=== PATIENT | female | born 1950 | race Caucasian/White ===

== ENCOUNTER 2020-07-19 07:49 | Outpatient (REF) | payer MEDICARE, OTHER, SELFPAY ==
--- NOTE | 2020-07-19 | MM_ITS ---
EXAMINATION: MM SCREENING DIGITAL BREAST TOMOSYNTHESIS, BILATERAL CLINICAL INFORMATION: Screening. Asymptomatic. The lifetime risk of breast cancer based on the Tyrer-Cuzick Model is 7%. COMPARISON: Mammography: 07/15/2019, 06/24/2018, 04/25/2017 TECHNIQUE: Digital breast tomosynthesis is performed in both the craniocaudal and mediolateral oblique views along with computer-aided detection (CAD). Synthesized 2D images are generated from the tomosynthesis. Additional left MLO view is provided. FINDINGS: There are scattered areas of fibroglandular density (ACR BI-RADS breast composition Category b). There are no significant masses, abnormal calcifications, or other abnormalities. Breast tissue composition borders on predominantly fatty. Background fibroglandular densities are stable. There are no significant changes. IMPRESSION: No mammographic evidence of malignancy. ASSESSMENT: BI-RADS 1: Negative RECOMMENDATION: Routine annual mammography screening. This patient's information was entered into a reminder system with a target due date for their next mammogram.
== END 2020-07-19 07:50 | disposition home or self-care (01) ==
LOC: HO.MAMMO 07:49
PROVIDERS: PCP Internal Medicine; Visit Provider Internal Medicine
DX: Z12.31 Encounter for screening mammogram for malignant neoplasm of breast (principal)
CPT/HCPCS: 77063; 77067; 78014

== ENCOUNTER 2020-08-31 14:48 | Outpatient (REF) | payer MEDICARE, OTHER, SELFPAY | END 2020-08-31 14:49 | disposition home or self-care (01) | LOC: HO.LNP 14:48 | PROVIDERS: Visit Provider Internal Medicine | DX: Z20.828 Contact with and (suspected) exposure to other viral communicable diseases (principal) | CPT/HCPCS: U0003 ==

== ENCOUNTER 2020-11-14 15:37 | Outpatient (REF) | payer MEDICARE, OTHER, SELFPAY ==
[2020-11-14 16:29] LABS: Influenza A PCR NEGATIVE (Negative); Influenza B PCR NEGATIVE (Negative); Resp Syncy Virus RNA Qual PCR NEGATIVE (Negative); SARS COV2 PCR INHOUSE NEGATIVE (Negative)
== END 2020-11-14 15:38 | disposition home or self-care (01) ==
LOC: HO.LNP 15:37
PROVIDERS: Visit Provider Internal Medicine
DX: Z20.822 Contact with and (suspected) exposure to COVID-19 (principal)
CPT/HCPCS: 0241U

== ENCOUNTER 2020-11-28 14:57 | Outpatient (REF) | payer MEDICARE, OTHER, SELFPAY ==
[2020-11-28 15:16] LABS: MANUAL DIFF FLAG NO
[2020-11-28 15:20] LABS: Basophils Absolute Auto 0.1 X10*3/uL (0.0-0.2); Basophils Percent Auto 0.6 % (0-2); Eosinophils Absolute Auto 0.3 X10*3/uL (0.0-0.4); Hematocrit 42.1 % (37-47); Hemoglobin 13.8 g/dl (12.0-16.0); Imm Gran Abs Auto 0.03 X10*3/uL (0.00-0.03); Imm Gran Pct Auto 0.3 % (0.0-0.4); Lymphocytes Absolute Auto 2.1 X10*3/uL (1.2-4.9); Lymphocytes Percent Auto 23.5 % (20-40); Mean Corpuscular HGB Conc 32.8 g/dl (31.0-35.0); Mean Corpuscular Hemoglobin 27.9 pg (27.0-33.0); Mean Corpuscular Volume 85.1 fL (80-98); Mean Platelet Volume 9.6 fL (9.4-12.3); Monocytes Absolute Auto 0.7 X10*3/uL (0.1-1.2); Monocytes Percent Auto 7.3 % (2-11); Neutrophils Absolute Auto 5.8 X10*3/uL (2.0-8.3); Neutrophils Percent Auto 65.3 % (45-73); Platelet Count 357 X10*3/uL (160-400); Red Blood Count 4.95 X10*6/uL (4.20-5.50); Red Cell Distribution Width 14.7 % (11.0-16.0); White Blood Count 8.9 X10*3/uL (4.8-10.8)
[2020-11-28 15:47] LABS: Alanine Aminotransferase 27 U/L (0-31); Albumin Level 4.1 g/dL (3.5-5.0); Alkaline Phosphatase 103 U/L (39-117); Anion Gap 11 (12-20); Aspartate Amino Transferase 24 U/L (5-31); Bilirubin Total 1.1 mg/dL (0.0-1.0); Blood Urea Nitrogen 12 mg/dL (9-16); Calcium 9.3 mg/dL (8.4-10.2); Carbon Dioxide 27 mmol/L (22-29); Chloride 105 mmol/L (96-108); Estimated Glomerular Filt Rate > 60; Glucose Random 91 mg/dL (60-115); Potassium 4.4 mmol/L (3.3-5.1); Sodium 139 mmol/L (135-145)
[2020-11-28 16:07] LABS: Free T4 (Free Thyroxine) 1.02 ng/dL (0.71-1.85); Thyroid Stimulating Hormone 2.68 uIU/mL (0.32-4.0); Vitamin D 25-OH Total 26.8 ng/mL (>30)
[2020-11-28 16:16] LABS: Vitamin B12 1331 pg/mL (200-900)
== END 2020-11-28 14:58 | disposition home or self-care (01) ==
LOC: HO.LAB 14:57
PROVIDERS: PCP Internal Medicine; Visit Provider Internal Medicine
DX: I10 Essential (primary) hypertension (principal); E03.9 Hypothyroidism, unspecified; R60.9 Edema, unspecified; R20.0 Anesthesia of skin
CPT/HCPCS: 36415; 80053; 82306; 82607; 84439; 84443; 85025

== ENCOUNTER → 2021-05-01 08:59 | Outpatient (BNVA) | payer MEDICARE, OTHER, SELFPAY | PROVIDERS: PCP Internal Medicine; Visit Provider Nurse Practitioner | DX: Z13.89 Encounter for screening for other disorder (principal) | CPT/HCPCS: Q3014 ==

== ENCOUNTER 2021-05-21 13:59 | Outpatient (REF) | payer MEDICARE, OTHER, SELFPAY ==
[2021-05-21 14:47] LABS: MANUAL DIFF FLAG NO
[2021-05-21 14:50] LABS: Basophils Percent Auto 0.4 % (0-2); Eosinophils Absolute Auto 0.3 X10*3/uL (0.0-0.4); Eosinophils Percent Auto 3.1 % (0-4); Hematocrit 43.6 % (37-47); Imm Gran Abs Auto 0.03 X10*3/uL (0.00-0.03); Imm Gran Pct Auto 0.4 % (0.0-0.4); Lymphocytes Absolute Auto 1.8 X10*3/uL (1.2-4.9); Lymphocytes Percent Auto 22.3 % (20-40); Mean Corpuscular HGB Conc 32.1 g/dl (31.0-35.0); Mean Corpuscular Hemoglobin 27.3 pg (27.0-33.0); Mean Platelet Volume 9.8 fL (9.4-12.3); Monocytes Absolute Auto 0.6 X10*3/uL (0.1-1.2); Monocytes Percent Auto 7.9 % (2-11); Neutrophils Absolute Auto 5.4 X10*3/uL (2.0-8.3); Neutrophils Percent Auto 65.9 % (45-73); Platelet Count 378 X10*3/uL (160-400); Red Blood Count 5.13 X10*6/uL (4.20-5.50); Red Cell Distribution Width 14.7 % (11.0-16.0); White Blood Count 8.1 X10*3/uL (4.8-10.8)
[2021-05-21 14:58] LABS: Estimated Average Glucose 126 mg/dL; Hemoglobin A1C 151.1933 umol/L
[2021-05-21 15:17] LABS: Alanine Aminotransferase 22 U/L (0-31); Albumin Level 4.1 g/dL (3.5-5.0); Alkaline Phosphatase 110 U/L (39-117); Anion Gap 15 (12-20); Aspartate Amino Transferase 21 U/L (5-31); Bilirubin Total 0.5 mg/dL (0.0-1.0); Blood Urea Nitrogen 14 mg/dL (9-16); Calcium 9.4 mg/dL (8.4-10.2); Carbon Dioxide 25 mmol/L (22-29); Chloride 104 mmol/L (96-108); Estimated Glomerular Filt Rate > 60; Glucose Random 101 mg/dL (60-115); Potassium 5.2 mmol/L (3.3-5.1); Sodium 139 mmol/L (135-145)
[2021-05-21 15:41] LABS: T4 Thyroxine 6.6 ug/dL (4.5-12.0); Thyroid Stimulating Hormone 2.54 uIU/mL (0.32-4.0); Vitamin D 25-OH Total 27.4 ng/mL (>30)
== END 2021-05-21 14:00 | disposition home or self-care (01) ==
LOC: HO.LAB 13:59
PROVIDERS: PCP Internal Medicine; Visit Provider Internal Medicine
DX: E03.9 Hypothyroidism, unspecified (principal); E55.9 Vitamin D deficiency, unspecified; R73.03 Prediabetes
CPT/HCPCS: 36415; 80053; 82306; 83036; 84436; 84443; 85025

== ENCOUNTER 2021-06-05 09:35 | Day surgery (SDC) | payer MEDICARE, OTHER, SELFPAY ==
--- NOTE | 2021-06-04 10:25 | P.CONAN_ITS ---
Documented by User: Etta Zaman NP 06/08/21 12:38 HPI - Anesthesia Eval Consult details Narrative: 70yo F for Colonoscopy *Multiple Allergies* PMFSH Active Problems Active Problems: All Active Problems (Updated 05/01/21 @ 09:31 by DEVANG Morgan) Lumbosacral spondylosis without myelopathy (Acute) Carpal tunnel syndrome (Acute) Sleep apnea (Acute) NAFL (nonalcoholic fatty liver) (Acute) Hypothyroidism (Acute) Family history of colon cancer (Acute) Irritable bowel syndrome with diarrhea (Acute) Past Medical History Medical History Carpal tunnel syndrome Hypothyroidism Irritable bowel syndrome with diarrhea Lumbosacral spondylosis without myelopathy NAFL (nonalcoholic fatty liver) Sleep apnea Family History Family History Father Colon cancer Maternal Aunt Colon cancer Paternal Aunt Breast cancer Maternal Aunt Colon cancer Surgical History Surgical History H/O bilateral oophorectomy H/O hernia repair H/O tubal ligation History of bladder surgery History of laparoscopic appendectomy History of removal of laparoscopic gastric banding device History of thumb surgery Hx laparoscopic cholecystectomy Hx of colonoscopy Hx of laparoscopic gastric banding Hx of vaginal hysterectomy IGTN (ingrowing toe nail) S/P panniculectomy Social History Social History Household Members: Spouse Patient Tobacco Use Status: Never used Tobacco Use of substances other than those prescribed or required for medical reasons: No Are you DNR?: No Advance Directives: No Advance Directives Information Provided: Yes Meds Allergies Allergy/AdvReac Type Severity Reaction Status Date / Time Penicillins Allergy Intermediate HIVES, Verified 06/05/21 09:41 ANAPHYLAXIS Beef Containing Products Allergy Mild INFLAMMATIO Verified 06/05/21 09:41 [BEEF CONTAINING PRODUCTS] N caffeine [CAFFEINE] Allergy Mild UNKNOWN Verified 06/05/21 09:41 Iodinated Contrast Media Allergy Mild RASH Verified 06/05/21 09:41 [IV CONTRAST] lactose [LACTOSE] Allergy Mild STOMACH Verified 06/05/21 09:41 PAIN,DIARRHEA nut - unspecified [nut] Allergy Mild UNKNOWN Verified 06/05/21 09:41 orange Allergy Mild GEOGRAPHIC Verified 06/05/21 09:41 TONGUE oxycodone [Percocet] Allergy Mild unknown Verified 06/05/21 09:41 penicillin G Allergy Mild unknown Verified 06/05/21 09:41 penicillin V Allergy Mild unknown Verified 06/05/21 09:41 Pork/Porcine Containing Allergy Mild INFLAMMATIO Verified 06/05/21 09:41 Products N,PAIN [PORK/PORCINE CONTAINING PRODUCTS] Sulfa (Sulfonamide Allergy Mild DIARRHEA,VO Verified 06/05/21 09:41 Antibiotics) MITING [SULFA (SULFONAMIDE ANTIBIOTICS)] acetaminophen [Percocet] Allergy Unknown unknown Verified 06/05/21 09:41 Home Medications Medication Instructions Recorded Confirmed Last Taken Type levothyroxine 25 mcg capsule 25 mcg PO DAILY 05/01/21 05/01/21 06/05/21 04:30 History melatonin 10 mg capsule 10 mg PO BEDTIME PRN 05/01/21 05/01/21 Unknown History Exam Exam Date and Time: June 04, 2021 102 Pertinent Lab Results Pertinent Lab Results: Laboratory Tests 05/21/21 05/21/21 14:18 14:18 WBC 8.1 Hgb 14.0 Hct 43.6 Plt Count 378 Sodium 139 Potassium 5.2 H Chloride 104 Carbon Dioxide 25 BUN 14 Creatinine 0.86 Assessment and Plan Assessment Anesthesia Assessment: Chart Reviewed Documented by User: Sheldon Rivera MD 06/09/21 06:52 [facility] Past Medical History Medical History Carpal tunnel syndrome Hypothyroidism Irritable bowel syndrome with diarrhea Lumbosacral spondylosis without myelopathy NAFL (nonalcoholic fatty liver) Sleep apnea Family History Family History Father Colon cancer Maternal Aunt Colon cancer Paternal Aunt Breast cancer Maternal Aunt Colon cancer Family history of problems with anesthesia: No Surgical History Surgical History H/O bilateral oophorectomy H/O hernia repair H/O tubal ligation History of bladder surgery History of laparoscopic appendectomy History of removal of laparoscopic gastric banding device History of thumb surgery Hx laparoscopic cholecystectomy Hx of colonoscopy Hx of laparoscopic gastric banding Hx of vaginal hysterectomy IGTN (ingrowing toe nail) S/P panniculectomy History of Problems with Anesthesia: No Social History Social History Household Members: Spouse Patient Tobacco Use Status: Never used Tobacco Use of substances other than those prescribed or required for medical reasons: No Are you DNR?: No Advance Directives: No Advance Directives Information Provided: Yes Meds Allergies Allergy/AdvReac Type Severity Reaction Status Date / Time Penicillins Allergy Intermediate HIVES, Verified 06/05/21 09:41 ANAPHYLAXIS Beef Containing Products Allergy Mild INFLAMMATIO Verified 06/05/21 09:41 [BEEF CONTAINING PRODUCTS] N caffeine [CAFFEINE] Allergy Mild UNKNOWN Verified 06/05/21 09:41 Iodinated Contrast Media Allergy Mild RASH Verified 06/05/21 09:41 [IV CONTRAST] lactose [LACTOSE] Allergy Mild STOMACH Verified 06/05/21 09:41 PAIN,DIARRHEA nut - unspecified [nut] Allergy Mild UNKNOWN Verified 06/05/21 09:41 orange Allergy Mild GEOGRAPHIC Verified 06/05/21 09:41 TONGUE oxycodone [Percocet] Allergy Mild unknown Verified 06/05/21 09:41 penicillin G Allergy Mild unknown Verified 06/05/21 09:41 penicillin V Allergy Mild unknown Verified 06/05/21 09:41 Pork/Porcine Containing Allergy Mild INFLAMMATIO Verified 06/05/21 09:41 Products N,PAIN [PORK/PORCINE CONTAINING PRODUCTS] Sulfa (Sulfonamide Allergy Mild DIARRHEA,VO Verified 06/05/21 09:41 Antibiotics) MITING [SULFA (SULFONAMIDE ANTIBIOTICS)] acetaminophen [Percocet] Allergy Unknown unknown Verified 06/05/21 09:41 Home Medications Medication Instructions Recorded Confirmed Last Taken Type levothyroxine 25 mcg capsule 25 mcg PO DAILY 05/01/21 05/01/21 06/05/21 04:30 History melatonin 10 mg capsule 10 mg PO BEDTIME PRN 05/01/21 05/01/21 Unknown History Assessment and Plan Assessment Anesthesia Assessment: Anesthesia Plan Discussed Final Anesthetic Review Family History of Problems with Anesthesia: No History of Problems with Anesthesia: No NPO: Yes ASA Class: III Final Preanesthetic Review: No Changes in Pt Med Stat, Meds/Allgs Chart Reviewed, Consent Obtained/Reviewed and Anes Risks/Benef Reviewed Patient Risk: Low Procedure Risk: Low Anesthetic Plan Anesthetic Plan: MAC: Disposition: Standard PACU
[2021-06-05 09:42] VITALS: BMI 42.4
[2021-06-05 09:49] VITALS: BP 147/77; PULSE 86; RESP 16; TEMP 37; O2SAT 96
--- NOTE | 2021-06-05 10:15 | MHC.SHP ---
Pre-Procedural Eval Section A Date of Service: 06/05/21 The patient is an INPATIENT: No The History & Physical has been completed within 30 days and I have reviewed it.: No Section B Chief Complaint: Family hx of malignant neoplasm Details of Present Illness: Colon cancer screening, IBS with diarrhea, family history of colon cancer Relevant Family History (Specify if Yes): Yes Present Medications: see Short Stay Collaborative assessment Medical History: Significant History (Fatty liver, IBS with diarrhea) History of Previous Operations: Relevant previous surgery/procedure and date(s) (H/O bilateral oophorectomy H/O hernia repair H/O tubal ligation History of bladder surgery History of laparoscopic appendectomy History of removal of laparoscopic gastric banding device History of thumb surgery Hx laparoscopic cholecystectomy Hx of colonoscopy Hx of laparoscopic gastric banding Hx o) Allergies: Allergies Allergy/AdvReac Type Severity Reaction Status Date / Time Penicillins Allergy Intermediate HIVES, Verified 06/05/21 09:41 ANAPHYLAXIS Beef Containing Products Allergy Mild INFLAMMATIO Verified 06/05/21 09:41 [BEEF CONTAINING PRODUCTS] N caffeine [CAFFEINE] Allergy Mild UNKNOWN Verified 06/05/21 09:41 Iodinated Contrast Media Allergy Mild RASH Verified 06/05/21 09:41 [IV CONTRAST] lactose [LACTOSE] Allergy Mild STOMACH Verified 06/05/21 09:41 PAIN,DIARRHEA nut - unspecified [nut] Allergy Mild UNKNOWN Verified 06/05/21 09:41 orange Allergy Mild GEOGRAPHIC Verified 06/05/21 09:41 TONGUE oxycodone [Percocet] Allergy Mild unknown Verified 06/05/21 09:41 penicillin G Allergy Mild unknown Verified 06/05/21 09:41 penicillin V Allergy Mild unknown Verified 06/05/21 09:41 Pork/Porcine Containing Allergy Mild INFLAMMATIO Verified 06/05/21 09:41 Products N,PAIN [PORK/PORCINE CONTAINING PRODUCTS] Sulfa (Sulfonamide Allergy Mild DIARRHEA,VO Verified 06/05/21 09:41 Antibiotics) MITING [SULFA (SULFONAMIDE ANTIBIOTICS)] acetaminophen [Percocet] Allergy Unknown unknown Verified 06/05/21 09:41 Review of Systems Sugical H&P ROS: Negative: Constitution, Cardiovascular and Respiratory and Yes, Specify: Gastrointestinal (diarrhea) Exam Surgical H&P Exam: Normal: Heart, Normal: Lungs, Normal: Extremities and Normal: Abdomen Plan Diagnosis/Plan: Unchanged I have reviewed the history and physical and performed a pertinent physical examination on my patient. No changes have occurred unless specified.
[2021-06-05] MEDS: Lactated Ringers 1,000 ML 100 ML IVCONT (10:18)
--- NOTE | 2021-06-05 10:56 | P.BOP_ITS ---
Brief Operative Note Date of Service: 06/05/21 Pre-op diagnosis: Colon cancer screening, family history of colon cancer (Dad in his 60's and Maternal aunt in her 70's), IBS with diarrhea Post-op diagnosis: other (Colon polyps, diverticulosis) Procedure: COLONOSCOPY TILL CECUM WITH BIOPSIES AND SNARE POLYPECTOMY Consent: Indications for the procedure and potential complications of bleeding, perforation, reaction to medications and missed diagnosis were discussed with the patient and informed consent was obtained. Instrument: Olympus PCF H 190 L variable stiffness pediatric colonoscope Monitoring: Vital signs and clinical assessment, intermittent blood pressure monitoring, continuous EKG monitoring, Pulse oximetry and Carbon Dioxide monitoring were done throughout the procedure. Colon withdrawl time was 19 minutes. Procedure: The patient was placed in the left lateral decubitis position and pre-procedure medications were administered. After a digital rectal examination of the ano-rectum, the video colonoscope was inserted into the rectum and advanced through the colon to the cecum. The colonoscope was slowly withdrawn in a retrograde panoramic fashion and the colon mucosa was carefully examined including a retroflexed view of the rectum. Findings and interventions are described below. Procedure Difficulty: Without difficulty Findings: Terminal Ileum: Not evaluated Cecum: Normal Ascending Colon: A 7-8 mm sessile polyp removed with a cold snare and polyp was not retrieved Transverse Colon: A 7-8 mm sessile polyp removed with the cold snare Descending Colon: Normal Sigmoid Colon: Moderate diverticulosis Rectum: Normal Ano-rectum: Normal Colon preparation: Excellent Impression and Post Procedure Diagnosis: Colonoscopy Findings: Two small polyps removed Moderate diverticulosis seen in the sigmoid colon Plan: Await pathology results Patient has an appointment on 06/26/21 in the [facility] with Ekaterina Meek NP . Repeat Colonoscopy interval based on path results - in 5 years if polyps are adenomatous and due to positive family history of colon cancer. Above findings were reviewed with the patient and colon polyps and diverticulosis handouts were given in the discharge area Surgeon: Anam Ryan MD Was an Mainframe Systems Programmer used for this Procedure?: Yes Mainframe Systems Programmer: Nimisha Donis Estimated blood loss (mL): 0 Pathology: other (a. random colon bxs r/o microscopic colitis b. transverse colon polyp) Condition: stable Disposition: PACU
[2021-06-05 11:00] VITALS: BP 121/75; PULSE 93; RESP 16; TEMP 36.4; O2SAT 98
--- NOTE | 2021-06-05 11:00 | P.OP_ITS ---
Operative Note Operative Note Date of Service: 06/05/21 Narrative: Pre-op diagnosis:?Colon cancer screening, family history of colon cancer (Dad in his 60's and Maternal aunt in her 70's), IBS with diarrhea Post-op diagnosis:?other (Colon polyps, diverticulosis) Procedure:? COLONOSCOPY TILL CECUM WITH BIOPSIES AND SNARE POLYPECTOMY Consent: Indications for the procedure and potential complications of bleeding, perforation, reaction to medications and missed diagnosis were discussed with the patient and informed consent was obtained. Instrument: Olympus PCF H 190 L variable stiffness pediatric colonoscope Monitoring: Vital signs and clinical assessment, intermittent blood pressure monitoring, continuous EKG monitoring, Pulse oximetry and Carbon Dioxide monitoring were done throughout the procedure. Colon withdrawl time was 19 minutes. Procedure: The patient was placed in the left lateral decubitis position and pre-procedure medications were administered. After a digital rectal examination of the ano-rectum, the video colonoscope was inserted into the rectum and advanced through the colon to the cecum. The colonoscope was slowly withdrawn in a retrograde panoramic fashion and the colon mucosa was carefully examined including a retroflexed view of the rectum. Findings and interventions are described below. Procedure Difficulty: Without difficulty Findings: Terminal Ileum: Not evaluated Cecum:? Normal Ascending Colon:? A 7-8 mm sessile polyp removed with a cold snare and polyp was not retrieved Transverse Colon:? A 7-8 mm sessile polyp removed with the cold snare Descending Colon:? Normal Sigmoid Colon:? Moderate diverticulosis Rectum:? Normal Ano-rectum:? Normal Colon preparation: Excellent ? Impression and Post Procedure Diagnosis: Colonoscopy Findings: Two small polyps removed Moderate diverticulosis seen in the sigmoid colon Plan: Await pathology results Patient has an appointment on 06/26/21 in the GI Clinic with? Ekaterina Meek NP? . Repeat Colonoscopy interval based on path results - in 5 years if polyps are adenomatous and due to positive family history of colon cancer. Above findings were reviewed with the patient and colon polyps and diverticulosis handouts were given in the discharge area Surgeon:?Anam Ryan MD Was an Executive Administrative Assistant used for this Procedure?:?Yes Executive Administrative Assistant:?Nimisha Donis Estimated blood loss (mL):?0 Pathology:?other (a. random colon bxs ? r/o microscopic colitis? b. transverse colon polyp) Condition:?stable Disposition:?PACU
[2021-06-05 11:15] VITALS: BP 144/78; PULSE 81; RESP 16; TEMP 36.4; O2SAT 96
== END 2021-06-05 12:06 | disposition home or self-care (01) ==
PROVIDERS: PCP Internal Medicine; Visit Provider Internal Medicine Gastroenterology
PROC: 0DJD8ZZ Inspection of Lower Intestinal Tract, Via Natural or Artificial Opening Endoscopic (ICD-10-PCS; CPT 45378; principal; 2021-06-05 10:40)
DX: Z12.11 Encounter for screening for malignant neoplasm of colon (principal); Z80.0 Family history of malignant neoplasm of digestive organs; D12.3 Benign neoplasm of transverse colon; K57.30 Diverticulosis of large intestine without perforation or abscess without bleeding; K58.0 Irritable bowel syndrome with diarrhea; K76.0 Fatty (change of) liver, not elsewhere classified; Z79.899 Other long term (current) drug therapy; Z98.84 Bariatric surgery status; Z90.49 Acquired absence of other specified parts of digestive tract; Z88.0 Allergy status to penicillin; Z88.2 Allergy status to sulfonamides; Z91.041 Radiographic dye allergy status; Z88.8 Allergy status to other drugs, medicaments and biological substances
CPT/HCPCS: 45385; 45380; 88305

== ENCOUNTER 2021-06-26 11:25 | Outpatient (REF) | payer MEDICARE, OTHER, SELFPAY ==
[2021-06-26 18:45] LABS: Appearance Urine CLEAR; Color Urine YELLOW; Glucose Urine UA NEG (NEG); Leukocyte Esterase Urine 1+ (NEG); Nitrite Urine NEG (NEG); UACC Culture Trigger YES; Urine Blood TRACE (NEG); Urine Ketones NEG (NEG); Urine Protein NEG (NEG-TRACE)
[2021-06-26 19:19] LABS: Bacteria Urine 1+ /LPF; Squamous Epithelial Cell Urine 1+ /LPF
[2021-06-26 19:20] LABS: WBC Urine 0-2 /HPF (0-4)
== END 2021-06-26 11:26 | disposition home or self-care (01) ==
LOC: HO.LAB 11:25
PROVIDERS: PCP Internal Medicine; Visit Provider Nurse Practitioner
DX: K58.0 Irritable bowel syndrome with diarrhea (principal); R35.0 Frequency of micturition; Z79.899 Other long term (current) drug therapy; Z80.0 Family history of malignant neoplasm of digestive organs
CPT/HCPCS: 81001; 87086; 99212

== ENCOUNTER 2021-07-19 11:08 | Outpatient (REF) | payer MEDICARE, OTHER, SELFPAY ==
[2021-07-19 11:41] LABS: MANUAL DIFF FLAG NO
[2021-07-19 12:06] LABS: Basophils Absolute Auto 0.1 X10*3/uL (0.0-0.2); Basophils Percent Auto 0.5 % (0-2); Eosinophils Absolute Auto 0.2 X10*3/uL (0.0-0.4); Eosinophils Percent Auto 2.4 % (0-4); Hematocrit 45.4 % (37-47); Hemoglobin 14.5 g/dl (12.0-16.0); Imm Gran Abs Auto 0.03 X10*3/uL (0.00-0.03); Imm Gran Pct Auto 0.3 % (0.0-0.4); Lymphocytes Percent Auto 20.9 % (20-40); Mean Corpuscular HGB Conc 31.9 g/dl (31.0-35.0); Mean Corpuscular Volume 84.5 fL (80-98); Mean Platelet Volume 9.7 fL (9.4-12.3); Monocytes Absolute Auto 0.7 X10*3/uL (0.1-1.2); Monocytes Percent Auto 7.7 % (2-11); Neutrophils Absolute Auto 6.5 X10*3/uL (2.0-8.3); Neutrophils Percent Auto 68.2 % (45-73); Platelet Count 380 X10*3/uL (160-400); Red Blood Count 5.37 X10*6/uL (4.20-5.50); Red Cell Distribution Width 14.6 % (11.0-16.0); White Blood Count 9.5 X10*3/uL (4.8-10.8)
[2021-07-19 12:23] LABS: Blood Urea Nitrogen 15 mg/dL (9-16); Estimated Glomerular Filt Rate > 60
[2021-07-19 14:30] LABS: Appearance Urine CLEAR; Color Urine YELLOW; Glucose Urine UA NEG (NEG); Leukocyte Esterase Urine 1+ (NEG); Nitrite Urine NEG (NEG); UACC Culture Trigger YES; Urine Blood NEG (NEG); Urine Ketones NEG (NEG); Urine Protein NEG (NEG-TRACE)
[2021-07-19 15:09] LABS: Bacteria Urine TRACE /LPF; Mucus Urine 1+ /LPF; RBC Urine 0 /HPF (0); Squamous Epithelial Cell Urine 1+ /LPF
== END 2021-07-19 11:09 | disposition home or self-care (01) ==
LOC: HO.LAB 11:08
PROVIDERS: PCP Internal Medicine; Visit Provider Nurse Practitioner
DX: K58.0 Irritable bowel syndrome with diarrhea (principal); R35.0 Frequency of micturition
CPT/HCPCS: 36415; 81001; 82565; 84520; 85025; 87086

== ENCOUNTER 2021-07-20 12:09 | Outpatient (REF) | payer MEDICARE, OTHER, SELFPAY | END 2021-07-20 12:10 | disposition home or self-care (01) | LOC: HO.LNP 12:09 | PROVIDERS: Visit Provider Nurse Practitioner | DX: K58.0 Irritable bowel syndrome with diarrhea (principal) | CPT/HCPCS: 87045; 87046 ==

== ENCOUNTER → 2021-07-24 08:29 | Outpatient (BNVA) | payer MEDICARE, OTHER, SELFPAY | PROVIDERS: Visit Provider Nurse Practitioner | DX: K58.0 Irritable bowel syndrome with diarrhea (principal); K62.5 Hemorrhage of anus and rectum; R10.9 Unspecified abdominal pain; R19.7 Diarrhea, unspecified; Z80.0 Family history of malignant neoplasm of digestive organs | CPT/HCPCS: Q3014 ==

== ENCOUNTER 2021-07-27 12:24 | Outpatient (REF) | payer MEDICARE, OTHER, SELFPAY ==
[2021-07-27 13:23] LABS: C Reactive Protein 1.47 mg/dL (< or = 0.50)
[2021-07-27 17:53] LABS: Appearance Urine CLEAR; Color Urine YELLOW; Glucose Urine UA NEG (NEG); Leukocyte Esterase Urine 1+ (NEG); Nitrite Urine NEG (NEG); PH 6.5 (5.0-8.0); UACC Culture Trigger YES; Urine Blood NEG (NEG); Urine Ketones NEG (NEG); Urine Protein NEG (NEG-TRACE)
[2021-07-27 18:03] LABS: Bacteria Urine 2+ /LPF; RBC Urine 0-2 /HPF (0); Squamous Epithelial Cell Urine TRACE /LPF
[2021-07-30 15:22] LABS: Gliadin Deamidated IgA Ab <1.0 U/mL; Gliadin Deamidated IgG Ab <1.0 U/mL; Transglutaminase Ab IgG 1.4 U/mL; Transglutaminase IgA <1.0 U/mL
== END 2021-07-27 12:25 | disposition home or self-care (01) ==
LOC: HO.LAB 12:24
PROVIDERS: PCP Internal Medicine; Visit Provider Nurse Practitioner
DX: R19.7 Diarrhea, unspecified (principal); K62.5 Hemorrhage of anus and rectum; R35.0 Frequency of micturition
CPT/HCPCS: 36415; 81001; 81479; 82397; 83516; 83520; 86140; 87086; 88346; 88350

== ENCOUNTER 2021-07-28 11:12 | Outpatient (REF) | payer MEDICARE, OTHER, SELFPAY ==
[2021-07-28 12:41] LABS: CDiff Gene PCR POSITIVE (Negative)
[2021-07-28 13:49] LABS: CDIFF Internal ctrl Dots and bkg OK (V); CDiff Toxin Negative (Negative)
[2021-08-03 02:57] LABS: Calprotectin, Fecal 25 mcg/g
== END 2021-07-28 11:13 | disposition home or self-care (01) ==
LOC: HO.LNP 11:12
PROVIDERS: Visit Provider Nurse Practitioner
DX: R19.7 Diarrhea, unspecified (principal); K62.5 Hemorrhage of anus and rectum
CPT/HCPCS: 83993; 87324; 87493

== ENCOUNTER 2021-07-30 13:20 | Outpatient (REF) | payer MEDICARE, OTHER, SELFPAY ==
--- NOTE | ~2021-07-30 | MM_ITS ---
EXAMINATION: MM SCREENING DIGITAL BREAST TOMOSYNTHESIS, BILATERAL CLINICAL INFORMATION: Screening. Asymptomatic. The lifetime risk of breast cancer based on the Tyrer-Cuzick Model is 6%. COMPARISON: Mammography: 07/19/2020, 07/15/2019, 06/24/2018 TECHNIQUE: Digital breast tomosynthesis is performed in both the craniocaudal and mediolateral oblique views along with computer-aided detection (CAD). Synthesized 2D images are generated from the tomosynthesis. Additional left MLO view is provided. FINDINGS: There are scattered areas of fibroglandular density (ACR BI-RADS breast composition Category b). Right breast parenchymal pattern is stable. There is no developing density or interval mass or architectural abnormality. Neither breast shows abnormal calcifications. There is a biopsy clip marker again seen posterior 3:00 left breast. The bilateral axilla and skin contours are unremarkable. Left CC view has asymmetric density central outer aspect mid depth, not previously demonstrated. There is no definite correlate on MLO views. Patient will be recalled for additional imaging. MM/MM tomosynthesis screening BI IMPRESSION: 1. Left: Asymmetric density central outer aspect mid depth on CC view. 2. Right: No mammographic evidence of malignancy. ASSESSMENT: BI-RADS 0: Incomplete - Need Additional Imaging Evaluation RECOMMENDATION: 1. Additional views of the left breast (spot CC, rolled CC x2). 2. Targeted ultrasound if warranted after review of the additional views. 3. Radiology department staff will contact the patient for additional imaging. This patient's information was entered into a reminder system with a target due date for their next mammogram.
== END 2021-07-30 13:21 | disposition home or self-care (01) ==
LOC: HO.MAMMO 13:20
PROVIDERS: Visit Provider Internal Medicine
DX: Z12.31 Encounter for screening mammogram for malignant neoplasm of breast (principal)
CPT/HCPCS: 77063; 77067

== ENCOUNTER 2021-08-08 08:25 | Outpatient (REF) | payer MEDICARE, OTHER, SELFPAY ==
--- NOTE | ~2021-08-08 | US_ITS ---
EXAMINATION: US DIAGNOSTIC ULTRASOUND BREAST, LEFT CLINICAL INFORMATION: Density laterally. COMPARISON: 08/08/2021 and studies dating back to 04/19/2016. TECHNIQUE: Ultrasound of the breast is performed with real-time dc scale imaging and color Doppler. FINDINGS: There is no focal suspicious finding. There is no solid mass, architectural abnormality, duct ectasia, or edema in the soft tissue planes. The mammographic finding is not identified. Six-month followup left breast mammogram suggested. Results are discussed with the patient at time of visit. US/US breast LT limited IMPRESSION: Probable benign density left breast for which 6-month followup mammogram only is recommended. ASSESSMENT: BI-RADS 3: Probably Benign. RECOMMENDATION: Diagnostic mammography in 6 months. This patient's information was entered into a reminder system with a target due date for their next mammogram.
--- NOTE | ~2021-08-08 | MM_ITS ---
EXAMINATION: MM DIAGNOSTIC DIGITAL BREAST TOMOSYNTHESIS, LEFT US BREAST DIAGNOSTIC, LEFT CLINICAL INFORMATION: Left breast density. COMPARISON: Mammography: 07/30/2021 and studies dating back to 01/14/2012 TECHNIQUE: Digital breast tomosynthesis is performed. 2-D images are generated from the tomosynthesis. The following views are obtained: Spot compression craniocaudal view and rolled medial and lateral craniocaudal views of the left breast. Targeted left breast ultrasound. FINDINGS: The breasts are almost entirely fatty (ACR BI-RADS breast composition Category a). Additional views demonstrate the density to be less prominent and partially related to overlying vessels, however, there is some residual density present similar to some older images. Targeted left breast ultrasound did not demonstrate any suspicious abnormal or cystic masses or regions of abnormal distal sound shadowing. Recommend 6-month followup left breast mammogram only to ensure stability. Results are discussed with the patient at time of visit. MM/MM tomosynthesis added views L IMPRESSION: Left breast density laterally likely represents density with some superimposition of tissue for which 6-month followup study is suggested to ensure stability. ASSESSMENT: BI-RADS 3: Probably Benign. RECOMMENDATION: Diagnostic mammography in 6 months. This patient's information was entered into a reminder system with a target due date for their next mammogram.
== END 2021-08-08 08:26 | disposition home or self-care (01) ==
LOC: HO.MAMMO 08:25
PROVIDERS: Visit Provider Internal Medicine
DX: N64.89 Other specified disorders of breast (principal)
CPT/HCPCS: 76642; 77061; 77065

== ENCOUNTER 2021-08-17 11:40 | Outpatient (REF) | payer MEDICARE, OTHER, SELFPAY ==
[2021-08-17 12:46] LABS: Blood Urea Nitrogen 10 mg/dL (9-16); Estimated Glomerular Filt Rate > 60
== END 2021-08-17 11:41 | disposition home or self-care (01) ==
LOC: HO.LAB 11:40
PROVIDERS: PCP Internal Medicine; Visit Provider Internal Medicine Gastroenterology
DX: R10.9 Unspecified abdominal pain (principal)
CPT/HCPCS: 36415; 82565; 84520

== ENCOUNTER 2021-08-22 09:37 | Outpatient (REF) | payer MEDICARE, OTHER, SELFPAY ==
--- NOTE | ~2021-08-22 | CT_ITS ---
EXAMINATION: CT ABDOMEN AND PELVIS WITH CONTRAST CLINICAL INFORMATION: Irritable bowel syndrome. Diarrhea. COMPARISON: Previous CT of the abdomen and pelvis most recent November 2015 and ultrasound of the abdomen September 2019 TECHNIQUE: Multidetector volumetric images were obtained from the superior aspect of the liver through the pubic symphysis following administration 85 mL of Omnipaque 350 intravenous contrast. Sagittal and coronal reformatted images were obtained on the technologist's workstation. Oral contrast: Yes This CT examination was performed using dose optimization techniques as appropriate, variously including the following: *Automated exposure control *Adjustment of mA and/or kV according to patient size (this includes techniques or standardized protocols for targeted exams where dose is matched to indication/reason for exam; i.e. extremities or head) *Use of iterative reconstruction technique DLP: 592 mGy-cm FINDINGS: LUNG BASES: The visualized lung bases are unremarkable. LIVER, GALLBLADDER, AND BILIARY TREE: The liver is low in attenuation suggestive of fatty infiltration. No focal liver lesion or biliary duct dilatation. The gallbladder is been removed. PANCREAS: Unremarkable. SPLEEN: Unremarkable. ADRENAL GLANDS: Unremarkable. KIDNEYS AND URETERS: There are bilateral renal peripelvic cysts. No imaging follow-up needed. The kidneys are otherwise unremarkable. BLADDER: Not optimally distended. GASTROINTESTINAL TRACT: There is diverticulosis of the colon. Small and large bowel is otherwise unremarkable. No evidence of diverticulitis or colitis is seen. The appendix is not identified and may have been removed. ABDOMINAL WALL: There are postsurgical changes to the abdominal wall. No hernia is seen. LYMPH NODES: Normal. VASCULAR: Unremarkable. PELVIC VISCERA: Uterus has been removed. No pelvic mass is seen. OSSEOUS STRUCTURES: There are mild degenerative changes of the spine. CT/CT abdomen pelvis w con IMPRESSION: Diverticulosis of the colon. No evidence of diverticulitis or colitis. Fatty liver. Bilateral renal peripelvic cysts.
[2021-08-22] MEDS: iohexoL 350 MG/ML 100 ML INFUS..BTL IV (10:49)
== END 2021-08-22 09:38 | disposition home or self-care (01) ==
LOC: HO.CT 09:37
PROVIDERS: Visit Provider Nurse Practitioner
DX: R10.9 Unspecified abdominal pain (principal); K62.5 Hemorrhage of anus and rectum; K58.0 Irritable bowel syndrome with diarrhea
CPT/HCPCS: 74177; Q9967

== ENCOUNTER → 2021-08-28 16:15 | Outpatient (BNVA) | payer MEDICARE, OTHER, SELFPAY | PROVIDERS: PCP Internal Medicine; Visit Provider Nurse Practitioner | DX: Z13.89 Encounter for screening for other disorder (principal) | CPT/HCPCS: Q3014 ==

== ENCOUNTER → 2021-09-27 12:20 | Outpatient (BNVA) | payer MEDICARE, OTHER, SELFPAY | PROVIDERS: PCP Internal Medicine; Referring Provider Internal Medicine; Visit Provider Nurse Practitioner | DX: A04.72 Enterocolitis due to Clostridium difficile, not specified as recurrent (principal); R19.7 Diarrhea, unspecified; K62.5 Hemorrhage of anus and rectum; K58.0 Irritable bowel syndrome with diarrhea | CPT/HCPCS: 99212 ==

== ENCOUNTER → 2021-10-31 08:13 | Outpatient (BNVA) | payer MEDICARE, OTHER, SELFPAY | PROVIDERS: PCP Internal Medicine; Visit Provider Nurse Practitioner Gerontology | DX: R73.03 Prediabetes (principal); E66.09 Other obesity due to excess calories; E03.9 Hypothyroidism, unspecified; Z68.41 Body mass index [BMI] 40.0-44.9, adult | CPT/HCPCS: 99212 ==

== ENCOUNTER 2021-10-31 09:05 | Outpatient (REF) | payer MEDICARE, OTHER, SELFPAY ==
[2021-10-31 10:55] LABS: Estimated Average Glucose 120 mg/dL; Hemoglobin A1c % 5.8 %
[2021-10-31 11:15] LABS: Free T4 (Free Thyroxine) 0.94 ng/dL (0.71-1.85); Thyroid Stimulating Hormone 3.38 uIU/mL (0.32-4.0)
== END 2021-10-31 09:06 | disposition home or self-care (01) ==
LOC: HO.10HDL 09:05
PROVIDERS: Visit Provider Nurse Practitioner Gerontology
DX: E03.9 Hypothyroidism, unspecified (principal); R73.03 Prediabetes; E66.09 Other obesity due to excess calories; Z68.41 Body mass index [BMI] 40.0-44.9, adult
CPT/HCPCS: 36415; 83036; 84439; 84443; 99212

== ENCOUNTER → 2021-11-27 09:46 | Outpatient (BNVA) | payer MEDICARE, OTHER, SELFPAY | PROVIDERS: PCP Internal Medicine; Visit Provider Dietitian, Registered | DX: R73.03 Prediabetes (principal) | CPT/HCPCS: 97802 ==

== ENCOUNTER 2022-02-28 14:52 | Outpatient (REF) | payer MEDICARE, OTHER, SELFPAY ==
--- NOTE | ~2022-02-28 | MM_ITS ---
EXAMINATION: MM DIAGNOSTIC DIGITAL BREAST TOMOSYNTHESIS, LEFT CLINICAL INFORMATION: Short interval six-month follow-up left breast to exclude developing density central outer breast on CC view, no persistent abnormality noted on prior diagnostic exam. The lifetime risk of breast cancer based on the Tyrer-Cuzick Model is 4%. COMPARISON: Mammography: 08/08/2021, 07/30/2021 (BI-RADS 0), 07/19/2020, 07/15/2019, 06/24/2018 TECHNIQUE: Digital breast tomosynthesis is performed in both the craniocaudal and mediolateral oblique views along with computer-aided detection (CAD). Synthesized 2D images are generated from the tomosynthesis. Additional spot CC and rolled CC x2 views are obtained. FINDINGS: There are scattered areas of fibroglandular density (ACR BI-RADS breast composition Category b). There is fine fibronodular parenchymal pattern. The asymmetric density CC view central outer breast does not persist on the additional spot or rolled views. There is no developing density. No architectural abnormality. No significant changes from prior studies. Results are provided to the patient at time of visit by the technologist. MM/MM tomosynthesis diagnostic LT IMPRESSION: -No significant changes from prior studies. No developing density. ASSESSMENT: BI-RADS 2: Benign RECOMMENDATION: Routine annual mammography screening. This patient's information was entered into a reminder system with a target due date for their next mammogram.
== END 2022-02-28 14:53 | disposition home or self-care (01) ==
LOC: HO.MAMMO 14:52
PROVIDERS: PCP Internal Medicine; Visit Provider Internal Medicine
DX: R92.2 Inconclusive mammogram (principal)
CPT/HCPCS: 77061; 77065

== ENCOUNTER 2022-06-03 12:21 | Outpatient (REF) | payer MEDICARE, OTHER, SELFPAY ==
--- NOTE | ~2022-06-03 | XR_ITS ---
EXAMINATION: 1. RADIOGRAPHS RIGHT FOOT 2. RADIOGRAPHS LEFT FOOT CLINICAL INFORMATION: Osteoarthritis COMPARISON: Right foot x-rays May 21, 2019 TECHNIQUE: 3 views of each foot were obtained FINDINGS: Right foot: Bones of the midfoot are well aligned. No tarsal, metatarsal or phalangeal fracture. Mild degenerative changes of the first MTP joint and scattered IP joints. No focal soft tissue swelling of the right foot. Small posterior and plantar calcaneal enthesophytes. No gross ankle joint effusion. Left foot: Bones of the midfoot are well aligned. No tarsal, metatarsal or phalangeal fracture. Mild degenerative changes of the first MTP joint and scattered IP joints. No focal soft tissue swelling. No radiopaque foreign body. Small plantar and moderate sized posterior calcaneal enthesophytes. XR/XR foot RT min 3V IMPRESSION: Mild diffuse degenerative changes of both feet. No fracture.
--- NOTE | ~2022-06-03 | XR_ITS ---
EXAMINATION: 1. RADIOGRAPHS RIGHT FOOT 2. RADIOGRAPHS LEFT FOOT CLINICAL INFORMATION: Osteoarthritis COMPARISON: Right foot x-rays May 21, 2019 TECHNIQUE: 3 views of each foot were obtained FINDINGS: Right foot: Bones of the midfoot are well aligned. No tarsal, metatarsal or phalangeal fracture. Mild degenerative changes of the first MTP joint and scattered IP joints. No focal soft tissue swelling of the right foot. Small posterior and plantar calcaneal enthesophytes. No gross ankle joint effusion. Left foot: Bones of the midfoot are well aligned. No tarsal, metatarsal or phalangeal fracture. Mild degenerative changes of the first MTP joint and scattered IP joints. No focal soft tissue swelling. No radiopaque foreign body. Small plantar and moderate sized posterior calcaneal enthesophytes. XR/XR foot LT min 3V IMPRESSION: Mild diffuse degenerative changes of both feet. No fracture.
== END 2022-06-03 12:22 | disposition home or self-care (01) ==
LOC: HO.XRAY 12:21
PROVIDERS: PCP Internal Medicine; Visit Provider Internal Medicine
DX: M79.671 Pain in right foot (principal); M79.672 Pain in left foot
CPT/HCPCS: 73630

== ENCOUNTER 2022-06-04 07:46 | Outpatient (REF) | payer MEDICARE, OTHER, SELFPAY ==
[2022-06-04 08:07] LABS: MANUAL DIFF FLAG NO
[2022-06-04 08:31] LABS: Basophils Absolute Auto 0.1 X10*3/uL (0.0-0.2); Basophils Percent Auto 0.7 % (0-2); Eosinophils Absolute Auto 0.3 X10*3/uL (0.0-0.4); Eosinophils Percent Auto 3.3 % (0-4); Hemoglobin 13.9 g/dl (12.0-16.0); Imm Gran Abs Auto 0.02 X10*3/uL (0.00-0.03); Imm Gran Pct Auto 0.2 % (0.0-0.4); Lymphocytes Absolute Auto 1.8 X10*3/uL (1.2-4.9); Lymphocytes Percent Auto 21.8 % (20-40); Mean Corpuscular HGB Conc 33.1 g/dl (31.0-35.0); Mean Corpuscular Hemoglobin 27.6 pg (27.0-33.0); Mean Corpuscular Volume 83.5 fL (80.0-98.0); Mean Platelet Volume 9.9 fL (9.4-12.3); Monocytes Absolute Auto 0.6 X10*3/uL (0.1-1.2); Monocytes Percent Auto 7.8 % (2-11); Neutrophils Absolute Auto 5.4 x10*3/uL (2.0-8.3); Neutrophils Percent Auto 66.2 % (45-73); Platelet Count 360 X10*3/uL (160-400); Red Blood Count 5.03 X10*6/uL (4.20-5.50); Red Cell Distribution Width 14.6 % (11.0-16.0); White Blood Count 8.1 X10*3/uL (4.8-10.8)
[2022-06-04 09:07] LABS: Alanine Aminotransferase 20 U/L (0-31); Albumin Level 4.2 g/dL (3.5-5.0); Alkaline Phosphatase 98 U/L (39-117); Anion Gap 14 (12-20); Aspartate Amino Transferase 20 U/L (5-31); Blood Urea Nitrogen 15 mg/dL (9-16); Calcium 9.2 mg/dL (8.4-10.2); Carbon Dioxide 26 mmol/L (22-29); Chloride 103 mmol/L (96-108); Cholesterol 177 mg/dL; Estimated Glomerular Filt Rate > 60; Glucose Random 110 mg/dL (60-115); HDL Cholesterol 47 mg/dL; LDL Cholesterol Calculated 112 mg/dl; Potassium 4.8 mmol/L (3.3-5.1); Sodium 138 mmol/L (135-145); Total Protein 7.2 g/dL (6.5-8.0); Triglycerides 93 mg/dL
[2022-06-04 09:29] LABS: Free T4 (Free Thyroxine) 0.99 ng/dL (0.71-1.85); Thyroid Stimulating Hormone 3.03 uIU/mL (0.32-4.0); Vitamin D 25-OH Total 27.3 ng/mL (>30)
== END 2022-06-04 07:47 | disposition home or self-care (01) ==
LOC: HO.LAB 07:46
PROVIDERS: PCP Internal Medicine; Visit Provider Internal Medicine
DX: E03.9 Hypothyroidism, unspecified (principal); M19.90 Unspecified osteoarthritis, unspecified site; E55.9 Vitamin D deficiency, unspecified; K58.9 Irritable bowel syndrome, unspecified; M79.672 Pain in left foot
CPT/HCPCS: 36415; 80053; 80061; 82306; 84439; 84443; 85025

== ENCOUNTER 2022-08-09 08:39 | Outpatient (REF) | payer MEDICARE, OTHER, SELFPAY ==
--- NOTE | ~2022-08-09 | XR_ITS ---
EXAMINATION: XR KNEE STANDING, BILATERAL XR KNEE, LEFT XR KNEE, RIGHT CLINICAL INFORMATION: Pain in unspecified knee. COMPARISON: None TECHNIQUE: Bilateral standing radiographs of the knee and lateral and sunrise views of both knees were obtained. FINDINGS: Lstlluoe-xe-jolwvp degenerative changes in the knees, greatest in the medial tibiofemoral compartments and patellofemoral compartments. There are tricompartmental bulky marginal osteophytes. No joint effusion visualized. There is no fracture. Soft tissues unremarkable. Genu varus angulation bilaterally. XR/XR knee standing BI IMPRESSION: Frhprknf-wa-kryfco degenerative changes in the knees, greatest in the medial tibiofemoral compartments and patellofemoral compartments.
--- NOTE | ~2022-08-09 | XR_ITS ---
EXAMINATION: XR KNEE STANDING, BILATERAL XR KNEE, LEFT XR KNEE, RIGHT CLINICAL INFORMATION: Pain in unspecified knee. COMPARISON: None TECHNIQUE: Bilateral standing radiographs of the knee and lateral and sunrise views of both knees were obtained. FINDINGS: Itaygbkx-zd-muhhrr degenerative changes in the knees, greatest in the medial tibiofemoral compartments and patellofemoral compartments. There are tricompartmental bulky marginal osteophytes. No joint effusion visualized. There is no fracture. Soft tissues unremarkable. Genu varus angulation bilaterally. XR/XR knee RT 2V IMPRESSION: Bietnvny-yh-sdhjeg degenerative changes in the knees, greatest in the medial tibiofemoral compartments and patellofemoral compartments.
--- NOTE | ~2022-08-09 | XR_ITS ---
EXAMINATION: XR KNEE STANDING, BILATERAL XR KNEE, LEFT XR KNEE, RIGHT CLINICAL INFORMATION: Pain in unspecified knee. COMPARISON: None TECHNIQUE: Bilateral standing radiographs of the knee and lateral and sunrise views of both knees were obtained. FINDINGS: Fynebrad-vt-rzccma degenerative changes in the knees, greatest in the medial tibiofemoral compartments and patellofemoral compartments. There are tricompartmental bulky marginal osteophytes. No joint effusion visualized. There is no fracture. Soft tissues unremarkable. Genu varus angulation bilaterally. XR/XR knee LT 2V IMPRESSION: Drvmkqqo-du-akhysk degenerative changes in the knees, greatest in the medial tibiofemoral compartments and patellofemoral compartments.
== END 2022-08-09 08:40 | disposition home or self-care (01) ==
LOC: HO.HOSX 08:39
PROVIDERS: Visit Provider Orthopaedic Surgery
DX: M17.0 Bilateral primary osteoarthritis of knee (principal); M70.61 Trochanteric bursitis, right hip; M70.62 Trochanteric bursitis, left hip
CPT/HCPCS: 73560; 73565; 99212

== ENCOUNTER 2022-09-02 11:42 | Outpatient (REF) | payer MEDICARE, OTHER, SELFPAY ==
--- NOTE | ~2022-09-02 | MM_ITS ---
EXAMINATION: MM SCREENING DIGITAL BREAST TOMOSYNTHESIS, BILATERAL CLINICAL INFORMATION: Screening. Asymptomatic. The lifetime risk of breast cancer based on the Tyrer-Cuzick Model is 7%. COMPARISON: Mammography: 02/28/2022, 08/08/2021, 07/30/2021, 07/19/2020, 07/15/2019, 06/24/2018 TECHNIQUE: Digital breast tomosynthesis is performed in both the craniocaudal and mediolateral oblique views along with computer-aided detection (CAD). Synthesized 2D images are generated from the tomosynthesis. Additional right MLO view is provided. FINDINGS: There are scattered areas of fibroglandular density (ACR BI-RADS breast composition Category b). There are no significant masses, abnormal calcifications, or other abnormalities. Parenchymal pattern is similar to prior exams. No developing density or architectural abnormality. Biopsy clip marker again seen posterior 3:00 left breast. The axilla and skin contours are unremarkable. MM/MM tomosynthesis screening BI IMPRESSION: No mammographic evidence of malignancy. ASSESSMENT: BI-RADS 1: Negative RECOMMENDATION: Routine annual mammography screening. This patient's information was entered into a reminder system with a target due date for their next mammogram.
== END 2022-09-02 11:43 | disposition home or self-care (01) ==
LOC: HO.MAMMO 11:42
PROVIDERS: PCP Internal Medicine; Visit Provider Internal Medicine
DX: Z12.31 Encounter for screening mammogram for malignant neoplasm of breast (principal)
CPT/HCPCS: 77063; 77067

== ENCOUNTER 2022-09-17 08:00 | Outpatient (RCR) | payer MEDICARE, OTHER, SELFPAY ==
--- NOTE | 2022-10-17 08:13 | MHC.PT.DC ---
[facility] [place] Office [place] Office [place] Office [address] Joao Garcia [address] [phone] F: [phone] F: [phone] F: [phone] F: [phone] Physical Therapy Discharge Report Diagnosis: EMMA KNEE OA Date of Surgery: Date of Evaluation: 08/27/22 Date of Discharge: 09/19/22 Treatments to Date: 5 Cancellations to Date: 0 No Shows to Date: 1 Discharge Status: Patient Elected to Stop Discharge Summary: At last attended visit pt with cont, decreased knee ROM with gait, benefits from cuing to increase flexion and extension. Pt has been non-compliant with HEP and not performing any recommended activities outside of the clinic. She reports she has a very busy schedule and cannot make time outside of clinic for her therapy. Following last attended visit Pt phoned stating she has a busy schedule and family issues and self D/Raoul. Electronically signed by: Kristy Clarke PT, DPT Please sign and return to therapist. Thank you for your referral.
== END 2022-10-17 08:12 | disposition home or self-care (01) ==
LOC: HO.PT 08:00
PROVIDERS: PCP Internal Medicine; Visit Provider Orthopaedic Surgery
DX: M70.61 Trochanteric bursitis, right hip (principal); M70.62 Trochanteric bursitis, left hip; M17.0 Bilateral primary osteoarthritis of knee
CPT/HCPCS: 97110; 97162; 97530

== ENCOUNTER → 2022-09-25 09:05 | Outpatient (BNVA) | payer MEDICARE, OTHER, SELFPAY | PROVIDERS: PCP Internal Medicine; Visit Provider Anesthesiology | DX: G89.4 Chronic pain syndrome (principal); M47.816 Spondylosis without myelopathy or radiculopathy, lumbar region | CPT/HCPCS: 99202 ==

== ENCOUNTER 2022-10-22 05:53 | Outpatient (REF) | payer MEDICARE, OTHER, SELFPAY ==
--- NOTE | ~2022-10-22 | FL_ITS ---
EXAMINATION: XR FLUOROSCOPY WITH IMAGES CLINICAL INFORMATION: M47.816 - Spondylosis without myelopathy or radiculopathy, lumbar region COMPARISON: CT abdomen 08/22/2021 TECHNIQUE: Fluoroscopy Supervised By: Dr. Afshin Haro. Fluoroscopy Time: 0.6 minutes. Cumulative Dose: 15.4 mGy. DAP: 4.20 Gycm2. Images: 6. FINDINGS: There are spinal needles overlying the bilateral outer L3, L4, and L5 neural foramen. There is contrast seen in the respective nerve sheaths. Some early transforaminal epidural extension is suggested. There are mild multilevel vertebral body spurring. FL/FL guidance in treatment room IMPRESSION: Fluoroscopy for pain management procedures.
== END 2022-10-22 05:54 | disposition home or self-care (01) ==
LOC: CF 05:53
PROVIDERS: Visit Provider Anesthesiology
DX: M47.816 Spondylosis without myelopathy or radiculopathy, lumbar region (principal); G89.4 Chronic pain syndrome
CPT/HCPCS: 64493; 64494

== ENCOUNTER → 2022-10-24 08:08 | Outpatient (BNVA) | payer MEDICARE, OTHER, SELFPAY | PROVIDERS: PCP Internal Medicine; Visit Provider Anesthesiology | DX: M47.9 Spondylosis, unspecified (principal); M47.816 Spondylosis without myelopathy or radiculopathy, lumbar region; G89.4 Chronic pain syndrome | CPT/HCPCS: Q3014 ==

== ENCOUNTER → 2022-10-29 11:53 | Outpatient (BNVA) | payer MEDICARE, OTHER, SELFPAY | PROVIDERS: PCP Internal Medicine; Visit Provider Internal Medicine Endocrinology, Diabetes & Metabolism | DX: E03.9 Hypothyroidism, unspecified (principal); R73.03 Prediabetes | CPT/HCPCS: 99212 ==

== ENCOUNTER 2022-11-21 15:35 | Outpatient (REF) | payer MEDICARE, OTHER, SELFPAY ==
--- NOTE | ~2022-11-21 | XR_ITS ---
EXAMINATION: XR LUMBOSACRAL SPINE WITH OBLIQUES CLINICAL INFORMATION: Lower back pain. COMPARISON: None TECHNIQUE: AP, both oblique, and lateral views of the lumbar spine. Lateral view of the lumbosacral junction. FINDINGS: There is bony demineralization. There is a mild to moderate thoracolumbar levoscoliosis. There is moderate disc space narrowing at L1-L2. The remaining lumbar disc spaces are relatively well-maintained. No acute fracture or spondylolisthesis is seen. The posterior elements are intact. There is bilateral facet arthropathy at L5-S1. No spondylolysis defect is seen on the oblique views. Pelvic herniorrhaphy mesh and phleboliths are noted. There is no foreign body. XR/XR lumbar spine 4V min IMPRESSION: 1. There is a mild to moderate thoracolumbar levoscoliosis. 2. There is moderate degenerative disc disease at L1-L2. 3. There is multi-level lumbar spondylosis. 4. There is bilateral facet arthropathy at L5-S1.
== END 2022-11-21 15:36 | disposition home or self-care (01) ==
LOC: HO.XRAY 15:35
PROVIDERS: PCP Internal Medicine; Visit Provider Student in an Organized Health Care Education/Training Program
DX: M54.50 Low back pain, unspecified (principal)
CPT/HCPCS: 72110

== ENCOUNTER 2022-11-30 08:48 | Outpatient (REF) | payer MEDICARE, OTHER, SELFPAY ==
[2022-11-30 09:49] LABS: Appearance Urine Clear; Color Urine Yellow; Glucose Urine UA Negative (Negative); Leukocyte Esterase Urine Moderate (2+) (Negative); Nitrite Urine Negative (Negative); PH 5.5 (5.0-9.0); UMIC TRIGGER UACC YES; Urine Blood Trace (Negative); Urine Ketones Negative (Negative); Urine Protein Negative (Neg-Trace)
[2022-11-30 09:54] LABS: Bacteria Urine 4+ (None Seen); Hyaline Casts Urine 0-2 /LPF (0-2); RBC Urine 0-2 /HPF (0-2); UACC Culture Trigger YES; WBC Urine >50 /HPF (0-5)
== END 2022-11-30 08:49 | disposition home or self-care (01) ==
LOC: HO.LAB 08:48
PROVIDERS: PCP Internal Medicine; Visit Provider Internal Medicine
DX: R30.0 Dysuria (principal)
CPT/HCPCS: 81001; 87086

== ENCOUNTER 2022-12-04 13:48 | Outpatient (REF) | payer MEDICARE, OTHER, SELFPAY ==
[2022-12-05 13:34] LABS: BV Int Neg Control Negative (Negative); BV Int Pos Control Positive (Positive)
== END 2022-12-04 13:49 | disposition home or self-care (01) ==
LOC: HO.LNP 13:48
PROVIDERS: PCP Internal Medicine; Visit Provider Obstetrics & Gynecology
DX: N76.0 Acute vaginitis (principal)
CPT/HCPCS: 87480; 87510; 87660; 99202

== ENCOUNTER 2022-12-19 12:00 | Outpatient (RCR) | payer MEDICARE, OTHER, SELFPAY ==
--- NOTE | 2022-11-27 13:58 | MHC.PT.EP ---
[facility] [place] Office [place] Office [place] Office [address] Joao Garcia [address] [phone] F: [phone] F: [phone] F: [phone] F: [phone] Physical Therapy Plan of Care Date of Evaluation: Date of Surgery: N/A Diagnosis: spondylosis without myelopathy or radiculopathy (RC) Assessment: pt is a 71 y/o female presenting to physical therapy w/ referring diagnosis of M47.816 spondylosis without myelopathy or radiculopathy, lumbar region. pt did have pelvic floor evaluation scheduled for 12/19/22. This therapist also trained as a pelvic floor physical therapist so this plan of care will be transitioned into her pelvic floor treatment as well. I will refer to the order although based on pt's reports it sounds as though she is experiencing urinary incontinence and fecal incontinence. 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 I gave her the information [place] [facility] [place]. Impairments include pain, decreased range of motion, decreased strength, impaired functional mobility, impaired postural awareness, and altered ambulation mechanics. pt is a good candidate for skilled PT due to age, potential remediation of impairments, typical disease/condition progression and prognosis, comorbidities, and motivation. pt would benefit from skilled PT intervention to provide a tailored strengthening and stretching exercise program, functional training, gait training, postural re-training, neuromuscular re-education, modalities as needed for pain, equipment safety demonstration. Frequency and Duration: The patient will be seen 1x/wk for 12 wks Short Term Goals: pt will be I w/ HEP to promote self-management of condition. pt will demo proper sitting posture w/ lumbar roll to promote neutral spine w/ seated ADLs. pt will improve lumbar flexion by 25% to promote ease in lower body dressing. Robotics Specialist Goals: Increase pelvic muscle awareness/ isolation as assessed visually or assessed via teachback method and patient demonstration as appropriate. Coordinate pelvic floor with thoracic diaphragm/ functional activities to reduce incontinence episodes. Identify bladder irritants and correct fluid intake assessed via teachback method. Describe normal voiding frequency and patterns assessed via teachback method. Treatment Plan: Modalities to reduce pain, spasms and effusion. Manual therapy to restore motion and function. Therapeutic exercise to improve strength and flexibility. Neuromuscular re-education for posture and balance. Therapeutic activities to return to functional activities of daily living. Electronically signed by: Sagrario Johnson PT, DPT Please sign and return to therapist. Thank you for your referral.
--- NOTE | 2023-01-16 08:45 | MHC.PT.DC ---
[facility] [place] Office [place] Office [place] Office [address] Joao Garcia 140 [facility] [phone] F: [phone] F: [phone] F: [phone] F: [phone] Physical Therapy Discharge Report Diagnosis: spondylosis without myelopathy or radiculopathy (RC) Date of Surgery: N/A Date of Evaluation: 11/27/22 Date of Discharge: 01/16/23 Treatments to Date: 2 Cancellations to Date: 9 No Shows to Date: 0 Discharge Status: Visit Non-compliance Discharge Summary: The patient was to be seen for both her low back pain and her pelvic floor concerns (urinary and fecal leakage). She was reporting symptoms consistent with infection. Upon work-up she did have bacterial vaginosis and underwent treatment. At time of PT follow-up she thought she still had bacterial vaginosis so the recommendation was to follow-up again with LIMO DRIVER or urologist. She told this therapist she did not have any appointments until late January; however, upon looking at her chart she had follow-ups with both the week of 12/29/22 and newest work-up was negative for acute infection. She called to cancel all of her appointments for physical therapy and has not called back to reschedule any additional therapy in the past month. She is being discharged from physical therapy at this time due to lack of follow-up. Electronically signed by: Sagrario Johnson PT, DPT Please sign and return to therapist. Thank you for your referral.
== END 2023-01-16 08:45 | disposition home or self-care (01) ==
LOC: HO.PT 12:00
PROVIDERS: Absent Provider Internal Medicine; PCP Internal Medicine; Visit Provider Anesthesiology
DX: M47.816 Spondylosis without myelopathy or radiculopathy, lumbar region (principal)
CPT/HCPCS: 97163

== ENCOUNTER → 2022-12-31 09:10 | Outpatient (BNVA) | payer MEDICARE, OTHER, SELFPAY | PROVIDERS: PCP Internal Medicine; Visit Provider Obstetrics & Gynecology | DX: N90.89 Other specified noninflammatory disorders of vulva and perineum (principal) | CPT/HCPCS: 99212 ==

== ENCOUNTER → 2023-01-02 10:36 | Outpatient (BNVA) | payer MEDICARE, OTHER, SELFPAY | PROVIDERS: PCP Internal Medicine; Visit Provider Urology | DX: N39.0 Urinary tract infection, site not specified (principal); N32.81 Overactive bladder; R32 Unspecified urinary incontinence; R15.9 Full incontinence of feces; N39.41 Urge incontinence | CPT/HCPCS: 51701; 51798; 99202 ==

== ENCOUNTER 2023-01-30 15:05 | Outpatient (REF) | payer MEDICARE, OTHER, SELFPAY ==
--- NOTE | ~2023-01-30 | XR_ITS ---
EXAMINATION: XR HIP, RIGHT CLINICAL INFORMATION: Right hip pain COMPARISON: None available. TECHNIQUE: 5 of the right hip. FINDINGS: No acute fracture or dislocation. Joint space narrowing and osteophytosis. XR/XR hip RT min 2V IMPRESSION: Rwsn-jg-qzrzcjxw osteoarthritis of the right hip joint.
== END 2023-01-30 15:06 | disposition home or self-care (01) ==
LOC: HO.XRAY 15:05
PROVIDERS: PCP Internal Medicine; Visit Provider Internal Medicine
DX: M25.551 Pain in right hip (principal)
CPT/HCPCS: 73502

== ENCOUNTER 2023-03-26 15:27 | Outpatient (REF) | payer MEDICARE, OTHER, SELFPAY | END 2023-03-26 15:28 | disposition home or self-care (01) | LOC: HO.LAB 15:27 | PROVIDERS: PCP Internal Medicine; Visit Provider Urology | DX: N39.0 Urinary tract infection, site not specified (principal); N32.81 Overactive bladder; N39.41 Urge incontinence; R15.9 Full incontinence of feces | CPT/HCPCS: 51798; 87086; 87088; 87186; 99212 ==

== ENCOUNTER → 2023-03-27 09:52 | Outpatient (BNVA) | payer MEDICARE, OTHER, SELFPAY | PROVIDERS: PCP Internal Medicine; Visit Provider Orthopaedic Surgery | DX: M16.11 Unilateral primary osteoarthritis, right hip (principal); M47.816 Spondylosis without myelopathy or radiculopathy, lumbar region | CPT/HCPCS: 99212 ==

== ENCOUNTER → 2023-04-03 13:45 | Outpatient (BNVA) | payer MEDICARE, OTHER, SELFPAY | PROVIDERS: PCP Internal Medicine; Visit Provider Obstetrics & Gynecology ==

== ENCOUNTER 2023-04-10 12:27 | Outpatient (REF) | payer MEDICARE, OTHER, SELFPAY ==
--- NOTE | ~2023-04-10 | MM_ITS ---
EXAMINATION: BONE DENSITOMETRY CLINICAL INDICATION: Menopause. COMPARISON: Previous BD dated 12/02/2013 and baseline BD dated 10/29/2007. TECHNIQUE: Using a [employer] DXA System (software version: 13.1) manufactured by [employer], dual-energy x-ray absorptiometry was performed of the lumbar spine and left hip. The images are of good technical quality. Summary results are attached. FINDINGS: LEFT FEMUR, NECK: Current: BMD 0.879 g/cm2, Z-score 0.0, T-score -1.1, osteopenia. Prior: BMD 0.937 g/cm2. Baseline: BMD 0.945 g/cm2. LEFT FEMUR, TOTAL: Current: BMD 0.958 g/cm2, Z-score 0.5, T-score -0.4, normal, 8.3% decrease from previous, 8.0% decrease from baseline (<5% change is not significant). Prior: BMD 1.045 g/cm2. Baseline: BMD 1.041 g/cm2. AP SPINE L1-L4: Current: BMD 1.177 g/cm2, Z-score 0.8, T-score 0.0, normal, 3.5% decrease from previous, 9.4% decrease from baseline (<5% change is not significant). Prior: BMD 1.220 g/cm2. Baseline: BMD 1.299 g/cm2. IDENTIFIED RISK FACTORS: Early menopause, height loss, bilateral oophorectomy, hysterectomy, low calcium intake, secondary osteoporosis. HISTORY OF FRACTURE: None listed. MEDICATIONS: None listed. MM/XR DEXA axial skeleton IMPRESSION: 1. DIAGNOSIS: Osteopenia based on the lowest T-score value of -1.1 in the femoral neck applying World Health Organization criteria. 2. 10-YEAR FRACTURE RISK PREDICTION, FRAX: Major osteoporotic fracture (clinical spine, forearm, hip or shoulder) 4.6%. Hip fracture 0.5%. 3. Treatment Recommendations: NOF guidelines recommend consideration for treatment in postmenopausal women and men age 50 and older presenting with the following: -A hip or vertebral (clinical or morphometric) fracture. -T-score less than or equal to -2.5 at the femoral neck or spine after appropriate evaluation to exclude secondary causes. -Low bone mass at the hip or spine and a 10-year fracture probability by FRAX of greater than or equal to 3% for hip fracture or greater than or equal to 20% for major osteoporotic fracture based on the [place] adapted WHO algorithm. 4. Other Recommendations: All treatment decisions require clinical judgment and consideration of individual patient factors, including patient preferences, comorbidities, previous drug use, risk factors not captured in the FRAX model (e.g. frailty, falls, vitamin D deficiency, increased bone turnover, interval significant decline in bone density) and possible under or overestimation of fracture risk by FRAX. Additional medical evaluation for secondary cause of low bone mineral density may be appropriate. FUTURE SCAN RECOMMENDATION: People with diagnosed cases of osteoporosis or at high risk for fracture should have regular bone mineral density tests. For patients eligible for Medicare, routine testing is allowed once every 2 years. The testing frequency can be increased to one year for patients who have rapidly progressing disease, those who are receiving or discontinuing medical therapy to restore bone mass, or have additional risk factors.
== END 2023-04-10 12:28 | disposition home or self-care (01) ==
LOC: HO.MAMMO 12:27
PROVIDERS: PCP Internal Medicine; Visit Provider Obstetrics & Gynecology
DX: Z13.820 Encounter for screening for osteoporosis (principal); Z78.0 Asymptomatic menopausal state
CPT/HCPCS: 77080

== ENCOUNTER 2023-06-02 13:32 | Outpatient (AMB) | payer MEDICARE, OTHER, SELFPAY ==
[2023-06-02 13:36] VITALS: BP 130/80; BMI 40.6
--- NOTE | 2023-06-02 13:36 | A.OFFVIS_ITS ---
Intake Vital Signs 06/02/23 13:36 Height 4 ft 11 in Weight 201 lb BMI 40.6 BP 130/80 Intake Visit Reasons: Dexa Results It Systems Engineer Required: No Allergies Penicillins Allergy (Intermediate, Verified 06/02/23 13:37) HIVES, ANAPHYLAXIS Beef Containing Products [BEEF CONTAINING PRODUCTS] Allergy (Mild, Verified 06/02/23 13:37) INFLAMMATION caffeine [CAFFEINE] Allergy (Mild, Verified 06/02/23 13:37) UNKNOWN lactose [LACTOSE] Allergy (Mild, Verified 06/02/23 13:37) STOMACH PAIN,DIARRHEA nut - unspecified [nut] Allergy (Mild, Verified 06/02/23 13:37) UNKNOWN orange Allergy (Mild, Verified 06/02/23 13:37) GEOGRAPHIC TONGUE oxycodone [Percocet] Allergy (Mild, Verified 06/02/23 13:37) unknown penicillin G Allergy (Mild, Verified 06/02/23 13:37) unknown penicillin V Allergy (Mild, Verified 06/02/23 13:37) unknown Pork/Porcine Containing Products [PORK/PORCINE CONTAINING PRODUCTS] Allergy (Mild, Verified 06/02/23 13:37) INFLAMMATION,PAIN Sulfa (Sulfonamide Antibiotics) [SULFA (SULFONAMIDE ANTIBIOTICS)] Allergy (Mild, Verified 06/02/23 13:37) DIARRHEA,VOMITING acetaminophen [Percocet] Allergy (Unknown, Verified 06/02/23 13:37) unknown Is last menstrual period known: No Post menopausal: Yes HPI HPI Comments History of Present Illness Details The patient is presenting for follow up regarding DEXA scan results. T score @ spine and femoral Neck respectively were=0 /-0.4 and 10 year FRAX risk = 4.6/0.5 % for severe osteoporosis and fracture. [facility] Medical History Carpal tunnel syndrome History of Clostridioides difficile colitis Hypothyroidism Irritable bowel syndrome with diarrhea Lumbosacral spondylosis without myelopathy NAFL (nonalcoholic fatty liver) Obesity due to excess calories Plantar fasciitis Pre-diabetes Sacroiliitis Sleep apnea Surgical History H/O bilateral oophorectomy H/O hernia repair H/O tubal ligation History of bladder surgery History of laparoscopic appendectomy History of removal of laparoscopic gastric banding device History of thumb surgery Hx laparoscopic cholecystectomy Hx of colonoscopy Hx of laparoscopic gastric banding Hx of vaginal hysterectomy IGTN (ingrowing toe nail) S/P panniculectomy Family History Father Colon cancer Maternal Aunt Colon cancer Paternal Aunt Breast cancer Maternal Aunt Colon cancer Social History Household Members: Spouse Household Members Other:: Alcohol intake: never Patient Tobacco Use Status: Never used Tobacco Current occupational status: retired Sexual orientation: Straight/Heterosexual Gender identity: Female Female Reproductive History Menstrual Age of Menarche: 14 control method: permanent sterilization Date of last pap smear: 11/27/16 (negative) Date of Mammogram: 09/02/22 Date of last Bone Density Screenin04/10/23 Review of Systems Const All systems reviewed & are unremarkable except as noted in HPI and below Reports as per HPI and Reports no additional complaints GI Reports no additional complaints Reports no additional complaints Physical Exam Vital Signs: Last Vital Signs BP 130/80 06/02/23 13:36 BMI result Body Mass Index 40.6 Assessment & Plan Assessment & Plan (1) Osteopenia: Code(s): M85.80 - Other specified disorders of bone density and structure, unspecified site Plan: Discussed with the patient the DEXA results and FRAX risk. FRAX risk and T score showed no evidence of osteoporosis. Discussed with the patient all the options for osteoporosis prevention including lifestyle modifications including Ca+D supplements 1200 mg po qd/800 MIU, Weight bearing exercises and proteine supplements. The patient verbalized understanding and agreed plan will repeat DEXA in 2 years. Coding Level of Care Code Est Pt Level 3 (56014) Diagnoses Osteopenia M85.80
== END 2023-06-02 13:51 | disposition home or self-care (01) ==
LOC: HO.HWS 13:32
PROVIDERS: PCP Internal Medicine; Visit Provider Obstetrics & Gynecology
DX: M85.80 Other specified disorders of bone density and structure, unspecified site (principal)
CPT/HCPCS: 99213

== ENCOUNTER → 2023-06-02 13:32 | Outpatient (BNVA) | payer MEDICARE, OTHER, SELFPAY | PROVIDERS: PCP Internal Medicine; Visit Provider Obstetrics & Gynecology | DX: M85.80 Other specified disorders of bone density and structure, unspecified site (principal); Z90.722 Acquired absence of ovaries, bilateral; Z90.710 Acquired absence of both cervix and uterus; Z80.3 Family history of malignant neoplasm of breast; Z80.0 Family history of malignant neoplasm of digestive organs | CPT/HCPCS: 99212 ==

== ENCOUNTER 2023-06-13 12:55 | Outpatient (REF) | payer MEDICARE, OTHER, SELFPAY | END 2023-06-13 12:56 | disposition home or self-care (01) | LOC: HO.LNP 12:55 | PROVIDERS: Visit Provider Internal Medicine | DX: R10.9 Unspecified abdominal pain (principal) | CPT/HCPCS: 87177; 87209 ==

== ENCOUNTER 2023-06-18 09:55 | Outpatient (REF) | payer MEDICARE, OTHER, SELFPAY ==
[2023-06-18 10:09] LABS: MANUAL DIFF FLAG NO
[2023-06-18 10:30] LABS: Basophils Absolute Auto 0.1 X10*3/uL (0.0-0.2); Basophils Percent Auto 0.9 % (0-2); Eosinophils Absolute Auto 0.2 X10*3/uL (0.0-0.4); Hematocrit 42.6 % (37.0-47.0); Imm Gran Abs Auto 0.02 X10*3/uL (0.00-0.03); Imm Gran Pct Auto 0.3 % (0.0-0.4); Lymphocytes Absolute Auto 1.3 X10*3/uL (1.2-4.9); Lymphocytes Percent Auto 20.8 % (20-40); Mean Corpuscular HGB Conc 32.9 g/dl (31.0-35.0); Mean Corpuscular Hemoglobin 27.5 pg (27.0-33.0); Mean Corpuscular Volume 83.7 fL (80.0-98.0); Monocytes Absolute Auto 0.5 X10*3/uL (0.1-1.2); Monocytes Percent Auto 7.5 % (2-11); Neutrophils Absolute Auto 4.3 x10*3/uL (2.0-8.3); Neutrophils Percent Auto 67.5 % (45-73); Platelet Count 322 X10*3/uL (160-400); Red Blood Count 5.09 X10*6/uL (4.20-5.50); Red Cell Distribution Width 14.7 % (11.0-16.0); White Blood Count 6.4 X10*3/uL (4.8-10.8)
[2023-06-18 10:42] LABS: Estimated Average Glucose 105 mg/dL; Hemoglobin A1c % 5.3 % (<6.0)
[2023-06-18 11:14] LABS: Alanine Aminotransferase 20 U/L (0-31); Albumin Level 4.1 g/dL (3.5-5.0); Alkaline Phosphatase 98 U/L (39-117); Anion Gap 11 (12-20); Aspartate Amino Transferase 21 U/L (5-31); Blood Urea Nitrogen 12 mg/dL (9-16); Calcium 9.3 mg/dL (8.4-10.2); Carbon Dioxide 25 mmol/L (22-29); Chloride 107 mmol/L (96-108); Cholesterol 168 mg/dL (<200); Estimated Glomerular Filt Rate > 60; Glucose Fasting 94 mg/dL (60-99); HDL Cholesterol 48 mg/dL (>40); LDL Cholesterol Calculated 96 mg/dL (<100); Potassium 4.2 mmol/L (3.3-5.1); Sodium 139 mmol/L (135-145); Total Protein 7.4 g/dL (6.5-8.0); Triglycerides 121 mg/dL (<150)
[2023-06-18 11:33] LABS: Free T4 (Free Thyroxine) 0.93 ng/dL (0.71-1.85); Thyroid Stimulating Hormone 2.91 uIU/mL (0.32-4.0)
[2023-06-18 11:37] LABS: Vitamin B12 467 pg/mL (200-900)
[2023-06-18 14:11] LABS: Creatinine Urine 152.73 mg/dL; Microalbum/Creatinine Ratio Ur 5.8 ug/mg cr (<30)
== END 2023-06-18 09:56 | disposition home or self-care (01) ==
LOC: HO.LAB 09:55
PROVIDERS: PCP Internal Medicine; Visit Provider Internal Medicine
DX: E03.9 Hypothyroidism, unspecified (principal); K58.0 Irritable bowel syndrome with diarrhea; M54.9 Dorsalgia, unspecified; G62.9 Polyneuropathy, unspecified
CPT/HCPCS: 36415; 80053; 80061; 82043; 82570; 82607; 83036; 84439; 84443; 85025

== ENCOUNTER → 2023-07-04 11:59 | Outpatient (BNVA) | payer MEDICARE, OTHER, SELFPAY | PROVIDERS: PCP Internal Medicine; Visit Provider Physician Assistant Surgical ==

== ENCOUNTER 2023-09-25 13:03 | Outpatient (AMB) | payer MEDICARE, OTHER, SELFPAY ==
--- NOTE | 2023-09-25 13:45 | MHC.OFFVIS ---
Intake Intake Visit Reasons: 6 month follow up Intake Note: Patient presents today for a follow-up on OAB: Meds: Mybetriq & Vesicare Allergies to Antibiotic: Penicillin & Sulfa Blood Thinner: None Post Void Residual: 52 mL Mathematics Instructor Required: No Accompanied by: Self / Same As Patient Allergies Penicillins Allergy (Intermediate, Verified 09/25/23 13:49) HIVES, ANAPHYLAXIS Beef Containing Products [BEEF CONTAINING PRODUCTS] Allergy (Mild, Verified 09/25/23 13:49) INFLAMMATION caffeine [CAFFEINE] Allergy (Mild, Verified 09/25/23 13:49) UNKNOWN lactose [LACTOSE] Allergy (Mild, Verified 09/25/23 13:49) STOMACH PAIN,DIARRHEA nut - unspecified [nut] Allergy (Mild, Verified 09/25/23 13:49) UNKNOWN orange Allergy (Mild, Verified 09/25/23 13:49) GEOGRAPHIC TONGUE oxycodone [Percocet] Allergy (Mild, Verified 09/25/23 13:49) unknown penicillin G Allergy (Mild, Verified 09/25/23 13:49) unknown penicillin V Allergy (Mild, Verified 09/25/23 13:49) unknown Pork/Porcine Containing Products [PORK/PORCINE CONTAINING PRODUCTS] Allergy (Mild, Verified 09/25/23 13:49) INFLAMMATION,PAIN Sulfa (Sulfonamide Antibiotics) [SULFA (SULFONAMIDE ANTIBIOTICS)] Allergy (Mild, Verified 09/25/23 13:49) DIARRHEA,VOMITING acetaminophen [Percocet] Allergy (Unknown, Verified 09/25/23 13:49) unknown HPI HPI Comments History of Present Illness Details Nicci is a 72-year-old female who presents to the office for follow-up. 09/25/23--The patient is being followed for OAB and recurrent UTI's. She was initially evaluated on 01/02/23 as a new patient. 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 Has two bladder sling procedures at the age of 51s in [place] and 5 year later in [place]. The patient used to undergo gentamicin irrigation once a week pre-pandemic at her previous urologist and states to be prescribed with estrogen cream which caused breast tenderness for recurrent UTIs. She has h/o irritable bowel syndrome which may contribute to her UTI's. She states the vesicare causes a slignt headache and dry mouth. Review of chart 01/02/23--Pelvic floor exam: Catheterized urine 25 mL drained from the bladder. No significant pelvic floor prolapse. Trial of Myrbetriq, I have discussed use of cranberry tablets daily with/without D Mannose The patient is has recurrent Clostridioides difficile and was being evaluated for a fecal transplant. CAT results reviewed-08/22/2021-- Unremarkable for kidney stones. Plan: 09/25/23---Myrbetriq was too expensive Using Vesicare, ocassional headache and dryness Gemtesa 75 mg She is to call the nurse with any issues regarding the gemtesa script Follow-up after 9 months. [facility] Medical History Carpal tunnel syndrome History of Clostridioides difficile colitis Hypothyroidism Irritable bowel syndrome with diarrhea Lumbosacral spondylosis without myelopathy NAFL (nonalcoholic fatty liver) Obesity due to excess calories Plantar fasciitis Pre-diabetes Sacroiliitis Sleep apnea Surgical History H/O bilateral oophorectomy H/O hernia repair H/O tubal ligation History of bladder surgery History of laparoscopic appendectomy History of removal of laparoscopic gastric banding device History of thumb surgery Hx laparoscopic cholecystectomy Hx of colonoscopy Hx of laparoscopic gastric banding Hx of vaginal hysterectomy IGTN (ingrowing toe nail) S/P panniculectomy Family History Father Colon cancer Maternal Aunt Colon cancer Paternal Aunt Breast cancer Maternal Aunt Colon cancer Social History Household Members: Spouse Household Members Other:: Alcohol intake: never Patient Tobacco Use Status: Never used Tobacco Current occupational status: retired Sexual orientation: Straight/Heterosexual Gender identity: Female Female Reproductive History Menstrual Age of Menarche: 14 Review of Systems Const All systems reviewed & are unremarkable except as noted in HPI and below Reports no additional complaints Eyes Reports no additional complaints ENT Reports no additional complaints Card Denies dyspnea Resp Denies cough and Denies dyspnea GI Reports no additional complaints Reports no additional complaints Musc Reports no additional complaints Skin/Breast Denies rash and Denies unusual bruising Neuro Reports no additional complaints Psych Reports no additional complaints Endo Reports no additional complaints David/Lymph Reports no additional complaints Aller/Immun Reports no additional complaints Office Procedures Post Void Residual Post Residual Void Post Void Residual (PVR): 52 [id number] Void Residual by ultrasound Results AMB Urinalysis, Automated UA Leukoctes 0 Reginald/uL Last Edit by Erin Herndon [facility] on 09/25/23 13:53 UA Nitrite Negative Last Edit by Erin Herndon [facility] on 09/25/23 13:53 UA Urobilinogen 0.2 mg/dL Last Edit by Erin Herndon [facility] on 09/25/23 13:53 UA Protein 6.0 mg/dL Last Edit by Erin Herndon [facility] on 09/25/23 13:53 UA pH 6.0 Last Edit by Erin Herndon [facility] on 09/25/23 13:53 UA Blood 10 Nikolay/uL Last Edit by Erin Herndon [facility] on 09/25/23 13:53 UA Specific [place] 1.010 Last Edit by Erin Herndon [facility] on 09/25/23 13:53 UA Ketone Negative Last Edit by Erin Herndon [facility] on 09/25/23 13:53 UA Bilirubin 0 mg/dL Last Edit by Erin Herndon [facility] on 09/25/23 13:53 UA Glucose 0 mg/dL Last Edit by Erin Herndon [facility] on 09/25/23 13:53 Results Reviewed Results Reviewed: Laboratory Last Values Urine pH (Auto) 6.0 09/25/23 13:51 Specific [place] (Auto) 1.010 09/25/23 13:51 Urine Protein (Auto) 6.0 mg/dL 09/25/23 13:51 Glucose (UA)(Auto) 0 mg/dL 09/25/23 13:51 Urine Ketones (Auto) Negative 09/25/23 13:51 Urine Blood (Auto) 10 Nikolay/uL 09/25/23 13:51 Urine Nitrite (Auto) Negative 09/25/23 13:51 Urine Bilirubin (Auto) 0 mg/dL 09/25/23 13:51 Urine Urobilinogen (Auto) 0.2 mg/dL 09/25/23 13:51 Leukocyte Esterase (Auto) 0 Reginald/uL 09/25/23 13:51 Assessment & Plan Assessment & Plan (1) Recurrent urinary tract infection: Code(s): N39.0 - Urinary tract infection, site not specified (2) OAB (overactive bladder): Code(s): N32.81 - Overactive bladder (3) Urinary and fecal incontinence: Code(s): R32 - Unspecified urinary incontinence; R15.9 - Full incontinence of feces (4) Urge incontinence of urine: Code(s): N39.41 - Urge incontinence Plan Myrbetriq was too expensive Using Vesicare, ocassional headache and dryness Gemtesa 75 mg She is to call the nurse with any issues regarding the gemtesa script Follow-up after 9 months. Orders: Orders AMB Post Void Residual by ultrasound 09/25/23 N39.8 - Other specified disorders of urinary system AMB Urinalysis Automated 09/25/23 Z13.9 - Encounter for screening, unspecified Medications: New vibegron (Gemtesa) 75 mg PO DAILY 90 tabs 1RF Patient Instructions: The patient had an opportunity to ask questions regarding treatment plan. All questions were answered. Imaging, Laboratory studies and physical exam results were discussed and reviewed in detail. No major barriers to understanding were identified. The patient expressed understanding and agreement with the above treatment plan. The patient is aware they should contact our office by phone for worsening of their current condition or the appearance of new symptoms. Compliance is encouraged with any medications and followup testing that is ordered. It is a privilege to be allowed the opportunity to participate in the urologic care of your patient. If you have any questions or concerns regarding treatment for the above conditions please do not hesitate to contact me. The office telephone contact is [phone]. This note is constructed in part using voice recognition software. While every effort has been made to ensure accuracy propeller engineer errors may have been included. Yours sincerely, Fei Torres MD Coding Level of Care Code Est Pt Level 4 (82294) Diagnoses Recurrent urinary tract infection N39.0 OAB (overactive bladder) N32.81 Urinary and fecal incontinence R32; R15.9 Urge incontinence of urine N39.41 CPT Codes Post Residual Void - PVR CPT Code: 04028-Dsst Void Residual by ultrasound ([id number])
== END 2023-09-25 14:12 | disposition home or self-care (01) ==
PROVIDERS: PCP Internal Medicine; Visit Provider Urology
DX: N39.0 Urinary tract infection, site not specified (principal); N32.81 Overactive bladder; R32 Unspecified urinary incontinence; R15.9 Full incontinence of feces; N39.41 Urge incontinence
CPT/HCPCS: 99214

== ENCOUNTER → 2023-09-25 13:03 | Outpatient (BNVA) | payer MEDICARE, OTHER, SELFPAY | PROVIDERS: PCP Internal Medicine; Visit Provider Urology | DX: N39.0 Urinary tract infection, site not specified (principal); N32.81 Overactive bladder; N39.41 Urge incontinence; R32 Unspecified urinary incontinence; R15.9 Full incontinence of feces | CPT/HCPCS: 51798; 81003; 99212 ==

== ENCOUNTER 2023-10-14 15:44 | Outpatient (REF) | payer MEDICARE, OTHER, SELFPAY | END 2023-10-14 15:45 | disposition home or self-care (01) | LOC: HO.XRAY 15:44 | PROVIDERS: PCP Internal Medicine; Visit Provider Internal Medicine | DX: R05.9 Cough, unspecified (principal); R06.02 Shortness of breath | CPT/HCPCS: 71046 ==

== ENCOUNTER 2023-10-15 12:37 | Outpatient (REF) | payer MEDICARE, OTHER, SELFPAY | END 2023-10-15 12:38 | disposition home or self-care (01) | LOC: HO.LNP 12:37 | PROVIDERS: Visit Provider Internal Medicine | DX: R05.9 Cough, unspecified (principal); R50.9 Fever, unspecified; Z11.52 Encounter for screening for COVID-19; Z20.828 Contact with and (suspected) exposure to other viral communicable diseases | CPT/HCPCS: 0241U ==

== ENCOUNTER 2023-10-23 14:03 | Outpatient (REF) | payer MEDICARE, OTHER, SELFPAY ==
--- NOTE | ~2023-10-23 | MM_ITS ---
EXAMINATION: MM SCREENING DIGITAL BREAST TOMOSYNTHESIS, BILATERAL CLINICAL INFORMATION: Screening. Asymptomatic. COMPARISON: Mammography: This study is compared with prior exams dating back to 2019. TECHNIQUE: Digital breast tomosynthesis is performed in both the craniocaudal and mediolateral oblique views along with computer-aided detection (CAD). Synthesized 2D images are generated from the tomosynthesis. FINDINGS: The breasts are almost entirely fatty (ACR BI-RADS breast composition Category a). There are no significant masses, abnormal calcifications, or other abnormalities. There is a tissue marker in the upper outer quadrant of the left breast from prior benign percutaneous biopsy. MM/MM tomosynthesis screening BI IMPRESSION: No mammographic evidence of malignancy. ASSESSMENT: BI-RADS BI-RADS 2 - Benign Findings RECOMMENDATION: Routine annual mammography screening. 1 year F/U This examination should not preclude the clinical evaluation of a suspicious palpable abnormality. This patient's information was entered into a reminder system with a target due date for their next mammogram.
== END 2023-10-23 14:04 | disposition home or self-care (01) ==
LOC: HO.MAMMO 14:03
PROVIDERS: PCP Internal Medicine; Visit Provider Obstetrics & Gynecology
DX: Z12.31 Encounter for screening mammogram for malignant neoplasm of breast (principal)
CPT/HCPCS: 77063; 77067

== ENCOUNTER → 2023-10-23 14:30 | Outpatient (BNV) | payer MEDICARE, OTHER, SELFPAY | PROVIDERS: PCP Internal Medicine; Visit Provider Radiology Diagnostic Radiology | DX: Z12.31 Encounter for screening mammogram for malignant neoplasm of breast (principal) | CPT/HCPCS: 77063; 77067 ==

== ENCOUNTER 2024-02-24 09:23 | Emergency (ER) | payer MEDICARE, OTHER, SELFPAY ==
--- NOTE | ~2024-02-24 | XR_ITS ---
EXAMINATION: XR TOES, LEFT XR HAND, RIGHT CLINICAL INFORMATION: Pinkie toe injury and fall on outstretched hand with palm pain COMPARISON: Left foot 06/03/2022 TECHNIQUE: 3 views of the left toes were obtained. FINDINGS: Left foot: There are no fractures or dislocations. Some minor degenerative changes are seen at the interphalangeal joints No joint effusion is identified. No bone or soft tissue abnormality is demonstrated. Right hand: Some chronic degenerative changes are present at the interphalangeal joints and the first CMC joint. An old healed fracture may be present involving the base of the distal phalanx of the thumb. No acute fracture or dislocation seen. XR/XR toe LT min 2V IMPRESSION: No evidence of an acute osseous injury. Degenerative changes as described above.
--- NOTE | ~2024-02-24 | XR_ITS ---
EXAMINATION: XR TOES, LEFT XR HAND, RIGHT CLINICAL INFORMATION: Pinkie toe injury and fall on outstretched hand with palm pain COMPARISON: Left foot 06/03/2022 TECHNIQUE: 3 views of the left toes were obtained. FINDINGS: Left foot: There are no fractures or dislocations. Some minor degenerative changes are seen at the interphalangeal joints No joint effusion is identified. No bone or soft tissue abnormality is demonstrated. Right hand: Some chronic degenerative changes are present at the interphalangeal joints and the first CMC joint. An old healed fracture may be present involving the base of the distal phalanx of the thumb. No acute fracture or dislocation seen. XR/XR hand wrist RT IMPRESSION: No evidence of an acute osseous injury. Degenerative changes as described above.
[2024-02-24 10:16] VITALS: BP 176/66; PULSE 82; RESP 18; TEMP 36.7; O2SAT 95; BMI 41.4
--- NOTE | 2024-02-24 10:35 | ED_ITS ---
HPI - Extremity Injury (Lower) General Chief Complaint: Extremity Injury, Lower Stated Complaint: ? Fx Pinky Toe L Foot Injury 02/19/24 Time Seen by Provider: 02/24/24 10:14 Source: patient, family (), RN notes reviewed and old records reviewed Mode of arrival: ambulatory Limitations: no limitations History of Present Illness HPI Narrative: 73-year-old female with past medical history significant for hypothyroidism, irritable bowel syndrome with diarrhea, nonalcoholic fatty liver, RAMIN, prediabetes, sacroiliitis, plantar fasciitis presents to the ED today for evaluation of left little toe pain x3 days. Admits to tripping and stubbing her left pinky toe on a chair 3 days ago. Reports falling forward and catching herself with her right palm. No head strike or LOC. Not on AC. Since this time, reports increasing pain to the her left little toe with some discoloration noted to that toe nail. Additionally endorses pain to her right palm. No difficulty moving her right wrist or fingers on right hand. She has not been taking any OTC pain medicaiton at home for this. Denies fever, chills, N/V, numbness, tingling, weakness of the LEs. Related Data Home Medications ?Medication ?Instructions ?Recorded ?Confirmed diphenhydramine HCl 50 mg/30 mL 50 mg PO BEDTIME PRN 09/27/21 01/02/23 oral liquid (Unisom (diphenhydramine)) loperamide 2 mg capsule 2 mg PO TID PRN diarrhea 10/29/22 01/02/23 Previous Rx's ?Medication ?Instructions ?Recorded meloxicam 7.5 mg tablet 7.5 mg PO ONCE #1 tab 06/29/21 Synthroid 50 mcg tablet 50 mcg PO DAILY #90 tabs 10/31/21 (levothyroxine) vancomycin 250 mg capsule 250 mg PO TID 7 days #21 caps 03/28/23 mirabegron 50 mg tablet,extended 50 mg PO DAILY #90 tabs 04/01/23 release 24 hr (Myrbetriq) solifenacin 10 mg tablet (Vesicare) 10 mg PO DAILY #90 tabs 04/09/23 vibegron 75 mg tablet (Gemtesa) 75 mg PO DAILY #90 tabs 09/25/23 Allergies Allergy/AdvReac Type Severity Reaction Status Date / Time Penicillins Allergy Intermediate HIVES, Verified 02/24/24 10:17 ANAPHYLAXIS Beef Containing Products Allergy Mild INFLAMMATIO Verified 02/24/24 10:17 [BEEF CONTAINING PRODUCTS] N caffeine [CAFFEINE] Allergy Mild UNKNOWN Verified 02/24/24 10:17 lactose [LACTOSE] Allergy Mild STOMACH Verified 02/24/24 10:17 PAIN,DIARRHEA nut - unspecified [nut] Allergy Mild UNKNOWN Verified 02/24/24 10:17 orange Allergy Mild GEOGRAPHIC Verified 02/24/24 10:17 TONGUE oxycodone [Percocet] Allergy Mild unknown Verified 02/24/24 10:17 penicillin G Allergy Mild unknown Verified 02/24/24 10:17 penicillin V Allergy Mild unknown Verified 02/24/24 10:17 Pork/Porcine Containing Allergy Mild INFLAMMATIO Verified 02/24/24 10:17 Products N,PAIN [PORK/PORCINE CONTAINING PRODUCTS] Sulfa (Sulfonamide Allergy Mild DIARRHEA,VO Verified 02/24/24 10:17 Antibiotics) MITING [SULFA (SULFONAMIDE ANTIBIOTICS)] acetaminophen [Percocet] AdvReac Unknown unknown Verified 02/24/24 10:17 Review of Systems Review of Systems: Constitutional: No fever, chills, fatigue, night sweats, weight changes ENT/Mouth: No ear pain, hearing loss, nasal congestion, sinus pain, rhinorrhea, sore throat Eyes: No eye pain, swelling, redness, vision changes, discharge Cardio: No chest pain, palpitations, [place], orthopnea, peripheral edema Pulm: No SOB, cough, sputum, wheezing, dyspnea, hemoptysis GI: No nausea, vomiting, hematemesis, abdominal pain, diarrhea, constipation, hematochezia, melena : No irregular bleeding, dysuria, frequency, urgency, hesitancy, hematuria, flank pain, urinary flow changes, urinary incontinence or retention MSK: No back pain, neck pain, joint pain, myalgias Skin: No lesions, rashes, +right 5th toe pain Neuro: No weakness, numbness, paresthesias, LOC, dizziness, headache Psych: No anxiety/panic, depression, SI/HI, AH/VH All other systems reviewed and are negative. [facility] Past Medical History Attestation statement: The following information was validated with the patient. Source: old records reviewed and nursing notes reviewed Medical History Obesity due to excess calories Pre-diabetes Plantar fasciitis Sacroiliitis History of Clostridioides difficile colitis Lumbosacral spondylosis without myelopathy Carpal tunnel syndrome Sleep apnea NAFL (nonalcoholic fatty liver) Hypothyroidism Irritable bowel syndrome with diarrhea Surgical History IGTN (ingrowing toe nail) Hx of colonoscopy History of thumb surgery H/O hernia repair History of removal of laparoscopic gastric banding device History of bladder surgery Hx laparoscopic cholecystectomy S/P panniculectomy H/O bilateral oophorectomy Hx of laparoscopic gastric banding History of laparoscopic appendectomy Hx of vaginal hysterectomy H/O tubal ligation Family History Family History Father Colon cancer Maternal Aunt Colon cancer Paternal Aunt Breast cancer Maternal Aunt Colon cancer Social History Social History Household Members: Spouse Household Members Other:: Alcohol intake: never Patient Tobacco Use Status: Never used Tobacco Advance Directives: No Advance Directives Information Provided: Yes Do you have a plan to hurt others: No Plan Current occupational status: retired Sexual orientation: Straight/Heterosexual Gender identity: Female Physical Exam Vital Signs: Vital Signs: Last Vital Signs Temp 98.1 F 02/24/24 13:33 Pulse 86 02/24/24 13:33 Resp 18 02/24/24 13:33 BP 171/68 H 02/24/24 13:33 Pulse Ox 96 02/24/24 13:33 O2 Del Method Room Air 02/24/24 13:33 BMI result Body Mass Index 41.4 Vital signs stable Const: General: cooperative, healthy appearing, comfortable and no acute distress Orientation/consciousness: patient oriented x3 Limitations: no limitations HEENT: Head: Yes normal to inspection, Yes No palpable skull fracture present, Yes normocephalic and Yes atraumatic Eyes: General: appearance normal, both eyes and all related structures Conjunctivae: conjunctivae normal Sclerae: sclerae normal Pupils: Equal, round and reactive pupils present Neck: Neck: Yes normal visual inspection and Yes full ROM Resp: Effort & Inspection: normal respiratory effort and able to speak in complete sentences Auscultation: clear to auscultation bilaterally Cardio: Rate: regular rate Rhythm: regular rhythm Skin: General skin exam: no rashes or lesions noted Neuro: General: patient oriented x3, gait normal and moves all extremities Cranial nerves: Yes Equal, round and reactive pupils present Extrem: Other: + slight erythema noted to lateral aspec t of left little toe. No notable swelling. Slight discoloration noted to toenail on 5th toe. Nail bed intact. No subungal hematoma. Slight decrease in ROM to left 5th toe secondary to pain. 2+ dp/pt pulse intact. No calf tenderness. sensation intact. Right palm without overlying skin changes or deformity. nontender to palpation. no palpable deformity, warmth, or crepitus. FROM intact to right wrist and all digits on right hand. no snuffbox tenderness. 2+radial and ulnar pulses General: Yes normal to inspection Medical Decision Making Medical Decision Making MDM Narrative: 73-year-old female with past medical history significant for hypothyroidism, irritable bowel syndrome with diarrhea, nonalcoholic fatty liver, RAMIN, prediabetes, sacroiliitis, plantar fasciitis presents to the ED today for evaluation of left little toe pain x3 days. Patient hypertensive, vitals otherwise WNL. She is afebrile. Nontoxic appearing and in no acute distress. On exam, slight erythema noted to lateral aspect of left little toe. No notable swelling. Slight discoloration noted to toenail on 5th toe. Nail bed intact. No subungal hematoma. Slight decrease in ROM to left 5th toe secondary to pain. 2+ dp/pt pulse intact. No calf tenderness. sensation intact. Right palm without overlying skin changes or deformity. nontender to palpation. no palpable deformity, warmth, or crepitus. FROM intact to right wrist and all digits on right hand. no snuffbox tenderness. 2+radial and ulnar pulses. Differential diagnosis includes fracture, dislocation, contusion. unlikely nail bed fracture, subungal hematoma, nv compromise, diabetic foot wound/ulcer, open fracture, osteo. Plan for imaging, pain control, and re-evaluation. Differential Diagnosis Differential Diagnoses: The differential diagnosis associated with the presentation includes as above. Admission/Observation Not indicated Independent Interpretation I performed an independent interpretation of an: Plain X-Ray Interpretation: X-ray right hand without fracture, agree with radiologist's interpretation. X-ray left 5th toe without fracture, agree with radiologist's interpretation. Radiology Impression Discussion of test interpretation with radiology: I have reviewed the radiologist's reading. Radiologist Impression: EXAMINATION: XR TOES, LEFT XR HAND, RIGHT CLINICAL INFORMATION: Pinkie toe injury and fall on outstretched hand with palm pain COMPARISON: Left foot 06/03/2022 TECHNIQUE: 3 views of the left toes were obtained. FINDINGS: Left foot: There are no fractures or dislocations. Some minor degenerative changes are seen at the interphalangeal joints No joint effusion is identified. No bone or soft tissue abnormality is demonstrated. Right hand: Some chronic degenerative changes are present at the interphalangeal joints and the first CMC joint. An old healed fracture may be present involving the base of the distal phalanx of the thumb. No acute fracture or dislocation seen. XR/XR toe LT min 2V IMPRESSION: No evidence of an acute osseous injury. Degenerative changes as described above. Independent Historian Clinical information obtained from an independent historian. History obtained from or confirmed by: Spouse External Record Review External record reviewed: Inpatient record, Office record, Outpatient record, Prior outpatient labs, Prior outpatient radiology, Primary care record and Outside ED record Prescription Management I considered prescription management with: Pain Medication Social Determinants Patient?s care significantly limited by Social Determinants of Health including: Other Social Determinant of Health Critical Care Time Critical Care Time Critical Care Time: No Discharge Plan Discharge Clinical Impression: Contusion of toe of left foot, Contusion of hand, right Patient Disposition: Home, Self-Care Instructions: Contusion in Adults (ED) Additional Instructions: The x-rays of your left pinky toe and right hand/wrist do not demonstrate fracture. You likely just have a contusion. You may ice the area to help with pain. You may take Tylenol in addition to your meloxicam. Follow up with your PCP. Return with new or worsening symptoms. In the case of an emergency call 911. Prescriptions: No Action meloxicam 7.5 mg tablet 7.5 mg PO ONCE Qty: 1 0RF vancomycin 250 mg capsule 250 mg PO TID 7 Days Qty: 21 0RF Myrbetriq 50 mg tablet extended release 24 hr 50 mg PO DAILY Qty: 90 1RF solifenacin [Vesicare] 10 mg tablet 10 mg PO DAILY Qty: 90 3RF Rx Instructions: to replace myrbetriq levothyroxine [Synthroid] 50 mcg tablet 50 mcg PO DAILY Qty: 90 3RF Rx Instructions: TEE - no substitions Brand name medically necessary Unisom (diphenhydramine) 50 mg/30 mL liquid 50 mg PO BEDTIME PRN loperamide 2 mg capsule 2 mg PO TID PRN (Reason: diarrhea) Gemtesa 75 mg tablet 75 mg PO DAILY Qty: 90 1RF Referrals: Chip Bowden MD [Primary Care Provider] - Interventions: ED Discharge Assessment Last Done: 02/24/24 13:33 Discharge Date/Time: 02/24/24 13:34 Print Language: Belgian
[2024-02-24 13:33] VITALS: BP 171/68; PULSE 86; RESP 18; TEMP 36.7; O2SAT 96
== END 2024-02-24 13:34 | disposition home or self-care (01) ==
PROVIDERS: Emergency Provider Emergency Medicine; PCP Internal Medicine
DX: S90.122A Contusion of left lesser toe(s) without damage to nail, initial encounter (principal); W22.03XA Walked into furniture, initial encounter; S60.221A Contusion of right hand, initial encounter; W18.30XA Fall on same level, unspecified, initial encounter; Y93.9 Activity, unspecified; Y92.9 Unspecified place or not applicable; Y99.9 Unspecified external cause status; M79.675 Pain in left toe(s); E03.9 Hypothyroidism, unspecified; K58.0 Irritable bowel syndrome with diarrhea; K76.0 Fatty (change of) liver, not elsewhere classified; R73.03 Prediabetes
CPT/HCPCS: 73110; 73130; 73660; 99282; 99283

== ENCOUNTER 2024-04-09 08:00 | Outpatient (RCR) | payer MEDICARE, OTHER, SELFPAY | END 2024-05-12 14:08 | disposition home or self-care (01) | LOC: HO.PT 08:00 | PROVIDERS: PCP Internal Medicine; Visit Provider Internal Medicine | DX: R32 Unspecified urinary incontinence (principal) | CPT/HCPCS: 97110; 97112; 97140; 97163 ==

== ENCOUNTER 2024-04-13 10:13 | Outpatient (REF) | payer MEDICARE, OTHER, SELFPAY ==
[2024-04-13 10:39] LABS: MANUAL DIFF FLAG NO
[2024-04-13 11:33] LABS: Basophils Absolute Auto 0.1 X10*3/uL (0.0-0.2); Basophils Percent Auto 1.1 % (0-2); Eosinophils Absolute Auto 0.2 X10*3/uL (0.0-0.4); Eosinophils Percent Auto 2.9 % (0-4); Hematocrit 43.8 % (37.0-47.0); Hemoglobin 14.3 g/dl (12.0-16.0); Imm Gran Abs Auto 0.03 X10*3/uL (0.00-0.03); Imm Gran Pct Auto 0.4 % (0.0-0.4); Lymphocytes Absolute Auto 1.8 X10*3/uL (1.2-4.9); Lymphocytes Percent Auto 23.2 % (20-40); Mean Corpuscular HGB Conc 32.6 g/dl (31.0-35.0); Mean Corpuscular Hemoglobin 27.9 pg (27.0-33.0); Mean Corpuscular Volume 85.4 fL (80.0-98.0); Mean Platelet Volume 10.2 fL (9.4-12.3); Monocytes Absolute Auto 0.5 X10*3/uL (0.1-1.2); Monocytes Percent Auto 6.1 % (2-11); Neutrophils Absolute Auto 5.1 x10*3/uL (2.0-8.3); Neutrophils Percent Auto 66.3 % (45-73); Platelet Count 358 X10*3/uL (160-400); Red Blood Count 5.13 X10*6/uL (4.20-5.50); Red Cell Distribution Width 14.8 % (11.0-16.0); White Blood Count 7.6 X10*3/uL (4.8-10.8)
[2024-04-13 12:15] LABS: Alanine Aminotransferase 17 U/L (0-31); Albumin Level 4.1 g/dL (3.5-5.0); Alkaline Phosphatase 105 U/L (39-117); Anion Gap 14 (12-20); Aspartate Amino Transferase 18 U/L (5-31); Bilirubin Total 0.8 mg/dL (0.0-1.0); Blood Urea Nitrogen 15 mg/dL (9-16); Calcium 9.3 mg/dL (8.4-10.2); Carbon Dioxide 27 mmol/L (22-29); Chloride 104 mmol/L (96-108); Estimated Glomerular Filt Rate > 60; Glucose Random 122 mg/dL (60-115); Potassium 3.9 mmol/L (3.3-5.1); Sodium 141 mmol/L (135-145); Total Protein 7.3 g/dL (6.5-8.0)
[2024-04-13 12:33] LABS: Free T4 (Free Thyroxine) 0.94 ng/dL (0.71-1.85); Thyroid Stimulating Hormone 3.01 uIU/mL (0.32-4.0)
== END 2024-04-13 10:14 | disposition home or self-care (01) ==
LOC: HO.LAB 10:13
PROVIDERS: PCP Internal Medicine; Visit Provider Internal Medicine
DX: E03.9 Hypothyroidism, unspecified (principal); K58.9 Irritable bowel syndrome, unspecified
CPT/HCPCS: 36415; 80053; 84439; 84443; 85025

== ENCOUNTER 2024-04-29 11:13 | Outpatient (REF) | payer MEDICARE, OTHER, SELFPAY ==
[2024-04-29 12:51] LABS: Appearance Urine Clear; Color Urine Yellow; Glucose Urine UA Negative (Negative); Leukocyte Esterase Urine Moderate (2+) (Negative); Nitrite Urine Negative (Negative); PH 6.5 (5.0-9.0); Specific Gravity - Urine 1.015 (1.005-1.025); UMIC TRIGGER UA YES; Urine Blood Trace (Negative); Urine Ketones Negative (Negative); Urine Protein Negative (Neg-Trace)
[2024-04-29 12:54] LABS: Bacteria Urine None Seen (None Seen); Hyaline Casts Urine 0-2 /LPF (0-2); RBC Urine 0-2 /HPF (0-2)
== END 2024-04-29 11:14 | disposition home or self-care (01) ==
LOC: HO.LAB 11:13
PROVIDERS: PCP Internal Medicine; Visit Provider Urology
DX: N32.81 Overactive bladder (principal); N39.41 Urge incontinence; R15.9 Full incontinence of feces; N39.0 Urinary tract infection, site not specified
CPT/HCPCS: 81001; 87086

== ENCOUNTER 2024-06-21 09:59 | Outpatient (AMB) | payer MEDICARE, OTHER, SELFPAY ==
--- NOTE | 2024-06-21 10:01 | A.OFFVIS_ITS ---
Intake Visit Reasons: 9m follow up/PVR Intake Note: Patient presents today for a follow-up on OAB: Meds: Vesicare- pt stopped Allergies to Antibiotic: Penicillin & Sulfa Blood Thinner: None PVR:0ML'S Software Development Intern Required: No Accompanied by: Self / Same As Patient Allergies Penicillins Allergy (Intermediate, Verified 06/21/24 10:02) HIVES, ANAPHYLAXIS Beef Containing Products [BEEF CONTAINING PRODUCTS] Allergy (Mild, Verified 06/21/24 10:02) INFLAMMATION caffeine [CAFFEINE] Allergy (Mild, Verified 06/21/24 10:02) UNKNOWN lactose [LACTOSE] Allergy (Mild, Verified 06/21/24 10:02) STOMACH PAIN,DIARRHEA nut - unspecified [nut] Allergy (Mild, Verified 06/21/24 10:02) UNKNOWN orange Allergy (Mild, Verified 06/21/24 10:02) GEOGRAPHIC TONGUE oxycodone [Percocet] Allergy (Mild, Verified 06/21/24 10:02) unknown penicillin G Allergy (Mild, Verified 06/21/24 10:02) unknown penicillin V Allergy (Mild, Verified 06/21/24 10:02) unknown Pork/Porcine Containing Products [PORK/PORCINE CONTAINING PRODUCTS] Allergy (Mild, Verified 06/21/24 10:02) INFLAMMATION,PAIN Sulfa (Sulfonamide Antibiotics) [SULFA (SULFONAMIDE ANTIBIOTICS)] Allergy (Mild, Verified 06/21/24 10:02) DIARRHEA,VOMITING acetaminophen [Percocet] Adverse Reaction (Unknown, Verified 06/21/24 10:02) unknown Medication List - Last Reconciled 06/21/24 by Fei Torres MD diphenhydramine HCl (Unisom (diphenhydramine)) 50 mg PO BEDTIME PRN loperamide 2 mg PO TID PRN meloxicam 7.5 mg PO ONCE Synthroid (levothyroxine) 50 mcg PO DAILY NS HPI Comments Details: Nicci is a 73-year-old female who presents to the office for follow-up. She has a history of mixed urinary incontinence and recurrent UTIs. She has had two surgeries in the past for stress incontinence including a sling procedure. She has fecal incontinence which has contributed to the UTIs. The patient states that since her last visit she has not had a UTI as she has been regimented on for hygiene. She states she is not able to take VESIcare because it causes too much of a dry mouth. And the Myrbetriq and Gemtesa although covered by insurance she has a high co-pay. She states that physical therapy in in the past has helped to a small degree. She has passed several questions regarding alternative treatment options and I have discussed briefly options including Botox, InterStim, bulking urethral agents. At this time further evaluate with urodynamics. Review of chart 09/25/23--The patient is being followed for OAB and recurrent UTI's. She was initially evaluated on 01/02/23 as a new patient. She has been followed by [facility] for recurrent vaginits. Has two bladder sling procedures at the age of 51s in [place] and 5 year later in [place]. The patient used to undergo gentamicin irrigation once a week pre-pandemic at her previous urologist and states to be prescribed with estrogen cream which caused breast tenderness for recurrent UTIs. She has h/o irritable bowel syndrome which may contribute to her UTI's. She states the vesicare causes a slignt headache and dry mouth. Myrbetriq was too expensive Using Vesicare, ocassional headache and dryness Gemtesa 75 mg She is to call the nurse with any issues regarding the gemtesa script. Follow-up after 9 months. 01/02/23--Pelvic floor exam: Catheterized urine 25 mL drained from the bladder. No significant pelvic floor prolapse. Trial of Myrbetriq, I have discussed use of cranberry tablets daily with/without D Mannose The patient is has recurrent Clostridioides difficile and was being evaluated for a fecal transplant. CAT results reviewed-08/22/2021-- Unremarkable for kidney stones. [facility] Medical History Obesity due to excess calories Pre-diabetes Plantar fasciitis Sacroiliitis History of Clostridioides difficile colitis Lumbosacral spondylosis without myelopathy Carpal tunnel syndrome Sleep apnea NAFL (nonalcoholic fatty liver) Hypothyroidism Irritable bowel syndrome with diarrhea Surgical History IGTN (ingrowing toe nail) Hx of colonoscopy History of thumb surgery H/O hernia repair History of removal of laparoscopic gastric banding device History of bladder surgery Hx laparoscopic cholecystectomy S/P panniculectomy H/O bilateral oophorectomy Hx of laparoscopic gastric banding History of laparoscopic appendectomy Hx of vaginal hysterectomy H/O tubal ligation Family History Father Colon cancer Maternal Aunt Colon cancer Paternal Aunt Breast cancer Maternal Aunt Colon cancer Social History Household Members: Spouse Household Members Other:: Alcohol intake: never Patient Tobacco Use Status: Never used Tobacco Current occupational status: retired Sexual orientation: Straight/Heterosexual Gender identity: Female Female Reproductive History Menstrual Age of Menarche: 14 Review of Systems Const All systems reviewed & are unremarkable except as noted in HPI and below Reports no additional complaints Eyes Reports no additional complaints ENT Reports no additional complaints Card Reports no additional complaints Resp Reports no additional complaints GI Reports no additional complaints Reports as per HPI Musc Reports no additional complaints Skin/Breast Reports system reviewed and no additional complaints, except as documented Neuro Reports no additional complaints Psych Reports no additional complaints Endo Reports no additional complaints David/Lymph Reports no additional complaints Aller/Immun Reports no additional complaints Office Procedures Post Void Residual Post Residual Void Post Void Residual (PVR): 0 [address]3875-Unld Void Residual by ultrasound Results AMB Urinalysis, Automated UA Leukoctes 0 Reginald/uL Last Edit by CESAR Carl on 06/21/24 10:10 UA Nitrite Negative Last Edit by CESAR Carl on 06/21/24 10:10 UA Urobilinogen 0.2 mg/dL Last Edit by CESAR Carl on 06/21/24 10:1 0 UA Protein 0 mg/dL Last Edit by CESAR Carl on 06/21/24 10:10 UA pH 6.0 Last Edit by CESAR Carl on 06/21/24 10:10 UA Blood 25 Nikolay/uL Last Edit by CESAR Carl on 06/21/24 10:10 UA Specific [place] 1.030 Last Edit by CESAR Carl on 06/21/24 10: 10 UA Ketone Negative Last Edit by CESAR Carl on 06/21/24 10:10 UA Bilirubin 0 mg/dL Last Edit by CESAR Carl on 06/21/24 10:10 UA Glucose 0 mg/dL Last Edit by CESAR Carl on 06/21/24 10:10 Results Reviewed Results Reviewed: Laboratory Last Values Urine pH (Auto) 6.0 06/21/24 10:09 Specific [place] (Auto) 1.030 06/21/24 10:09 Urine Protein (Auto) 0 mg/dL 06/21/24 10:09 Glucose (UA)(Auto) 0 mg/dL 06/21/24 10:09 Urine Ketones (Auto) Negative 06/21/24 10:09 Urine Blood (Auto) 25 Nikolay/uL 06/21/24 10:09 Urine Nitrite (Auto) Negative 06/21/24 10:09 Urine Bilirubin (Auto) 0 mg/dL 06/21/24 10:09 Urine Urobilinogen (Auto) 0.2 mg/dL 06/21/24 10:09 Leukocyte Esterase (Auto) 0 Reginald/uL 06/21/24 10:09 Date of Service: 08/22/21 EXAMINATION: CT ABDOMEN AND PELVIS WITH CONTRAST? CLINICAL INFORMATION: Irritable bowel syndrome. Diarrhea.? COMPARISON: Previous CT of the abdomen and pelvis most recent November 2015 and ultrasound of the abdomen September 2019? TECHNIQUE: Multidetector volumetric images were obtained from the superior aspect of the liver through the pubic symphysis following administration 85 mL of Omnipaque 350 intravenous contrast. Sagittal and coronal reformatted images were obtained on the technologist's workstation.? Oral contrast: Yes This CT examination was performed using dose optimization techniques as appropriate, variously including the following: *Automated exposure control *Adjustment of mA and/or kV according to patient size (this includes techniques or standardized protocols for targeted exams where dose is matched to indication/reason for exam; i.e. extremities or head) *Use of iterative reconstruction technique DLP: 592 mGy-cm FINDINGS: LUNG BASES: The visualized lung bases are unremarkable.? LIVER, GALLBLADDER, AND BILIARY TREE: The liver is low in attenuation suggestive of fatty infiltration. No focal liver lesion or biliary duct dilatation. The gallbladder is been removed. PANCREAS: Unremarkable.? SPLEEN: Unremarkable.? ADRENAL GLANDS: Unremarkable.? KIDNEYS AND URETERS: There are bilateral renal peripelvic cysts. No imaging follow-up needed. The kidneys are otherwise unremarkable. BLADDER: Not optimally distended.? GASTROINTESTINAL TRACT: There is diverticulosis of the colon. Small and large bowel is otherwise unremarkable. No evidence of diverticulitis or colitis is seen. The appendix is not identified and may have been removed.? ABDOMINAL WALL: There are postsurgical changes to the abdominal wall. No hernia is seen.? LYMPH NODES: Normal. VASCULAR: Unremarkable. PELVIC VISCERA: Uterus has been removed. No pelvic mass is seen.? OSSEOUS STRUCTURES: There are mild degenerative changes of the spine.? IMPRESSION: Diverticulosis of the colon. No evidence of diverticulitis or colitis. Fatty liver. Bilateral renal peripelvic cysts.? Assessment & Plan Assessment & Plan (1) Recurrent urinary tract infection: Code(s): N39.0 - Urinary tract infection, site not specified Category: Medical (2) OAB (overactive bladder): Code(s): N32.81 - Overactive bladder Category: Medical (3) Urinary and fecal incontinence: Code(s): R32 - Unspecified urinary incontinence; R15.9 - Full incontinence of feces Category: Medical (4) Urge incontinence of urine: Code(s): N39.41 - Urge incontinence Category: Medical Plan schedule urodynamics Orders: Orders AMB Urinalysis Automated Today Z13.9 - Encounter for screening, unspecified Patient Instructions: The patient had an opportunity to ask questions regarding treatment plan. The patient expressed understanding and agreement with the above treatment plan. The patient is aware they should contact our office by phone for worsening of their current condition or the appearance of new symptoms. Compliance is encouraged with any medications and followup testing that is ordered. It is a privilege to be allowed the opportunity to participate in the urologic care of your patient. If you have any questions or concerns regarding treatment for the above conditions please do not hesitate to contact me. The office telephone contact is [phone]. This note is constructed in part using voice recognition software. While every effort has been made to ensure accuracy sales representative publications errors may have been included. Yours sincerely, Fei Torres MD Coding Level of Care Code Est Pt Level 4 (93184) Diagnoses Recurrent urinary tract infection N39.0 OAB (overactive bladder) N32.81 Urinary and fecal incontinence R32; R15.9 Urge incontinence of urine N39.41 CPT Codes Post Residual Void - PVR CPT Code: 61272-Bbdf Void Residual by ultrasound ([id number])
--- OUTSIDE RECORDS SUMMARY | 2024-06-21 10:01 | XMS_ITS | Continuity of Care Document ---
Author Organization [facility] oenterology Address [address] [place] [address]- Care Team Providers Care Asbestos Brake Lining Finisher Name Role Phone Chip Bowden MD Primary Care Physician Encounter [facility] [place] Date(s): 09/10/23 - 10/10/23 [facility] [address] [place] [address]- Attending Physician: Ousmane Roy Admitting Physician: Ousmane Roy Referring Physician: AdmtrOusmane Allergies, Adverse Reactions, Alerts Substance Reaction Severity Status penicillin cardiac arrest Anaphylactic reaction Active Pork 1 abdominal pain Active Lactose diarrhea Active Percocet [D]Nausea and vomiting Activ e Caffeine breast discharge Active Other Food Allergy beef-abd pain Active sulfADIAZINE diarrhea Active 1BEEF Medications colestipol 1 gm oral tablet 2 tablet = 2 Gm, By Mouth, Daily, 0 Refills, Maintenance, 07/03/15 15:09:41 Start Date: 07/03/15 Status: Ordered Doxylamine By Mouth, Daily at bedtime, 0 Refills, Maintenance, 07/03/15 15:12:13 Start Date: 07/03/15 Status: Ordered Ibuprofen By Mouth, PRN, Maintenance, as needed for pain, 07/03/15 15:10:46 Start Date: 07/03/15 Status: Ordered meloxicam 7.5 mg oral tablet 1 tablet = 7.5 mg, By Mouth, Daily, 0 Refills, Maintenance, 03/17/18 9:00:23 EDT Start Date: 03/17/18 Status: Ordered Multivitamin 1 tablet, By Mouth, Daily, 0 Refills, Maintenance, 07/03/15 15:12:53 Start Date: 07/03/15 Status: Ordered Probiotic Formula 1 capsule, By Mouth, Daily, 0 Refills, Maintenance, 07/03/15 15:13:27 Start Date: 07/03/15 Status: Ordered Synthroid 0.05 mg oral tablet 1 tablet = 0.05 mg, By Mouth, Daily, Brand name but zaidi as generic. TEE 5, # 90 tablet, 3 Refills, Maintenance, 03/24/18 12:54:45 EDT, Tablet, No substitution. Brand name necessary Start Date: 03/24/18 Stop Date: 03/19/19 Status: Ordered Problem List Condition Confirmation Course Effective Dates Status H ealth Status Informant Adult BMI 38.0-38.9 kg/sq m Confirmed Active Hypothyroidism Confirmed Active Irritable bowel syndrome (IBS) Confirmed Active Social History Social History Type Response Smoking Status Never smoker; Tobacc o user in household: No entered on: 11/29/15 Sex Patient Care team information Care Team Personnel Name: Chip Bowden MD Position: [facility] Outreach Member Role: PCP Address: Address: [address] [place] [address] [place] [address]- Care Team Related Persons Name: KIRBY PALMER Address: home [address] [place] [address] [place] [address] Name: KIRBY PALMER Address: home [address] [place] [address]
--- OUTSIDE RECORDS SUMMARY | 2024-06-21 10:01 | XMS_ITS | Continuity of Care Document ---
Author Organization [facility] Address [address] [place] [address]- Care Team Providers Care Inventory Manager Name Role Phone Chip Bowden MD Primary Care Physician [phone] [place] [facility] [place] - 10/10/[address] [address]- Attending Physician: Ousmane Roy Admitting Physician: Ousmane Roy Referring Physician: AdmtrOusmane Allergies, Adverse Reactions, Alerts Substance Reaction Severity Status penicillin cardiac arrest Anaphylactic reaction Active sulfADIAZINE diarrhea Active Percocet [D]Nausea and vomiting Activ e Caffeine breast discharge Active Pork 1 abdominal pain Active Other Food Allergy beef-abd pain Active Lactose diarrhea Active 1BEEF Medications colestipol 1 gm [...] Team Personnel Name: Chip Bowden MD Position: [facility] Outreach Member Role: PCP Address: Address: [address] [place] [address] [place] [address]- [place] Care Team Related Persons Name: KIRBY PALMER Address: home [address] [place] [address] [place] [address] Name: KIRBY PALMER Address: home [address] [place] [address]
--- OUTSIDE RECORDS SUMMARY | 2024-06-21 10:01 | XMS_ITS | Continuity of Care Document ---
Author Organization [facility] Address [address] [place] [address]- Care Team Providers Care Analog Ic Design Engineer Name Role Phone Chip Bowden MD Primary Care Phys[id number] Date[facility]s): 03/02/24 - 04/01/[address] [address]- Attending Physician: Ousmane Roy Admitting Physician: AdmOusmane kraft Referring Physician: AdmtrOusmane Allergies, Adverse Reactions, Alerts [...] Team Personnel Name: Chip Bowden MD [facility] Out[facility] Member Role: PCP Address: Address: [address] [place] [address] [place] [address]- Care Team Related Persons Name: KIRBY PLAMER Address: home [address] [place] [address] [place] [id number] Name: KIRBY PALMER JR Address: home [address] [place] [id number]
--- OUTSIDE RECORDS SUMMARY | 2024-06-21 10:01 | XMS_ITS | Patient Health Record ---
Author Organization [facility] Address [address] [place] [address] Care Team Providers Care Landing Signal Officer Name Role Phone Chip Bowden MD Primary Care Provider Unavaila Ovidio Meek Unavailable [phone] EUGENIO GARCIA Unavailable Unavailable ALLERGIES Allergen (clinical drug ingredient) Drug/Non Drug Allergy documented on EMR Reaction Allergy Type Onset Date Status Sulfa Unknown Drug Allergy Active Penicillin Unknown Drug Allergy Active oranges,caffeine,nut s ,pills (uncoded) Unknown Allergy Active Beef,pork,liver, (uncoded) Unknown Allergy Active IVP dye (uncoded) Unknown Allergy In active REASON FOR REFERRAL No Information MEDICATIONS Medication SIG (Take, Route, Frequency, Duration) Notes Start Date End Date Status Synthroid 50 MCG 1 tablet on an empty stomach in the morning Orally Once a day Active Doxylamine Succinate (Sleep) 25 MG 1 tablet at bedtime as needed Orally Once a day Active Dicyclomine HCl 10 MG 1-2 capsules Orall y Four times a day prn abdominal cramps/discomfort 04/07/2017 Active Cholestyramine 4 GM/DOSE 1/2 to 1 scoop in glass of water or orange juice PO QD or BID for diarrhea for 30 days 08/17/2021 Active Imodium A-D 2 MG 1 tablet Orally two times a day Active Probiotic - 1 gummy Orally every day Active Nitrofurantoin Macrocrystal 100 MG 1 capsule at bedtime with food or milk Orally Once a day for 10 day(s) Active Vitamin B 12 500 MCG 1 tablet Orally Onc e a day for 30 day(s) Active Multivitamin - 1 tablet Orally Once a day for 30 day(s) Active Multi Vitamin/Minerals - 1 gummy Orally every day Active Meloxicam 7.5 MG 1 tablet Orally twice a day Active Alosetron HCl 1 MG 1 tablet Orally QD January Mendel ortega NP Active IMMUNIZATIONS Vaccine Route Administration Date Status Comme nts Flu vaccine no Preserv 3 and > Unknown 07/22/2017 Admin istered Influenza Unknown 07/25/2021 Administered SOCIAL HISTORY Sex Assigned At : Social History Observation Description Sex Assigned At Unknown Alcohol Screen Question Answer Notes Did you have a drink containing alcohol in the p ast year? No Points 0 Interpretation Negative PROBLEMS Problem Type ICD Code Onset Dates Problem Status W/U Status Risk SNOMED Code Notes Problem Encounter for screening for malignant neoplasm of colon (Z12.11) Active confirmed 758457038 Problem History of adenomatous polyp of colon (Z86.010) Active confirmed 118051954 Problem Irritable bowel syndrome with diarrhea (K58.0) Active confirmed 934418987 Problem Encounter for screening for malignant neoplasm of rectum (Z12.12) Active confirmed Screening fo r malignant neoplasm of rectum (802869061) Problem Family history of colon cancer (Z80.0) Active confirmed 863943676 Problem Clostridium difficile infection (B96.89) Active confirmed 969957359 Problem Diarrhea, unspecified type (R19.7) Active confirmed 94210803 Problem Hypertension, unspecified type (I10) Active confirmed 00541239 Problem History of Clostridium difficile infection (Z86.19) Active confirmed [id number] PLAN OF TREATMENT Pending Test Test Name Order Date CLOSTRIDIUM DIFF TOXIN A&B (C DIFF) 12/13 CLOSTRIDIUM DIFF TOXIN A&B (C DIFF) 09/13 CLOSTRIDIUM DIFF TOXIN A&B (C DIFF) 12/2016 STOOL WBC 10/04/2014 STOOL WBC 11/15/2016 GIARDIA AG, STOOL EIA 10/04/2014 OVA & PARASITES (O&P) 10/04/2014 CULTURE, STOOL 10/04/2014 C DIFFICILE RFLX PCR 08/17/2021 Future Test Test Name Order Date COLONOSCOPY 01/13/2013 COLONOSCOPY 07/29/2017 Insurance Providers Payer Name Payer Address Payer Phone Subscriber Number Group Number Insured Name Patient Relationship to Insured Coverage Start Date Coverage End Date [facility]IC[facility] OF [facility] [address] [place] [address] [place] [id number] NICOLE PALMER Self - patient is the insured [employer] [address] [place] [address] [id number] NICOLE PALMER Self - patient is the insured MEDICAL (GENERAL) HISTORY Medical History History ICD Code Colonoscopy 10/2007--Tubular adenoma removed; biopsies neg for microscopic colitis; neg. colonoscopy [place] [address] Phillips Hypothyroidism Lap band placed in 2006-ramirez sient weight loss- Dr. Ocampo is planning to remove it IBS--neg. labs for celiac disease in 2013 Denies SC,DM,CVA,Lung disease,renal dise ase Colonoscopy in 02/2013--WNL--no polyps Back pain/arthritis-herniated disc C.diff x2 (2014)--ultimately treated wit h Vancomycin Sleep apnea--had a CPAP but presently no t using it She had a negative colonoscopy with pr i n 2017 Colonoscopy in May with Dr. Ryan was negative for inflammatory bowel disease. A small tubular adenoma was removed and biopsies were negative for microscopic colitis In July of 2021 she was t reated with vancomycin for a positive stool for C. difficile toxin B gene, although the specimen was negative for C. difficile toxins A and B. She was put on Alosetron by Ekaterina Meek NP, [facility] [place] GI Surgical History Surgery Date(Month/Year) Hysterectomy, subsequent removal of both ovaries and Fallopian tubes Appendectomy Laparoscopies Cholecystectomy Lap band in 2006 Ayah waggoner after weight loss Bladder suspension Hernia repair--umbilical, bilateral ingu inal--Dr. Ocampo 08/2014 Lap band removal 2011
--- OUTSIDE RECORDS SUMMARY | 2024-06-21 10:01 | XMS_ITS | Continuity of Care Document ---
Author Organization [facility] oenterology Address [address] [place] [address]- Care Team Providers Care Order Processing Manager Name Role Phone Chip Bowden MD Primary Care Physician [place] [facility] [place] [facility] [address] [place] [address]- Attending Physician: Stefany Kim MD Admitting Physician: Stefany Kim MD Referring Physician: Chip Bowden MD Allergies, Adverse Reactions, Alerts Substance Reaction Severity [...] Team Personnel Name: Chip Bowden MD Position: [facility] Outreach Member Role: PCP Address: Address: [address] [place] [address] [place] [address]- Care Team Related Persons Name: KIRBY PALEMR Address: home [address] [place] [address] [place] [address] Name: KIRBY PALMER Address: home [address] [place] [address]
--- OUTSIDE RECORDS SUMMARY | 2024-06-21 10:01 | XMS_ITS | Continuity of Care Document ---
Author Organization [facility] Address [address] [place] [address]- Care Team Providers Care Blooming Mill Supervisor Name Role Phone Chip Bowden MD Primary Care Physician Encounter [facility] [place] Date(s): 09/04/22 - 10/10/[address] [address] Attending Physician: Raymond Gil MD, I Admitting Physician: Raymond Gil MD, I Referring Physician: Raymond Gil MD, I Allergies, Adverse Reactions, Alerts Substance Reaction Severity [...] HOSPITAL Outreach Member Role: PCP Address: Address: [address] [place] [address] [place] [address]- [place] Care Team Related Persons Name: KIRBY PALMER Address: home [address] [place] [address] [place] [address] Name: KIRBY PALMER Address: home [address] [place] [address]
== END 2024-06-21 10:44 | disposition home or self-care (01) ==
LOC: HO.HUSH 09:59
PROVIDERS: PCP Internal Medicine; Visit Provider Urology
DX: N39.0 Urinary tract infection, site not specified (principal); N32.81 Overactive bladder; R32 Unspecified urinary incontinence; R15.9 Full incontinence of feces; N39.41 Urge incontinence; Z13.9 Encounter for screening, unspecified
CPT/HCPCS: 99214

== ENCOUNTER → 2024-06-21 09:59 | Outpatient (BNVA) | payer MEDICARE, OTHER, SELFPAY | PROVIDERS: PCP Internal Medicine; Visit Provider Urology | DX: N39.0 Urinary tract infection, site not specified (principal); N32.81 Overactive bladder; N39.41 Urge incontinence; R32 Unspecified urinary incontinence; R15.9 Full incontinence of feces | CPT/HCPCS: 51798; 81003; 99212 ==

== ENCOUNTER 2024-06-24 11:00 | Outpatient (RCR) | payer MEDICARE, OTHER, SELFPAY | END 2024-06-24 11:34 | disposition home or self-care (01) | LOC: HO.PT 11:00 | PROVIDERS: PCP Internal Medicine; Visit Provider Student in an Organized Health Care Education/Training Program | DX: M54.50 Low back pain, unspecified (principal) | CPT/HCPCS: 97110; 97112; 97163 ==

== ENCOUNTER 2024-08-02 11:16 | Outpatient (AMB) | payer MEDICARE, OTHER, SELFPAY ==
--- OUTSIDE RECORDS SUMMARY | 2024-08-02 11:19 | XMS_ITS | Patient Health Record ---
Author Organization [facility] Address [address] [place] [address] Care Team Providers Care Jet Piercer Operator Name Role Phone Chip Bowden MD Primary Care Provider Unavaila Ovidio Meek Unavailable [phone] EUGENIO GARCIA Unavailable Unavailable ALLERGIES Allergen (clinical [...] malignant neoplasm of colon (Z12.11) Active confirmed 889641682 Problem History of adenomatous polyp of colon (Z86.010) Active confirmed 381147439 Problem Irritable bowel syndrome with diarrhea (K58.0) Active confirmed 692965418 Problem Encounter for screening for malignant neoplasm of rectum (Z12.12) Active confirmed Screening fo r malignant neoplasm of rectum (425028560) Problem Family history of colon cancer (Z80.0) Active confirmed 635713077 Problem Clostridium difficile infection (B96.89) Active confirmed 280026883 Problem Diarrhea, unspecified type (R19.7) Active confirmed 02861793 Problem Hypertension, unspecified type (I10) Active confirmed 67535019 Problem History of Clostridium difficile infection (Z86.19) Active confirmed [id number] PLAN OF TREATMENT Pending Test Test Name [...] Start Date Coverage End Date MEDICARE OF [facility] [address] [place] [address] [place] [id number] NICOLE PALMER Self - patient is the insured [facility] IN[facility]MN[facility] [address] [place] [address] [id number] NICOLE PALMER Self - patient is the insured MEDICAL (GENERAL) HISTORY Medical History History ICD Code Colonoscopy 10/2007--Tubular adenoma removed; biopsies neg for microscopic colitis; neg. colonoscopy [place] [address] Phillips Hypothyroidism Lap band placed in 2006-ramirez sient weight loss- Dr. Ocampo is planning to remove it IBS--neg. labs for celiac disease in 2013 Denies ND,DM,CVA,Lung disease,renal dise ase Colonoscopy in 02/2013--WNL--no polyps Back pain/arthritis-herniated disc C.diff x2 (2014)--ultimately treated wit h Vancomycin Sleep apnea--had a CPAP but presently no t using it She had a negative colonoscopy with ma i n 2017 Colonoscopy in May with [...] put on Alosetron by Ekaterina Meek NP, [facility] Surgical History Surgery Date(Month/Year) Hysterectomy, subsequent removal of both ovaries and Fallopian tubes Appendectomy Laparoscopies Cholecystectomy Lap band in 2006 Ayah waggoner after weight loss Bladder suspension Hernia repair--umbilical, bilateral ingu inal--Dr. Ocampo 08/2014 Lap band removal 2011
--- NOTE | 2024-08-02 11:32 | A.OFFVIS_ITS ---
Vital Signs 08/02/24 11:36 Height 4 ft 11 in Weight 200 lb BMI 40.4 BP 124/62 Intake Visit Reasons: HOSPICE LIAISON annual exam/do not jesus Intake Note: c/o of vaginal dtyness Control Panel Builder Required: No Information Interpreted: non-clinical & clinical Senior Sas Programmer: Senior Sas Programmer Present (Madelaine Lopez JOSHUA) Accompanied by: Self / Same As Patient Allergies Penicillins Allergy (Intermediate, Verified 08/02/24 11:37) HIVES, ANAPHYLAXIS Beef Containing Products [BEEF CONTAINING PRODUCTS] Allergy (Mild, Verified 08/02/24 11:37) INFLAMMATION caffeine [CAFFEINE] Allergy (Mild, Verified 08/02/24 11:37) UNKNOWN lactose [LACTOSE] Allergy (Mild, Verified 08/02/24 11:37) STOMACH PAIN,DIARRHEA nut - unspecified [nut] Allergy (Mild, Verified 08/02/24 11:37) UNKNOWN orange Allergy (Mild, Verified 08/02/24 11:37) GEOGRAPHIC TONGUE oxycodone [Percocet] Allergy (Mild, Verified 08/02/24 11:37) unknown penicillin G Allergy (Mild, Verified 08/02/24 11:37) unknown penicillin V Allergy (Mild, Verified 08/02/24 11:37) unknown Pork/Porcine Containing Products [PORK/PORCINE CONTAINING PRODUCTS] Allergy (Mild, Verified 08/02/24 11:37) INFLAMMATION,PAIN Sulfa (Sulfonamide Antibiotics) [SULFA (SULFONAMIDE ANTIBIOTICS)] Allergy (Mild, Verified 08/02/24 11:37) DIARRHEA,VOMITING acetaminophen [Percocet] Adverse Reaction (Unknown, Verified 08/02/24 11:37) unknown Post menopausal: Yes HPI Comments Details: Presenting for annual exam. No complaints. Last Pap/HPV was in 2017 was negative the patient is status post hysterectomy Last Mammogram was BI-RADS 2 in 11/05 Last Colonoscopy was done in 06/02, the recommendation was to repeat in 5 years Last DEXA scan was in 04/04 [facility] Medical History Obesity due to excess calories Pre-diabetes Plantar fasciitis Sacroiliitis History of Clostridioides difficile colitis Lumbosacral spondylosis without myelopathy Carpal tunnel syndrome Sleep apnea NAFL (nonalcoholic fatty liver) Hypothyroidism Irritable bowel syndrome with diarrhea Surgical History IGTN (ingrowing toe nail) Hx of colonoscopy History of thumb surgery H/O hernia repair History of removal of laparoscopic gastric banding device History of bladder surgery Hx laparoscopic cholecystectomy S/P panniculectomy H/O bilateral oophorectomy Hx of laparoscopic gastric banding History of laparoscopic appendectomy Hx of vaginal hysterectomy H/O tubal ligation Family History Father Colon cancer Maternal Aunt Colon cancer Paternal Aunt Breast cancer Maternal Aunt Colon cancer Social History Household Members: Spouse Household Members Other:: Alcohol intake: never Patient Tobacco Use Status: Never used Tobacco Current occupational status: retired Sexual orientation: Straight/Heterosexual Gender identity: Female Female Reproductive History Menstrual Age of Menarche: 14 control method: permanent sterilization Menopause type: surgical Total pregnancies: 3 Full term: 3 Number of Living Children: 3 Date of Mammogram: 10/23/23 Date of last Bone Density Screenin04/10/23 Review of Systems Const All systems reviewed & are unremarkable except as noted in HPI and below Card Reports as per HPI and Reports no additional complaints Resp Reports as per HPI and Reports no additional complaints GI Reports as per HPI and Reports no additional complaints Reports as per HPI Physical Exam Const General: cooperative, healthy appearing and comfortable General: Yes bladder normal to palpation External Female Exam: No lesion Speculum Exam - Vagina: normal appearance of the vagina, normal vaginal discharge and not erythematous Speculum Exam - Cervix: Cervix absent Bimanual exam- vagina & uterus: bladder normal to palpation and uterus absent Bimanual Exam- Adnexa, other: Other (No masses detected) Assessment & Plan Assessment & Plan (1) Well woman exam: Code(s): Z01.419 - Encounter for gynecological examination (general) (routine) without abnormal findings Category: Medical Plan: Co testing not indicated since the patient 's age is above 65 and is status post hysterectomy with no history of abnormal Pap smears Counseled the patient about the recommended dietary allowance of 1200 mg of Calcium & 800 IU of vitamin D. Instructions given the patient to schedule next screening Mammogram in 11/06. The patient was instructed to perform monthly self-breast exams and to schedule an annual exam in a year; All questions answered and the patient verbalized understanding. Coding Level of Care Code Est Pt Prev Care >65y(09430) Diagnoses Well woman exam Z01.419
[2024-08-02 11:36] VITALS: BP 124/62; BMI 40.4
== END 2024-08-02 11:50 | disposition home or self-care (01) ==
LOC: HO.HWS 11:16
PROVIDERS: PCP Internal Medicine; Visit Provider Obstetrics & Gynecology
DX: Z01.419 Encounter for gynecological examination (general) (routine) without abnormal findings (principal)
CPT/HCPCS: G0101

== ENCOUNTER → 2024-08-02 11:16 | Outpatient (BNVA) | payer MEDICARE, OTHER, SELFPAY | PROVIDERS: PCP Internal Medicine; Visit Provider Obstetrics & Gynecology | DX: Z01.419 Encounter for gynecological examination (general) (routine) without abnormal findings (principal) | CPT/HCPCS: G0101 ==

== ENCOUNTER 2024-08-03 09:56 | Outpatient (AMB) | payer MEDICARE, OTHER, SELFPAY | END 2024-08-03 10:16 | disposition home or self-care (01) | PROVIDERS: PCP Internal Medicine; Visit Provider Urology | DX: Z13.9 Encounter for screening, unspecified (principal) ==

== ENCOUNTER 2024-08-03 09:56 | Outpatient (REF) | payer MEDICARE, OTHER, SELFPAY | END 2024-08-03 09:57 | disposition home or self-care (01) | LOC: HO.LNP 09:56 | PROVIDERS: PCP Internal Medicine; Visit Provider Urology | DX: N32.81 Overactive bladder (principal); N39.41 Urge incontinence; N39.0 Urinary tract infection, site not specified | CPT/HCPCS: 81003; 87086 ==

== ENCOUNTER 2024-08-13 08:28 | Outpatient (AMB) | payer MEDICARE, OTHER, SELFPAY ==
--- NOTE | 2024-08-13 08:49 | MHC.OFFVIS ---
Intake Visit Reasons: Urodynamics Intake Note: Patient is present for Urodynamics Urology Medication: NONE Antibiotic Allergy:PENICILLINS,SULFA Blood Thinner:NONE Flying Teacher Required: No Allergies Penicillins Allergy (Intermediate, Verified 08/13/24 08:51) HIVES, ANAPHYLAXIS Beef Containing Products [BEEF CONTAINING PRODUCTS] Allergy (Mild, Verified 08/13/24 08:51) INFLAMMATION caffeine [CAFFEINE] Allergy (Mild, Verified 08/13/24 08:51) UNKNOWN lactose [LACTOSE] Allergy (Mild, Verified 08/13/24 08:51) STOMACH PAIN,DIARRHEA nut - unspecified [nut] Allergy (Mild, Verified 08/13/24 08:51) UNKNOWN orange Allergy (Mild, Verified 08/13/24 08:51) GEOGRAPHIC TONGUE oxycodone [Percocet] Allergy (Mild, Verified 08/13/24 08:51) unknown penicillin G Allergy (Mild, Verified 08/13/24 08:51) unknown penicillin V Allergy (Mild, Verified 08/13/24 08:51) unknown Pork/Porcine Containing Products [PORK/PORCINE CONTAINING PRODUCTS] Allergy (Mild, Verified 08/13/24 08:51) INFLAMMATION,PAIN Sulfa (Sulfonamide Antibiotics) [SULFA (SULFONAMIDE ANTIBIOTICS)] Allergy (Mild, Verified 08/13/24 08:51) DIARRHEA,VOMITING acetaminophen [Percocet] Adverse Reaction (Unknown, Verified 08/13/24 08:51) unknown HPI Comments Details: 08/13/24--Nicci is here for urodynamics. The patient has complaints of urinary frequency and urge incontinence and fecal incontinece. Interpretation: Complex uroflow was not obtained. During the filling phase there was normal sensation, sensory urgency was noted, strong urge was noted at 231 mL. 266 mL of sterile water was instilled, the patient voided 400 mL (which was manually measured). Leakage was not observed during cough or valsalva stress. Findings consistent with sensor urgency. EMG- Appropriate changes in the waveforms were noted through out the study. Discussed treatment options to include but not limited to sacral neuromodulation. Discussed lead placement into Sacral foremen and that this is a staged procedure. 20 minutes spent in discussion with the patient. Plan Stage l lead implant. Review of chart: 06/21/24--Nicci is a 73-year-old female who presents to the office for follow-up. She has a history of mixed urinary incontinence and recurrent UTIs. She has had two surgeries in the past for stress incontinence including a sling procedure. She has fecal incontinence which has contributed to the UTIs. The patient states that since her last visit she has not had a UTI as she has been regimented on for hygiene. She states she is not able to take VESIcare because it causes too much of a dry mouth. And the Myrbetriq and Gemtesa although covered by insurance she has a high co-pay. She states that physical therapy in in the past has helped to a small degree. She has passed several questions regarding alternative treatment options and I have discussed briefly options including Botox, InterStim, bulking urethral agents. At this time further evaluate with urodynamics. 09/25/23--The patient is being followed for OAB and recurrent UTI's. She was initially evaluated on 01/02/23 as a new patient. She has been followed by HOOKER MACHINE TENDER for recurrent vaginits. Has two bladder sling procedures at the age of 51s in [place] and 5 year later in [place]. The patient used to undergo gentamicin irrigation once a week pre-pandemic at her previous urologist and states to be prescribed with estrogen cream which caused breast tenderness for recurrent UTIs. She has h/o irritable bowel syndrome which may contribute to her UTI's. She states the vesicare causes a slignt headache and dry mouth. Myrbetriq was too expensive Using Vesicare, ocassional headache and dryness Gemtesa 75 mg She is to call the nurse with any issues regarding the gemtesa script. Follow-up after 9 months. 01/02/23--Pelvic floor exam: Catheterized urine 25 mL drained from the bladder. No significant pelvic floor prolapse. Trial of Myrbetriq, I have discussed use of cranberry tablets daily with/without D Mannose. The patient is has recurrent Clostridioides difficile and was being evaluated for a fecal transplant. CAT results reviewed-08/22/2021-- Unremarkable for kidney stones. [facility] Medical History Obesity due to excess calories Pre-diabetes Plantar fasciitis Sacroiliitis History of Clostridioides difficile colitis Lumbosacral spondylosis without myelopathy Carpal tunnel syndrome Sleep apnea NAFL (nonalcoholic fatty liver) Hypothyroidism Irritable bowel syndrome with diarrhea Surgical History IGTN (ingrowing toe nail) Hx of colonoscopy History of thumb surgery H/O hernia repair History of removal of laparoscopic gastric banding device History of bladder surgery Hx laparoscopic cholecystectomy S/P panniculectomy H/O bilateral oophorectomy Hx of laparoscopic gastric banding History of laparoscopic appendectomy Hx of vaginal hysterectomy H/O tubal ligation Family History Father Colon cancer Maternal Aunt Colon cancer Paternal Aunt Breast cancer Maternal Aunt Colon cancer Social History Household Members: Spouse Household Members Other:: Alcohol intake: never Patient Tobacco Use Status: Never used Tobacco Current occupational status: retired Sexual orientation: Straight/Heterosexual Gender identity: Female Female Reproductive History Menstrual Age of Menarche: 14 Review of Systems Const All systems reviewed & are unremarkable except as noted in HPI and below Reports no additional complaints Eyes Reports no additional complaints ENT Reports no additional complaints Card Reports no additional complaints Resp Reports no additional complaints GI Reports no additional complaints Reports as per HPI Musc Reports no additional complaints Skin/Breast Reports system reviewed and no additional complaints, except as documented Neuro Reports no additional complaints Psych Reports no additional complaints Endo Reports no additional complaints David/Lymph Reports no additional complaints Aller/Immun Reports no additional complaints Office Procedures Urodynamic Studies Consent Discussed risk and benefit or proposed procedure with the patient. Information consent for procedure given to the patient. Discussed technical aspects, risks, benefits and alternatives in full. Addressed all of the patient's questions and concerns regarding the procedure. The patient demonstrated knowledge and understanding. They wish to proceed with this procedure. Preparation The patient was prepped in the usual manner. A individualized education plan aide was present and in the room. Genitalia was prepped with betadine solution in a sterile manner. Procedure Cystometrogram Vaginal/rectal catheter type: vaginal First sensation at (mL): [23] mL First desire at (mL): [154] mL Strong desire to void occured at (mL): [23] mL Strong desire detrussor pressure (cm H2O): [0.6] Maximum fill (mL): [266] mL Voided with max detrussor pressure of (cm H2O): [6.2] Maximum flow rate (mL/second): [15] mL/s 03264-Mimshlaceejbsf w/ WIRE FRAME LAMP SHADE MAKER 11080-Uvin/Urinary Muscle Study 98584-Rnqpp-Elpskfkab Pressure Test Procedure code (CPT) selection complete Office Meds nitrofurantoin monohydrate/macrocrystals 100 mg capsule Performing Provider: Fei Torres MD Performing [place] [facility] Administered by: Anibal Carrasquillo LPN on 08/13/24 08:54 Dose Route Admin Location Dispensed Lot Number Expiration Date NDC Fresh Food Manager 100 mg PO 1 cap Results Reviewed Results Reviewed: Date of Service: 08/22/21 EXAMINATION: CT ABDOMEN AND PELVIS WITH CONTRAST? CLINICAL INFORMATION: Irritable bowel syndrome. Diarrhea.? COMPARISON: Previous CT of the abdomen and pelvis most recent November 2015 and ultrasound of the abdomen September 2019? TECHNIQUE: Multidetector volumetric images were obtained from the superior aspect of the liver through the pubic symphysis following administration 85 mL of Omnipaque 350 intravenous contrast. Sagittal and coronal reformatted images were obtained on the technologist's workstation.? Oral contrast: Yes This CT examination was performed using dose optimization techniques as appropriate, variously including the following: *Automated exposure control *Adjustment of mA and/or kV according to patient size (this includes techniques or standardized protocols for targeted exams where dose is matched to indication/reason for exam; i.e. extremities or head) *Use of iterative reconstruction technique DLP: 592 mGy-cm FINDINGS: LUNG BASES: The visualized lung bases are unremarkable.? LIVER, GALLBLADDER, AND BILIARY TREE: The liver is low in attenuation suggestive of fatty infiltration. No focal liver lesion or biliary duct dilatation. The gallbladder is been removed. PANCREAS: Unremarkable.? SPLEEN: Unremarkable.? ADRENAL GLANDS: Unremarkable.? KIDNEYS AND URETERS: There are bilateral renal peripelvic cysts. No imaging follow-up needed. The kidneys are otherwise unremarkable. BLADDER: Not optimally distended.? GASTROINTESTINAL TRACT: There is diverticulosis of the colon. Small and large bowel is otherwise unremarkable. No evidence of diverticulitis or colitis is seen. The appendix is not identified and may have been removed.? ABDOMINAL WALL: There are postsurgical changes to the abdominal wall. No hernia is seen.? LYMPH NODES: Normal. VASCULAR: Unremarkable. PELVIC VISCERA: Uterus has been removed. No pelvic mass is seen.? OSSEOUS STRUCTURES: There are mild degenerative changes of the spine.? IMPRESSION: Diverticulosis of the colon. No evidence of diverticulitis or colitis. Fatty liver. Bilateral renal peripelvic cysts.? Assessment & Plan Assessment & Plan (1) Urinary and fecal incontinence: Code(s): R32 - Unspecified urinary incontinence; R15.9 - Full incontinence of feces Category: Medical (2) Urge incontinence of urine: Code(s): N39.41 - Urge incontinence Category: Medical (3) Urgency-frequency syndrome: Code(s): N32.81 - Overactive bladder Category: Medical (4) Urinary urgency: Code(s): R39.15 - Urgency of urination Category: Medical Plan Plan sacral neuromodulation. Stage 1, lead implant. Orders: Orders AMB Urodynamics Studies Today N32.81 - Overactive bladder, N39.0 - Urinary tract infection, site not specified, N39.41 - Urge incontinence, R15.9 - Full incontinence of feces, R32 - Unspecified urinary incontinence Patient Instructions: The patient had an opportunity to ask questions regarding treatment plan. The patient expressed understanding and agreement with the above treatment plan. The patient is aware they should contact our office by phone for worsening of their current condition or the appearance of new symptoms. Compliance is encouraged with any medications and followup testing that is ordered. It is a privilege to be allowed the opportunity to participate in the urologic care of your patient. If you have any questions or concerns regarding treatment for the above conditions please do not hesitate to contact me. The office telephone contact is [phone]. This note is constructed in part using voice recognition software. While every effort has been made to ensure accuracy product tester fiberglass errors may have been included. Yours sincerely, Fei Torres MD Coding Level of Care Code Est Pt Level 3 (64032) Diagnoses Urinary and fecal incontinence R32; R15.9 Urge incontinence of urine N39.41 Urgency-frequency syndrome N32.81 Urinary urgency R39.15 CPT Codes Urodynamic Studies - CPT: 71557-Eghmmugtcfaezm w/ WIRE FRAME LAMP SHADE MAKER ([id number]) Urodynamic Studies - CPT: 45449-Nvrm/Urinary Muscle Study ([id number]) Urodynamic Studies - CPT: 31757-Zupkr-Nvqzqukxk Pressure Test ([id number])
== END 2024-08-13 10:02 | disposition home or self-care (01) ==
LOC: HO.HUSH 08:29
PROVIDERS: PCP Internal Medicine; Visit Provider Urology
DX: R15.9 Full incontinence of feces (principal); N39.41 Urge incontinence; N32.81 Overactive bladder; R39.15 Urgency of urination; N39.0 Urinary tract infection, site not specified
CPT/HCPCS: 51728; 51741; 51784; 51797; 99213

== ENCOUNTER → 2024-08-13 08:28 | Outpatient (BNVA) | payer MEDICARE, OTHER, SELFPAY | PROVIDERS: PCP Internal Medicine; Visit Provider Urology | DX: N39.41 Urge incontinence (principal); N32.81 Overactive bladder; R15.9 Full incontinence of feces | CPT/HCPCS: 51728; 51741; 51784; 51797; 99212 ==

== ENCOUNTER 2024-08-20 11:33 | Outpatient (REF) | payer MEDICARE, OTHER, SELFPAY ==
[2024-08-20 13:00] LABS: Appearance Urine Clear; Color Urine Yellow; Glucose Urine UA Negative (Negative); Leukocyte Esterase Urine Moderate (2+) (Negative); Nitrite Urine Negative (Negative); UMIC TRIGGER UA YES; Urine Blood Negative (Negative); Urine Ketones Negative (Negative); Urine Protein Negative (Neg-Trace)
[2024-08-20 13:07] LABS: Bacteria Urine None Seen (None Seen); Hyaline Casts Urine 0-2 /LPF (0-2); RBC Urine 0-2 /HPF (0-2)
== END 2024-08-20 11:34 | disposition home or self-care (01) ==
LOC: HO.LAB 11:33
PROVIDERS: PCP Internal Medicine; Visit Provider Urology
DX: N32.81 Overactive bladder (principal); R15.9 Full incontinence of feces; N39.0 Urinary tract infection, site not specified; N39.41 Urge incontinence
CPT/HCPCS: 81001; 87086

== ENCOUNTER 2024-08-24 07:04 | Day surgery (SDC) | payer MEDICARE, OTHER, SELFPAY ==
[2024-08-24 07:19] VITALS: BMI 40.9
[2024-08-24 07:21] VITALS: BP 168/88; PULSE 91; RESP 20; TEMP 36.4; O2SAT 96
[2024-08-24] MEDS: Lactated Ringers 1,000 ML 50 ML IVCONT (07:41)
--- NOTE | 2024-08-24 08:22 | MHC.SHP ---
Pre-Procedural Eval Section A - 24 Hr Update-Section A only Date of Service: 08/24/24 The patient is an INPATIENT: No The patient has been examined within 24 hours of the surgical procedure. The History & Physical has been completed within 30 days and I have reviewed it.: Yes Section B - Complete if H&P > 30 days Chief Complaint: Urgency of urination,Full incontinence of feces Allergies: Allergies Allergy/AdvReac Type Severity Reaction Status Date / Time Penicillins Allergy Intermediate HIVES, Verified 08/13/24 08:51 ANAPHYLAXIS Beef Containing Products Allergy Mild INFLAMMATIO Verified 08/13/24 08:51 [BEEF CONTAINING PRODUCTS] N caffeine [CAFFEINE] Allergy Mild UNKNOWN Verified 08/13/24 08:51 lactose [LACTOSE] Allergy Mild STOMACH Verified 08/13/24 08:51 PAIN,DIARRHEA nut - unspecified [nut] Allergy Mild UNKNOWN Verified 08/13/24 08:51 orange Allergy Mild GEOGRAPHIC Verified 08/13/24 08:51 TONGUE oxycodone [Percocet] Allergy Mild unknown Verified 08/13/24 08:51 penicillin G Allergy Mild unknown Verified 08/13/24 08:51 penicillin V Allergy Mild unknown Verified 08/13/24 08:51 Pork/Porcine Containing Allergy Mild INFLAMMATIO Verified 08/13/24 08:51 Products N,PAIN [PORK/PORCINE CONTAINING PRODUCTS] Sulfa (Sulfonamide Allergy Mild DIARRHEA,VO Verified 08/13/24 08:51 Antibiotics) MITING [SULFA (SULFONAMIDE ANTIBIOTICS)] acetaminophen [Percocet] AdvReac Unknown unknown Verified 08/13/24 08:51 Plan Diagnosis/Plan: Unchanged I have reviewed the history and physical and performed a pertinent physical examination on my patient. No changes have occurred unless specified. Stage 1 lead implant. Time Spent With Patient Time: Total time managing care of this patient today ____ minutes.
--- NOTE | 2024-08-24 08:27 | HO.ANESPROP2 ---
HPI - Anesthesia Eval Consult details Narrative: for interstim stage1 PMFSH Active Problems Active Problems: All Active Problems Urinary urgency (Acute) Urgency-frequency syndrome (Acute) Osteopenia (Acute) Well woman exam (Acute) Osteoarthritis of right hip (Acute) OAB (overactive bladder) (Acute) Urge incontinence of urine (Acute) Urinary and fecal incontinence (Acute) Recurrent urinary tract infection (Acute) Vulvar irritation (Acute) Chronic pain syndrome (Acute) Spondylosis of lumbar region without myelopathy or radiculopathy (Acute) Spondylosis (Acute) Arthritis of both knees (Acute) Greater trochanteric bursitis of both hips (Acute) Hypothyroidism (Acute) Obesity due to excess calories (Acute) Pre-diabetes (Acute) Hemorrhoids (Acute) C. difficile colitis (Acute) Diarrhea (Acute) Rectal bleeding (Acute) Abdominal pain (Acute) Urinary frequency (Acute) Irritable bowel syndrome with diarrhea (Acute) Family history of colon cancer (Acute) Past Medical History Medical History Obesity due to excess calories Pre-diabetes Plantar fasciitis Sacroiliitis History of Clostridioides difficile colitis Lumbosacral spondylosis without myelopathy Carpal tunnel syndrome Sleep apnea NAFL (nonalcoholic fatty liver) Hypothyroidism Irritable bowel syndrome with diarrhea Family History Family History Father Colon cancer Maternal Aunt Colon cancer Paternal Aunt Breast cancer Maternal Aunt Colon cancer Family history of problems with anesthesia: No Surgical History Surgical History IGTN (ingrowing toe nail) Hx of colonoscopy History of thumb surgery H/O hernia repair History of removal of laparoscopic gastric banding device History of bladder surgery Hx laparoscopic cholecystectomy S/P panniculectomy H/O bilateral oophorectomy Hx of laparoscopic gastric banding History of laparoscopic appendectomy Hx of vaginal hysterectomy H/O tubal ligation History of Problems with Anesthesia: No Social History Social History Household Members: Spouse Household Members Other:: Alcohol intake: never Patient Tobacco Use Status: Never used Tobacco Have you been hit, kicked, punched, or otherwise hurt by someone within the past year? If so, by whom?: No Are you DNR?: No Advance Directives: No Advance Directives Information Provided: Yes Current occupational status: retired Sexual orientation: Straight/Heterosexual Gender identity: Female Meds Allergies Allergy/AdvReac Type Severity Reaction Status Date / Time Penicillins Allergy Intermediate HIVES, Verified 08/13/24 08:51 ANAPHYLAXIS Beef Containing Products Allergy Mild INFLAMMATIO Verified 08/13/24 08:51 [BEEF CONTAINING PRODUCTS] N caffeine [CAFFEINE] Allergy Mild UNKNOWN Verified 08/13/24 08:51 lactose [LACTOSE] Allergy Mild STOMACH Verified 08/13/24 08:51 PAIN,DIARRHEA nut - unspecified [nut] Allergy Mild UNKNOWN Verified 08/13/24 08:51 orange Allergy Mild GEOGRAPHIC Verified 08/13/24 08:51 TONGUE oxycodone [Percocet] Allergy Mild unknown Verified 08/13/24 08:51 penicillin G Allergy Mild unknown Verified 08/13/24 08:51 penicillin V Allergy Mild unknown Verified 08/13/24 08:51 Pork/Porcine Containing Allergy Mild INFLAMMATIO Verified 08/13/24 08:51 Products N,PAIN [PORK/PORCINE CONTAINING PRODUCTS] Sulfa (Sulfonamide Allergy Mild DIARRHEA,VO Verified 08/13/24 08:51 Antibiotics) MITING [SULFA (SULFONAMIDE ANTIBIOTICS)] acetaminophen [Percocet] AdvReac Unknown unknown Verified 08/13/24 08:51 Active Medications: Current Medications Gentamicin Sulfate 440 mg/ (Sodium Chloride) 111 mls @ 100 mls/hr IV ONCE ONE Stop: 08/24/24 09:06 Lactated Ringer's (Lr) 1,000 mls @ 50 mls/hr IVCONT .Q20H GWEN Last Admin: 08/24/24 07:41 Dose: 50 mls/hr Home Medications ?Medication ?Instructions ?Recorded ?Confirmed ?Last Taken ?Type diphenhydramine HCl 50 mg/30 mL 50 mg PO BEDTIME PRN 09/27/21 06/21/24 Unknown History oral liquid (Unisom (diphenhydramine)) loperamide 2 mg capsule 2 mg PO TID PRN diarrhea 10/29/22 06/21/24 Unknown History Exam Height,Weight and Vital Signs: Height 4 ft 11 in Weight 91.852 kg Last Vital Signs Temp 97.5 F 08/24/24 07:21 Pulse 91 08/24/24 07:21 Resp 20 08/24/24 07:21 BP 168/88 H 08/24/24 07:21 Pulse Ox 96 08/24/24 07:21 O2 Del Method Room Air 08/24/24 07:21 Airway Mallampati Class: II TM Dist: <=3cm Neck ROM: Full Loose/Missing/Broken Teeth: No Heart: ok Lungs: ok Assessment and Plan Assessment Anesthesia Assessment: Anesthesia Plan Discussed and Chart Reviewed Final Anesthetic Review Family History of Problems with Anesthesia: No History of Problems with Anesthesia: No NPO: Yes ASA Class: II and III Final Preanesthetic Review: No Changes in Pt Med Stat, Meds/Allgs Chart Reviewed, Consent Obtained/Reviewed and Anes Risks/Benef Reviewed Patient Risk: Intermediate Procedure Risk: Intermediate Anesthetic Plan Anesthetic Plan: GA and Agree w/ Assess. and Plan Disposition: Standard PACU
--- NOTE | 2024-08-24 08:40 | PM.ANESPN ---
Subjective Subjective Date of Service: 08/24/24 Physical Exam Vital Signs: Vital Signs: Last Vital Signs Temp 97.5 F 08/24/24 07:21 Pulse 91 08/24/24 07:21 Resp 20 08/24/24 07:21 BP 168/88 H 08/24/24 07:21 Pulse Ox 96 08/24/24 07:21 O2 Del Method Room Air 08/24/24 07:21 BMI result Body Mass Index 40.9 Progress Note: A&P Time Spent With Patient Time: Total time managing care of this patient today ____ minutes. Procedures Date of Service Date of Service: 08/24/24
[2024-08-24 10:25] VITALS: BP 144/80; PULSE 81; RESP 18; TEMP 36.2; O2SAT 94
[2024-08-24 10:30] VITALS: BP 151/84; PULSE 81; RESP 18; O2SAT 94
[2024-08-24 10:35] VITALS: BP 143/65; PULSE 82; RESP 18; O2SAT 94
--- NOTE | 2024-08-24 10:37 | W.PM.OPN ---
Operative Note Operative Note Date of Service: 08/24/24 Narrative: PreOperative Diagnosis:? ?? Urinary Frequency, Urge Incontinence, Fecal Incontinence Post Operative Diagnosis:? Urinary Frequency, Urge Incontience, Fecal Incontinence Procedure:?Stage I Lead Implant ? Programming of Lead Surgeon:?Dr Fei Torres Anesthesia:? General Procedure: After informed consent was verified the patient was brought to the operating room. Anesthesia was performed per protocol on the OR stretcher.? The patient was repositioned to the OR table in prone? position, padding used including axillary rolls.? IV Antibiotics administered.? The patient was prepped and draped in the usual sterile fashion.? Safety pause time-out was performed. Fluroscopy used during the case.? The Sacral 3 maldonado was identified on the right side, the spinal needle was placed into the S3 foramen and identified with fluoroscopy in the AP and lateral position, the spinal needle was tested and there was good motor response, great toe deflection and yen noted.? The stylet was placed through the spinal needle, after removing the spinal needle the introducer was passed over the stylette, the stylette was removed, the the lead was placed through the introducer.? The electrodes were tested all 4 electrodes had good motor response when tested.? A second incision was made on the upper buttock below the iliac crest.? The lead was tunnelled to the second incision site.? The external connection wire was tunnelled and attached to the electrode and the hex screw was used to secure it in place.? The wound was copiously irrigated with antibiotic irrigation.? The second incision wound was closed with 3-0 chromic and 4-0 monocryl.? The lead insertion site incision was closed with 4-0 monocryl. The Lead was programmed -- Program 6 (-2, +0) Amplitude 0.7 The patient brought out of anesthesia placed supine on the OR and extubated.? The patient tolerated the procedure well and was transferred to the recovery area in stable condition. Complications:? None Drains:? None
[2024-08-24 10:40] VITALS: BP 157/76; PULSE 78; RESP 18; O2SAT 95
[2024-08-24 10:55] VITALS: BP 138/77; PULSE 77; RESP 18; O2SAT 95
== END 2024-08-24 11:48 | disposition home or self-care (01) ==
PROVIDERS: PCP Internal Medicine; Visit Provider Urology
PROC: (CPT 64561; principal; 2024-08-24 08:30)
DX: N39.41 Urge incontinence (principal); R35.0 Frequency of micturition; R15.9 Full incontinence of feces; K58.0 Irritable bowel syndrome with diarrhea; K76.0 Fatty (change of) liver, not elsewhere classified; R73.03 Prediabetes; E66.09 Other obesity due to excess calories; E03.9 Hypothyroidism, unspecified; Z79.899 Other long term (current) drug therapy; Z88.0 Allergy status to penicillin; Z88.2 Allergy status to sulfonamides; Z91.014 Allergy to mammalian meats; Z88.5 Allergy status to narcotic agent; Z91.018 Allergy to other foods; Z98.84 Bariatric surgery status; Z98.890 Other specified postprocedural states
CPT/HCPCS: 64561; C1778; C1787; C1883; J1580; J1956; J2003; J2704; J2795; J3010; J3370

== ENCOUNTER → 2024-08-24 07:04 | Outpatient (BNV) | payer MEDICARE, OTHER, SELFPAY | PROVIDERS: PCP Internal Medicine; Visit Provider Urology | DX: N39.41 Urge incontinence (principal); R15.9 Full incontinence of feces | CPT/HCPCS: 64561 ==

== ENCOUNTER 2024-08-30 14:05 | Outpatient (AMB) | payer MEDICARE, OTHER, SELFPAY ==
--- NOTE | 2024-08-30 13:11 | MHC.OFFVIS ---
Intake Visit Reasons: Interstim stage 1- follow up Intake Note: Patient is present for INTERSTIM STAGE 1 F/U Urology Medication:METRONIDAZOLE,CIPRO,CLOBETASOL,DILAUDID Antibiotic Allergy:PENICILLINS,SULFA Blood Thinner:NONE Software Sales Manager Required: No Allergies Penicillins Allergy (Intermediate, Verified 09/17/24 14:39) HIVES, ANAPHYLAXIS Beef Containing Products [BEEF CONTAINING PRODUCTS] Allergy (Mild, Verified 09/17/24 14:39) INFLAMMATION caffeine [CAFFEINE] Allergy (Mild, Verified 09/17/24 14:39) UNKNOWN lactose [LACTOSE] Allergy (Mild, Verified 09/17/24 14:39) STOMACH PAIN,DIARRHEA orange Allergy (Mild, Verified 09/17/24 14:39) GEOGRAPHIC TONGUE oxycodone [Percocet] Allergy (Mild, Verified 09/17/24 14:39) Vomiting penicillin G Allergy (Mild, Verified 09/17/24 14:39) Anaphylaxis penicillin V Allergy (Mild, Verified 09/17/24 14:39) Anaphylaxis Pork/Porcine Containing Products [PORK/PORCINE CONTAINING PRODUCTS] Allergy (Mild, Verified 09/17/24 14:39) INFLAMMATION,PAIN Sulfa (Sulfonamide Antibiotics) [SULFA (SULFONAMIDE ANTIBIOTICS)] Allergy (Mild, Verified 09/17/24 14:39) DIARRHEA,VOMITING nut - unspecified [nut] Adverse Reaction (Mild, Verified 09/17/24 14:39) UNKNOWN acetaminophen [Percocet] Adverse Reaction (Unknown, Verified 09/17/24 14:39) unknown HPI Comments Details: 08/30/24--Nicci is status post stage I lead implant. She is on program 2. She states she has noticed alot of improvement during the daytime. She was getting up 4 times at night prior to the lead implant she is getting up 3 times at night now and still has some urge incontinence during the night. She was discharged on Cipro and Flagyl and is having a lot of diarrhea which may be impacting her symptoms. Plan is to change the program to optimize symptom improvement. The patient has had greater than 50% improvement and will benefit from neuromodulation therapy. Plan stage II pacemaker implant 08/13/24--Nicci is here for urodynamics. The patient has complaints of urinary frequency and urge incontinence and fecal incontinece. Interpretation: Complex uroflow was not obtained. During the filling phase there was normal sensation, sensory urgency was noted, strong urge was noted at 231 mL. 266 mL of sterile water was instilled, the patient voided 400 mL (which was manually measured). Leakage was not observed during cough or valsalva stress. Findings consistent with sensor urgency. EMG- Appropriate changes in the waveforms were noted through out the study. Discussed treatment options to include but not limited to sacral neuromodulation. Discussed lead placement into Sacral foremen and that this is a staged procedure. 20 minutes spent in discussion with the patient. Plan Stage l lead implant. Review of chart: 06/21/24--Nicci is a 73-year-old female who presents to the office for follow-up. She has a history of mixed urinary incontinence and recurrent UTIs. She has had two surgeries in the past for stress incontinence including a sling procedure. She has fecal incontinence which has contributed to the UTIs. The patient states that since her last visit she has not had a UTI as she has been regimented on for hygiene. She states she is not able to take VESIcare because it causes too much of a dry mouth. And the Myrbetriq and Gemtesa although covered by insurance she has a high co-pay. She states that physical therapy in in the past has helped to a small degree. She has passed several questions regarding alternative treatment options and I have discussed briefly options including Botox, InterStim, bulking urethral agents. At this time further evaluate with urodynamics. 09/25/23--The patient is being followed for OAB and recurrent UTI's. She was initially evaluated on 01/02/23 as a new patient. She has been followed by [facility] for recurrent vaginits. Has two bladder sling procedures at the age of 51s in [place] and 5 year later in [place]. The patient used to undergo gentamicin irrigation once a week pre-pandemic at her previous urologist and states to be prescribed with estrogen cream which caused breast tenderness for recurrent UTIs. She has h/o irritable bowel syndrome which may contribute to her UTI's. She states the vesicare causes a slignt headache and dry mouth. Myrbetriq was too expensive Using Vesicare, ocassional headache and dryness Gemtesa 75 mg She is to call the nurse with any issues regarding the gemtesa script. Follow-up after 9 months. 01/02/23--Pelvic floor exam: Catheterized urine 25 mL drained from the bladder. No significant pelvic floor prolapse. Trial of Myrbetriq, I have discussed use of cranberry tablets daily with/without D Mannose. The patient is has recurrent Clostridioides difficile and was being evaluated for a fecal transplant. CAT results reviewed-08/22/2021-- Unremarkable for kidney stones. PFS Medical History Fatty liver Obesity due to excess calories Pre-diabetes Plantar fasciitis Sacroiliitis History of Clostridioides difficile colitis Lumbosacral spondylosis without myelopathy Carpal tunnel syndrome Sleep apnea NAFL (nonalcoholic fatty liver) Hypothyroidism Irritable bowel syndrome with diarrhea Surgical History IGTN (ingrowing toe nail) Hx of colonoscopy History of thumb surgery H/O hernia repair History of removal of laparoscopic gastric banding device History of bladder surgery Hx laparoscopic cholecystectomy S/P panniculectomy H/O bilateral oophorectomy Hx of laparoscopic gastric banding History of laparoscopic appendectomy Hx of vaginal hysterectomy H/O tubal ligation Family History Father Colon cancer Maternal Aunt Colon cancer Paternal Aunt Breast cancer Maternal Aunt Colon cancer Social History Household Members: Spouse Household Members Other:: Alcohol intake: never Patient Tobacco Use Status: Never used Tobacco Current occupational status: retired Sexual orientation: Straight/Heterosexual Gender identity: Female Female Reproductive History Menstrual Age of Menarche: 14 Review of Systems Const All systems reviewed & are unremarkable except as noted in HPI and below Reports no additional complaints Eyes Reports no additional complaints ENT Reports no additional complaints Card Reports no additional complaints Resp Reports no additional complaints GI Reports no additional complaints Reports as per HPI Musc Reports no additional complaints Skin/Breast Reports system reviewed and no additional complaints, except as documented Neuro Reports no additional complaints Psych Reports no additional complaints Endo Reports no additional complaints David/Lymph Reports no additional complaints Aller/Immun Reports no additional complaints Telehealth Telehealth Telehealth Platform: [facility] Location of provider rendering services: practice address Location of patient: address on file Patient Identification confirmed using: Name, : Yes Telehealth method: voice only Patient verbally consented to treatment: Yes Patient verbally consented to billing insurance company: Yes Patient informed of any privacy concerns related to visit: Yes Minutes spent on Phone/Video with Pt.: 10 Assessment & Plan Assessment & Plan (1) Urinary and fecal incontinence: Code(s): R32 - Unspecified urinary incontinence; R15.9 - Full incontinence of feces Category: Medical (2) Urge incontinence of urine: Code(s): N39.41 - Urge incontinence Category: Medical (3) Urgency-frequency syndrome: Code(s): N32.81 - Overactive bladder Category: Medical (4) Urinary urgency: Code(s): R39.15 - Urgency of urination Category: Medical Plan The patient has had greater than 50% improvement and will benefit from neuromodulation therapy. Plan stage II pacemaker implant Patient Instructions: The patient had an opportunity to ask questions regarding treatment plan. The patient expressed understanding and agreement with the above treatment plan. The patient is aware they should contact our office by phone for worsening of their current condition or the appearance of new symptoms. Compliance is encouraged with any medications and followup testing that is ordered. It is a privilege to be allowed the opportunity to participate in the urologic care of your patient. If you have any questions or concerns regarding treatment for the above conditions please do not hesitate to contact me. The office telephone contact is [phone]. This note is constructed in part using voice recognition software. While every effort has been made to ensure accuracy dinkey engine firer errors may have been included. Yours sincerely, Fei Torres MD Coding Level of Care Code Global (35758) Diagnoses Urinary and fecal incontinence R32; R15.9 Urge incontinence of urine N39.41 Urgency-frequency syndrome N32.81 Urinary urgency R39.15
== END 2024-08-30 15:43 | disposition home or self-care (01) ==
LOC: HO.HUSH 14:05
PROVIDERS: PCP Internal Medicine; Visit Provider Urology
DX: R32 Unspecified urinary incontinence (principal); R15.9 Full incontinence of feces; N39.41 Urge incontinence; N32.81 Overactive bladder; R39.15 Urgency of urination
CPT/HCPCS: 99024

== ENCOUNTER → 2024-08-30 14:05 | Outpatient (BNVA) | payer MEDICARE, OTHER, SELFPAY | PROVIDERS: PCP Internal Medicine; Visit Provider Urology | DX: R15.9 Full incontinence of feces (principal); N39.41 Urge incontinence; N32.81 Overactive bladder; Z98.890 Other specified postprocedural states | CPT/HCPCS: 99212 ==

== ENCOUNTER 2024-09-07 09:56 | Day surgery (SDC) | payer MEDICARE, OTHER, SELFPAY ==
[2024-09-07] VITALS (10 sets, daily range): BP systolic 144–170; BP diastolic 66–92; PULSE 71–88; RESP 16; TEMP 36.7–36.9; O2SAT 96–99; BMI 41.0
--- OUTSIDE RECORDS SUMMARY | 2024-09-07 09:59 | XMS_ITS | Patient Health Record ---
Author Organization [facility] Address [address] [place] [address] Care Team Providers Care Technical Marketing Consultant Name Role Phone Chip Bowden MD Primary Care Provider Unavaila Ovidio Meek Unavailable [phone] EUGENIO GARCIA Unavailable Unavailable ALLERGIES Allergen (clinical [...] malignant neoplasm of colon (Z12.11) Active confirmed 813875679 Problem History of adenomatous polyp of colon (Z86.010) Active confirmed 210498804 Problem Irritable bowel syndrome with diarrhea (K58.0) Active confirmed 996631245 Problem Encounter for screening for malignant neoplasm of rectum (Z12.12) Active confirmed Screening fo r malignant neoplasm of rectum (866835200) Problem Family history of colon cancer (Z80.0) Active confirmed 510037816 Problem Clostridium difficile infection (B96.89) Active confirmed 012881957 Problem Diarrhea, unspecified type (R19.7) Active confirmed 74685195 Problem Hypertension, unspecified type (I10) Active confirmed 65748711 Problem History of Clostridium difficile infection (Z86.19) Active confirmed [id number] PLAN OF TREATMENT Pending Test Test Name [...] Start Date Coverage End Date MEDICARE OF [facility] [address] [place] [address] [place] [id number] NICOLE PALMER Self - patient is the insured [facility] INDEMNITY [address] [place] [address] [id number] NICOLE PALMER Self - patient is the insured MEDICAL (GENERAL) HISTORY Medical History History ICD Code Colonoscopy 10/2007--Tubular adenoma removed; biopsies neg for microscopic colitis; neg. colonoscopy in [address] Phillips Hypothyroidism Lap band placed in 2006-ramirez sient weight loss- Dr. Ocampo is planning to remove it IBS--neg. labs for celiac disease in 2013 Denies [place],DM,CVA,Lung disease,renal dise ase Colonoscopy in 02/2013--WNL--no polyps Back pain/arthritis-herniated disc C.diff x2 (2014)--ultimately treated wit h Vancomycin Sleep apnea--had a CPAP but presently no t using it She had a negative colonoscopy with ks i n 2017 Colonoscopy in May with [...] put on Alosetron by Ekaterina Meek NP, [facility] Surgical History Surgery Date(Month/Year) Hysterectomy, subsequent removal of both ovaries and Fallopian tubes Appendectomy Laparoscopies Cholecystectomy Lap band in 2006 Ayah waggoner after weight loss Bladder suspension Hernia repair--umbilical, bilateral ingu inal--Dr. Ocampo 08/2014 Lap band removal 2011
[2024-09-07] MEDS: Lactated Ringers 1,000 ML 50 ML IVCONT (11:33)
--- NOTE | 2024-09-07 12:33 | MHC.SHP ---
Pre-Procedural Eval Section A - 24 Hr Update-Section A only Date of Service: 09/07/24 The patient is an INPATIENT: No The patient has been examined within 24 hours of the surgical procedure. The History & Physical has been completed within 30 days and I have reviewed it.: Yes Section B - Complete if H&P > 30 days Chief Complaint: Urgency of urination Allergies: Allergies Allergy/AdvReac Type Severity Reaction Status Date / Time Penicillins Allergy Intermediate HIVES, Verified 08/30/24 14:08 ANAPHYLAXIS Beef Containing Products Allergy Mild INFLAMMATIO Verified 08/30/24 14:08 [BEEF CONTAINING PRODUCTS] N caffeine [CAFFEINE] Allergy Mild UNKNOWN Verified 08/30/24 14:08 lactose [LACTOSE] Allergy Mild STOMACH Verified 08/30/24 14:08 PAIN,DIARRHEA orange Allergy Mild GEOGRAPHIC Verified 08/30/24 14:08 TONGUE oxycodone [Percocet] Allergy Mild Vomiting Verified 09/07/24 10:46 penicillin G Allergy Mild Anaphylaxis Verified 09/07/24 10:46 penicillin V Allergy Mild Anaphylaxis Verified 09/07/24 10:46 Pork/Porcine Containing Allergy Mild INFLAMMATIO Verified 08/30/24 14:08 Products N,PAIN [PORK/PORCINE CONTAINING PRODUCTS] Sulfa (Sulfonamide Allergy Mild DIARRHEA,VO Verified 08/30/24 14:08 Antibiotics) MITING [SULFA (SULFONAMIDE ANTIBIOTICS)] nut - unspecified [nut] AdvReac Mild UNKNOWN Verified 09/07/24 10:46 acetaminophen [Percocet] AdvReac Unknown unknown Verified 08/30/24 14:08 Plan Diagnosis/Plan: Unchanged I have reviewed the history and physical and performed a pertinent physical examination on my patient. No changes have occurred unless specified. The patient is status post S3 lead implant with greater that 50% improvement in urinary symptoms of urgency and fecal incontinence. Plan for Stage 2 - Interstim pacemaker bladder implant Time Spent With Patient Time: Total time managing care of this patient today ____ minutes.
--- NOTE | 2024-09-07 13:29 | P.CONAN_ITS ---
HPI - Anesthesia Eval Consult details Narrative: interstim [facility] Active Problems Active Problems: All Active Problems Urinary urgency (Acute) Urgency-frequency syndrome (Acute) Osteopenia (Acute) Well woman exam (Acute) Osteoarthritis of right hip (Acute) OAB (overactive bladder) (Acute) Urge incontinence of urine (Acute) Urinary and fecal incontinence (Acute) Recurrent urinary tract infection (Acute) Vulvar irritation (Acute) Chronic pain syndrome (Acute) Spondylosis of lumbar region without myelopathy or radiculopathy (Acute) Spondylosis (Acute) Arthritis of both knees (Acute) Greater trochanteric bursitis of both hips (Acute) Hemorrhoids (Acute) C. difficile colitis (Acute) Diarrhea (Acute) Rectal bleeding (Acute) Abdominal pain (Acute) Urinary frequency (Acute) Family history of colon cancer (Acute) Hypothyroidism (Acute) Obesity due to excess calories (Acute) Pre-diabetes (Acute) Irritable bowel syndrome with diarrhea (Acute) Past Medical History Medical History Fatty liver Obesity due to excess calories Pre-diabetes Plantar fasciitis Sacroiliitis History of Clostridioides difficile colitis Lumbosacral spondylosis without myelopathy Carpal tunnel syndrome Sleep apnea NAFL (nonalcoholic fatty liver) Hypothyroidism Irritable bowel syndrome with diarrhea Family History Family History Father Colon cancer Maternal Aunt Colon cancer Paternal Aunt Breast cancer Maternal Aunt Colon cancer Family history of problems with anesthesia: No Surgical History Surgical History IGTN (ingrowing toe nail) Hx of colonoscopy History of thumb surgery H/O hernia repair History of removal of laparoscopic gastric banding device History of bladder surgery Hx laparoscopic cholecystectomy S/P panniculectomy H/O bilateral oophorectomy Hx of laparoscopic gastric banding History of laparoscopic appendectomy Hx of vaginal hysterectomy H/O tubal ligation History of Problems with Anesthesia: No Social History Social History Household Members: Spouse Household Members Other:: Alcohol intake: never Patient Tobacco Use Status: Never used Tobacco Use of substances other than those prescribed or required for medical reasons: No Are you DNR?: No Advance Directives: No Advance Directives Information Provided: Yes Recently lost weight without trying: No Nutrition Risks: No Nutritional Risk Patient : No Current occupational status: retired Sexual orientation: Straight/Heterosexual Gender identity: Female Meds Allergies Allergy/AdvReac Type Severity Reaction Status Date / Time Penicillins Allergy Intermediate HIVES, Verified 08/30/24 14:08 ANAPHYLAXIS Beef Containing Products Allergy Mild INFLAMMATIO Verified 08/30/24 14:08 [BEEF CONTAINING PRODUCTS] N caffeine [CAFFEINE] Allergy Mild UNKNOWN Verified 08/30/24 14:08 lactose [LACTOSE] Allergy Mild STOMACH Verified 08/30/24 14:08 PAIN,DIARRHEA orange Allergy Mild GEOGRAPHIC Verified 08/30/24 14:08 TONGUE oxycodone [Percocet] Allergy Mild Vomiting Verified 09/07/24 10:46 penicillin G Allergy Mild Anaphylaxis Verified 09/07/24 10:46 penicillin V Allergy Mild Anaphylaxis Verified 09/07/24 10:46 Pork/Porcine Containing Allergy Mild INFLAMMATIO Verified 08/30/24 14:08 Products N,PAIN [PORK/PORCINE CONTAINING PRODUCTS] Sulfa (Sulfonamide Allergy Mild DIARRHEA,VO Verified 08/30/24 14:08 Antibiotics) MITING [SULFA (SULFONAMIDE ANTIBIOTICS)] nut - unspecified [nut] AdvReac Mild UNKNOWN Verified 09/07/24 10:46 acetaminophen [Percocet] AdvReac Unknown unknown Verified 08/30/24 14:08 Active Medications: Current Medications Lactated Ringer's (Lr) 1,000 mls @ 50 mls/hr IVCONT .Q20H GWEN Last Admin: 09/07/24 11:33 Dose: 50 mls/hr Home Medications ?Medication ?Instructions ?Recorded ?Confirmed ?Last Taken ?Type diphenhydramine HCl 50 mg/30 mL 50 mg PO BEDTIME PRN 09/27/21 06/21/24 Unknown History oral liquid (Unisom (diphenhydramine)) loperamide 2 mg capsule 2 mg PO TID PRN diarrhea 10/29/22 06/21/24 Unknown History Exam Height,Weight and Vital Signs: Height 4 ft 11 in Weight 92.193 kg Last Vital Signs Temp 98.1 F 09/07/24 11:09 Pulse 83 09/07/24 11:09 Resp 16 09/07/24 11:09 BP 156/72 H 09/07/24 11:09 Pulse Ox 97 09/07/24 11:09 O2 Del Method Room Air 09/07/24 11:09 Airway Mallampati Class: II TM Dist: >3cm Heart: rrr Lungs: cta Assessment and Plan Assessment Anesthesia Assessment: Anesthesia Plan Discussed Final Anesthetic Review Family History of Problems with Anesthesia: No History of Problems with Anesthesia: No NPO: Yes ASA Class: III Final Preanesthetic Review: No Changes in Pt Med Stat, Meds/Allgs Chart Reviewed, Consent Obtained/Reviewed and Anes Risks/Benef Reviewed Patient Risk: Intermediate Procedure Risk: Low Anesthetic Plan Anesthetic Plan: GA and MAC: Disposition: Standard PACU
[2024-09-07] MEDS: fentaNYL citrate/PF 100 MCG/2 ML VIAL 25 MCG IVPUSH (14:40)
--- NOTE | 2024-09-07 14:46 | P.OP_ITS ---
Operative Note Operative Note Date of Service: 09/07/24 Narrative: PreOperative Diagnosis:? ?? Urinary Frequency, Urge Incontinence, fecal incontinence Post Operative Diagnosis:? Urinary Frequency, Urge Incontience, fecal incontinence Procedure:?Stage II Generator/Pacemaker Implant ? Programming of Generator Surgeon:?Dr Fei Torres Anesthesia:? MAC + Local Indications for procedure:? Procedure: After informed consent was verified the patient was brought to the operating room. The patient was placed prone on the OR table, padding used including axillary rolls.? IV Antibiotics administered.? Sedation was administered. The patient was prepped and draped in the usual sterile fashion.? Safety pause time- out was performed. Lidocaine/marcaine plain administered for local analgesia. The incision was opened. The wound was irrigated with antibiotic irrigation. The lead was identified and the hex screw was used to separate the lead from the external wire. The external wire was removed from the field. The wound was again copiously irrigated with antibiotic irrigation. Cautery was used to create a pouch in the subq tissue to house the pacemaker. The pacemaker was brought to the field and attached to the lead. The pacemaker was placed in the wound with writing facing upward; the impedence was checked and verified. There was good hemostasis. The wound was closed with 3-0 chromic and 4-0 monocryl for the skin. The Generator/pacemaker was programmed - program 6--(-1, -2, +3) Amplitude 2.5 The patient placed supine on the OR stretcher.? The patient tolerated the procedure well and was transferred to the recovery area in stable condition. Complications:? None Drains:? None
== END 2024-09-07 15:45 | disposition home or self-care (01) ==
PROVIDERS: PCP Internal Medicine; Visit Provider Urology
PROC: (CPT 64590; principal; 2024-09-07 11:40)
DX: R39.15 Urgency of urination (principal); R15.9 Full incontinence of feces; K58.0 Irritable bowel syndrome with diarrhea; M46.1 Sacroiliitis, not elsewhere classified; R73.03 Prediabetes; K76.0 Fatty (change of) liver, not elsewhere classified; Z88.0 Allergy status to penicillin; Z88.5 Allergy status to narcotic agent; Z88.2 Allergy status to sulfonamides; Z91.018 Allergy to other foods; Z91.014 Allergy to mammalian meats; Z98.890 Other specified postprocedural states
CPT/HCPCS: 64590; C1767; C1787; J0690; J1580; J2003; J2704; J2795; J3010; J3370

== ENCOUNTER → 2024-09-07 09:56 | Outpatient (BNV) | payer MEDICARE, OTHER, SELFPAY | PROVIDERS: PCP Internal Medicine; Visit Provider Urology | DX: N39.41 Urge incontinence (principal); R35.0 Frequency of micturition; R15.9 Full incontinence of feces | CPT/HCPCS: 64590 ==

== ENCOUNTER 2024-09-17 14:37 | Outpatient (AMB) | payer MEDICARE, OTHER, SELFPAY ==
--- NOTE | 2024-09-16 22:09 | MHC.OFFVIS ---
Intake Visit Reasons: Intersti Stage 2 F/U Intake Note: Patient is Present for Follow Up [facility] Urology Medication: None Antibiotic Allergies: Penicillins, Sulfa Blood Thinners: None Utility Driver Required: No Accompanied by: Self / Same As Patient Allergies Penicillins Allergy (Intermediate, Verified 09/17/24 14:39) HIVES, ANAPHYLAXIS Beef Containing Products [BEEF CONTAINING PRODUCTS] Allergy (Mild, Verified 09/17/24 14:39) INFLAMMATION caffeine [CAFFEINE] Allergy (Mild, Verified 09/17/24 14:39) UNKNOWN lactose [LACTOSE] Allergy (Mild, Verified 09/17/24 14:39) STOMACH PAIN,DIARRHEA orange Allergy (Mild, Verified 09/17/24 14:39) GEOGRAPHIC TONGUE oxycodone [Percocet] Allergy (Mild, Verified 09/17/24 14:39) Vomiting penicillin G Allergy (Mild, Verified 09/17/24 14:39) Anaphylaxis penicillin V Allergy (Mild, Verified 09/17/24 14:39) Anaphylaxis Pork/Porcine Containing Products [PORK/PORCINE CONTAINING PRODUCTS] Allergy (Mild, Verified 09/17/24 14:39) INFLAMMATION,PAIN Sulfa (Sulfonamide Antibiotics) [SULFA (SULFONAMIDE ANTIBIOTICS)] Allergy (Mild, Verified 09/17/24 14:39) DIARRHEA,VOMITING nut - unspecified [nut] Adverse Reaction (Mild, Verified 09/17/24 14:39) UNKNOWN acetaminophen [Percocet] Adverse Reaction (Unknown, Verified 09/17/24 14:39) unknown HPI Comments Details: 09/17/24--FU - s/p [employer] interstim pacemaker 09/07/24. She states her urinary urge is improved as well as better bowel control. 08/30/24--Nicci is status post stage I lead implant. She is on program 2. She states she has noticed alot of improvement during the daytime. She was getting up 4 times at night prior to the lead implant she is getting up 3 times at night now and still has some urge incontinence during the night. She was discharged on Cipro and Flagyl and is having a lot of diarrhea which may be impacting her symptoms. Plan is to change the program to optimize symptom improvement. The patient has had greater than 50% improvement and will benefit from neuromodulation therapy. Plan stage II pacemaker implant 08/13/24--Nicci is here for urodynamics. The patient has complaints of urinary frequency and urge incontinence and fecal incontinece. Interpretation: Complex uroflow was not obtained. During the filling phase there was normal sensation, sensory urgency was noted, strong urge was noted at 231 mL. 266 mL of sterile water was instilled, the patient voided 400 mL (which was manually measured). Leakage was not observed during cough or valsalva stress. Findings consistent with sensor urgency. EMG- Appropriate changes in the waveforms were noted through out the study. Discussed treatment options to include but not limited to sacral neuromodulation. Discussed lead placement into Sacral foremen and that this is a staged procedure. 20 minutes spent in discussion with the patient. Plan Stage l lead implant. 06/21/24--Nicci is a 73-year-old female who presents to the office for follow-up. She has a history of mixed urinary incontinence and recurrent UTIs. She has had two surgeries in the past for stress incontinence including a sling procedure. She has fecal incontinence which has contributed to the UTIs. The patient states that since her last visit she has not had a UTI as she has been regimented on for hygiene. She states she is not able to take VESIcare because it causes too much of a dry mouth. And the Myrbetriq and Gemtesa although covered by insurance she has a high co-pay. She states that physical therapy in in the past has helped to a small degree. She has passed several questions regarding alternative treatment options and I have discussed briefly options including Botox, InterStim, bulking urethral agents. At this time further evaluate with urodynamics. 09/25/23--The patient is being followed for OAB and recurrent UTI's. She was initially evaluated on 01/02/23 as a new patient. She has been followed by FIELD ACCOUNT DIRECTOR for recurrent vaginits. Has two bladder sling procedures at the age of 51s in [place] and 5 year later in [place]. The patient used to undergo gentamicin irrigation once a week pre-pandemic at her previous urologist and states to be prescribed with estrogen cream which caused breast tenderness for recurrent UTIs. She has h/o irritable bowel syndrome which may contribute to her UTI's. She states the vesicare causes a slignt headache and dry mouth. Myrbetriq was too expensive Using Vesicare, ocassional headache and dryness Gemtesa 75 mg She is to call the nurse with any issues regarding the gemtesa script. Follow-up after 9 months. 01/02/23--Pelvic floor exam: Catheterized urine 25 mL drained from the bladder. No significant pelvic floor prolapse. Trial of Myrbetriq, I have discussed use of cranberry tablets daily with/without D Mannose. The patient is has recurrent Clostridioides difficile and was being evaluated for a fecal transplant. CAT results reviewed-08/22/2021-- Unremarkable for kidney stones. [facility] Medical History Fatty liver Obesity due to excess calories Pre-diabetes Plantar fasciitis Sacroiliitis History of Clostridioides difficile colitis Lumbosacral spondylosis without myelopathy Carpal tunnel syndrome Sleep apnea NAFL (nonalcoholic fatty liver) Hypothyroidism Irritable bowel syndrome with diarrhea Surgical History IGTN (ingrowing toe nail) Hx of colonoscopy History of thumb surgery H/O hernia repair History of removal of laparoscopic gastric banding device History of bladder surgery Hx laparoscopic cholecystectomy S/P panniculectomy H/O bilateral oophorectomy Hx of laparoscopic gastric banding History of laparoscopic appendectomy Hx of vaginal hysterectomy H/O tubal ligation Family History Father Colon cancer Maternal Aunt Colon cancer Paternal Aunt Breast cancer Maternal Aunt Colon cancer Social History Household Members: Spouse Household Members Other:: Alcohol intake: never Patient Tobacco Use Status: Never used Tobacco Current occupational status: retired Sexual orientation: Straight/Heterosexual Gender identity: Female Female Reproductive History Menstrual Age of Menarche: 14 Telehealth Telehealth Telehealth Platform: [employer] Location of provider rendering services: practice address Location of patient: address on file Patient Identification confirmed using: Name, : Yes Telehealth method: voice only Patient verbally consented to treatment: Yes Patient verbally consented to billing insurance company: Yes Patient informed of any privacy concerns related to visit: Yes Assessment & Plan Assessment & Plan (1) Urinary and fecal incontinence: Code(s): R32 - Unspecified urinary incontinence; R15.9 - Full incontinence of feces Category: Medical (2) Urge incontinence of urine: Code(s): N39.41 - Urge incontinence Category: Medical (3) Urgency-frequency syndrome: Code(s): N32.81 - Overactive bladder Category: Medical (4) Urinary urgency: Code(s): R39.15 - Urgency of urination Category: Medical Plan fu in 3-4 months Patient Instructions: The patient had an opportunity to ask questions regarding treatment plan. The patient expressed understanding and agreement with the above treatment plan. The patient is aware they should contact our office by phone for worsening of their current condition or the appearance of new symptoms. Compliance is encouraged with any medications and followup testing that is ordered. It is a privilege to be allowed the opportunity to participate in the urologic care of your patient. If you have any questions or concerns regarding treatment for the above conditions please do not hesitate to contact me. The office telephone contact is [phone]. This note is constructed in part using voice recognition software. While every effort has been made to ensure accuracy maternity nurse errors may have been included. Yours sincerely, Fei Torres MD Coding Level of Care Code Global (46656) Diagnoses Urinary and fecal incontinence R32; R15.9 Urge incontinence of urine N39.41 Urgency-frequency syndrome N32.81 Urinary urgency R39.15
--- OUTSIDE RECORDS SUMMARY | 2024-09-22 10:21 | XMS_ITS ---
Author Organization [facility] Address [address] [place] [address] Care Team Providers Care Ceramic Tile Installer Name Role Phone Chip Bowden MD Primary Care Provider Unavaila Davie Schmidt [phone] REASON FOR VISIT [facility] Encounters Encounter Location Date Provider Diagnosis [facility] [address] [place] [address] 07/22/2024 Davie Schumacher Plan Of Treatment No Information Progress Notes * Nicci PALMERDOB:1950 (73 yo F)Acc No.[id number]:07/22/2024 Patient:?Cyndi Nicci :1950???Age:73 Y???Sex:Female Address: [place] [address] * true * Date:? Generated for Frantzi yesenia/Vanesa/eTransmitting on:?09/22/2024 10:21 AM EST
--- OUTSIDE RECORDS SUMMARY | 2024-09-22 10:21 | XMS_ITS ---
Author Organization [facility] Address [address] [place] [address] Care Team Providers Care Service Counselor Name Role Phone Chip Bowden MD Primary Care Provider UnavailDavie Puente Unavailable [phone] Gemini Mir [phone] Encounters Encounter Location Date Provider Diagnosis [facility] [address] [place] [address] 08/26/2024 Gemini Mir Plan Of Treatment No Information Progress Notes * Leora PALMERtatisagarDOB:1950 (73 yo F)Acc No.[id number]:08/26/2024 Progress Notes Patient:?Nicci PALMER Provider:?Gemini Mir DPM :1950???Age:73 Y???Sex:Female D ate:08/26/2024 Address: [address] [id number] Pcp:Chip Bowden MD Subjective: * Chief Complaints: * ??? * Medical History:? Objective: * Vitals:? Assessment: Plan: * Treatment: * Images: * The named appointment provid er may or may not be the originator of this progress note, and it is not deemed complete until electronically signed by the appointment provider. Sign off status: Pending * Provider:?Gemini Mir DPM Date:?1 10/26/2023 Generated for Katia patterson/Vanesa/Migdaliaitting on:?09/22/2024 10:21 AM EST
--- OUTSIDE RECORDS SUMMARY | 2024-09-22 10:21 | XMS_ITS ---
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 History Name Role Phone Chip Bowden MD Primary Care Provider UnavailDavie Puente Unavailable [phone] Gemini Mir Unavailable [phone] REASON FOR VISIT cx appt 08/26/24 Encounters Encounter Location Date Provider Diagnosis [facility] [address] [place] [address] 08/23/2024 Gemini Mir Plan Of Treatment No Information Progress Notes * Nicci PALMERDOB:1950 (73 yo F)Acc No.[id number]:08/23/2024 Patient:?SPENCER Nicci :1950???Age:73 Y???Sex:Female Address:[address] [place] [address] * true * Date:? Generated for Printi yesenia/Vanesa/eTransmitting on:?09/22/2024 10:21 AM EST
--- OUTSIDE RECORDS SUMMARY | 2024-09-22 10:22 | XMS_ITS | Patient Health Record ---
[facility] Address [address] [facility] [place] [address] Care Team Providers Care Batch Freezer Operator Name Role Phone Chip Bwoden MD Primary Care Provider Unavaila Davie Schmidt Unavailable [phone] Zackary Benavides Unavailable [phone] Gemini Mir Unavailable [phone] Allergies Allergen (clinical drug ingredient) Drug/Non Drug Allergy documented on EMR Reaction Allergy Type Onset Date Status codeine Codeine Vomits , dizzy Drug Allergy Ac tive erythromycin Erythromycin Unknown Drug Allergy A ctive morphine Morphine Vomits , dizzy Drug Allergy Ac tive Penicillin Total heart failure Drug Allergy Active Substance with sulfonamide structure and antibacterial mechanism of action (substance) Sulfa Antibiotics Unknown Drug Allergy Active Reason For Referral No Information Medications Medication SIG (Take, Route, Frequency, Duration) Notes Start Date End Date Status Synthroid 50 MCG Oral for 90 Days Active Naproxen Not-Taking Synthroid 50 MCG Oral for 90 Days Active Loperamide HCl 2 mg 3 tablets 1 a day 03/16/2024 Active Sleep OTC generic Active Meloxicam 7.5 MG Oral for 90 Days Active vitamin gummy from time to time Active Imodium Advanced Act wing Ciclopirox Olamine 0.77 % 1 application to affected area Externally Twice a day to effected areas on feet for 30 days Active Social History Tobacco Use: Social History Observation Description Date Details (start date - stop date) Never Smoker NA - NA Tobacco Use/Smoking Question Answer Notes Are you a: nonsmoker Additional Findings: Tobacco Non-User Current no n-smoker Alcohol Screen Question Answer Notes Did you have a drink containing alcohol in the p ast year? No Points 0 Interpretation Negative Vital Signs Height [id number] in 07/22/2024 Weight 205 lbs 07/22/2024 BMI 41.4 kg/m2 07/22/2024 Encounters Encounter Location Date Provider Diagnosis [address] [address] 04/19/2024 Zackary Benavides Other viral warts B07.8 ; Pain in left foot M79.672 ; Pain in right foot M79.671 ; Ingrowing nail L60.0 ; Metatarsalgia, left foot M77.42 ; Metatarsalgia, right foot M77.41 ; Calcaneal spur, left foot M77.32 and Plantar fascial fibromatosis M72.[address] [address] 04/28/2024 Zackary Benavides Ingrowing nail L60.0 ; Other viral warts B07.8 ; Pain in left foot M79.672 ; Pain in right foot M79.671 and Tinea pedis B35.[address] [address] 05/13/2024 Zackary Benavides Ingrowing nail L60.0 ; Other viral warts B07.8 ; Pain in left foot M79.672 ; Pain in right foot M79.671 ; Tinea pedis B35.3 and Plantar fascial fibromatosis M72.[address] [address] 07/22/2024 Zackary Benavides Ingrowing nail L60.0 ; Other viral warts B07.8 ; Pain in left foot M79.672 ; Pain in right foot M79.671 ; Tinea pedis B35.3 and Plantar fascial fibromatosis M72.[address] [address] 04/27/2024 Davie Schumacher [address] [address] 07/22/2024 Davie Schumacher [address] [place] [address] 08/23/2024 Gemini Mir Assessments Encounter Date Diagnosis (ICD Code) Assessment Notes Treatment Notes Treatment Clinical Notes Section Notes 04/19/2024 Other viral warts (ICD-10 - B07.8) 04/28/2024 Other viral warts (ICD-10 - B07.8) 04/28/2024 Ingrowing nail (ICD-10 - L60.0) 05/13/2024 Other viral warts (ICD-10 - B07.8) 05/13/2024 Ingrowing nail (ICD-10 - L60.0) 07/22/2024 Other viral warts (ICD-10 - B07.8) 07/22/2024 Ingrowing nail (ICD-10 - L60.0) 07/22/2024 Pain in left foot (ICD-10 - M79.672) 05/13/2024 Pain in left foot (ICD-10 - M79.672) 04/28/2024 Pain in left foot (ICD-10 - M79.672) 04/19/2024 Pain in left foot (ICD-10 - M79.672) 04/19/2024 Pain in right foot (ICD-10 - M79.671) 04/28/2024 Pain in right foot (ICD-10 - M79.671) 05/13/2024 Pain in right foot (ICD-10 - M79.671) 07/22/2024 Pain in right foot (ICD-10 - M79.671) 07/22/2024 Tinea pedis (ICD-10 - B35.3) 05/13/2024 Tinea pedis (ICD-10 - B35.3) 04/28/2024 Tinea pedis (ICD-10 - B35.3) 04/19/2024 Metatarsalgia, left foot (ICD-10 - M77.42) 04/19/2024 Ingrowing nail (ICD-10 - L60.0) 04/19/2024 Metatarsalgia, right foot (ICD-10 - M77.41) 05/13/2024 Plantar fascial fibromatosis (ICD-10 - M72.2) 07/22/2024 Plantar fascial fibromatosis (ICD-10 - M72.2) 04/19/2024 Calcaneal spur, left foot (ICD-10 - M77.32) 04/19/2024 Plantar fascial fibromatosis (ICD-10 - M72.2) Plan Of Treatment Pending Test Test Name Order Date X ray : Foot, left 3V 04/19/2024 X ray : Foot, right 3V 04/19/2024 Insurance Providers Payer Name Payer Address Payer Phone Subscriber Number Group Number Insured Name Patient Relationship to Insured Coverage Start Date Coverage End Date Medicare National Govt [employer] [address] Tanika sauceda [place] [phone] [id number] Nicci Hanna Self - patient is the insured [employer] [address] [place] [address] [id number] Nicci Hanna Self - patient is the insured Medical (General) History Medical History History ICD Code Arthritis OA Back,Hip,and Knee pain Broken bones Cataracts Crohn's / Colitis Diverticulosis Fibromyalgia Gall bladder problems Hiatal hernias Keloid/Thick Scar Liver disease / fatty liver Numbness / neuropathy Sciatica / past thyroid Measles Mumps Chicken pox Irritable bowel syndrome / IBS - D Surgical History Surgery Date(Month/Year) uterus surgery - removed 1997 hernias 2012 ovaries removed 2007 gallbladder 2010 thumb-hand 2014
== END 2024-09-17 15:06 | disposition home or self-care (01) ==
LOC: HO.HUSH 14:37
PROVIDERS: PCP Internal Medicine; Visit Provider Urology
DX: R32 Unspecified urinary incontinence (principal); R15.9 Full incontinence of feces; N39.41 Urge incontinence; N32.81 Overactive bladder; R39.15 Urgency of urination
CPT/HCPCS: 99024

== ENCOUNTER → 2024-09-17 14:37 | Outpatient (BNVA) | payer MEDICARE, OTHER, SELFPAY | PROVIDERS: PCP Internal Medicine; Visit Provider Urology | DX: N39.41 Urge incontinence (principal); N32.81 Overactive bladder; R15.9 Full incontinence of feces | CPT/HCPCS: 99212 ==

== ENCOUNTER 2024-11-24 09:57 | Outpatient (REF) | payer MEDICARE, OTHER, SELFPAY ==
[2024-11-24 10:29] LABS: MANUAL DIFF FLAG NO
--- OUTSIDE RECORDS SUMMARY | 2024-11-24 11:44 | XMS_ITS | Patient Health Record ---
Author Organization [facility] Address [address] [place] [address] Care Team Providers Care Hospital Scientist Name Role Phone Chip Bowden MD Primary Care Provider Unavaila Davie Schmidt Unavailable [phone] Zackary Benavides Unavailable [phone] Gemini Mir Unavailable [phone] Allergies Allergen (clinical drug ingredient) Drug/Non Drug [...] Synthroid 50 MCG Oral for 90 Days Not-Taking Naproxen Not-Taking Meloxicam 7.5 MG Oral for 90 Days Active Loperamide HCl 2 mg 3 tablets 1 a day 03/16/2024 Active Synthroid 50 MCG Oral for 90 Days Active Imodium Advanced Act wing Ciclopirox Olamine 0.77 % 1 application to affected area Externally Twice a day to effected areas on feet for 30 days Active vitamin gummy from time to time Active Sleep OTC generic Active Social History Tobacco Use: Social History Observation Description Date Details (start date - stop date) Never Smoker NA - NA Tobacco Control (Standard) Question Answer Notes Tobacco use: Nonsmoker Additional Findings: Tobacco non-user Current no nsmoker AUDIT-C (Standard) Question Answer Notes Did you have a drink containing alcohol in the p ast year? No Points 0 Interpretation Negative Vital Signs Blood pressure diastolic 80 mm Hg 11/10/2024 Height 9ht63nv in 11/10/2024 Blood pressure systolic 120 mm Hg 11/10/2024 Weight 205 lbs 11/10/2024 BMI 41.4 kg/m2 11/10/2024 Procedures Procedure Date Ordered Date Performed Result Body Sit e 16016-ATYYXGW NAIL, 6 OR MORE 11/10/2024 N/A Encounters Encounter Location Date Provider Diagnosis [address] [address] 04/19/2024 Zackary Benavides Other viral warts B07.8 ; Pain in left foot M79.672 ; Pain in right foot M79.671 ; Ingrowing nail L60.0 ; Metatarsalgia, left foot M77.42 ; Metatarsalgia, right foot M77.41 ; Calcaneal spur, left foot M77.32 and Plantar fascial fibromatosis M72.[address] [address] 04/28/2024 Zackary Benavides Ingrowing nail L60.0 ; Other viral warts B07.8 ; Pain in left foot M79.672 ; Pain in right foot M79.671 and Tinea pedis B35.[address] [address] 05/13/2024 Zackary Benavides Ingrowing nail L60.0 ; Other viral warts B07.8 ; Pain in left foot M79.672 ; Pain in right foot M79.671 ; Tinea pedis B35.3 and Plantar fascial fibromatosis M72.[address] [address] 07/22/2024 Zackary Benavides Ingrowing nail L60.0 ; Other viral warts B07.8 ; Pain in left foot M79.672 ; Pain in right foot M79.671 ; Tinea pedis B35.3 and Plantar fascial fibromatosis M72.[address] [address] 11/10/2024 Gemini Mir Pain in right toe(s) M79.674 ; Onychomycosis B35.1 and Pain in left toe(s) M79.[address] [facility] [address] 04/27/[address] [address] [facility] [facility] [address] 08/23/2024 Gemini Clarke Assessments Encounter Date Diagnosis (ICD Code) Assessment Notes Treatment Notes Treatment Clinical Notes Section Notes 04/19/2024 Other viral warts (ICD-10 - B07.8) 04/28/2024 Other viral warts (ICD-10 - B07.8) 04/28/2024 Ingrowing nail (ICD-10 - L60.0) 05/13/2024 Other viral warts (ICD-10 - B07.8) 05/13/2024 Ingrowing nail (ICD-10 - L60.0) 07/22/2024 Other viral warts (ICD-10 - B07.8) 07/22/2024 Ingrowing nail (ICD-10 - L60.0) 11/10/2024 Pain in right toe(s) (ICD-10 - M79.674) 11/10/2024 Onychomycosis (ICD-10 - B35.1) 07/22/2024 Pain in left foot (ICD-10 - [...] Pain in right foot (ICD-10 - M79.671) 11/10/2024 Pain in left toe(s) (ICD-10 - M79.675) 07/22/2024 Tinea pedis (ICD-10 - B35.3) 05/13/2024 [...] X ray : Foot, right 3V 04/19/2024 27551-[id number] NAIL, 6 OR MORE 11/10/2024 Next Appt Details Provider Name:Gemini Stren harpreet, 03/09/2025 09:00:00 AM, [address] [facility], [place], [address], Insurance Providers Payer Name Payer Address Payer Phone Subscriber Number Group Number Insured Name Patient Relationship to Insured Coverage Start Date Coverage End Date Medicare [facility] [address] [place] [phone] [id number] Nicci Hanna Self - patient is the insured [facility] ([facility]) [address] [place] [address] [id number] Nicci Hanna Self - patient is [...] 1997 hernias 2012 ovaries removed 2007 gallbladder 2011 thumb-hand 2014 Implant surgery 09/07/2024
--- OUTSIDE RECORDS SUMMARY | 2024-11-24 11:44 | XMS_ITS | Clinical Summary ---
Author Organization [employer] Address [address] [facility] [address] [place] [address] Care Team Providers Care Head Grower Name Role Phone Unavailable Primary Care Provider Unavailabl e Immunizations Name Administration Dates Next Due Influenza Quadrivalent Adjuvanted 06/21/2021 Influenza, High Dose Seasona l, Preservative Free 07/21/2017 Influenza, IIV3, injectable 07/01/2011 Moderna Covid-19 Vaccine 12+ 08/12/2021,01/26/20 21,12/28/2020 Pfizer Covid-19 Vaccine 12+ 06/30/2024 Tdap 09/17/2021 Social History Tobacco Use Types Packs/Day Years Used Date Smoking Tobacco: Never Assessed Comments Unknown Sex and Gender Information Value Date Recorded Sex Assigned at Female 08/12/2022 10:39 AM EDT Legal Sex Female 10:39 AM EDT Gender Identity Female 08/12/2022 10:39 AM EDT Sexual Orientation Choose not to disclose 2021 10:39 AM EDT Last Filed Vital Signs Vital Sign Reading Time Taken Comments Blood Pressure 134/72 09/17/2021 12:12 AM EST Pulse 98 09/17/2021 12:12 AM EST Temperature - - Respiratory Rate - - Oxygen Saturation - - Inhaled Oxygen Concentration - - Weight 92.2 kg (203 lb 3.2 oz) 09/17/2021 12:12 AM EST Height 149.9 cm (4' 11 ) 09/17/2021 12:12 AM EST Body Mass Index 41.04 09/17/2021 12:12 AM EST Plan of Treatment Health Maintenance Due Date Last Done Comments CT Colonography 1950 Colonoscopy 1950 Colorectal Cancer Screening 1950 Depression Screening 1950 FIT DNA/Cologuard 1950 FIT 1950 FOBT 1950 SDOH Screening 1950 Sigmoidoscopy 1950 Alcohol/Substance Use Screening 1963 Tobacco Screening 1963 Hepatitis C Screening 1969 Mammogram 1991 Zoster Vaccines (1 of 2) 2001 Influenza Vaccine (#1) 2024 , 07/04/2022, 06/21/2021, Additional history exists RSV Patients and Patients Aged 60 years or older (1 - 1-dose 75+ series) 2026 DTaP/Tdap/Td Vaccines (2 - Td or Tdap) 09/17/2031 09/17/2021 Pneumococcal Vaccine: 50+ Years Completed 08/27/2022 COVID-19 Vaccine Completed 06/30/2024, 09/2023, 07/04/2022, Additional history exists HIB Vaccines Aged Out No longer eligi ble based on patient's age to complete this topic HPV Vaccines Aged Out No longer eligi ble based on patient's age to complete this topic Hepatitis A Vaccines Aged Out No long er eligible based on patient's age to complete this topic Hepatitis B Vaccines Aged Out No long er eligible based on patient's age to complete this topic IPV Vaccines Aged Out No longer eligi ble based on patient's age to complete this topic Meningococcal Vaccine Aged Out No zhanna piedad eligible based on patient's age to complete this topic RSV under 20 months Aged Out No longe r eligible based on patient's age to complete this topic Rotavirus Vaccines Aged Out No longer eligible based on patient's age to complete this topic Insurance MEDICARE
--- OUTSIDE RECORDS SUMMARY | 2024-11-24 11:44 | XMS_ITS ---
[facility] Address [address] [place] [address] Care Team Providers Care Slot Ambassador Name Role Phone Chip Bowden MD Primary Care Provider Unavaila Davie Schmidt Unavailable [phone] Gemini Mir Unavailable [phone] Allergies Allergen (clinical drug ingredient) Drug/Non Drug [...] (substance) Sulfa Antibiotics Unknown Drug Allergy Active REASON FOR VISIT Painful nail(s) aggravated by shoes causing difficulty standing/walking Medications Medication SIG (Take, Route, Frequency, Duration) Notes Start Date End Date Status Synthroid 50 MCG Oral for 90 Days Not-Taking Naproxen Not-Taking Loperamide HCl 2 mg 3 tablets 1 a day 03/16/2024 Active Synthroid 50 MCG Oral for 90 Days Active Imodium Advanced Act wing Meloxicam 7.5 MG Oral for 90 Days Active Ciclopirox Olamine 0.77 % 1 application to [...] 0 Interpretation Negative Vital Signs Blood pressure systolic 120 mm Hg 11/10/19 25 Blood pressure diastolic 80 mm Hg 025 Height 1tn58bm in 11/10/2024 Weight 205 lbs 11/10/2024 BMI 41.4 kg/m2 11/10/2024 Procedures Procedure Date Ordered Date Performed Result Body Sit e 34815-ZEYMVEN NAIL, 6 OR MORE 11/10/2024 N/A Encounters Encounter Location Date Provider Diagnosis [facility] [address] [address] 11/10/2024 Gemini Mir Pain in right toe(s) M79.674 ; Onychomycosis B35.1 and Pain in left toe(s) M79.675 Assessments Encounter Date Diagnosis (ICD Code) Assessment Notes Treatment Notes Treatment Clinical Notes Section Notes 11/10/2024 Pain in right toe(s) (ICD-10 - M79.674) 11/10/2024 Onychomycosis (ICD-10 - B35.1) 11/10/2024 Pain in left toe(s) (ICD-10 - M79.675) Plan Of Treatment Pending Test Test Name Order Date [id number] NAIL, 6 OR MORE 11/10/2024 Next Appt Details Follow Up: 3 Months, Reason: Provider Name:Gemini Jarred harpreet, 03/09/2025 09:00:00 AM, [address] [place] [address], [address], Procedure Notes * Category Sub-Category Detail Notes Debride Nail 6-10 Nail debridement Due to the cl inical pathology outlined in the exam findings, performance of this nail treatment is medically necessary as its management by an unskilled/untrained nonprofessional would put this patients foot and overall health at risk. Therefore, debridement to affected nail(s), as described in exam ( TA, T1, T2, T3, T4, T5, T6, T7, T8, T9, ), was performed exclusively by the physician of record to reduce/remove overall nail length, girth, thickness, subungual debris, and necrotic tissue, by manual and/or electrical means through the use of a nail nipper and/or dremel-type floor grinder, to a more viable healthy nail plate or bed tissue 6-10 nails in total. Silver nitrate was used for any petechial bleeding as necessary. Definitive antifungal treatment options, both pharmaceutical and surgical, have been reviewed and discussed with the patient. The patient solely prefers the use of intermittent/as needed professional debridement services for their nail condition and understands the need for additional periodic treatments to maintain effectiveness in symptomatic relief - 64891 Progress Notes * Nicci PALMERDOB:1950 (73 yo F)Acc No.[id number]:11/10/2024 Progress Note Patient:?SPENCERLeoraNicci Provider:?Gemini Mir DPM :1950???Age:73 Y???Sex:Female D ate:11/10/2024 Address:[address] [place] [address] [id number] Pcp:Chip Bowden MD Subjective: * Chief Complaints: * ???Painful nail(s) aggravate d by shoes causing difficulty standing/walking * HPI: ???Painful Nails:?Pt States Last PCP Visit:?Date:?10/19/2024 * ROS:?General/Constitutional:?Nausea?denies.?Vomiting?denies.?Hunger Thirst?denies.?Loss appetite?denies, denies, denies, denies.?Chills?denies.?Fatigue?denies.?Fever?denies.?Night Sweats?denies.?Unexplained weight loss?denies, denies, denies, denies.?Unexplained weight gain?denies, denies, denies.?Ophthalmologic:?Blurred vision?denies.?Red eye?denies.?HEENTM:?Dentures?denies.?Dizziness?denies.?Glasses/contacts?admits.?Retinopathy?de nies.?Blurred/double vision?denies.?TMJ?denies.?Discharge/drainage?denies.?Implants?denies.?Sore throat?denies.?Dental implants?denies.?Hard of hearing ?denies.?Difficulty chewing/swallowing/speaking?denies.?Nose bleeds?denies.?Sore mouth?denies.?Swollen glands?denies.?Respiratory:?On Oxygen?denies.?Pneumonia/pleurisy?denies.?Bronchitis?denies.?Emphysema?denies.?C oughing?denies.?Cough blood?denies.?Shortness of breath?denies.?Wheezing?denies.?Cardiovascular:?Pacemaker?denies.?MVP?denies.?WPW?denies.?CHF?denies.?Heart attack?denies.?Septal defect?denies.?Rapid beat?denies.?Chest pain ?denies.?Atrial Fib.?denies.?Murmur/Palpitations?denies.?Gastrointestinal:?Hemorrhoids?denies.?Stomach/Abdominal pain?denies.?Dark blood stool?denies.?Irritable bowel ?denies.?Constipation?denies.?Diarrhea?denies.?Vomiting?denies.?Hematology:?Swelling?denies.?Clots?Denies.?Varicose Veins?denies.?Bruising?denies.?Bleeding problem?denies.?Genitourinary:?Blood urine?denies.?Frequent/Painfu/urination/bladder control?denies.?Kidney stones?denies.?Infection (UTI)?denies.?Nephropathy?denies.?sex trans dis (STD)?denies.?Prostate?denies.?Musculoskeletal:?Hammertoes?denies.?Bunions?denies.?Scoliosis/kyphosis?denies.?Back Pain?denies.?Muscle Cramps/ Resting?denies.?Muscle cramps / walking?denies.?Generalized aches and pains?denies.?Weakness?denies.?Integ.:?Kerr?denies.?Scars?denies.?Corns/calluses?denies.?Ingrown nails?denies.?Painful nails?denies.?Open Sores?denies.?Rashes?denies.?Neurologic:?Difficulty sleeping?denies.?Bipolar?denies.?Brain disorder?denies.?Numbness?denies.?Balance trouble?denies.?Confusion?denies.?Fainting/blackouts?denies.?Headache?denies.?Ti ngling?denies.?Tremors?denies.? * Medical History:? * Surgical History:?uterus joe coral - removed 1997hernias 2012ovaries removed 2008gallbladder 2011thumb-hand 2014Implant surgery 09/07/2024 * Hospitalization/Major Diagno stic Procedure:?Denies Past Hospitalization * Family History:?Mother: dece ased, diagnosed with Unspecified essential hypertension, Unspecified heart disease, Family history of arthritis.?Father: , diagnosed with Other malignant neoplasm of unspecified site, Family history of arthritis.?Paternal aunt: diagnosed with Unspecified cerebral artery occlusion with cerebral infarction.?Paternal uncle: diagnosed with Other malignant neoplasm of unspecified site.?Maternal aunt: diagnosed with Other malignant neoplasm of unspecified site, Diabetic - NIDDM, Unspecified cerebral artery occlusion with cerebral infarction.?Maternal uncle: diagnosed with Unspecified essential hypertension.?Siblings: diagnosed with Other malignant neoplasm of unspecified site.? Foot Problems : Mother Defects: Mother Poor Circulation : Maternal Aunt. * Social History:?Tobacco Use:?Tobacco Control (Standard)?Tobacco use:?Nonsmoker ?Additional Findings: Tobacco non-user?Current nonsmoker ???Drugs/Alcohol:?Drugs?Have you used drugs other than those for medical reasons in the past 12 months??No ???Miscellaneous:?Caffeine: yes, Soda. ?Children: yes, 3. ?Exercise: no. ?Marital status: . 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 ???Drug/Alcohol:?AUDIT-C (Standard)?Did you have a drink containing alcohol in the past year??No ?Points?0 ?Interpretation?Negative * Medications:?TakingCiclopiro x Olamine 0.77 % Cream 1 application to affected area Externally Twice a day to effected areas on feet vitamin , Notes to Pharmacist: gummy from time to timeSleep , Notes to Pharmacist: OTC genericMeloxicam 7.5 MG Tablet Oral Loperamide HCl , Notes to Pharmacist: 2 mg 3 tablets 1 a daySynthroid 50 MCG Tablet Oral Imodium Advanced Taking Ciclopirox Olamine 0.77 % Cream 1 application to affected area Externally Twice a day to effected areas on feet Taking vitamin , Notes to Pharmacist: gummy from time to timeTaking Sleep , Notes to Pharmacist: OTC genericTaking Meloxicam 7.5 MG Tablet Oral Taking Loperamide HCl , Notes to Pharmacist: 2 mg 3 tablets 1 a dayTaking Synthroid 50 MCG Tablet Oral Taking Imodium Advanced Not-Taking/PRNSynthroid 50 MCG Tablet Oral Naproxen Medication List reviewed and reconciled with the patientNot-Taking/PRN Synthroid 50 MCG Tablet Oral Not-Taking/PRN Naproxen Medication List reviewed and reconciled with the patient * Allergies:?Penicillin: Total heart failureErythromycinSulfa AntibioticsMorphine: Vomits , dizzyCodeine: Vomits , dizzyyes[Allergies Verified] Objective: * Vitals:?Ht:9nz91ro, Wt:205, BMI:41.4, Shoe size:8, BP:120/80mm Hg, Ht-cm: 149.86 cm, Wt-k.99 kg. * Examination: ???Nails: ?NAILS are:?Elongated, overgrown, dystrophic, lytic, greater than 3mm thick, discolored and friable with crumbly malodorous subungual debris, with pain on palpation, TA, T1, T2, T3, T4, T5, T6, T7, T8, T9.? Assessment: * Assessment: 1.?Pain in right toe(s) - M7 9.674???2.?Onychomycosis - B35.1 (Primary)???3.?Pain in left toe(s) - M79.675??? Plan: * Treatment: * Procedures:?Debride Nail 6-10:?Nail debridement?Due to the clinical pathology outlined in the exam findings, performance of this nail treatment is medically necessary as its management by an unskilled/untrained nonprofessional would put this patients foot and overall health at risk. Therefore, debridement to affected nail(s), as described in exam ( TA, T1, T2, T3, T4, T5, T6, T7, T8, T9, ), was performed exclusively by the physician of record to reduce/remove overall nail length, girth, thickness, subungual debris, and necrotic tissue, by manual and/or electrical means through the use of a nail nipper and/or dremel-type floor grinder, to a more viable healthy nail plate or bed tissue 6- 10 nails in total. Silver nitrate was used for any petechial bleeding as necessary. Definitive antifungal treatment options, both pharmaceutical and surgical, have been reviewed and discussed with the patient. The patient solely prefers the use of intermittent/as needed professional debridement services for their nail condition and understands the need for additional periodic treatments to maintain effectiveness in symptomatic relief - 63096.? * Procedure Codes:?35853 CLIFTONI TESSIE NAIL, 6 OR MORE * Follow Up:?3 Months * Images: * Sign off status: Completed true * Provider:?Gemini Mir DPM Date:?0 11/10/2024 Generated for Katia patterson/Vanesa/Tj on:?11/24/2024 11:43 AM EST History and Physical Notes * HPI (History of Present Illness) Category Sub-Category Detail Notes Category Not es Painful Nails Pt States Last PCP Visit: Date:: 10/19/2024 Examination Category Sub-Category Detail Notes Category Not es Nails NAILS are: Elongated, overg rown, dystrophic, lytic, greater than 3mm thick, discolored and friable with crumbly malodorous subungual debris, with pain on palpation, TA, T1, T2, T3, T4, T5, T6, T7, T8, T9
--- OUTSIDE RECORDS SUMMARY | 2024-11-24 11:45 | XMS_ITS ---
Author Organization [facility] Address [address] [place] [address] Care Team Providers Care Bioinformatics Assistant Name Role Phone Chip Bowden MD Primary Care Provider Davie Slaughter Unavailable [phone] Gemini Mir Unavailable [phone] REASON FOR VISIT cx appt 08/26/24 Encounters Encounter Location Date Provider Diagnosis [address] [address] 08/23/2024 Gemini Mir Plan Of Treatment Next Appt Details Provider Name:Gemini mullins, 03/09/2025 09:00:00 AM, [address] [place], [address], Progress Notes * Nicci PAMLERDOB:1950 (73 yo F)Acc No.[id number]:08/23/2024 Patient:?Nicci PALMER :1950???Age:73 Y???Sex:Female Address:[place] [address] * true * Date:? Generated for Frantzi yesenia/Vanesa/eTransmitting on:?11/24/2024 11:44 AM EST
--- OUTSIDE RECORDS SUMMARY | 2024-11-24 11:45 | XMS_ITS | Patient Health Record ---
Author Organization [facility] Address [address] [place] [address] Care Team Providers Care Society Reporter Name Role Phone Chip Bowden MD Primary Care Provider Unavaila Ovidio Meek Unavailable [phone] EUGENIO GARCIA Unavailable Unavailable ALLERGIES Allergen (clinical [...] malignant neoplasm of colon (Z12.11) Active confirmed 184908730 Problem History of adenomatous polyp of colon (Z86.010) Active confirmed 120570434 Problem Irritable bowel syndrome with diarrhea (K58.0) Active confirmed 935507843 Problem Encounter for screening for malignant neoplasm of rectum (Z12.12) Active confirmed Screening fo r malignant neoplasm of rectum (462235342) Problem Family history of colon cancer (Z80.0) Active confirmed 444367512 Problem Clostridium difficile infection (B96.89) Active confirmed 914060013 Problem Diarrhea, unspecified type (R19.7) Active confirmed 76586808 Problem Hypertension, unspecified type (I10) Active confirmed 35679137 Problem History of Clostridium difficile infection (Z86.19) Active confirmed [id number] PLAN OF TREATMENT Pending Test Test Name [...] Start Date Coverage End Date MEDICARE OF [facility] [address] [place] [address] [place] [id number] NICOLE PALMER Self - patient is the insured [facility] [employer] [address] [place] [address] [id number] NICOLE PALMER Self - patient is the insured MEDICAL (GENERAL) HISTORY Medical History History ICD Code Colonoscopy 10/2007--Tubular adenoma removed; biopsies neg for microscopic colitis; neg. colonoscopy in [address] Phillips Hypothyroidism Lap band placed in 2006-ramirez sient weight loss- Dr. Ocampo is planning to remove it IBS--neg. labs for celiac disease in 2013 Denies VA,DM,CVA,Lung disease,renal dise ase Colonoscopy in 02/2013--WNL--no polyps Back pain/arthritis-herniated disc C.diff x2 (2014)--ultimately treated wit h Vancomycin Sleep apnea--had a CPAP but presently no t using it She had a negative colonoscopy with la i n 2017 Colonoscopy in May with [...] put on Alosetron by Ekaterina Meek NP, [facility] Surgical History Surgery Date(Month/Year) Hysterectomy, subsequent removal of both ovaries and Fallopian tubes Appendectomy Laparoscopies Cholecystectomy Lap band in 2006 Ayah waggoner after weight loss Bladder suspension Hernia repair--umbilical, bilateral ingu inal--Dr. Ocampo 08/2014 Lap band removal 2011
--- OUTSIDE RECORDS SUMMARY | 2024-11-24 11:45 | XMS_ITS ---
Author Organization [facility] Address [address] [place] [address] Care Team Providers Care Scientific Database Curator Name Role Phone Chip Bowden MD Primary Care Provider UnavailDavie Puente Unavailable [phone] Gemini Mir [phone] Encounters Encounter Location Date Provider Diagnosis [facility] [address] [place] [address] 08/26/2024 Gemini Mir Plan Of Treatment Next Appt Details Provider Name:Gemini mullins, 03/09/2025 09:00:00 AM, [address] [place] [address], [phone], Progress Notes * Nicci PALMERDOB:1950 (73 yo F)Acc No.[id number]:08/26/2024 Progress Notes Patient:?SPENCER Nicci Provider:?Gemini Mir DPM :1950???Age:73 Y???Sex:Female D ate:08/26/2024 Address:[address] [place] [place] Pcp:Chip Bowden MD Subjective: * Chief Complaints: [...] Mir DPM Date:?1 10/26/2023 Generated for Katia patterson/Vanesa/Tj on:?11/24/2024 11:44 AM EST
[2024-11-24 12:09] LABS: Basophils Absolute Auto 0.1 X10*3/uL (0.0-0.2); Basophils Percent Auto 0.8 % (0-2); Eosinophils Absolute Auto 0.2 X10*3/uL (0.0-0.4); Eosinophils Percent Auto 3.2 % (0-4); Hemoglobin 14.5 g/dl (12.0-16.0); Imm Gran Abs Auto 0.02 X10*3/uL (0.00-0.03); Imm Gran Pct Auto 0.3 % (0.0-0.4); Lymphocytes Absolute Auto 1.7 X10*3/uL (1.2-4.9); Lymphocytes Percent Auto 23.5 % (20-40); Mean Corpuscular Hemoglobin 27.8 pg (27.0-33.0); Mean Corpuscular Volume 84.3 fL (80.0-98.0); Mean Platelet Volume 9.8 fL (9.4-12.3); Monocytes Absolute Auto 0.5 X10*3/uL (0.1-1.2); Neutrophils Absolute Auto 4.8 x10*3/uL (2.0-8.3); Neutrophils Percent Auto 65.2 % (45-73); Platelet Count 353 X10*3/uL (160-400); Red Blood Count 5.22 X10*6/uL (4.20-5.50); White Blood Count 7.3 X10*3/uL (4.8-10.8)
[2024-11-24 12:13] LABS: Estimated Average Glucose 120 mg/dL; Hemoglobin A1c % 5.8 % (<6.0); Total Hemoglobin (HGBA1C) 3780.8604 umol/L
[2024-11-24 12:40] LABS: Alanine Aminotransferase 27 U/L (0-31); Albumin Level 4.2 g/dL (3.5-5.0); Alkaline Phosphatase 106 U/L (39-117); Anion Gap 10 (12-20); Aspartate Amino Transferase 25 U/L (5-31); Bilirubin Total 0.7 mg/dL (0.0-1.0); Blood Urea Nitrogen 14 mg/dL (9-16); Calcium 9.1 mg/dL (8.4-10.2); Carbon Dioxide 26 mmol/L (22-29); Chloride 108 mmol/L (96-108); Cholesterol 184 mg/dL (<200); Estimated Glomerular Filt Rate > 60; Glucose Fasting 87 mg/dL (60-99); HDL Cholesterol 56 mg/dL (>40); LDL Cholesterol Calculated 110 mg/dL (<100); Potassium 4.4 mmol/L (3.3-5.1); Sodium 140 mmol/L (135-145); Total Protein 7.8 g/dL (6.5-8.0); Triglycerides 92 mg/dL (<150)
[2024-11-24 12:44] LABS: Free T4 (Free Thyroxine) 0.94 ng/dL (0.71-1.85); Thyroid Stimulating Hormone 2.84 uIU/mL (0.32-4.0)
== END 2024-11-24 09:58 | disposition home or self-care (01) ==
LOC: HO.LAB 09:57
PROVIDERS: PCP Internal Medicine; Visit Provider Internal Medicine
DX: E03.9 Hypothyroidism, unspecified (principal); R73.03 Prediabetes
CPT/HCPCS: 36415; 80053; 80061; 83036; 84439; 84443; 85025

== ENCOUNTER 2024-12-31 14:33 | Outpatient (AMB) | payer MEDICARE, OTHER, SELFPAY ==
--- NOTE | 2024-12-31 14:41 | AM.OFFWIN_ITS ---
Intake Vital Signs 12/31/24 14:43 Weight 211 lb BP 150/90 H Pulse 97 Pulse Source Pulse Oximeter Pulse Oximetry (%) 95 Oxygen Delivery Method Room Air Intake Visit Reasons: EP-High bp & chest wheezing Intake Note: Patient here for elevated BP Patient Tobacco Use Status: Never used Tobacco Allergies Penicillins Allergy (Intermediate, Verified 12/31/24 14:45) HIVES, ANAPHYLAXIS Beef Containing Products [BEEF CONTAINING PRODUCTS] Allergy (Mild, Verified 12/31/24 14:45) INFLAMMATION caffeine [CAFFEINE] Allergy (Mild, Verified 12/31/24 14:45) UNKNOWN lactose [LACTOSE] Allergy (Mild, Verified 12/31/24 14:45) STOMACH PAIN,DIARRHEA orange Allergy (Mild, Verified 12/31/24 14:45) GEOGRAPHIC TONGUE oxycodone [Percocet] Allergy (Mild, Verified 12/31/24 14:45) Vomiting penicillin G Allergy (Mild, Verified 12/31/24 14:45) Anaphylaxis penicillin V Allergy (Mild, Verified 12/31/24 14:45) Anaphylaxis Pork/Porcine Containing Products [PORK/PORCINE CONTAINING PRODUCTS] Allergy (Mild, Verified 12/31/24 14:45) INFLAMMATION,PAIN Sulfa (Sulfonamide Antibiotics) [SULFA (SULFONAMIDE ANTIBIOTICS)] Allergy (Mild, Verified 12/31/24 14:45) DIARRHEA,VOMITING nut - unspecified [nut] Adverse Reaction (Mild, Verified 12/31/24 14:45) UNKNOWN acetaminophen [Percocet] Adverse Reaction (Unknown, Verified 12/31/24 14:45) unknown Do you need a note to return to daycare/school/sports/work: No HPI HPI Comments History of Present Illness Details This is a 74-year-old female who presented to the walk-in clinic with multiple complaints. First, patient states her blood pressures have been elevated for the past 1 month. She has been monitoring her blood pressures daily and they have been ranging 140s-150s/80s-90s. She reports chronic dyspnea on exertion but denies any new or worsening shortness of breath or dyspnea at rest. She denies any chest pain. She denies any lightheadedness or dizziness. Patient states a nurse from her insurance company has been monitoring her blood pressures and she was instructed to come to the walk-in clinic to start blood pressure medications. Patient's primary care physician retired so she has been without a primary care physician for the past 3-4 months and she has been unable to get in with a new PCP. She was previously on antihypertensive medications although her primary care physician took her off of them about a year ago, she's unsure which medication she was taking. Second, patient is complaining of wheezing. She states she first noticed it at the beginning of winter but it has worsened over the past 1 week. She reports chronic dyspnea on exertion but denies any new or worsening shortness of breath or dyspnea at rest. She reports an occasional productive cough, which was initially productive of green sputum but the sputum has turned clear-white. She denies any fevers or chills. She was prescribed an albuterol inhaler, which she tried once but doesn't feel like she used it correctly as she felt like most of the medicine got on her tongue. [facility] Medical History Fatty liver Obesity due to excess calories Pre-diabetes Plantar fasciitis Sacroiliitis History of Clostridioides difficile colitis Lumbosacral spondylosis without myelopathy Carpal tunnel syndrome Sleep apnea NAFL (nonalcoholic fatty liver) Hypothyroidism Irritable bowel syndrome with diarrhea Surgical History IGTN (ingrowing toe nail) Hx of colonoscopy History of thumb surgery H/O hernia repair History of removal of laparoscopic gastric banding device History of bladder surgery Hx laparoscopic cholecystectomy S/P panniculectomy H/O bilateral oophorectomy Hx of laparoscopic gastric banding History of laparoscopic appendectomy Hx of vaginal hysterectomy H/O tubal ligation Family History Father Colon cancer Maternal Aunt Colon cancer Paternal Aunt Breast cancer Maternal Aunt Colon cancer Social History Household Members: Spouse Household Members Other:: Alcohol intake: never Patient Tobacco Use Status: Never used Tobacco Current occupational status: retired Sexual orientation: Straight/Heterosexual Gender identity: Female Female Reproductive History Menstrual Age of Menarche: 14 Review of Systems Const All systems reviewed & are unremarkable except as noted in HPI and below Reports no additional complaints Eyes Reports no additional complaints ENT Reports no additional complaints Card Reports no additional complaints Resp Reports no additional complaints GI Reports no additional complaints Reports no additional complaints Musc Reports no additional complaints Skin/Breast Reports system reviewed and no additional complaints, except as documented Neuro Reports no additional complaints Psych Reports no additional complaints Endo Reports no additional complaints David/Lymph Reports no additional complaints Aller/Immun Reports no additional complaints Physical Exam Vital Signs: Last Vital Signs Pulse 97 12/31/24 14:43 BP 150/90 H 12/31/24 14:43 Pulse Ox 95 12/31/24 14:43 Oxygen Delivery Method Room Air 12/31/24 14:43 Const Other: Vital signs reviewed. Constitutional: Non-toxic appearing. No acute distress. Well-developed and well-nourished. HEENT: Normocephalic and atraumatic. Skin: Warm and dry. No rashes or lesions noted. Neck: Full and painless range of motion. No cervical lymphadenopathy. Cardio: Regular rate and rhythm. No murmurs, gallops, or rubs. No lower extremity edema. No JVD. Pulmonary: No respiratory distress. No accessory muscle usage. Clear to auscultation bilaterally without wheezing, crackles, or rhonchi. Gastrointestinal: Soft, nontender, and nondistended in all 4 quadrants. Normoactive bowel sounds in all 4 quadrants. Musculoskeletal: Normal range of motion in joints throughout the body. No deformity or other signs of injury. Neuro: Alert and oriented x4. Cranial nerves 2-12 grossly intact. No focal deficits appreciated. Psych: Normal mood and affect. Assessment & Plan Assessment & Plan (1) Hypertension: Code(s): I10 - Essential (primary) hypertension Qualifiers: Hypertension type: unspecified Qualified Code(s): I10 - Essential (primary) hypertension Plan: Patient has been monitoring her blood pressures for the past 1 month and they have been elevated with systolics ranging 140s to 150s and diastolics ranging 80s to 90s. She is asymptomatic without chest pain, new or worsening shortness of breath, visual disturbance or lightheadedness/dizziness. I explained to the patient that we do not typically start antihypertensives in a patient without a primary care physician as we are unable to monitor or follow-up in regards to blood pressure management and titration of medications. We were able to get the patient a primary care appointment with Magdalena Kessler PA-C on 01/03/25 in [place], [place] for management of blood pressures. I offered initiation of anti- hypertensives now that she has a scheduled follow-up appointment with one of our providers; however, patient would like to hold off for now and wait until she is evaluated in 3 days. I believe this is reasonable as patient is asymptomatic and her blood pressures are only mildly elevated. With that being said, she was instructed to proceed directly to the emergency room if she were to develop any concerning symptoms such as chest pain, shortness of breath, visual disturbances, lightheadedness/dizziness, or stroke-like symptoms or if her blood pressure was > 160/100. Patient verbalized understanding and is agreeable with the plan. (2) Acute bronchitis: Code(s): J20.9 - Acute bronchitis, unspecified Qualifiers: Bronchitis organism: unspecified organism Qualified Code(s): J20.9 - Acute bronchitis, unspecified Plan: Patient has also been complaining of expiratory wheezing since the winter started; however, this has worsened over the past 1 week. This is associated with an occasional cough. On physical examination, she has scant end-expiratory wheezing. Patient likely has acute bronchitis in the setting of viral infection as her is currently sick with a viral URI. Patient was given PO prednisone 40 mg daily x 5 days. She was instructed to proceed directly to the emergency room if she were to develop any new or worsening shortness of breath, fevers or chills, or increased sputum production/purulence. Patient verbalized understanding and is agreeable with the plan. Medications: New prednisone 40 mg (2 x 20 mg) PO DAILY 10 tabs 0RF Coding Level of Care Code Est Pt Level 3 (02210) Diagnoses Hypertension, unspecified type I10 Hypertension type: unspecified Acute bronchitis, unspecified organism J20.9 Bronchitis organism: unspecified organism
[2024-12-31 14:43] VITALS: BP 150/90; PULSE 97; O2SAT 95
--- OUTSIDE RECORDS SUMMARY | 2024-12-31 16:45 | XMS_ITS ---
[facility] Address [address] [facility] [place] [address] Care Team Providers Care Boat Outboard Engine Mechanic Name Role Phone Chip Bowden MD Primary Care Provider Unavaila Davie Schmidt Unavailable [phone] Gemini Mir Unavailable [phone] Allergies Allergen (clinical drug ingredient) Drug/Non Drug [...] Points 0 Interpretation Negative Vital Signs Height [id number] in 11/10/2024 Weight 205 lbs 11/10/2024 BMI 41.4 kg/m2 11/10/2024 Blood pressure systolic 120 mm Hg 11/10/19 25 Blood pressure diastolic 80 mm Hg 025 Procedures Procedure Date Ordered Date Performed Result Body Sit e 85518-TGYRMUA NAIL, 6 OR MORE 11/10/2024 N/A Encounters Encounter Location Date Provider Diagnosis [facility] [address] [address] 11/10/2024 Gemini Mir Pain in right toe(s) M79.674 ; Onychomycosis B35.1 and Pain in left toe(s) M79.675 Assessments Encounter Date Diagnosis (ICD Code) Assessment Notes Treatment Notes Treatment Clinical Notes Section Notes 11/10/2024 Pain in right toe(s) (ICD-10 - M79.674) 11/10/2024 Onychomycosis (ICD-10 - B35.1) 11/10/2024 Pain in left toe(s) (ICD-10 - M79.675) Plan Of Treatment Pending Test Test Name Order Date 87445-JDWUBNS NAIL, 6 OR MORE 11/10/2024 Next Appt Details Follow Up: 3 Months, Reason: Provider Name:Gemini Stern harpreet, 03/09/2025 09:00:00 AM, [address] [place] [address], [phone], Procedure Notes * Category Sub-Category Detail Notes [...] use of a nail nipper and/or dremel-type grinder outside diameter, to a more viable healthy nail plate [...] to maintain effectiveness in symptomatic relief - 89305 Progress Notes * Nicci PALMERDOB:1950 (73 yo F)Acc No.[id number]:11/10/2024 Progress Note Patient:?SPENCERLeoraNicci Provider:?Gemini Mir DPM :1950???Age:73 Y???Sex:Female D ate:11/10/2024 Address:[address] [place] [address] [facility] Pcp:Chip Bowden MD Subjective: * Chief Complaints: [...] ?Exercise: no. ?Marital status: . 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 ???Drug/Alcohol:?AUDIT-C (Standard)?Did you have a drink containing [...] dizzyCodeine: Vomits , dizzyyes[Allergies Verified] Objective: * Vitals:?Ht:8pn96ys, Wt:205, BMI:41.4, Shoe size:8, BP:120/80mm Hg, Ht-cm: [...] use of a nail nipper and/or dremel-type grinder outside diameter, to a more viable healthy nail plate [...] to maintain effectiveness in symptomatic relief - 34635.? * Procedure Codes:?86184 CLIFTONI TESSIE NAIL, 6 OR MORE * Follow Up:?3 Months * Images: * Sign off status: Completed true * Provider:?Gemini Mir DPM Date:?0 11/10/2024 Generated for Katia patterson/Vanesa/Tj on:?12/31/2024 04:44 PM EDT History and Physical Notes * HPI (History [...]
--- OUTSIDE RECORDS SUMMARY | 2024-12-31 16:45 | XMS_ITS ---
Author Organization [facility] Address [address] [place] [address] Care Team Providers Care Document Management Technician Name Role Phone Chip Bowden MD Primary Care Provider UnavailDavie Puente Unavailable [phone] Gemini Mir [phone] Encounters Encounter Location Date Provider Diagnosis [facility] [address] [place] [address] 08/26/2024 Gemini Mir Plan Of Treatment Next Appt Details Provider Name:Gemini mullins, 03/09/2025 09:00:00 AM, [address] [place] [address], [phone], Progress Notes * Nicci PALMERDOB:1950 (74 yo F)Acc No.[id number]:08/26/2024 Progress Notes Patient:?SPENCER Nicci Provider:?Gemini Mir DPM :1950???Age:73 Y???Sex:Female D ate:08/26/2024 Address: [id number] Pcp:Chip Bowden MD Subjective: * Chief Complaints: [...] DPM Date:?1 10/26/2023 Generated for Katia patterson/Vanesa/Tj on:?12/31/2024 04:45 PM EDT
--- OUTSIDE RECORDS SUMMARY | 2024-12-31 16:45 | XMS_ITS | Patient Health Record ---
Author Organization [facility] Address [address] [place] [address] Care Team Providers Care Lunch Truck Operator Name Role Phone Chip Bowden MD Primary Care Provider Unavaila Ovidio Meek Unavailable [phone] EUGENIO GARCIA Unavailable Unavailable Allergies Allergen (clinical drug ingredient) Drug/Non Drug Allergy documented on EMR Reaction Allergy Type Onset Date Status Penicillin Unknown Drug Allergy Active oranges,caffeine,nut s ,pills (uncoded) Unknown Allergy Active Beef,pork,liver, (uncoded) Unknown Allergy Active IVP dye (uncoded) Unknown Allergy In active Sulfa Unknown Drug Allergy Active Reason For Referral [...] Orally QD January Mendel ortega NP Active Immunizations Vaccine Route Administration Date Status Comme nts Flu vaccine no Preserv 3 and > Unknown 07/22/2017 Admin istered Influenza Unknown 07/25/2021 Administered Social History Alcohol Screen Question Answer Notes Did you have a drink containing alcohol in the p ast year? No Points 0 Interpretation Negative Section Notes: Nonsmoker; no alcohol Nonsmoker; no alcohol Nonsmoker; no alcohol Nonsmoker; no alcohol Nonsmoker; no alcohol Problems Problem Type SNOMED Code ICD Code Onset Dates Problem Status W/U Status Risk Notes Problem 049491951 Encounter for screening for malignant neoplasm of colon (Z12.11) Active confirmed Problem 086017980 History of adenomatous polyp of colon (Z86.010) Active confirmed Problem 467454557 Irritable bowel syndrome with diarrhea (K58.0) Active confirmed Problem Screening for malignant neoplasm of rectum (969618928) Encounter for screening for malignant neoplasm of rectum (Z12.12) Active confirmed Problem 408698870 Family history of colon cancer (Z80.0) Active confirmed Problem 403461070 Clostridium difficile infection (B96.89) Active confirmed Problem 10504855 Diarrhea, unspecified type (R19.7) Active confirmed Problem 19273448 Hypertension, unspecified type (I10) Active confirmed Problem 346194475561034 History of Clostridium difficile infection (Z86.19) Active confirmed Plan Of Treatment Pending Test Test Name Order Date CLOSTRIDIUM DIFF TOXIN A&B (C DIFF) 09/13 CLOSTRIDIUM DIFF TOXIN A&B (C DIFF) 12/13 CLOSTRIDIUM DIFF TOXIN A&B (C DIFF) 02/12/2016 STOOL WBC 10/04/2014 STOOL WBC 11/15/2016 GIARDIA AG, STOOL EIA 10/04/2014 OVA & PARASITES (O&P) 10/04/2014 CULTURE, STOOL 10/04/2014 C DIFFICILE RFLX PCR 08/17/2021 Future Test Test Name Order Date COLONOSCOPY 01/13/2013 COLONOSCOPY 07/29/2017 Insurance Providers Payer Name Payer Address Payer Phone Subscriber Number Group Number Insured Name Patient Relationship to Insured Coverage Start Date Coverage End Date MEDICARE OF [place] [address] [place] [address] [id number] NICOLE PALMER Self - patient is the insured [facility] [address] [place] [address] [id number] NICOLE PALMER Self - patient is the insured Medical (General) History Medical History History ICD Code Colonoscopy 10/2007--Tubular adenoma removed; biopsies neg for microscopic colitis; neg. colonoscopy in [address] Phillips Hypothyroidism Lap band placed in 2006-ramirez sient weight loss- Dr. Ocampo is planning to remove it IBS--neg. labs for celiac disease in 2013 Denies IN,DM,CVA,Lung disease,renal dise ase Colonoscopy in 02/2013--WNL--no polyps Back pain/arthritis-herniated disc C.diff x2 (2014)--ultimately treated wit h Vancomycin Sleep apnea--had a CPAP but presently no t using it She had a negative colonoscopy with mo i n 2017 Colonoscopy in May with [...] put on Alosetron by Ekaterina Meek NP, [facility] [place] [facility] Surgical History Surgery Date(Month/Year) Hysterectomy, subsequent removal of both ovaries and Fallopian tubes Appendectomy Laparoscopies Cholecystectomy Lap band in 2006 Ayah waggoner after weight loss Bladder suspension Hernia repair--umbilical, bilateral ingu inal--Dr. Ocampo 08/2014 Lap band removal 2011
--- OUTSIDE RECORDS SUMMARY | 2024-12-31 16:45 | XMS_ITS | Clinical Summary ---
Author Organization [employer] Address [address] [facility] [address] [place] [address] Care Team Providers Care Transit Bus Operator Name Role Phone Unavailable Primary Care Provider [...]
--- OUTSIDE RECORDS SUMMARY | 2024-12-31 16:45 | XMS_ITS ---
Author Organization [facility] Address [address] [place] [address] Care Team Providers Care Web Designer Name Role Phone Chip Bowden MD Primary Care Provider Davie Slaughter Unavailable [phone] Gemini Mir Unavailable [phone] REASON FOR VISIT cx appt 08/26/24 Encounters Encounter Location Date Provider Diagnosis [address] [address] 08/23/2024 Gemini Mir Plan Of Treatment Next Appt Details Provider Name:Gemini mullins, 03/09/2025 09:00:00 AM, [address] [place], [address], Progress Notes * Nicci PALMERDOB:1950 (73 yo F)Acc No.[id number]:08/23/2024 Patient:?Nicci PALMER :1950???Age:73 Y???Sex:Female Address:[place] [address] * true * Date:? Generated for Printi yesenia/Vanesa/eTransmitting on:?12/31/2024 04:45 PM EDT
--- OUTSIDE RECORDS SUMMARY | 2024-12-31 16:46 | XMS_ITS | Patient Health Record ---
Author Organization [facility] Address [address] [facility] [place] [address] Care Team Providers Care Dental Hygiene Instructor Name Role Phone Chip Bowden MD Primary Care Provider Unavaila Davie Schmidt Unavailable [phone] Zackary Benavides Unavailable [phone] Gemini Mir Unavailable [phone] Allergies Allergen (clinical drug ingredient) Drug/Non Drug [...] pressure diastolic 80 mm Hg 11/10/2024 Height 4hz06aj in 11/10/2024 Blood pressure systolic 120 mm Hg 11/10/2024 Weight 205 lbs 11/10/2024 BMI 41.4 kg/m2 11/10/2024 Procedures Procedure Date Ordered Date Performed Result Body Sit e 80613-ASSNLWA NAIL, 6 OR MORE 11/10/2024 N/A Encounters Encounter Location Date Provider Diagnosis [address] [address] 04/19/2024 Zackary Benavides Other viral warts B07.8 ; Pain in left foot M79.672 ; Pain in right foot M79.671 ; Ingrowing nail L60.0 ; Metatarsalgia, left foot M77.42 ; Metatarsalgia, right foot M77.41 ; Calcaneal spur, left foot M77.32 and Plantar fascial fibromatosis M72.[address] [address] 04/28/2024 Zackary Benavides Ingrowing nail L60.0 ; Other viral warts B07.8 ; Pain in left foot M79.672 ; Pain in right foot M79.671 and Tinea pedis B35.[address] [address] 05/13/2024 Zackary Benavides Ingrowing nail L60.0 ; Other viral warts B07.8 ; Pain in left foot M79.672 ; Pain in right foot M79.671 ; Tinea pedis B35.3 and Plantar fascial fibromatosis M72.[address] [address] 07/22/2024 Zackary Benavides Ingrowing nail L60.0 ; Other viral warts B07.8 ; Pain in left foot M79.672 ; Pain in right foot M79.671 ; Tinea pedis B35.3 and Plantar fascial fibromatosis M72.[address] [address] 11/10/2024 Gemini Mir Pain in right toe(s) M79.674 ; Onychomycosis B35.1 and Pain in left toe(s) M79.[address] [facility] [address] 04/27/[address] [address] [facility] [address] 08/23/2024 Gemini Clarke Assessments Encounter Date Diagnosis [...] X ray : Foot, right 3V 04/19/2024 34741-VXTKBSO NAIL, 6 OR MORE 11/10/2024 Next Appt Details Provider Name:Gemini Stern harpreet, 03/09/2025 09:00:00 AM, [address] [facility], [place], [address], Insurance Providers Payer Name Payer Address Payer Phone Subscriber Number Group Number Insured Name Patient Relationship to Insured Coverage Start Date Coverage End Date Medicare [facility] [address] [place] [address] [id number] Nicci Hanna Self - patient is the insured [facility] [address] [place] [address] [phone] [id number] Nicci Hanna Self - patient is [...]
== END 2024-12-31 16:04 | disposition home or self-care (01) ==
PROVIDERS: PCP General Practice; Visit Provider Physician Assistant Medical
DX: I10 Essential (primary) hypertension (principal); J20.9 Acute bronchitis, unspecified

== ENCOUNTER → 2024-12-31 14:33 | Outpatient (BNVA) | payer MEDICARE, OTHER, SELFPAY | PROVIDERS: PCP General Practice; Visit Provider Physician Assistant Medical | DX: J20.9 Acute bronchitis, unspecified (principal); I10 Essential (primary) hypertension | CPT/HCPCS: 99212 ==

== ENCOUNTER 2025-01-03 10:40 | Outpatient (AMB) | payer MEDICARE, OTHER, SELFPAY ==
--- NOTE | 2025-01-03 10:41 | MHC.PC.OV ---
Vital Signs 01/03/25 10:55 Height 4 ft 9.5 in Weight 212 lb BMI 45.1 BP 170/92 H Blood Pressure Location Lt brachial Pulse 106 H Pulse Source Pulse Oximeter Temp 97.2 F Pulse Oximetry (%) 96 Intake Visit Reasons: Elevated BP Intake Note: no issues but would like to be referred to gatroenterology here she sees one now in [place] Allergies Penicillins Allergy (Intermediate, Verified 01/03/25 11:37) HIVES, ANAPHYLAXIS Beef Containing Products [BEEF CONTAINING PRODUCTS] Allergy (Mild, Verified 01/03/25 11:37) INFLAMMATION caffeine [CAFFEINE] Allergy (Mild, Verified 01/03/25 11:37) UNKNOWN lactose [LACTOSE] Allergy (Mild, Verified 01/03/25 11:37) STOMACH PAIN,DIARRHEA orange Allergy (Mild, Verified 01/03/25 11:37) GEOGRAPHIC TONGUE oxycodone [Percocet] Allergy (Mild, Verified 01/03/25 11:37) Vomiting penicillin G Allergy (Mild, Verified 01/03/25 11:37) Anaphylaxis penicillin V Allergy (Mild, Verified 01/03/25 11:37) Anaphylaxis Pork/Porcine Containing Products [PORK/PORCINE CONTAINING PRODUCTS] Allergy (Mild, Verified 01/03/25 11:37) INFLAMMATION,PAIN Sulfa (Sulfonamide Antibiotics) [SULFA (SULFONAMIDE ANTIBIOTICS)] Allergy (Mild, Verified 01/03/25 11:37) DIARRHEA,VOMITING nut - unspecified [nut] Adverse Reaction (Mild, Verified 01/03/25 11:37) UNKNOWN acetaminophen [Percocet] Adverse Reaction (Unknown, Verified 01/03/25 11:37) unknown Medication List - Last Reconciled 01/03/25 by Magdalena Kessler PA-C hydrochlorothiazide 25 mg PO DAILY loperamide 2 mg PO TID PRN meloxicam 7.5 mg PO ONCE prednisone 40 mg (2 x 20 mg) PO DAILY Synthroid (levothyroxine) 50 mcg PO DAILY NS [facility] Medical History (Updated 01/03/25 @ 12:01 by Magdalena Kessler PA-C) Thrush BRADFORD (dyspnea on exertion) Shortness of breath Colon cancer screening Hyperlipidemia LDL goal <100 Hypertension Morbid obesity with BMI of 45.0-49.9, adult Fatty liver Obesity due to excess calories Pre-diabetes Plantar fasciitis Sacroiliitis History of Clostridioides difficile colitis Lumbosacral spondylosis without myelopathy Carpal tunnel syndrome Sleep apnea NAFL (nonalcoholic fatty liver) Hypothyroidism Irritable bowel syndrome with diarrhea Surgical History IGTN (ingrowing toe nail) Hx of colonoscopy History of thumb surgery H/O hernia repair History of removal of laparoscopic gastric banding device History of bladder surgery Hx laparoscopic cholecystectomy S/P panniculectomy H/O bilateral oophorectomy Hx of laparoscopic gastric banding History of laparoscopic appendectomy Hx of vaginal hysterectomy H/O tubal ligation Family History Father Colon cancer Maternal Aunt Colon cancer Paternal Aunt Breast cancer Maternal Aunt Colon cancer Social History Household Members: Spouse Household Members Other:: Alcohol intake: never Patient Tobacco Use Status: Never used Tobacco Current occupational status: retired Sexual orientation: Straight/Heterosexual Gender identity: Female Female Reproductive History Menstrual Age of Menarche: 14 Physical exam (Primary Care) Vital Signs: Last Vital Signs Temp 97.2 F 01/03/25 10:55 Pulse 106 H 01/03/25 10:55 BP 170/92 H 01/03/25 10:55 Pulse Ox 96 01/03/25 10:55 Care Plan Goal for BP management: <130/80 he started on hydrochlorothiazide 25 mg daily. She will return in 2 weeks - 1 month for blood pressure recheck. 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 air) BMI High, discussed plan: lifestyle, weight reduction, dietary, physical activity and alcohol moderation Tobacco/Smoking Status: Tobacco use Status Patient Tobacco Use Status Never used Tobacco 01/03/25 10:42 Coding Level of Care Code Est Pt Level 4 (55412) Complex EM visit [place] G2211 Diagnoses Hyperlipidemia LDL goal <100 E78.5 Hypertension I10 Morbid obesity with BMI of 45.0-49.9, adult E66.01; Z68.42 History of Clostridioides difficile colitis Z86.19 Colon cancer screening Z12.11 Shortness of breath R06.02 BRADFORD (dyspnea on exertion) R06.09 Pre-diabetes R73.03 Thrush B37.0 Assessment & Plan Assessment & Plan (1) Hyperlipidemia LDL goal <100: Code(s): E78.5 - Hyperlipidemia, unspecified Category: Medical Plan: Focus on lifestyle and dietary changes per patient request. If inadequate, reconsider pharmacotherapy after 3 months. Condition is chronic and stable continue to monitor. (2) Hypertension: Code(s): I10 - Essential (primary) hypertension Category: Medical Plan: Blood pressure goal less than 130/80. Patient will be started on hydrochlorothiazide 25 mg daily. Patient to follow-up in 2-4 weeks to assess response. Along with repeat blood work chemistry to assess patient's sodium and potassium levels. Condition is chronic and stable continue to monitor. (3) Morbid obesity with BMI of 45.0-49.9, adult: Code(s): E66.01 - Morbid (severe) obesity due to excess calories; Z68.42 - Body mass index [BMI] 45.0-49.9, adult Category: Medical Plan: Patient is the improve her diet and exercise regimen. Weight management plus filler shredder machine clinic referral, focusing on exercise and nutritional guidance. Condition is chronic and stable continue to monitor. (4) History of Clostridioides difficile colitis: Code(s): Z86.19 - Personal history of other infectious and parasitic diseases Category: Medical Plan: Will refer to new inpatient care manager rn here at [facility]. Condition is stable and in remission will continue to monitor. (5) Colon cancer screening: Code(s): Z12.11 - Encounter for screening for malignant neoplasm of colon Category: Medical Plan: Will refer to new inpatient care manager rn here at [facility]. (6) Shortness of breath: Code(s): R06.02 - Shortness of breath Category: Medical Plan: Patient with shortness of breath, dyspnea on exertion, wheezing, lower extremity swelling +1. No calf tenderness. Not consistent with pulmonary embolism. May be related to undiagnosed congestive heart failure. Will order BNP, chest x-ray, echocardiogram. Possibly refer to cardiology pending labs and imaging ordered. Condition is chronic and stable continue to monitor. (7) BRADFORD (dyspnea on exertion): Code(s): R06.09 - Other forms of dyspnea Category: Medical Plan: Patient with shortness of breath, dyspnea on exertion, wheezing, lower extremity swelling +1. No calf tenderness. Not consistent with pulmonary embolism. May be related to undiagnosed congestive heart failure. Will order BNP, chest x-ray, echocardiogram. Possibly refer to cardiology pending labs and imaging ordered. Condition is chronic and stable continue to monitor. (8) Pre-diabetes: Comment: Pt has BMI at 40.4 on 11/27/21, has reports of lactose intolerance with hx of IBS Code(s): R73.03 - Prediabetes Category: Medical Plan: Patient with prediabetes with an A1c level of 5.8. Emphasize lifestyle modification with re-evaluation of blood glucose levels in 3 months. Condition is chronic and stable continue to monitor. (9) Thrush: Code(s): B37.0 - Candidal stomatitis Category: Medical Plan: Patient mild thrush due to usage of inhaled corticosteroid. Patient will be started on nystatin. Condition is stable will continue to monitor and reassess at next visit Orders: Orders XR chest 2V Today R06.02 - Shortness of breath, R06.09 - Other forms of dyspnea CA echo transthoracic complete Today R06.02 - Shortness of breath, R06.09 - Other forms of dyspnea B Type Natriuretic Peptide Today R60.0 - Localized edema Referrals Medical Weight Management Referral E66.01 - Morbid (severe) obesity due to excess calories, E78.5 - Hyperlipidemia, unspecified, I10 - Essential (primary) hypertension, Z68.42 - Body mass index [BMI] 45.0-49.9, adult Gastroenterology Referral E66.01 - Morbid (severe) obesity due to excess calories, Z12.11 - Encounter for screening for malignant neoplasm of colon, Z68.42 - Body mass index [BMI] 45.0-49.9, adult, Z86.19 - Personal history of other infectious and parasitic diseases Liquor Inspector Nutrition Referral E66.01 - Morbid (severe) obesity due to excess calories, E78.5 - Hyperlipidemia, unspecified, I10 - Essential (primary) hypertension, Z68.42 - Body mass index [BMI] 45.0-49.9, adult Medications: New hydrochlorothiazide 25 mg PO DAILY 30 tabs 1RF nystatin administer 1/2 of dose in each side of the mouth 400,000 units (4 mL) PO Q6H 480 mL 1RF Swish in mouth several minutes and then swallow Scribe Plan - Not visible on output: History of Present Illness The patient is a 74-year-old female presenting with concerns of elevated blood pressure while not being on any antihypertensive. This is a patient of Dr. Stratton. She reports that she was seeing Dr. Bowden over the past few months to years. Over the past few months her blood pressure has been elevated although she was not started on any antihypertensive at that time. She reports she started a new program with her insurance company where they sent her a blood pressure cuff. She therefore was monitoring her blood pressure daily and her blood pressure readings were consistently 170/90 mmHg. Therefore they recommended that she with the her primary care provider. She thought that her primary care office closed due to Dr. Bowden retired recently therefore she went to the [facility] urgent care. She was then recommended to started on blood pressure medication although patient was hesitant and wanted to wait until she seen a PCP. She made an appointment with us today. When we informed her that Dr. Stratton office was taken over by [facility] by another provider she reported that she would like to go back there due to she lives in [place] and she did not know that Dr. Bowden'curly office was still open under another provider. She reports she has been checking her blood pressure and she believes it might be related to her weight gain over the past few years along with her diet. She also has had many stressors with trying to take care of her family, her who was recently diagnosed with Alzheimer's dementia. She also has a history of C diff colitis where she frequently has to go to [place] for stool samples and colonoscopies. Although patient would like to stop going to [place] due to her many life stressors and trying to take care of her who was recently diagnosed with Alzheimer's dementia she is unable to stay in [place] for these appointments. She would like a referral to a new inpatient care manager rn closer to home in [place]. She reports her C diff has been in remission and not active. She also mentions multiple past surgeries, most notably including bladder pacemaker placement in addressing longstanding urinary incontinence. She reports in the past she was on lisinopril daily although after she had manage her weight with a lap band, which has since been removed due to complications, and was taken off of the lisinopril due to her blood pressure was controlled from the weight loss. Although since she has taken off the lap band the weight has come back and now her blood pressure has been elevated over the past few months. She reports she has noticed she has been very fatigued, short of breath with activity such as climbing stairs. She also feels short of breath with wheezing any time she lays down flat. She has not noticed any leg swelling that she was aware of. She reports extensive family history of chronic cardiac disease. The patient is also diagnosed with hyperlipidemia, with low-density lipoprotein cholesterol at a slightly elevated 110 mg/dL. She's opted to manage without statins due to prior adverse reactions. Additionally, she faces prediabetes, formerly managed with lifestyle adjustments but now requiring enhanced oversight. The patient's family cancer history prompts keen attention to regular screenings, underlined by prior reluctant compliance. Social History - Reports caring for and family responsibilities, suggesting a high activity level. - Her diet has been a challenge; previous weight loss achieved by surgical intervention. - Expresses concerns about socio-economic issues impacting mental well-being (e.g., news-induced stress). - Highlights lapses in exercise routine, citing age as a barrier. Review of Systems - Respiratory: Reports intermittent wheezing. - Cardiovascular: Denies headaches, chest pain, or dizziness. - Musculoskeletal: Denies joint pain (history of worsening pains with statins noted). - Gastrointestinal: Denies active symptoms; history of IBS and C. difficile. Physical Exam Appearance: Alert. Oriented X3. No acute distress. Head: Normal external exam. Normocephalic. Atraumatic. Eyes: Pupils are equal, round, and reactive to light. Extraocular movements intact. Conjunctiva and sclera normal. Eyelids normal. Ears: External auditory canal normal. Tympanic membranes normal. Throat: Pharynx normal. Uvula midline. Moist mucous membranes. Neck: Normal inspection. Neck supple. Full range of motion. No adenopathy. Thyroid Normal. No meningeal signs. No neck mass noted. Cardiovascular: Normal heart rate and rhythm. Heart sound normal. No murmurs noted. Pulses normal throughout. Slight lower extremity edema noted. Respiratory: No respiratory distress. Painless inspiration. Breath sounds normal. No wheezes/rales/rhonchi noted. Chest nontender. No accessory muscle usage noted or decreased air movement noted. Wheezing noted when lying down. Abdomen: Soft and nontender. Bowel sounds normal in all 4 quadrants. No distention noted. No organomegaly noted. No visible injury noted. Back: No costovertebral angle tenderness. Full range of motion noted. Skin: Skin warm and dry. Normal skin color. Normal skin turgor. No rashes/lesions/lacerations noted. Extremities: Slight lower extremity edema noted. No calf tenderness is noted. Extremities exhibit normal range of motion. Extremities nontender. Neuro: Oriented X 3. No motor deficit. No sensory deficit. Reflexes normal. Results - Labs: A1c 5.8% indicating prediabetes. - Screening: Elevated LDL cholesterol at 110 mg/dL. Plan Patient was informed and verbally consented to the use of an ambient scribe for clinic note documentation during this visit. 1.Shortness of breath Administer corticosteroid course with correct inhaler technique demonstration; consider respiratory evaluation if necessary. Obtain BNP, CXR echo to evaluate for possible congestive heart failure. 2. Prediabetes Emphasize lifestyle modification with re-evaluation of blood glucose levels in 3 months. 3. Obesity Weight management via filler shredder machine and possible clinic referral, focusing on exercise and nutritional guidance. 4. Urinary Incontinence Continuing bladder pacemaker function without issues; further intervention at discretion upon symptom evaluation. 5. Essential Hypertension You will be started on hydrochlorothiazide 25 mg daily. Follow-up in 2 to 4 weeks to assess response. You should also have repeat blood work in 2-4 weeks to assess sodium and potassium levels. 6. Hyperlipidemia Focus on lifestyle and dietary changes. If inadequate, reconsider pharmacotherapy after 3 months. 7. Thrush From prescribed inhaled cortical steroid. Patient explained to rinse and spit after each usage of inhaled cortical steroid. Will prescribed nystatin oral. Will reassess at next visit. Discussion Notes During today's consultation, we discussed the management and treatment options for the patient's medical concerns, primarily focusing on hypertension, hyperlipidemia, obesity, and prediabetes. I explained the benefits and potential risks involved with starting HCTZ, recommending regular pattern checks with follow-up in 2-4 weeks. Additionally, we reviewed her refusal of statins for hyperlipidemia due to musculoskeletal discomfort. For her obesity and prediabetes, lifestyle alterations were prioritized, with a plan to reassess in three months, particularly if glucose levels remain uncontrolled or cholesterol is not improving. I advised consistent usage of the prescribed inhaler, clarifying proper usage techniques to mitigate wheezing episodes. Going forward, routine surveillance via blood work and imaging will determine the need for adjusted therapeutic strategies, especially pertaining to fluid retention, indicative of potential cardiopulmonary implications. The importance of adhering to check-ups and recommended screenings, such as colonoscopies, was stressed. Patient Instructions - start hydrochlorothiazide 25 mg daily - Follow-up in two weeks to assess medication effect. - Prioritize lifestyle changes for weight loss through diet and exercise. - Avoid sugars to manage prediabetes, with a future review of blood glucose. - Report any unresolved wheezing or breathing issues. - Use the prescribed inhaler as directed, ensuring mouth rinsing after use. - Pursue referrals for weight management and dietary advice. - Attend scheduled screenings and follow-up appointments. - Contact healthcare provider if symptoms worsen or with any new health concerns.
[2025-01-03 10:55] VITALS: BP 170/92; PULSE 106; TEMP 36.2; O2SAT 96; BMI 45.1
== END 2025-01-03 12:02 | disposition home or self-care (01) ==
LOC: HO.HMCSH 10:40
PROVIDERS: PCP Internal Medicine; Visit Provider Physician Assistant Medical
DX: E78.5 Hyperlipidemia, unspecified (principal); I10 Essential (primary) hypertension; E66.01 Morbid (severe) obesity due to excess calories; Z68.42 Body mass index [BMI] 45.0-49.9, adult; Z86.19 Personal history of other infectious and parasitic diseases; Z12.11 Encounter for screening for malignant neoplasm of colon; R06.02 Shortness of breath; R06.09 Other forms of dyspnea; R73.03 Prediabetes; B37.0 Candidal stomatitis

== ENCOUNTER 2025-01-03 12:12 | Outpatient (REF) | payer MEDICARE, OTHER, SELFPAY ==
--- NOTE | ~2025-01-03 | MM_ITS ---
EXAMINATION: MM SCREENING DIGITAL BREAST TOMOSYNTHESIS, BILATERAL CLINICAL INFORMATION: Screening. Asymptomatic. COMPARISON: Mammography: Comparison is made with available priors TECHNIQUE: Digital breast mammography with tomosynthesis is performed in both the craniocaudal and mediolateral oblique views along with computer-aided detection (CAD). FINDINGS: There are scattered areas of fibroglandular density (ACR BI-RADS breast composition Category b). Left Marker clip. There are no significant masses, abnormal calcifications, or other abnormalities. MM/MM tomosynthesis screening BI IMPRESSION: No mammographic evidence of malignancy. ASSESSMENT: BI-RADS BI-RADS 2 - Benign Findings RECOMMENDATION: Routine annual mammography screening. 1 year F/U This examination should not preclude the clinical evaluation of a suspicious palpable abnormality. This patient's information was entered into a reminder system with a target due date for their next mammogram. Electronically signed by: Dahiana Danielson DO 01/10/2025 04:50 PM EDT
--- NOTE | ~2025-01-03 | XR_ITS ---
EXAMINATION: XR CHEST 2 VIEWS HISTORY: R06.02 - Shortness of breath COMPARISON: Comparison is made with the prior examination dated 10/14/2023. FINDINGS: PA and lateral views of the chest are submitted. The lungs are expanded and clear. There is no pleural effusion, pneumothorax, or pulmonary vascular congestion. The heart is normal in size. There is degenerative disc disease of the spine. XR/XR chest 2V IMPRESSION: No acute cardiopulmonary abnormality. Electronically signed by: Ovidio Vila MD 01/04/2025 08:30 AM EDT
[2025-01-03 15:00] LABS: B Type Natriuretic Peptide 20 pg/mL (<100)
== END 2025-01-03 12:13 | disposition home or self-care (01) ==
LOC: HO.MAMMO 12:12
PROVIDERS: Absent Provider Physician Assistant Medical; PCP General Practice; Visit Provider General Practice
DX: Z12.31 Encounter for screening mammogram for malignant neoplasm of breast (principal); R06.09 Other forms of dyspnea; R06.02 Shortness of breath; R60.0 Localized edema; E78.5 Hyperlipidemia, unspecified; I10 Essential (primary) hypertension; E66.01 Morbid (severe) obesity due to excess calories; Z68.42 Body mass index [BMI] 45.0-49.9, adult; R73.03 Prediabetes; B37.0 Candidal stomatitis; Z86.19 Personal history of other infectious and parasitic diseases
CPT/HCPCS: 36415; 71046; 77063; 77067; 83880; 99212

== ENCOUNTER → 2025-01-03 12:26 | Outpatient (BNV) | payer MEDICARE, OTHER, SELFPAY | PROVIDERS: Absent Provider Physician Assistant Medical; PCP General Practice; Visit Provider Radiology Diagnostic Radiology | DX: R06.02 Shortness of breath (principal) | CPT/HCPCS: 71046 ==

== ENCOUNTER 2025-01-17 08:24 | Outpatient (AMB) | payer MEDICARE, OTHER, SELFPAY ==
--- NOTE | 2025-01-17 08:43 | A.OFFVIS_ITS ---
Intake Visit Reasons: 4m/interstim Intake Note: Patient is present for a 4 month follow up/intersti Urology Medication: None Antibiotic Allergies: Penicillins, Sulfa Blood Thinners: None PVR:0ml Rig Builder Required: No Accompanied by: Self / Same As Patient Allergies Penicillins Allergy (Intermediate, Verified 01/17/25 08:53) HIVES, ANAPHYLAXIS Beef Containing Products [BEEF CONTAINING PRODUCTS] Allergy (Mild, Verified 01/17/25 08:53) INFLAMMATION caffeine [CAFFEINE] Allergy (Mild, Verified 01/17/25 08:53) UNKNOWN lactose [LACTOSE] Allergy (Mild, Verified 01/17/25 08:53) STOMACH PAIN,DIARRHEA orange Allergy (Mild, Verified 01/17/25 08:53) GEOGRAPHIC TONGUE oxycodone [Percocet] Allergy (Mild, Verified 01/17/25 08:53) Vomiting penicillin G Allergy (Mild, Verified 01/17/25 08:53) Anaphylaxis penicillin V Allergy (Mild, Verified 01/17/25 08:53) Anaphylaxis Pork/Porcine Containing Products [PORK/PORCINE CONTAINING PRODUCTS] Allergy (Mild, Verified 01/17/25 08:53) INFLAMMATION,PAIN Sulfa (Sulfonamide Antibiotics) [SULFA (SULFONAMIDE ANTIBIOTICS)] Allergy (Mild, Verified 01/17/25 08:53) DIARRHEA,VOMITING nut - unspecified [nut] Adverse Reaction (Mild, Verified 01/17/25 08:53) UNKNOWN acetaminophen [Percocet] Adverse Reaction (Unknown, Verified 01/17/25 08:53) unknown Medication List - Last Reconciled 01/17/25 by Fei Torres MD albuterol sulfate 90 mcg/actuation inhalation dicyclomine 10 mg PO BID PRN hydrochlorothiazide 25 mg PO DAILY loperamide 2 mg PO TID PRN meloxicam 7.5 mg PO ONCE nystatin 400,000 units PO Q6H PRN Synthroid (levothyroxine) 50 mcg PO DAILY NS HPI Comments Details: 01/17/25--Nicci is a 74-year-old female who presents to the office for follow-up. She has a history of mixed urinary incontinence and recurrent UTIs. s/p Medtronic interstim pacemaker 09/07/24. She states her urinary urge is improved as well as better bowel control. She is currently on program 3 at low amplitude. She states when she turns the amplitude up she gets some vibrations in the leg and pain vaginally. I will have the [employer] rep follow-up with the patient regarding changing to a different program. She states that she has been on program 6 in the past which helped more the fecal incontinence and Less the bladder symptoms. She is also having urine leakage associated with coughing and we have discussed further management with the bulkamid. On examination the incisions are well healed. 09/17/24--FU - s/p Medtronic interstim pacemaker 09/07/24. She states her urinary urge is improved as well as better bowel control. 08/30/24--Nicci is status post stage I lead implant. She is on program 2. She states she has noticed alot of improvement during the daytime. She was getting up 4 times at night prior to the lead implant she is getting up 3 times at night now and still has some urge incontinence during the night. She was discharged on Cipro and Flagyl and is having a lot of diarrhea which may be impacting her symptoms. Plan is to change the program to optimize symptom improvement. The patient has had greater than 50% improvement and will benefit from neuromodulation therapy. Plan stage II pacemaker implant [facility] Medical History Sacral nerve stimulator present Thrush [place] (dyspnea on exertion) Shortness of breath Colon cancer screening Hyperlipidemia LDL goal <100 Hypertension Morbid obesity with BMI of 45.0-49.9, adult Fatty liver Obesity due to excess calories Pre-diabetes Plantar fasciitis Sacroiliitis History of Clostridioides difficile colitis Lumbosacral spondylosis without myelopathy Carpal tunnel syndrome Sleep apnea NAFL (nonalcoholic fatty liver) Hypothyroidism Irritable bowel syndrome with diarrhea Surgical History IGTN (ingrowing toe nail) Hx of colonoscopy History of thumb surgery H/O hernia repair History of removal of laparoscopic gastric banding device History of bladder surgery Hx laparoscopic cholecystectomy S/P panniculectomy H/O bilateral oophorectomy Hx of laparoscopic gastric banding History of laparoscopic appendectomy Hx of vaginal hysterectomy H/O tubal ligation Family History Father Colon cancer Maternal Aunt Colon cancer Paternal Aunt Breast cancer Maternal Aunt Colon cancer Social History Household Members: Spouse Household Members Other:: Alcohol intake: never Patient Tobacco Use Status: Never used Tobacco Current occupational status: retired Sexual orientation: Straight/Heterosexual Gender identity: Female Female Reproductive History Menstrual Age of Menarche: 14 Review of Systems Const All systems reviewed & are unremarkable except as noted in HPI and below Reports no additional complaints Eyes Reports no additional complaints ENT Reports no additional complaints Card Reports no additional complaints Resp Reports no additional complaints GI Reports no additional complaints Reports as per HPI Musc Reports no additional complaints Skin/Breast Reports system reviewed and no additional complaints, except as documented Neuro Reports no additional complaints Psych Reports no additional complaints Endo Reports no additional complaints David/Lymph Reports no additional complaints Aller/Immun Reports no additional complaints Results AMB Urinalysis, Automated UA Leukoctes 0 Reginald/uL Last Edit by Beatrice Sykes on 01/17/25 10:14 UA Nitrite Negative Last Edit by Beatrice Sykes on 01/17/25 10:14 UA Urobilinogen 0.2 mg/dL Last Edit by Beatrice Sykes on 01/17/25 10:14 UA Protein 0 mg/dL Last Edit by Beatrice Sykes on 01/17/25 10:14 UA pH 6.0 Last Edit by Beatrice Sykes on 01/17/25 10:14 UA Blood 10 Nikolay/uL Last Edit by Beatrice Sykes on 01/17/25 10:14 UA Specific [place] 1.010 Last Edit by Beatrice Sykes on 01/17/25 10:14 UA Ketone Negative Last Edit by Beatrice Sykes on 01/17/25 10:14 UA Bilirubin 0 mg/dL Last Edit by Beatrice Sykes on 01/17/25 10:14 UA Glucose 0 mg/dL Last Edit by Beatrice Sykes on 01/17/25 10:14 Results Reviewed Results Reviewed: Laboratory Last Values Urine pH (Auto) 6.0 01/17/25 10:08 Specific [place] (Auto) 1.010 01/17/25 10:08 Urine Protein (Auto) 0 mg/dL 01/17/25 10:08 Glucose (UA)(Auto) 0 mg/dL 01/17/25 10:08 Urine Ketones (Auto) Negative 01/17/25 10:08 Urine Blood (Auto) 10 Nikolay/uL 01/17/25 10:08 Urine Nitrite (Auto) Negative 01/17/25 10:08 Urine Bilirubin (Auto) 0 mg/dL 01/17/25 10:08 Urine Urobilinogen (Auto) 0.2 mg/dL 01/17/25 10:08 Leukocyte Esterase (Auto) 0 Reginald/uL 01/17/25 10:08 Assessment & Plan Assessment & Plan (1) Urinary and fecal incontinence: Code(s): R32 - Unspecified urinary incontinence; R15.9 - Full incontinence of feces Category: Medical (2) Urge incontinence of urine: Code(s): N39.41 - Urge incontinence Category: Medical (3) Urgency-frequency syndrome: Code(s): N32.81 - Overactive bladder Category: Medical (4) ANNABELLA (stress urinary incontinence, female): Code(s): R39.15 - Urgency of urination Category: Medical (5) Intrinsic sphincter deficiency (ISD): Code(s): N36.42 - Intrinsic sphincter deficiency (ISD) Category: Medical Plan Bulkamid for ANNABELLA/ISD Med[employer] rep to fu with patient regarding program changes. Orders: Orders AMB Urinalysis Automated Today Z13.9 - Encounter for screening, unspecified Patient Instructions: The patient had an opportunity to ask questions regarding treatment plan. The patient expressed understanding and agreement with the above treatment plan. The patient is aware they should contact our office by phone for worsening of their current condition or the appearance of new symptoms. Compliance is encouraged with any medications and followup testing that is ordered. It is a privilege to be allowed the opportunity to participate in the urologic care of your patient. If you have any questions or concerns regarding treatment for the above conditions please do not hesitate to contact me. The office telephone contact is [phone]. This note is constructed in part using voice recognition software. While every effort has been made to ensure accuracy researcher errors may have been included. Yours sincerely, Fei Torres MD Coding Level of Care Code Est Pt Level 4 (73733) Diagnoses Urinary and fecal incontinence R32; R15.9 Urge incontinence of urine N39.41 Urgency-frequency syndrome N32.81 Urinary urgency R39.15 Intrinsic sphincter deficiency (ISD) N36.42
--- OUTSIDE RECORDS SUMMARY | 2025-01-17 08:55 | XMS_ITS | Patient Health Record ---
Author Organization [facility] Address [address] [place] [address] Care Team Providers Care Haul Cane Brakeman Name Role Phone Chip Bowden MD Primary Care Provider Unavaila Ovidio Meek Unavailable [phone] EUGENIO GARCIA Unavailable Unavailable Allergies Allergen (clinical drug ingredient) Drug/Non Drug Allergy documented on EMR Reaction Allergy Type Onset Date Status Sulfa Unknown Drug Allergy Active Penicillin Unknown Drug Allergy Active oranges,caffeine,nut s ,pills (uncoded) Unknown Allergy Active Beef,pork,liver, (uncoded) Unknown Allergy Active IVP dye (uncoded) Unknown Allergy In active Reason For Referral No Information Medications Medication [...] Problem Status W/U Status Risk Notes Problem [id number] Encounter for screening for malignant neoplasm of colon (Z12.11) Active confirmed Problem 954962964 History of adenomatous polyp of colon (Z86.010) Active confirmed Problem 411706910 Irritable bowel syndrome with diarrhea (K58.0) Active confirmed Problem Screening for malignant neoplasm of rectum (035623166) Encounter for screening for malignant neoplasm of rectum (Z12.12) Active confirmed Problem 036595253 Family history of colon cancer (Z80.0) Active confirmed Problem 078036669 Clostridium difficile infection (B96.89) Active confirmed Problem 30158520 Diarrhea, unspecified type (R19.7) Active confirmed Problem 80938568 Hypertension, unspecified type (I10) Active confirmed Problem 022404716180388 History of Clostridium difficile infection (Z86.19) Active confirmed Plan Of Treatment Pending Test Test Name Order Date CLOSTRIDIUM DIFF TOXIN A&B (C DIFF) 09/13 CLOSTRIDIUM DIFF TOXIN A&B (C DIFF) 12/13 CLOSTRIDIUM DIFF TOXIN A&B (C DIFF) 02/12/2016 STOOL WBC 11/15/2016 STOOL WBC 10/04/2014 GIARDIA AG, STOOL EIA 10/04/2014 OVA & PARASITES (O&P) 10/04/2014 CULTURE, STOOL 10/04/2014 C DIFFICILE RFLX PCR 08/17/2021 Future Test Test Name Order Date COLONOSCOPY 01/13/2013 COLONOSCOPY 07/29/2017 Insurance Providers Payer Name Payer Address Payer Phone Subscriber Number Group Number Insured Name Patient Relationship to Insured Coverage Start Date Coverage End Date MEDICARE OF [place] [address] [place] [address] [id number] NICOLE PALMER Self - patient is the [facility] [address] [place] [address] [id number] NICOLE PALMER Self - patient is the insured Medical (General) History Medical History History ICD Code Colonoscopy 10/2007--Tubular adenoma removed; biopsies neg for microscopic colitis; neg. colonoscopy [place] [address] Phillips Hypothyroidism Lap band placed in 2006-ramirez sient weight loss- Dr. Ocampo is planning to remove it IBS--neg. labs for celiac disease in 2013 Denies [place],DM,CVA,Lung disease,renal dise ase Colonoscopy in 02/2013--WNL--no polyps Back pain/arthritis-herniated disc C.diff x2 (2014)--ultimately treated wit h Vancomycin Sleep apnea--had a CPAP but presently no t using it She had a negative colonoscopy with in i n 2017 Colonoscopy in May with [...] put [place] Aloset[place] Ekaterina Meek [place], [facility] Surgical History Surgery Date(Month/Year) Hysterectomy, subsequent removal of both ovaries and Fallopian tubes Appendectomy Laparoscopies Cholecystectomy Lap band in 2006 Ayah waggoner after weight loss Bladder suspension Hernia repair--umbilical, bilateral ingu inal--Dr. Ocampo 08/2014 Lap band removal 2011
--- OUTSIDE RECORDS SUMMARY | 2025-01-17 08:55 | XMS_ITS ---
Author Organization [facility] Address [address] [place] [address] Care Team Providers Care De Alcholizer Name Role Phone Chip Bowden MD Primary Care Provider UnavailDavie Puente Unavailable [phone] Gemini Mir [phone] Encounters Encounter Location Date Provider Diagnosis [facility] [address] [place] [address] 08/26/2024 Gemini Mir Plan Of Treatment Next Appt Details Provider Name:Gemini mullins, 03/09/2025 09:00:00 AM, [address] [place] [address], [phone], Progress Notes * Nicci PALMERDOB:1950 (74 yo F)Acc No.[id number]:08/26/2024 Progress Notes Patient:?SPENCER Nicci Provider:?Gemini Mir DPM :1950???Age:73 Y???Sex:Female D ate:08/26/2024 Address:[address] [place] Pcp:Chip Bowden MD Subjective: * Chief Complaints: [...] DPM Date:?1 10/26/2023 Generated for Katia patterson/Vanesa/Tj on:?01/17/2025 08:54 AM EDT
--- OUTSIDE RECORDS SUMMARY | 2025-01-17 08:55 | XMS_ITS ---
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 Generated for Frantzi yesenia/Vanesa/eTransmitting on:?01/17/2025 08:54 AM EDT
--- OUTSIDE RECORDS SUMMARY | 2025-01-17 08:55 | XMS_ITS ---
[facility] Address [address] [place] [address] Care Team Providers Care Ceramic Plater Name Role Phone Chip Bowden MD Primary Care Provider Unavaila Davie Schmidt Unavailable [phone] Gemini Mir Unavailable [phone] Allergies Allergen (clinical drug ingredient) Drug/Non Drug [...] Points 0 Interpretation Negative Vital Signs Height 9gw79rm in 11/10/2024 Weight 205 lbs 11/10/2024 BMI 41.4 kg/m2 11/10/2024 Blood pressure systolic 120 mm Hg 11/10/19 25 Blood pressure diastolic 80 mm Hg 025 Procedures Procedure Date Ordered Date Performed Result Body Sit e 09831-QUFOHHP NAIL, 6 OR MORE 11/10/2024 N/A Encounters Encounter Location Date Provider Diagnosis [facility] [address] [address] 11/10/2024 Gemini Mir Pain in right toe(s) M79.674 ; Onychomycosis B35.1 and Pain in left toe(s) M79.675 Assessments Encounter Date Diagnosis (ICD Code) Assessment Notes Treatment Notes Treatment Clinical Notes Section Notes 11/10/2024 Pain in right toe(s) (ICD-10 - M79.674) 11/10/2024 Onychomycosis (ICD-10 - B35.1) 11/10/2024 Pain in left toe(s) (ICD-10 - M79.675) Plan Of Treatment Pending Test Test Name Order Date 76332-IYFMKOO NAIL, 6 OR MORE 11/10/2024 Next Appt Details Follow Up: 3 Months, Reason: Provider Name:Gemini Stern harpreet, 03/09/2025 09:00:00 AM, [address] [place] [address], [phone], Procedure Notes * Category Sub-Category Detail Notes [...] use of a nail nipper and/or dremel-type pulp grinder, to a more viable healthy nail [...] to maintain effectiveness in symptomatic relief - 06804 Progress Notes * Nicci PALMERDOB:1950 (73 yo F)Acc No.[id number]:11/10/2024 Progress Note Patient:?SPENCERLeoraNicci Provider:?Gemini Mir DPM :1950???Age:73 Y???Sex:Female D ate:11/10/2024 Address:[address] [place] [address] [facility] Pcp:Chip Bodwen MD Subjective: * Chief Complaints: * ???Painful [...] ?Exercise: no. ?Marital status: . 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 ???Drug/Alcohol:?AUDIT-C (Standard)?Did you have a drink containing [...] dizzyCodeine: Vomits , dizzyyes[Allergies Verified] Objective: * Vitals:?Ht:5uh59sc, Wt:205, BMI:41.4, Shoe size:8, BP:120/80mm Hg, Ht-cm: [...] use of a nail nipper and/or dremel-type pulp grinder, to a more viable healthy nail [...] to maintain effectiveness in symptomatic relief - 85572.? * Procedure Codes:?06725 CLIFTONI TESSIE NAIL, 6 OR MORE * Follow Up:?3 Months * Images: * Sign off status: Completed true * Provider:?Gemini Mir DPM Date:?0 11/10/2024 Generated for Katia patterson/Vanesa/Tj on:?01/17/2025 08:54 AM EDT History and Physical Notes * HPI [...]
--- OUTSIDE RECORDS SUMMARY | 2025-01-17 08:55 | XMS_ITS | Patient Health Record ---
Author Organization [facility] Address [address] [facility] [place] [address] Care Team Providers Care Jute Bag Cutting Machine Operator Name Role Phone Chip Bowden MD Primary Care Provider Unavaila Davie Schmidt Unavailable [phone] Zackary Benavides Unavailable [phone] Gemini Mir Unavailable [phone] Allergies Allergen (clinical drug ingredient) Drug/Non Drug [...] pressure diastolic 80 mm Hg 11/10/2024 Height 6fa74py in 11/10/2024 Blood pressure systolic 120 mm Hg 11/10/2024 Weight 205 lbs 11/10/2024 BMI 41.4 kg/m2 11/10/2024 Procedures Procedure Date Ordered Date Performed Result Body Sit e 69327-DFMYXGQ NAIL, 6 OR MORE 11/10/2024 N/A Encounters Encounter Location Date Provider Diagnosis [address] [address] 04/19/2024 Zackary Benavides Other viral warts B07.8 ; Pain in left foot M79.672 ; Pain in right foot M79.671 ; Ingrowing nail L60.0 ; Metatarsalgia, left foot M77.42 ; Metatarsalgia, right foot M77.41 ; Calcaneal spur, left foot M77.32 and Plantar fascial fibromatosis M72.[address] [address] 04/28/2024 Zackary Benavides Ingrowing nail L60.0 ; Other viral warts B07.8 ; Pain in left foot M79.672 ; Pain in right foot M79.671 and Tinea pedis B35.[address] [address] 05/13/2024 Zackary Benavides Ingrowing nail L60.0 ; Other viral warts B07.8 ; Pain in left foot M79.672 ; Pain in right foot M79.671 ; Tinea pedis B35.3 and Plantar fascial fibromatosis M72.[address] [address] 07/22/2024 Zackary Benavides Ingrowing nail L60.0 ; Other viral warts B07.8 ; Pain in left foot M79.672 ; Pain in right foot M79.671 ; Tinea pedis B35.3 and Plantar fascial fibromatosis M72.[address] [address] 11/10/2024 Gemini Mir Pain in right toe(s) M79.674 ; Onychomycosis B35.1 and Pain in left toe(s) M79.[address] [facility] [address] 04/27/[address] [address] [facility] [address] 08/23/2024 Gemini Clarke Assessments Encounter Date Diagnosis [...] X ray : Foot, right 3V 04/19/2024 70827-URNEGXN NAIL, 6 OR MORE 11/10/2024 Next Appt Details Provider Name:Gemini Stern harpreet, 03/09/2025 09:00:00 AM, [address] [facility], [place], [address], Insurance Providers Payer Name Payer Address Payer Phone Subscriber Number Group Number Insured Name Patient Relationship to Insured Coverage Start Date Coverage End Date Medicare [facility] [address] [place] [phone] [id number] Nicci Hanna Self - patient is the insured [facility] [address] [place] [address] [id number] Nicci Hanna Self - patient is [...]
--- OUTSIDE RECORDS SUMMARY | 2025-01-17 08:55 | XMS_ITS | Clinical Summary ---
Author Organization [facility] Address [address] [facility] 7t [place] [address] Care Team Providers Care Director Public Name Role Phone Unavailable Primary Care Provider Unavailabl e Encounters Date Type Department Care Team Description 01/03/2025 Orders Only GENERIC EXTERNAL DATA DEPARTMENT Provider, Generic External Data from Last 3 Months Immunizations Name Administration Dates Next Due Influenza [...] FIT DNA/Cologuard 1951 FIT 1951 FOBT 1951 Lipid Panel 1951 SDOH Screening 1950 Sigmoidoscopy 1951 Alcohol/Substance Use Screening 1963 Tobacco Screening 1963 Hepatitis C Screening 1969 Zoster Vaccines (1 of 2) 2001 Influenza Vaccine (#1) 2024 , 07/04/2022, 07/25/2021, Additional history exists RSV Patients and Patients Aged 60 years or older (1 - 1-dose 75+ series) 2026 Mammogram 01/03/2027 01/03/2025 DTaP/Tdap/Td Vaccines (2 - Td or Tdap) [...] on patient's age to complete this topic Procedures Procedure Name Priority Date/Time Associated Diagnosis Comments BI MAMMOGRAM SCREENING TOMOSYNTHESIS BILATERAL Routine 01/03/2025 3:30 PM EDT XR CHEST 2 VIEWS Routine 01/03/2025 12:2 6 PM EDT B TYPE NATRIURETIC PEPTIDE (BNP) Routine 01/03/2025 12:22 PM EDT from Last 3 Months Results * BI Mammogram Screening Tomosynthesis Bilateral (01/03/2025 3:30 PM EDT) Anatomical Region Laterality Modality Breast Bilateral Mammography 01/03/2025 3:30 PM EDT Narrative 01/10/2025 4:54 PM EDT ? [facility] ? [address] ?[place] [address] ?[phone] ? Mammography Report ? Signed ? Patient: Nicci Hanna ?MR#: [id number] ?? [id number] ? : 1950 ?Acct:[id number] ? Age/Sex: 74 / F ?ADM Date: 01/03/25 ? Loc: HO.MAMMO ? Attending Dr: Michell Crandall MD ? Ordering Physician: Michell Crandall ?Results: 2Benign F ?? indings ? Date of Service: 01/03/25 ?Follow Up: 1 Year From Orig ?? inal Mammogram ? Procedure(s): MM tomosynthesis screening BI ?? Accession Number(s): [id number] ? cc: Michell Crandall ? EXAMINATION: ?? MM SCREENING DIGITAL BREAST TOMOSYNTHESIS, BILATERAL ? CLINICAL INFORMATION: ? Screening. Asymptomatic. ? COMPARISON: ?? Mammography: Comparison is made with available priors ? TECHNIQUE: ?? Digital breast mammography with tomosynthesis is performed in both the ?? craniocaudal and mediolateral oblique views along with computer-aided ?? detection (CAD). ? FINDINGS: ?? There are scattered areas of fibroglandular density (ACR BI-RADS breast ?? composition Category b). ?? Left Marker clip. ?? There are no significant masses, abnormal calcifications, or other ?? abnormalities. ? MM/MM tomosynthesis screening BI ?? IMPRESSION: ?? No mammographic evidence of malignancy. ? ASSESSMENT: ? BI-RADS BI-RADS 2 - Benign Findings ? RECOMMENDATION: ?? Routine annual mammography screening. ? 1 year F/U ? This examination should not preclude the clinical evaluation of a ?? suspicious palpable abnormality. ? This patient's information was entered into a reminder system with a ?? target due date for their next mammogram. ? Electronically signed by: ??Dahiana Danielson DO ??01/10/2025 04:50 PM EDT ? Dictated By: ?Dahiana Danielson DO ? Signed By: ?<Electronically signed by Dahiana Danielson, DO in OV> ? 01/10/25 1650 ? DD/ 1530 ? TD/TT: 01/03/25 1546 ? Aquaculture Farmer: ? Procedure Note Jamie, Image - 01/11/2025 [facility] [address] [place] [address] Mammography Report Signed Patient: Nicci Hanna#: [id number] : 1950cct:[id number] Age/Sex: 74 / FADM Date: 01/03/25 Loc: CYNTHIA Attending Dr: Michell Crandall MD Ordering Physician: Nathalia Crandallults: 2Bmeri F indings Date of Service: 01/03/25Follow Up: 1 Year From Orig inal Mammogram Procedure(s): MM tomosynthesis screening BI Accession Number(s): [id number] cc: Michell Crandall EXAMINATION: MM SCREENING DIGITAL BREAST TOMOSYNTHESIS, BILATERAL CLINICAL INFORMATION: Screening. Asymptomatic. COMPARISON: Mammography: Comparison is made with available priors TECHNIQUE: Digital breast mammography with tomosynthesis is performed in both the craniocaudal and mediolateral oblique views along with computer-aided detection (CAD). FINDINGS: There are scattered areas of fibroglandular density (ACR BI-RADS breast composition Category b). Left Marker clip. There are no significant masses, abnormal calcifications, or other abnormalities. MM/MM tomosynthesis screening BI IMPRESSION: No mammographic evidence of malignancy. ASSESSMENT: BI-RADS BI-RADS 2 - Benign Findings RECOMMENDATION: Routine annual mammography screening. 1 year F/U This examination should not preclude the clinical evaluation of a suspicious palpable abnormality. This patient's information was entered into a reminder system with a target due date for their next mammogram. Electronically signed by: Dahiana Danielson DO 01/10/2025 04:50 PM EDT RP Dictated By: Dahiana Danielson DO Signed By: <Electronically signed by Dahiana Danielson DO in OV> 01/10/25 1650 DD/ 1530 TD/TT: 01/03/25 1546 Aquaculture Farmer: us Michell Crandall MD IMG BI PROCEDURES Edited Resul t - Final * XR Chest 2 Views (01/03/2025 12:26 PM EDT) Anatomical Region Laterality Modality Chest Radiographic Kiya ging 01/03/2025 12:2 6 PM EDT Narrative 01/04/2025 8:33 AM EDT ? [facility] [place] ? [address] ?[place] [address] ?XRay Report ? Signed ? Patient: Nicci Hanna ?MR#: [id number] ?? [id number] ? : 1950 ?Acct:[id number] ? Age/Sex: 74 / F ?ADM Date: 03/24/25 ? Loc: HO.MAMMO ? Attending Dr: Michell Crandall MD ? Ordering Physician: Magdalena Kessler PA-C ?? Date of Service: 01/03/25 ?? Procedure(s): XR chest 2V ?? Accession Number(s): [id number] ? cc: Michell Crandall; Magdalena Kessler PA-C ? EXAMINATION: ??XR CHEST 2 VIEWS ? HISTORY: R06.02 - Shortness of breath ? COMPARISON: Comparison is made with the prior examination dated ?? 10/14/2023. ? FINDINGS: ??PA and lateral views of the chest are submitted. The lungs ?? are expanded and clear. ??There is no pleural effusion, pneumothorax, or ?? pulmonary vascular congestion. ??The heart is normal in size. ??There is ?? degenerative disc disease of the spine. ? XR/XR chest 2V ?? IMPRESSION: ?? No acute cardiopulmonary abnormality. ? Electronically signed by: ??Ovidio Vila MD ??01/04/2025 08:30 AM EDT ? Dictated By: ?Ovidio Vila MD ? Signed By: ?<Electronically signed by Ovidio Vila MD in OV> ?01/04/25 0830 ? DD/ 1226 ? TD/TT: 01/03/25 1235 ? Aquaculture Farmer: ? Procedure Note Donotcirainterpreter, Image - 01/04/2025 [facility] [address] [place] [address] XRay Report Signed Patient: Nicci HannaMR#: [id number] : 1950cct:[id number] Age/Sex: 74 / FADM Date: 01/03/25 Loc: HO.MAMMO Attending Dr: Michell Crandall MD Ordering Physician: Magdalena Kessler PA-C Date of Service: 01/03/25 Procedure(s): XR chest 2V Accession Number(s): [id number] cc: Michell Crandall; Magdalena Kessler PA-C EXAMINATION: XR CHEST 2 VIEWS HISTORY: R06.02 - Shortness of breath COMPARISON: Comparison is made with the prior examination dated 10/14/2023. FINDINGS: PA and lateral views of the chest are submitted. The lungs are expanded and clear. There is no pleural effusion, pneumothorax, or pulmonary vascular congestion. The heart is normal in size. There is degenerative disc disease of the spine. XR/XR chest 2V IMPRESSION: No acute cardiopulmonary abnormality. Electronically signed by: Ovidio Vila MD 01/04/2025 08:30 AM EDT Dictated By: Ovidio Vila MD Signed By: <Electronically signed by Ovidio Vila MD in OV> 01/04/25 0830 DD/ 1226 TD/TT: 01/03/25 1235 Aquaculture Farmer: [facility] External Provider IMG XR PROCEDURES Edited Result - Final * B Type Natriuretic Peptide (BNP) (01/03/2025 12:22 PM EDT) B Type Natriuretic Peptide 20 <100 pg/mL [facility] 01/03/2025 12:2 2 PM EDT 01/03/2025 12:22 PM EDT Generic External Data Provider LAB BLOOD ORDERAB LES Final Result [facility] [address] [place] [address] [phone] from Last 3 Months Insurance [place] [address] [place] [phone]
== END 2025-01-17 09:22 | disposition home or self-care (01) ==
LOC: HO.HUSH 08:24
PROVIDERS: PCP General Practice; Visit Provider Urology
DX: R15.9 Full incontinence of feces (principal); N39.41 Urge incontinence; N32.81 Overactive bladder; N36.42 Intrinsic sphincter deficiency (ISD); R39.15 Urgency of urination; Z13.9 Encounter for screening, unspecified
CPT/HCPCS: 99214

== ENCOUNTER → 2025-01-17 08:24 | Outpatient (BNVA) | payer MEDICARE, OTHER, SELFPAY | PROVIDERS: PCP General Practice; Visit Provider Urology | DX: R32 Unspecified urinary incontinence (principal); R15.9 Full incontinence of feces; N39.41 Urge incontinence; N32.81 Overactive bladder; R39.15 Urgency of urination; N36.42 Intrinsic sphincter deficiency (ISD) | CPT/HCPCS: 81003; 99212 ==

== ENCOUNTER 2025-01-20 13:09 | Outpatient (AMB) | payer MEDICARE, OTHER, SELFPAY ==
--- NOTE | 2025-01-20 13:12 | A.OFFPC_ITS ---
Vital Signs 01/20/25 13:13 Height 4 ft 9.5 in Weight 209 lb BMI 44.4 BP 120/70 Blood Pressure Location Lt brachial Position Sitting Pulse 104 H Pulse Source Pulse Oximeter Temp 97.6 F Temp Source Axillary Pulse Oximetry (%) 96 Oxygen Delivery Method Room Air Intake Visit Reasons: BP Check Computer Technology Instructor Required: No Accompanied by: Self / Same As Patient Allergies Penicillins Allergy (Intermediate, Verified 01/20/25 13:13) HIVES, ANAPHYLAXIS Beef Containing Products [BEEF CONTAINING PRODUCTS] Allergy (Mild, Verified 01/20/25 13:13) INFLAMMATION caffeine [CAFFEINE] Allergy (Mild, Verified 01/20/25 13:13) UNKNOWN lactose [LACTOSE] Allergy (Mild, Verified 01/20/25 13:13) STOMACH PAIN,DIARRHEA orange Allergy (Mild, Verified 01/20/25 13:13) GEOGRAPHIC TONGUE oxycodone [Percocet] Allergy (Mild, Verified 01/20/25 13:13) Vomiting Pork/Porcine Containing Products [PORK/PORCINE CONTAINING PRODUCTS] Allergy (Mild, Verified 01/20/25 13:13) INFLAMMATION,PAIN Sulfa (Sulfonamide Antibiotics) [SULFA (SULFONAMIDE ANTIBIOTICS)] Allergy (Mild, Verified 01/20/25 13:13) DIARRHEA,VOMITING nut - unspecified [nut] Adverse Reaction (Mild, Verified 01/20/25 13:13) UNKNOWN Tobacco use date assessed: 01/20/25 Fall risk assessment: No Falls in past year Last assessed Fall Risk: 01/20/25 Dental Screening Dental Screen Date: 01/20/25 Did you have a dental visit in the last 12 months?: No Did you have a dental problem in the last 6 months where you did not have access to dental care?: No HPI HPI Comments History of Present Illness Details This is a 74-year-old female with a past medical history of HTN, urinary issues, hypothyroid, prediabetes, presenting for follow up CV: A few weeks ago insurance sent out BP cuff. All of her BP was noted as high. Blood pressure is well controlled today. That said she would like to come off the diuretic and try a different medication as she is already plagued by urinary issues. Hypothyroid: On levothyroxine 50mcg tablet. GI: Has IBS-D. History of CDiff. Follows at [facility]. On loperamide. Pending GI appt in April with Urologic: Stress incontinence, has medtronic sacral nerve stimulator. Last colonoscopy: ~5 years ago. ROS see HPI PHYSICAL EXAM: GENERAL: Alert and oriented x 3. NAD EYES: EOMI. Anicteric. HENT: Moist mucous membranes. No scleral icterus. No cervical lymphadenopathy. LUNGS: Clear to auscultation bilaterally. CARDIOVASCULAR: Regular rate and rhythm. No murmur. No JVD. ABDOMEN: Soft, non-tender +bs EXTREMITIES: No edema. Non-tender. SKIN: No rashes or lesions. Warm. NEUROLOGIC: No focal neurological deficits. CN II-XII grossly intact PSYCHIATRIC: Cooperative. Appropriate mood and affect [facility] Medical History Sacral nerve stimulator present Thrush [place] (dyspnea on exertion) Shortness of breath Colon cancer screening Hyperlipidemia LDL goal <100 Hypertension Morbid obesity with BMI of 45.0-49.9, adult Fatty liver Obesity due to excess calories Pre-diabetes Plantar fasciitis Sacroiliitis History of Clostridioides difficile colitis Lumbosacral spondylosis without myelopathy Carpal tunnel syndrome Sleep apnea NAFL (nonalcoholic fatty liver) Hypothyroidism Irritable bowel syndrome with diarrhea Surgical History S/P placement of nerve stimulator IGTN (ingrowing toe nail) Hx of colonoscopy History of thumb surgery H/O hernia repair History of removal of laparoscopic gastric banding device History of bladder surgery Hx laparoscopic cholecystectomy S/P panniculectomy H/O bilateral oophorectomy Hx of laparoscopic gastric banding History of laparoscopic appendectomy Hx of vaginal hysterectomy H/O tubal ligation Family History Father Colon cancer Maternal Aunt Colon cancer Paternal Aunt Breast cancer Maternal Aunt Colon cancer Social History Household Members: Spouse Household Members Other:: Housing: House Alcohol intake: never Patient Tobacco Use Status: Never used Tobacco e-Cigarette/Vaping Use: Never Used service: No Current occupational status: retired Sexual orientation: Straight/Heterosexual Gender identity: Female Cognitive needs: No Hearing needs: No Vision needs: Yes (reading glasses) Female Reproductive History Menstrual Age of Menarche: 14 Questionnaire PHQ-9 Over the last 2 weeks, how often have you been bothered by any of the following problems? 1. Little interest or pleasure in doing things: not at all 2. Feeling down, depressed, or hopeless: several days (anxious) 3. Trouble falling or staying asleep, or sleeping too much: not at all 4. Feeling tired or having little energy: not at all 5. Poor appetite or overeating: not at all 6. Feeling bad about yourself - or that you are a failure or have let yourself or your family down: not at all 7. Trouble concentrating on things, such as reading the newspaper or watching television: not at all 8. Moving or speaking so slowly that other people could have noticed. Or the opposite - being so fidgety or restless that you have been moving around a lot more than usual: not at all 9. Thoughts that you would be better off or of hurting yourself in some way: not at all Total score: 1 Depression Screening Interpretation: Negative Depression Screening Done: Yes 85561 - PHQ-9 Billing: Yes Source: Developed by Drs. Ovidio Boo, Niya Esteban, Ric Robles and colleagues, with an educational raghav from [employer]. Thrive Questionnaire Date Thrive assessed: 01/20/25 I am a: Patient Within the past 12 months, did the food you bought not last and you didn't have the money to get more?: Never true Within the past 12 months, did you worry whether your food would run out before you got money to buy more?: Never true Do you have trouble paying for medicines?: No Do you have trouble getting transportation to medical appointments?: No Do you have trouble paying your heating and electricity bill?: No Do you have trouble taking care of your child, family member or friend?: No Do you have trouble with day-to-day activities such as bathing, preparing meals, shopping, managing finances, etc.?: No Are you currently unemployed and looking for a job?: No Are you interested in more education?: No THRIVE Score: 0 AUDIT C Alcohol Use Questionnaire (AUDIT-C) 1. How often do you have a drink containing alcohol?: Never 3. How often do you have six or more drinks on one occasion?: Never Total Score: 0 EUGENIA-7 AMB Questionnaire EUGENIA-7 Date EUGENIA - 7 assessed: 01/20/25 Feeling nervous, anxious, or on edge: 0 = Not at all Not being able to stop or control worryin = Not at all Worrying too much about different things: 0 = Not at all Trouble relaxin = Not at all Being so restless that it is hard to sit still: 0 = Not at all Becoming easily annoyed or irritable: 0 = Not at all Feeling afraid as if something awful might happen: 0 = Not at all Total EUGENIA-7 score (0-4 normal; 5-9 mild; 10-14 moderate; 15-21 severe): 0 Source: Developed by Drs. Ovidio Boo, Niya Esteban, Ric Robles and colleagues, with an educational raghav from [employer]. Physical exam (Primary Care) Vital Signs: Last Vital Signs Temp 97.6 F 01/20/25 13:13 Pulse 104 H 01/20/25 13:13 BP 120/70 01/20/25 13:13 Pulse Ox 96 01/20/25 13:13 Oxygen Delivery Method Room Air 01/20/25 13:13 BMI result Body Mass Index 44.4 Tobacco/Smoking Status: Tobacco use Status Tobacco use date assessed 01/20/25 01/20/25 13:15 Patient Tobacco Use Status Never used Tobacco 01/20/25 13:12 e-Cigarette/Vaping Use Never Used 01/20/25 13:15 PHQ-9: PHQ-9 Score PHQ-9: Total score 1 01/20/25 13:25 Depression Screening Interpretation: Negative Thrive Assessment: Date of Thrive Assessment Date Thrive assessed 01/20/25 01/20/25 13:15 Coding Level of Care Code New Pt Level 4 (63854) Diagnoses Primary hypertension I10 Hypertension type: primary hypertension Hyperlipidemia LDL goal <100 E78.5 Pre-diabetes R73.03 Irritable bowel syndrome with diarrhea K58.0 Additional Codes PHQ-9 - 77249 - PHQ-9 Billing: Yes ([id number]) Assessment & Plan Assessment & Plan (1) Hypertension: Code(s): I10 - Essential (primary) hypertension Category: Medical Qualifiers: Hypertension type: primary hypertension Qualified Code(s): I10 - Essential (primary) hypertension (2) Hyperlipidemia LDL goal <100: Code(s): E78.5 - Hyperlipidemia, unspecified Category: Medical (3) Pre-diabetes: Comment: Pt has BMI at 40.4 on 11/27/21, has reports of lactose intolerance with hx of IBS Code(s): R73.03 - Prediabetes Category: Medical (4) Irritable bowel syndrome with diarrhea: Comment: She has not tolerated cholystyramine or carafate. Code(s): K58.0 - Irritable bowel syndrome with diarrhea Category: Medical Plan 74 year old female presenting to [facility] care past medical, surgical, social history reviewed htn-controlled. stop hctz. start amlodipine. continue to monitor closely Medications: New amlodipine 5 mg PO DAILY 90 tabs 3RF Discontinued hydrochlorothiazide Discontinued Reason: Doctor's Order 25 mg PO DAILY 30 tabs 1RF
[2025-01-20 13:13] VITALS: BP 120/70; PULSE 104; TEMP 36.4; O2SAT 96; BMI 44.4
--- OUTSIDE RECORDS SUMMARY | 2025-01-20 15:53 | XMS_ITS | Patient Health Record ---
Author Organization [facility] Address [address] [place] [address] Care Team Providers Care Casket Upholsterer Name Role Phone Chip Bowden MD Primary Care Provider Unavaila Ovidio Meek Unavailable [phone] EUGENIO GARCIA Unavailable Unavailable Allergies Allergen (clinical [...] Problem Status W/U Status Risk Notes Problem 976266385 Encounter for screening for malignant neoplasm of colon (Z12.11) Active confirmed Problem 847212999 History of adenomatous polyp of colon (Z86.010) Active confirmed Problem 486235116 Irritable bowel syndrome with diarrhea (K58.0) Active confirmed Problem Screening for malignant neoplasm of rectum (384110942) Encounter for screening for malignant neoplasm of rectum (Z12.12) Active confirmed Problem 564979558 Family history of colon cancer (Z80.0) Active confirmed Problem 168788689 Clostridium difficile infection (B96.89) Active confirmed Problem 36309391 Diarrhea, unspecified type (R19.7) Active confirmed Problem 66842152 Hypertension, unspecified type (I10) Active confirmed Problem 945601986995636 History of Clostridium difficile infection (Z86.19) Active [...] [place] [address] [place] [address] [id number] NICOLE PALMER Self - patient is the insured [facility] [address] [place] [address] [id number] NICOLE PALMER Self - patient is the insured Medical (General) History Medical History History ICD Code Colonoscopy 10/2007--Tubular adenoma removed; biopsies neg for microscopic colitis; neg. colonoscopy [place] [address] Phillips Hypothyroidism Lap band placed in 2006-ramirez sient weight loss- Dr. Ocampo is planning to remove it IBS--neg. labs for celiac disease in 2013 Denies UT,DM,CVA,Lung disease,renal dise ase Colonoscopy in 02/2013--WNL--no polyps Back pain/arthritis-herniated disc C.diff x2 (2014)--ultimately treated wit h Vancomycin Sleep apnea--had a CPAP but presently no t using it She had a negative colonoscopy with pa i n 2017 Colonoscopy in May with [...]
--- OUTSIDE RECORDS SUMMARY | 2025-01-20 15:53 | XMS_ITS ---
Author Organization [facility] Address [address] [place] [address] Care Team Providers Care Hand Stamper Name Role Phone Chip Bowden MD Primary Care Provider UnavailDavie Puente Unavailable [phone] Gemini Mir Unavailable [phone] REASON FOR VISIT cx 03/09/25 appt Encounters Encounter Location Date Provider Diagnosis [facility] [address] [place] [address] 01/18/2025 Gemini Mir Plan Of Treatment No Information Progress Notes * Nicci PALMERDOB:1950 (74 yo F)Acc No.[id number]:01/18/2025 Patient:?SPENCER Nicci :1950???Age:74 Y???Sex:Female Address:[address] [place] [address] * true * Date:? Generated for Printi ng/Faantwang/eTransmitting on:?01/20/2025 03:53 PM EDT
--- OUTSIDE RECORDS SUMMARY | 2025-01-20 15:53 | XMS_ITS | Clinical Summary ---
Author Organization [facility] Address [address] [place] [address] 7[address] [place] [address] Care Team Providers Care Credit Office Manager Name Role Phone Unavailable Primary Care Provider [...] EDT Narrative 01/10/2025 4:54 PM EDT ? [facility] ? [address] ?[place] [address] ?[phone] ? Mammography Report ? Signed ? Patient: Nicci Hanna ?MR#: [id number] ?? [id number] ? : 1950 ?Acct:[id number] ? Age/Sex: 74 / F ?ADM Date: 01/03/25 ? Loc: HO.MAMMO ? Attending Dr: Michell Crandall MD ? Ordering Physician: Michell Crandall ?Results: 2Benign F ?? indings ? Date of Service: 01/03/25 ?Follow Up: 1 Year From Orig ?? inal Mammogram ? Procedure(s): MM tomosynthesis screening BI ?? Accession Number(s): [id number] ? cc: Michell Crandall ? EXAMINATION: ?? [...] DD/ 1530 ? TD/TT: 01/03/25 1546 ? Ripper Operator: ? Procedure Note Jamie, Image - 01/11/2025 [facility] [address] [place] [address] Mammography Report Signed Patient: Nicci Hanna#: [id number] : 1950cct:[id number] Age/Sex: 74 / FADM Date: 01/03/25 Loc: CYNTHIA Attending Dr: Michell Crandall MD Ordering Physician: Nathalia Crandallults: 2Bmeri F indings Date of Service: 01/03/25Follow Up: 1 Year From Orig inal Mammogram Procedure(s): MM tomosynthesis screening BI Accession Number(s): [id number] cc: Michell Crandall EXAMINATION: MM SCREENING DIGITAL [...] 01/10/25 1650 DD/ 1530 TD/TT: 01/03/25 1546 Ripper Operator: us Michell Crandall MD IMG BI PROCEDURES Edited Resul t - Final * XR Chest 2 Views (01/03/2025 12:26 PM EDT) Anatomical Region Laterality Modality Chest Radiographic Kiya ging 01/03/2025 12:2 6 PM EDT Narrative 01/04/2025 8:33 AM EDT ? [facility] ? [address] ?[place] [address] ?XRay Report ? Signed ? Patient: Nicci Hanna ?MR#: [id number] ?? [id number] ? : 1950 ?Acct:[id number] ? Age/Sex: 74 / F ?ADM Date: 03/24/25 ? Loc: HO.MAMMO ? Attending Dr: Michell Crandall MD ? Ordering Physician: Magdalena Kessler PA-C ?? Date of Service: 01/03/25 ?? Procedure(s): XR chest 2V ?? Accession Number(s): [id number] ? cc: Michell Crandall; Magdalena Kessler PA-C [...] DD/ 1226 ? TD/TT: 01/03/25 1235 ? Ripper Operator: ? Procedure Note Donotcirainterpreter, Image - 01/04/2025 [facility] [address] [place] [address] XRay Report Signed Patient: Nicci HannaMR#: [id number] : 1950cct:[id number] Age/Sex: 74 / FADM Date: 01/03/25 Loc: HO.MAMMO Attending Dr: Michell Crandall MD Ordering Physician: Magdalena Kessler PA-C Date of Service: 01/03/25 Procedure(s): XR chest 2V Accession Number(s): [id number] cc: Michell Crandall; Magdalena Kessler PA-C EXAMINATION: [...] 01/04/25 0830 DD/ 1226 TD/TT: 01/03/25 1235 Ripper Operator: [facility] External Provider IMG XR PROCEDURES Edited Result - Final * B Type Natriuretic Peptide (BNP) (01/03/2025 12:22 PM EDT) B Type Natriuretic Peptide 20 <100 pg/mL [facility] 01/03/2025 12:2 2 PM EDT 01/03/2025 12:22 PM EDT Generic External Data Provider LAB BLOOD ORDERAB LES Final Result [facility] [address] [place] [address] [phone] from Last 3 Months Insurance [place] [address] [place] [phone]
--- OUTSIDE RECORDS SUMMARY | 2025-01-20 15:53 | XMS_ITS ---
Author Organization [facility] Address [address] [place] [address] Care Team Providers Care Molding Utility Worker Name Role Phone Chip Bowden MD Primary Care Provider UnavailDavie Puente Unavailable [phone] Gemini Mir [phone] Encounters Encounter Location Date Provider Diagnosis [facility] [address] [place] [address] 08/26/2024 Gemini Mir Plan Of Treatment No Information Progress Notes * SPENCER ElainasagarDOB:1950 (74 yo F)Acc No.[id number]:08/26/2024 Progress Notes Patient:?Nicci PALMER Provider:?Gemini Mir DPM :1950???Age:73 Y???Sex:Female D ate:08/26/2024 Address: [place] Pcp:Chip Bowden MD Subjective: * Chief Complaints: [...] DPM Date:?1 10/26/2023 Generated for Katia patterson/Vanesa/Tj on:?01/20/2025 03:53 PM EDT
--- OUTSIDE RECORDS SUMMARY | 2025-01-20 15:53 | XMS_ITS ---
Author Organization [facility] Address [address] [place] [address] Care Team Providers Care Assistant Manager Pt Name Role Phone Chip Bowden MD Primary Care Provider Unavaila Davie Schmidt Unavailable [phone] Gemini Mir Unavailable [phone] Allergies Allergen (clinical drug ingredient) Drug/Non Drug [...] Points 0 Interpretation Negative Vital Signs Height 3lc67cy in 11/10/2024 Weight 205 lbs 11/10/2024 BMI 41.4 kg/m2 11/10/2024 Blood pressure systolic 120 mm Hg 11/10/19 25 Blood pressure diastolic 80 mm Hg 025 Procedures Procedure Date Ordered Date Performed Result Body Sit e 58297-UBDLASF NAIL, 6 OR MORE 11/10/2024 N/A Encounters Encounter Location Date Provider Diagnosis [facility] [address] [place] [address] 11/10/2024 Gemini Mir Pain in right toe(s) M79.674 ; Onychomycosis B35.1 and Pain in left toe(s) M79.675 Assessments Encounter Date Diagnosis (ICD Code) Assessment Notes Treatment Notes Treatment Clinical Notes Section Notes 11/10/2024 Pain in right toe(s) (ICD-10 - M79.674) 11/10/2024 Onychomycosis (ICD-10 - B35.1) 11/10/2024 Pain in left toe(s) (ICD-10 - M79.675) Plan Of Treatment Pending Test Test Name Order Date 64265-STIBYIU NAIL, 6 OR MORE 11/10/2024 Next Appt Details Follow Up: 3 Months, Reason: Procedure Notes * Category Sub-Category Detail Notes [...] use of a nail nipper and/or dremel-type bearing grinder, to a more viable healthy nail [...] to maintain effectiveness in symptomatic relief - 09993 Progress Notes * Nicci PALMERDOB:1950 (73 yo F)Acc No.[id number]:11/10/2024 Progress Note Patient:?Nicci PALMER Provider:?Gemini Mir DPM :1950???Age:73 Y???Sex:Female D ate:11/10/2024 Address:[address] [place] [address] [place], [place], [place] Pcp:Chip Bowden MD Subjective: * Chief Complaints: [...] ?Exercise: no. ?Marital status: . 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 ???Drug/Alcohol:?AUDIT-C (Standard)?Did you have a drink containing [...] dizzyCodeine: Vomits , dizzyyes[Allergies Verified] Objective: * Vitals:?Ht:2an48nd, Wt:205, BMI:41.4, Shoe size:8, BP:120/80mm Hg, Ht-cm: [...] use of a nail nipper and/or dremel-type bearing grinder, to a more viable healthy nail [...] to maintain effectiveness in symptomatic relief - 52740.? * Procedure Codes:?79630 DEBRI DE NAIL, 6 OR MORE * Follow Up:?3 Months * Images: * Sign off status: Completed true * Provider:?Gemini Mir DPM Date:?0 11/10/2024 Generated for Katia patterson/Vanesa/Migdaliaitting on:?01/20/2025 03:52 PM EDT History and Physical Notes * [...]
--- OUTSIDE RECORDS SUMMARY | 2025-01-20 15:53 | XMS_ITS | Patient Health Record ---
Author Organization [facility] Address [address] [facility] [address] Care Team Providers Care Mechanical Engineering Intern Name Role Phone Chip Bowden MD Primary Care Provider Unavaila Davie Schmidt Unavailable [phone] Zackary Benavides Unavailable [phone] Gemini Mir Unavailable [phone] Allergies Allergen (clinical drug ingredient) Drug/Non Drug [...] pressure diastolic 80 mm Hg 11/10/2024 Height 7hq62fg in 11/10/2024 Blood pressure systolic 120 mm Hg 11/10/2024 Weight 205 lbs 11/10/2024 BMI 41.4 kg/m2 11/10/2024 Procedures Procedure Date Ordered Date Performed Result Body Sit e 35821-OGPDBYN NAIL, 6 OR MORE 11/10/2024 N/A Encounters Encounter Location Date Provider Diagnosis [address] [address] 04/19/2024 Zackary Benavides Other viral warts B07.8 ; Pain in left foot M79.672 ; Pain in right foot M79.671 ; Ingrowing nail L60.0 ; Metatarsalgia, left foot M77.42 ; Metatarsalgia, right foot M77.41 ; Calcaneal spur, left foot M77.32 and Plantar fascial fibromatosis M72.[address] [address] 04/28/2024 Zackary Benavides Ingrowing nail L60.0 ; Other viral warts B07.8 ; Pain in left foot M79.672 ; Pain in right foot M79.671 and Tinea pedis B35.[address] [address] 05/13/2024 Zackary Benavides Ingrowing nail L60.0 ; Other viral warts B07.8 ; Pain in left foot M79.672 ; Pain in right foot M79.671 ; Tinea pedis B35.3 and Plantar fascial fibromatosis M72.[address] [address] 07/22/2024 Zackary Benavides Ingrowing nail L60.0 ; Other viral warts B07.8 ; Pain in left foot M79.672 ; Pain in right foot M79.671 ; Tinea pedis B35.3 and Plantar fascial fibromatosis M72.[address] [address] 11/10/2024 Gemini Mir Pain in right toe(s) M79.674 ; Onychomycosis B35.1 and Pain in left toe(s) M79.[address] [address] 04/27/[address] [address] 07/22/[address] [address] 08/23/2024 Gemini Mir [address] [address] 01/18/2025 Gemini Mir Assessments Encounter Date Diagnosis (ICD [...] X ray : Foot, right 3V 04/19/2024 62581-AUGQMVB NAIL, 6 OR MORE 11/10/2024 Insurance Providers Payer Name Payer Address Payer Phone Subscriber Number Group Number Insured Name Patient Relationship to Insured Coverage Start Date Coverage End Date Medicare National [employer]t Sv[employer] [address] [facility] [place] [phone] [id number] Nicci Hanna Self - patient is the insured [facility] [facility] [address] [place] [address] [phone] [id number] Nicci Hanna Self - patient is [...] History Surgery Date(Month/Year) uterus surgery - removed 1996 hernias 2012 ovaries removed 2007 gallbladder 2011 thumb-hand 2014 Implant surgery 09/07/2024
== END 2025-01-20 13:42 | disposition home or self-care (01) ==
LOC: HO.HMCHD 13:10
PROVIDERS: PCP Internal Medicine; Visit Provider Internal Medicine
DX: I10 Essential (primary) hypertension (principal); E78.5 Hyperlipidemia, unspecified; R73.03 Prediabetes; K58.0 Irritable bowel syndrome with diarrhea

== ENCOUNTER → 2025-01-20 13:09 | Outpatient (BNVA) | payer MEDICARE, OTHER, SELFPAY | PROVIDERS: PCP Internal Medicine; Visit Provider Internal Medicine | DX: I10 Essential (primary) hypertension (principal); E03.9 Hypothyroidism, unspecified; R73.03 Prediabetes; K58.0 Irritable bowel syndrome with diarrhea | CPT/HCPCS: 96127; 99202 ==

== ENCOUNTER 2025-01-25 12:27 | Day surgery (SDC) | payer MEDICARE, OTHER, SELFPAY ==
--- OUTSIDE RECORDS SUMMARY | 2025-01-17 15:13 | XMS_ITS | Clinical Summary ---
Author Organization [facility] Address [address] [facility] 7t [place] [address] Care Team Providers Care Internal Grinder Tender Name Role Phone Unavailable Primary Care Provider [...] EDT Narrative 01/10/2025 4:54 PM EDT ? [facility] ? [address] ?[place] [address] ?[phone] ? Mammography Report ? Signed ? Patient: Nicci Hanna ?MR#: [id number] ?? [id number] ? : 1950 ?Acct:[id number] ? Age/Sex: 74 / F ?ADM Date: 01/03/25 ? Loc: HO.MAMMO ? Attending Dr: Michell Crandall MD ? Ordering Physician: Michell Crandall ?Results: 2Benign F ?? indings ? Date of Service: 01/03/25 ?Follow Up: 1 Year From Orig ?? inal Mammogram ? Procedure(s): MM tomosynthesis screening BI ?? Accession Number(s): [id number] ? cc: Michell Crandall ? EXAMINATION: ?? [...] DD/ 1530 ? TD/TT: 01/03/25 1546 ? Fuel Cell Battery Technician: ? Procedure Note Jamie, Image - 01/11/2025 [facility] [address] [place] [address] Mammography Report Signed Patient: Nicci Hanna#: [id number] : 1950cct:[id number] Age/Sex: 74 / FADM Date: 01/03/25 Loc: CYNTHIA Attending Dr: Michell Crandall MD Ordering Physician: Nathalia Crandallults: 2Bmeri F indings Date of Service: 01/03/25Follow Up: 1 Year From Orig inal Mammogram Procedure(s): MM tomosynthesis screening BI Accession Number(s): [id number] cc: Michell Crandall EXAMINATION: MM SCREENING DIGITAL [...] 01/10/25 1650 DD/ 1530 TD/TT: 01/03/25 1546 Fuel Cell Battery Technician: us Michell Crandall MD IMG BI PROCEDURES Edited Resul t - Final * XR Chest 2 Views (01/03/2025 12:26 PM EDT) Anatomical Region Laterality Modality Chest Radiographic Kiya ging 01/03/2025 12:2 6 PM EDT Narrative 01/04/2025 8:33 AM EDT ? [facility] [place] ? [address] ?[place] [address] ?XRay Report ? Signed ? Patient: Nicci Hanna ?MR#: [id number] ?? [id number] ? : 1950 ?Acct:[id number] ? Age/Sex: 74 / F ?ADM Date: 03/24/25 ? Loc: HO.MAMMO ? Attending Dr: Michell Crandall MD ? Ordering Physician: Magdalena Kessler PA-C ?? Date of Service: 01/03/25 ?? Procedure(s): XR chest 2V ?? Accession Number(s): [id number] ? cc: Michell Crandall; Magdalena Kessler PA-C [...] DD/ 1226 ? TD/TT: 01/03/25 1235 ? Fuel Cell Battery Technician: ? Procedure Note Donotcirainterpreter, Image - 01/04/2025 [facility] [address] [place] [address] XRay Report Signed Patient: Nicci HannaMR#: [id number] : 1950cct:[id number] Age/Sex: 74 / FADM Date: 01/03/25 Loc: HO.MAMMO Attending Dr: Michell Crandall MD Ordering Physician: Magdalena Kessler PA-C Date of Service: 01/03/25 Procedure(s): XR chest 2V Accession Number(s): [id number] cc: Michell Crandall; Magdalena Kessler PA-C EXAMINATION: [...] 01/04/25 0830 DD/ 1226 TD/TT: 01/03/25 1235 Fuel Cell Battery Technician: [facility] External Provider IMG XR PROCEDURES Edited Result - Final * B Type Natriuretic Peptide (BNP) (01/03/2025 12:22 PM EDT) B Type Natriuretic Peptide 20 <100 pg/mL [facility] 01/03/2025 12:2 2 PM EDT 01/03/2025 12:22 PM EDT Generic External Data Provider LAB BLOOD ORDERAB LES Final Result [facility] [address] [place] [address] [phone] from Last 3 Months Insurance [place] [address] [place] [phone]
[2025-01-21 08:59] VITALS: BMI 44.4
[2025-01-25] VITALS (7 sets, daily range): BP systolic 137–158; BP diastolic 73–93; PULSE 78–103; RESP 16–20; TEMP 36.2–37; O2SAT 88–96; BMI 44.6
[2025-01-25] MEDS: Lactated Ringers 1,000 ML 50 ML IVCONT (13:11)
--- NOTE | 2025-01-25 14:01 | HO.ANESPROP2 ---
HPI - Anesthesia Eval Consult details Narrative: For cysto, Bulkamid PMFSH Active Problems Active Problems: All Active Problems Intrinsic sphincter deficiency (ISD) (Acute) ANNABELLA (stress urinary incontinence, female) (Acute) Urinary urgency (Acute) Urgency-frequency syndrome (Acute) Osteopenia (Acute) Well woman exam (Acute) Osteoarthritis of right hip (Acute) OAB (overactive bladder) (Acute) Urge incontinence of urine (Acute) Urinary and fecal incontinence (Acute) Recurrent urinary tract infection (Acute) Vulvar irritation (Acute) Chronic pain syndrome (Acute) Spondylosis of lumbar region without myelopathy or radiculopathy (Acute) Spondylosis (Acute) Arthritis of both knees (Acute) Greater trochanteric bursitis of both hips (Acute) Hemorrhoids (Acute) C. difficile colitis (Acute) Diarrhea (Acute) Rectal bleeding (Acute) Abdominal pain (Acute) Urinary frequency (Acute) Family history of colon cancer (Acute) Thrush (Acute) BRADFORD (dyspnea on exertion) (Acute) Shortness of breath (Acute) History of Clostridioides difficile colitis (Acute) Colon cancer screening (Acute) Hyperlipidemia LDL goal <100 (Acute) Hypertension (Acute) Morbid obesity with BMI of 45.0-49.9, adult (Acute) Hypothyroidism (Acute) Obesity due to excess calories (Acute) Pre-diabetes (Acute) Irritable bowel syndrome with diarrhea (Acute) Past Medical History Medical History Sacral nerve stimulator present Thrush BRADFORD (dyspnea on exertion) Shortness of breath Colon cancer screening Hyperlipidemia LDL goal <100 Hypertension Morbid obesity with BMI of 45.0-49.9, adult Fatty liver Obesity due to excess calories Pre-diabetes Plantar fasciitis Sacroiliitis History of Clostridioides difficile colitis Lumbosacral spondylosis without myelopathy Carpal tunnel syndrome Sleep apnea NAFL (nonalcoholic fatty liver) Hypothyroidism Irritable bowel syndrome with diarrhea Family History Family History Father Colon cancer Maternal Aunt Colon cancer Paternal Aunt Breast cancer Maternal Aunt Colon cancer Family history of problems with anesthesia: No Surgical History Surgical History S/P placement of nerve stimulator IGTN (ingrowing toe nail) Hx of colonoscopy History of thumb surgery H/O hernia repair History of removal of laparoscopic gastric banding device History of bladder surgery Hx laparoscopic cholecystectomy S/P panniculectomy H/O bilateral oophorectomy Hx of laparoscopic gastric banding History of laparoscopic appendectomy Hx of vaginal hysterectomy H/O tubal ligation History of Problems with Anesthesia: Yes (PONV) Social History Social History Household Members: Spouse Household Members Other:: Housing: House Alcohol intake: never Patient Tobacco Use Status: Never used Tobacco e-Cigarette/Vaping Use: Never Used Have you been hit, kicked, punched, or otherwise hurt by someone within the past year? If so, by whom?: No Are you DNR?: No Advance Directives: No Advance Directives Information Provided: Yes service: No Current occupational status: retired Sexual orientation: Straight/Heterosexual Gender identity: Female Cognitive needs: No Hearing needs: No Vision needs: Yes (reading glasses) Meds Allergies Allergy/AdvReac Type Severity Reaction Status Date / Time Penicillins Allergy Intermediate HIVES, Verified 01/20/25 13:13 ANAPHYLAXIS Beef Containing Products Allergy Mild INFLAMMATIO Verified 01/20/25 13:13 [BEEF CONTAINING PRODUCTS] N caffeine [CAFFEINE] Allergy Mild UNKNOWN Verified 01/20/25 13:13 lactose [LACTOSE] Allergy Mild STOMACH Verified 01/20/25 13:13 PAIN,DIARRHEA orange Allergy Mild GEOGRAPHIC Verified 01/20/25 13:13 TONGUE oxycodone [Percocet] Allergy Mild Vomiting Verified 01/20/25 13:13 Pork/Porcine Containing Allergy Mild INFLAMMATIO Verified 01/20/25 13:13 Products N,PAIN [PORK/PORCINE CONTAINING PRODUCTS] Sulfa (Sulfonamide Allergy Mild DIARRHEA,VO Verified 01/20/25 13:13 Antibiotics) MITING [SULFA (SULFONAMIDE ANTIBIOTICS)] nut - unspecified [nut] AdvReac Mild UNKNOWN Verified 01/20/25 13:13 Active Medications: Current Medications Lactated Ringer's (Lr) 1,000 mls @ 50 mls/hr IVCONT .Q20H GWEN Last Admin: 01/25/25 13:11 Dose: 50 mls/hr Home Medications ?Medication ?Instructions ?Recorded ?Confirmed ?Last Taken ?Type loperamide 2 mg capsule 2 mg PO TID PRN diarrhea 10/29/22 01/25/25 01/25/25 History albuterol sulfate 90 mcg/actuation 2 puff inhalation Q4H PRN 01/13/25 01/21/25 12/28/24 History aerosol inhaler Shortness Of Breath Or Wheezing dicyclomine 10 mg capsule 10 mg PO BID PRN Gastrointestinal 01/13/25 01/21/25 07/12/24 History Spasms Or Cramping Exam Height,Weight and Vital Signs: Height 4 ft 9.5 in Weight 95.073 kg Last Vital Signs Temp 97.2 F 01/25/25 12:38 Pulse 78 01/25/25 12:38 Resp 20 01/25/25 12:38 BP 153/93 H 01/25/25 12:38 Pulse Ox 96 01/25/25 12:38 O2 Del Method Room Air 01/25/25 12:38 Airway Mallampati Class: II TM Dist: <=3cm Neck ROM: Full Loose/Missing/Broken Teeth: No Heart: ok Lungs: ok Assessment and Plan Assessment Anesthesia Assessment: Anesthesia Plan Discussed and Chart Reviewed Final Anesthetic Review Family History of Problems with Anesthesia: No History of Problems with Anesthesia: Yes (PONV) NPO: Yes ASA Class: III Final Preanesthetic Review: No Changes in Pt Med Stat, Meds/Allgs Chart Reviewed, Consent Obtained/Reviewed and Anes Risks/Benef Reviewed Patient Risk: Intermediate Procedure Risk: Low Anesthetic Plan Anesthetic Plan: GA and Agree w/ Assess. and Plan Disposition: Standard PACU
--- NOTE | 2025-01-25 14:23 | P.OP_ITS ---
Operative Note Operative Note Date of Service: 01/25/25 Narrative: Preop diagnosis: Intrinsic sphincter deficiency, ANNABELLA Postop diagnosis: Intrinsic sphincter deficiency, ANNABELLA Procedure: Cystoscopy urethral bulking with bulkamid system at the proximal urethra Surgeon: Dr. Fei Torres Details of procedure: The patient was brought into the operating room placed on the OR table in supine position IV sedation was administered. Antibiotics confirmed. The patient was placed in lithotomy position prepped and draped in the usual sterile fashion. Safety time-out was done. A 14 Liberian straight catheter was used to send urine for culture. 2% lidocaine jelly was inserted transurethrally [address] the 22 fr cystoscope met with resistance, the ruby femalew urethral sounds, 18 fr to 22 fr were used, the cystoscope was placed transurethrally, using the 0 degree lens, the bladder was filled with sterile water to 150 mL the bladder was visualized. With the sheath at the 5 o'clock position the needle was inserted to the 1 cm sai and 0.5 mL of gel was injected there was good bulking noted. This was repeated on the 7 o'clock position. The 2nd needle was inserted into the sheath and an injection was done at the 2 o'clock position and again at the 11 o'clock position. There was bulking of the mucosa noted with good coaptation. The patient tolerated the procedure and was taken to recovery in stable condition. Complication: none EBL: minimal (<5 mL) Drains: none
--- NOTE | 2025-01-25 14:23 | MHC.SHP ---
Pre-Procedural Eval Section A - 24 Hr Update-Section A only Date of Service: 01/25/25 The patient is an INPATIENT: No The patient has been examined within 24 hours of the surgical procedure. The History & Physical has been completed within 30 days and I have reviewed it.: Yes Section B - Complete if H&P > 30 days Chief Complaint: Intrinsic sphincter deficiency (ISD) Allergies: Allergies Allergy/AdvReac Type Severity Reaction Status Date / Time Penicillins Allergy Intermediate HIVES, Verified 01/20/25 13:13 ANAPHYLAXIS Beef Containing Products Allergy Mild INFLAMMATIO Verified 01/20/25 13:13 [BEEF CONTAINING PRODUCTS] N caffeine [CAFFEINE] Allergy Mild UNKNOWN Verified 01/20/25 13:13 lactose [LACTOSE] Allergy Mild STOMACH Verified 01/20/25 13:13 PAIN,DIARRHEA orange Allergy Mild GEOGRAPHIC Verified 01/20/25 13:13 TONGUE oxycodone [Percocet] Allergy Mild Vomiting Verified 01/20/25 13:13 Pork/Porcine Containing Allergy Mild INFLAMMATIO Verified 01/20/25 13:13 Products N,PAIN [PORK/PORCINE CONTAINING PRODUCTS] Sulfa (Sulfonamide Allergy Mild DIARRHEA,VO Verified 01/20/25 13:13 Antibiotics) MITING [SULFA (SULFONAMIDE ANTIBIOTICS)] nut - unspecified [nut] AdvReac Mild UNKNOWN Verified 01/20/25 13:13 Plan Diagnosis/Plan: Unchanged I have reviewed the history and physical and performed a pertinent physical examination on my patient. No changes have occurred unless specified. Cystoscopy. Bulkamid. Discussed risks to include but not limited to, blood in the urine, burning with urination, urgency, urinary retention, diehl. Time Spent With Patient Time: Total time managing care of this patient today ____ minutes.
[2025-01-25] MEDS: Ciprofloxacin Lactate/D5W 400 MG/200 ML PIGGYBACK 200 MG IV (14:40)
[2025-01-25] MEDS: Phenazopyridine HCL 200 MG TABLET PO (15:42)
[2025-01-25] MEDS: Acetaminophen 325 MG TABLET 975 MG PO (15:43)
== END 2025-01-25 17:00 | disposition home or self-care (01) ==
PROVIDERS: PCP Internal Medicine; Visit Provider Urology
PROC: (CPT 51715; principal; 2025-01-25 14:10)
DX: N36.42 Intrinsic sphincter deficiency (ISD) (principal); N39.46 Mixed incontinence; N32.81 Overactive bladder; Z96.82 Presence of neurostimulator; G47.33 Obstructive sleep apnea (adult) (pediatric); I10 Essential (primary) hypertension; R73.03 Prediabetes; E78.5 Hyperlipidemia, unspecified; E03.9 Hypothyroidism, unspecified; R06.09 Other forms of dyspnea; K76.0 Fatty (change of) liver, not elsewhere classified; M46.1 Sacroiliitis, not elsewhere classified; K58.0 Irritable bowel syndrome with diarrhea; R15.9 Full incontinence of feces; B37.9 Candidiasis, unspecified; Z79.899 Other long term (current) drug therapy; Z88.0 Allergy status to penicillin; Z88.2 Allergy status to sulfonamides; Z98.890 Other specified postprocedural states
CPT/HCPCS: 51715; 87086; J0744; J1885; J2003; J2405; J2704; J3010; L8606

== ENCOUNTER → 2025-01-25 12:27 | Outpatient (BNV) | payer MEDICARE, OTHER, SELFPAY | PROVIDERS: PCP Internal Medicine; Visit Provider Urology | DX: N36.42 Intrinsic sphincter deficiency (ISD) (principal) | CPT/HCPCS: 51715 ==

== ENCOUNTER → 2025-01-27 09:59 | Outpatient (BNVA) | payer MEDICARE, OTHER, SELFPAY | PROVIDERS: PCP Internal Medicine; Visit Provider Urology | DX: N36.42 Intrinsic sphincter deficiency (ISD) (principal); N39.3 Stress incontinence (female) (male) | CPT/HCPCS: 51700; 51798 ==

== ENCOUNTER → 2025-02-11 14:02 | Outpatient (BNVA) | payer MEDICARE, OTHER, SELFPAY | PROVIDERS: PCP Internal Medicine; Visit Provider Urology | DX: Z13.89 Encounter for screening for other disorder (principal) ==

== ENCOUNTER 2025-03-21 14:02 | Outpatient (AMB) | payer MEDICARE, OTHER, SELFPAY ==
--- NOTE | 2025-03-21 14:03 | A.OFFVIS_ITS ---
Intake Visit Reasons: Bulkamid follow up Intake Note: Patient is present for a bulkamid follow up Urology Medication: None Antibiotic Allergies: Penicillins, Sulfa Blood Thinners: None PVR:0ml Optometry Assistant Required: No Accompanied by: Self / Same As Patient Allergies Penicillins Allergy (Intermediate, Verified 05/13/25 09:52) HIVES, ANAPHYLAXIS Beef Containing Products (BEEF CONTAINING PRODUCTS) Allergy (Mild, Verified 05/13/25 09:52) INFLAMMATION caffeine (CAFFEINE) Allergy (Mild, Verified 05/13/25 09:52) UNKNOWN lactose (LACTOSE) Allergy (Mild, Verified 05/13/25 09:52) STOMACH PAIN,DIARRHEA orange Allergy (Mild, Verified 05/13/25 09:52) GEOGRAPHIC TONGUE oxycodone (Percocet) Allergy (Mild, Verified 05/13/25 09:52) Vomiting Pork/Porcine Containing Products (PORK/PORCINE CONTAINING PRODUCTS) Allergy (Mild, Verified 05/13/25 09:52) INFLAMMATION,PAIN Sulfa (Sulfonamide Antibiotics) (SULFA (SULFONAMIDE ANTIBIOTICS)) Allergy (Mild, Verified 05/13/25 09:52) DIARRHEA,VOMITING nut - unspecified (nut) Adverse Reaction (Mild, Verified 05/13/25 09:52) UNKNOWN Medication List - Last Reconciled 03/21/25 by Fei Torres MD albuterol sulfate 90 mcg/actuation 2 puffs inhalation Q4H PRN amlodipine 5 mg PO DAILY dicyclomine 10 mg PO BID PRN loperamide 2 mg PO TID PRN phenazopyridine (Azo Urinary Pain Relief) 199 mg (2 x 99.5 mg) PO BID Synthroid (levothyroxine) 50 mcg PO DAILY NS HPI Comments Details: 03/21/25-- History of Present Illness - The patient is a 74-year-old female presenting with lower urinary tract symptoms of urgency and incontinence. - There is a history of sacral neuromodulation therapy on August 28, 2024, to manage urge incontinence. - In January 2025, she underwent urethral bulking for stress urinary incontinence, which she describes as successful. - Symptom exacerbation noted when the sacral device was off during travel; symptoms improved upon reactivation and adjusting settings. - Adjustments on Program 5 from 0.9 to 1.1 in the device setting led to symptom control. The bulking agent has effectively reduced stress incontinence symptoms. Urinary Symptoms Review - Symptoms: Urgency and frequency with incontinence episodes. - Onset: Previous sacral neuromodulation off led to symptom return. - Management: Sacral neuromodulation therapy, adjusted to setting 101, yielding improved symptom control. - Previous procedure: Bulking agent urethral bulking for stress incontinence perceived as successful. Results - Labs: Urinalysis within normal limits reported in conversation. 01/17/25--Nicci is a 74-year-old female who presents to the office for follow-up. She has a history of mixed urinary incontinence and recurrent UTIs. s/p Medtronic interstim pacemaker 09/07/24. She states her urinary urge is improved as well as better bowel control. She is currently on program 3 at low amplitude. She states when she turns the amplitude up she gets some vibrations in the leg and pain vaginally. I will have the [employer] rep follow-up with the patient regarding changing to a different program. She states that she has been on program 6 in the past which helped more the fecal incontinence and Less the bladder symptoms. She is also having urine leakage associated with coughing and we have discussed further management with the [facility]. On examination the incisions are well healed. 09/17/24--FU - s/p Medtronic interstim pacemaker 09/07/24. She states her urinary urge is improved as well as better bowel control. 08/30/24--Nicci is status post stage I lead implant. She is on program 2. She states she has noticed alot of improvement during the daytime. She was getting up 4 times at night prior to the lead implant she is getting up 3 times at night now and still has some urge incontinence during the night. She was discharged on Cipro and Flagyl and is having a lot of diarrhea which may be impacting her symptoms. Plan is to change the program to optimize symptom improvement. The patient has had greater than 50% improvement and will benefit from neuromodulation therapy. Plan stage II pacemaker implant [facility] Medical History (Updated 05/11/25 @ 10:12 by DEVANG Morgan) Diarrhea C. difficile colitis Obesity due to excess calories Morbid obesity with BMI of 45.0-49.9, adult Spondylosis History of Clostridioides difficile colitis Well woman exam ANNABELLA (stress urinary incontinence, female) Urinary urgency Urgency-frequency syndrome Urinary frequency Urinary and fecal incontinence Abdominal pain Colon cancer screening Rectal bleeding BRADFORD (dyspnea on exertion) Adjustment disorder Sacral nerve stimulator present Thrush Shortness of breath Hyperlipidemia LDL goal <100 Hypertension Fatty liver Pre-diabetes Plantar fasciitis Sacroiliitis Lumbosacral spondylosis without myelopathy Carpal tunnel syndrome Sleep apnea NAFL (nonalcoholic fatty liver) Hypothyroidism Irritable bowel syndrome with diarrhea Surgical History (Updated 05/11/25 @ 10:26 by DEVANG Morgan) H/O umbilical hernia repair H/O midurethral sling procedure S/P placement of nerve stimulator IGTN (ingrowing toe nail) Hx of colonoscopy (~06/05/21) History of thumb surgery History of removal of laparoscopic gastric banding device Hx laparoscopic cholecystectomy S/P panniculectomy H/O bilateral oophorectomy Hx of laparoscopic gastric banding History of laparoscopic appendectomy Hx of vaginal hysterectomy H/O tubal ligation Family History Father Colon cancer Maternal Aunt Colon cancer Paternal Aunt Breast cancer Maternal Aunt Colon cancer Social History (Updated 05/13/25 @ 09:54 by Tayler Paulino Sarai) Household Members: Spouse Household Members Other:: Housing: House Alcohol intake: never Comment: diehl placed, unable to void Patient Tobacco Use Status: Never used Tobacco e-Cigarette/Vaping Use: Never Used service: No Current occupational status: retired Current occupation: rt handed Sexual orientation: Straight/Heterosexual Gender identity: Female Cognitive needs: No Hearing needs: No Vision needs: Yes (reading glasses) Female Reproductive History Menstrual Age of Menarche: 14 Review of Systems Const All systems reviewed & are unremarkable except as noted in HPI and below Reports no additional complaints Eyes Reports no additional complaints ENT Reports no additional complaints Card Reports no additional complaints Resp Reports no additional complaints GI Reports no additional complaints Reports as per HPI Musc Reports no additional complaints Skin/Breast Reports system reviewed and no additional complaints, except as documented Neuro Reports no additional complaints Psych Reports no additional complaints Endo Reports no additional complaints David/Lymph Reports no additional complaints Aller/Immun Reports no additional complaints Assessment & Plan Assessment & Plan (1) Urinary and fecal incontinence: Code(s): R32 - Unspecified urinary incontinence; R15.9 - Full incontinence of feces Category: Medical (2) Urge incontinence of urine: Code(s): N39.41 - Urge incontinence Category: Medical (3) Urgency-frequency syndrome: Code(s): N32.81 - Overactive bladder Category: Medical (4) Urinary urgency: Code(s): R39.15 - Urgency of urination Category: Medical (5) Intrinsic sphincter deficiency (ISD): Code(s): N36.42 - Intrinsic sphincter deficiency (ISD) Category: Medical Plan Plan - Advise continued use and monitoring of sacral neuromodulation therapy, with settings adjusted to ensure symptom relief. - Pt reports significant improvement in ANNABELLA symptoms post-urethral bulking. - Plan follow-up in nine months, or sooner if symptoms change or worsen. Coding Level of Care Code Est Pt Level 3 (03597) Complex EM visit Add On G2211 Diagnoses Urinary and fecal incontinence R32; R15.9 Urge incontinence of urine N39.41 Urgency-frequency syndrome N32.81 Urinary urgency R39.15 Intrinsic sphincter deficiency (ISD) N36.42
--- OUTSIDE RECORDS SUMMARY | 2025-03-21 15:58 | XMS_ITS ---
Author Organization [facility] Address [address] [place] [address] Care Team Providers Care Chummer Name Role Phone Chip Bowden MD Primary Care Provider UnavailDavie Puente Unavailable [phone] Gemini Mir [phone] Encounters Encounter Location Date Provider Diagnosis [facility] [address] [place] [address] 03/09/2025 Gemini Mir Plan Of Treatment No Information Progress Notes * Leora PALMERtatisagarDOB:1950 (74 yo F)Acc No.[id number]:03/09/2025 Progress Note Patient:?Nicci PALMER Provider:?Gemini Mir DPM :1950???Age:74 Y???Sex:Female D ate:03/09/2025 Address:[address] [id number] Pcp:Chip Bowden MD Subjective: * Chief Complaints: * ??? * Medical History:? Objective: * Vitals:? Assessment: Plan: * Treatment: * Images: * The named appointment provid er may or may not be the originator of this progress note, and it is not deemed complete until electronically signed by the appointment provider. Sign off status: Pending * Provider:?Gemini Mir DPM Date:?0 03/09/2025 Generated for Katia patterson/Vanesa/Tj on:?03/21/2025 03:58 PM EDT
== END 2025-03-21 14:46 | disposition home or self-care (01) ==
LOC: HO.HUSH 14:02
PROVIDERS: PCP General Practice; Visit Provider Urology
DX: R15.9 Full incontinence of feces (principal); N39.41 Urge incontinence; N32.81 Overactive bladder; R39.15 Urgency of urination; N36.42 Intrinsic sphincter deficiency (ISD)
CPT/HCPCS: 99213; G2211

== ENCOUNTER → 2025-03-21 14:02 | Outpatient (BNVA) | payer MEDICARE, OTHER, SELFPAY | PROVIDERS: PCP General Practice; Visit Provider Urology | DX: R15.9 Full incontinence of feces (principal); N39.41 Urge incontinence; N32.81 Overactive bladder; N36.42 Intrinsic sphincter deficiency (ISD) | CPT/HCPCS: 99212 ==

== ENCOUNTER 2025-04-01 09:49 | Outpatient (AMB) | payer MEDICARE, OTHER, SELFPAY ==
--- OUTSIDE RECORDS SUMMARY | 2025-03-09 05:00 | XMS_ITS ---
Author Organization [facility] Address [address] [place] [address] Care Team Providers Care Band Maker Name Role Phone Chip Bowden MD Primary Care Provider UnavailDavie Puente Unavailable [phone] Gemini Mir [phone] Encounters Encounter Location Date Provider Diagnosis [facility] [address] [place] [address] 03/09/2025 Gemini Mir Plan Of Treatment No Information Progress Notes * SPENCER ElainasagarDOB:1950 (74 yo F)Acc No.[id number]:03/09/2025 Progress Note Patient: Nicci ROMERO Provider: Dale Mir DPM :1950 A ge:74 Y S ex:Female Date:03/09/2025 Address: [place] Pcp:Chip Bowden MD Subjective: * Chief Complaints: [...] 03/09/2025 Generated for Frantzi ng/Faxing/eTransmitting on: 0 04/01/2025 10:02 AM EDT
--- NOTE | 2025-04-01 09:53 | A.OFFPC_ITS ---
Vital Signs 04/01/25 09:58 Height 4 ft 11 in Weight 93.44 kg BMI 41.6 BP 134/76 Respiration 16 Pulse 83 Pulse Source Pulse Oximeter Temp 97.4 F Temp Source Temporal Artery Scan Pulse Oximetry (%) 95 Oxygen Delivery Method Room Air Intake Visit Reasons: Routine Inspection Machine Tender Required: No Accompanied by: Self / Same As Patient Allergies Penicillins Allergy (Intermediate, Verified 04/01/25 09:54) HIVES, ANAPHYLAXIS Beef Containing Products (BEEF CONTAINING PRODUCTS) Allergy (Mild, Verified 04/01/25 09:54) INFLAMMATION caffeine (CAFFEINE) Allergy (Mild, Verified 04/01/25 09:54) UNKNOWN lactose (LACTOSE) Allergy (Mild, Verified 04/01/25 09:54) STOMACH PAIN,DIARRHEA orange Allergy (Mild, Verified 04/01/25 09:54) GEOGRAPHIC TONGUE oxycodone (Percocet) Allergy (Mild, Verified 04/01/25 09:54) Vomiting Pork/Porcine Containing Products (PORK/PORCINE CONTAINING PRODUCTS) Allergy (Mild, Verified 04/01/25 09:54) INFLAMMATION,PAIN Sulfa (Sulfonamide Antibiotics) (SULFA (SULFONAMIDE ANTIBIOTICS)) Allergy (Mild, Verified 04/01/25 09:54) DIARRHEA,VOMITING nut - unspecified (nut) Adverse Reaction (Mild, Verified 04/01/25 09:54) UNKNOWN Medication List - Last Reconciled 04/01/25 by MARCOS Wise albuterol sulfate 90 mcg/actuation 2 puffs inhalation Q4H PRN amlodipine 5 mg PO DAILY dicyclomine 10 mg PO BID PRN diphenhydramine HCl (Unisom SleepGels) 50 mg PO BEDTIME fluticasone propion-salmeterol 100-50 mcg/dose 1 inh inhalation BID loperamide 2 mg PO TID PRN metronidazole 0.75% 1 appl topical BEDTIME phenazopyridine (Azo Urinary Pain Relief) 199 mg (2 x 99.5 mg) PO BID Synthroid (levothyroxine) 50 mcg PO DAILY NS Tobacco use date assessed: 01/20/25 Dental Screening Dental Screen Date: 01/20/25 HPI HPI Comments History of Present Illness Details 74-year-old female with history of hyper tension, prediabetes, RAMIN, hypothyroidism, IBS prevents to the office today for follow-up. HTN- had been on hctz but was discontinued due to increased urination. Was placed on amlodipine [address] of this and has been tolerating this well overall. Blood pressure is controlled in the office today ANNABELLA/intrinsic sphincter deficiency-following with Dr. Ying. s/p sacral neuromodulation therapy 08/2024. 02/04 underwent bulkiing for ANNABELLA which was successful. HCTZ discontinued giving contributing factors. Prediabetes- stable hypothyroidism- stable on levothyroxine Concerns: Left middle finger trigger finger-interested in Orthopedics. There is also pain along the MCP joints of the left hand Wheezing- ongoing for over a year. No confirmed diagnosis of asthma or COPD. There is occasional associated cough. Symptoms are worse when lying down. She has used her albuterol inhaler occasionally with some success. Not on maintenance inhalers. Depression/anxiety-she has been taking care of her who appears to have advanced Alzheimer's dementia with hallucinations and aggressive outbursts. He has never physically harmed the patient. He is still driving despite recommendations from Neurology and the patient. There is also a gun in the house that is now missing. She reports that the gun is no longer licensed. She is not currently attending therapy for herself Health maintenance: Last mammogram 12/2024, negative for malignancy, 1 year follow-up advised Last DEXA scan 03/2023 showing osteopenia not taking vitamin-D, limited weight- bearing exercise Last screening colonoscopy 05/2021 with 5 year follow-up advised, Dr. Ryan ROS: General: No fevers, malaise, unintentional weight loss HEENT: No blurred vision, diplopia. No sore throat, nasal congestion, rhinorrhea, sinus pain, ear pain Cardiovascular: No chest pain, palpitations, or leg edema Respiratory: No shortness of breath. see hpi MSK: No myalgia, back pain. see hpi Neuro: No headaches, weakness, paresthesias Skin: No rashes or lesions Psych: see hpi EXAM: Constitutional - Awake and Alert, No apparent distress Eyes - PERRL Cardiovascular - S1S2, RRR, No edema Respiratory - Normal lung expansion, Normal respiratory effort, No respiratory distress, scattered expiratory wheezes bilaterally Extremities - no calf tenderness bilaterally, no swelling Skin - Warm/Dry Neurological - Alert & oriented x3 Psychological - Appropriate affect [facility] Medical History (Updated 04/01/25 @ 10:39 by MARCOS Wise) Adjustment disorder Sacral nerve stimulator present Thrush BRADFORD (dyspnea on exertion) Shortness of breath Colon cancer screening Hyperlipidemia LDL goal <100 Hypertension Morbid obesity with BMI of 45.0-49.9, adult Fatty liver Obesity due to excess calories Pre-diabetes Plantar fasciitis Sacroiliitis History of Clostridioides difficile colitis Lumbosacral spondylosis without myelopathy Carpal tunnel syndrome Sleep apnea NAFL (nonalcoholic fatty liver) Hypothyroidism Irritable bowel syndrome with diarrhea Surgical History (Updated 03/31/25 @ 15:37 by Agustina Cerda) S/P placement of nerve stimulator IGTN (ingrowing toe nail) Hx of colonoscopy (~06/05/21) History of thumb surgery H/O hernia repair History of removal of laparoscopic gastric banding device History of bladder surgery Hx laparoscopic cholecystectomy S/P panniculectomy H/O bilateral oophorectomy Hx of laparoscopic gastric banding History of laparoscopic appendectomy Hx of vaginal hysterectomy H/O tubal ligation Family History Father Colon cancer Maternal Aunt Colon cancer Paternal Aunt Breast cancer Maternal Aunt Colon cancer Social History Household Members: Spouse Household Members Other:: Housing: House Alcohol intake: never Comment: diehl placed, unable to void Patient Tobacco Use Status: Never used Tobacco e-Cigarette/Vaping Use: Never Used service: No Current occupational status: retired Sexual orientation: Straight/Heterosexual Gender identity: Female Cognitive needs: No Hearing needs: No Vision needs: Yes (reading glasses) Female Reproductive History Menstrual Age of Menarche: 14 Questionnaire PHQ-9 Over the last 2 weeks, how often have you been bothered by any of the following problems? 1. Little interest or pleasure in doing things: several days 2. Feeling down, depressed, or hopeless: more than half the days 3. Trouble falling or staying asleep, or sleeping too much: more than half the days 4. Feeling tired or having little energy: nearly every day 5. Poor appetite or overeating: nearly every day 6. Feeling bad about yourself - or that you are a failure or have let yourself or your family down: not at all 7. Trouble concentrating on things, such as reading the newspaper or watching television: not at all 8. Moving or speaking so slowly that other people could have noticed. Or the opposite - being so fidgety or restless that you have been moving around a lot more than usual: several days 9. Thoughts that you would be better off or of hurting yourself in some way: not at all Total score: 12 Source: Developed by Drs. Ovidio Boo, Niya Esteban, Ric Robles and colleagues, with an educational raghav from [employer]. Thrive Questionnaire Date Thrive assessed: 04/01/25 I am a: Patient What is your living situation today?: I have a steady place to live Within the past 12 months, did the food you bought not last and you didn't have the money to get more?: Never true Within the past 12 months, did you worry whether your food would run out before you got money to buy more?: Never true Do you have trouble paying for medicines?: No Do you have trouble getting transportation to medical appointments?: No Do you have trouble paying your heating and electricity bill?: No Do you have trouble taking care of your child, family member or friend?: No Do you have trouble with day-to-day activities such as bathing, preparing meals, shopping, managing finances, etc.?: No Are you currently unemployed and looking for a job?: No Are you interested in more education?: No Please select the resources that you would like help with: None THRIVE Score: 0 EUGENIA-7 AMB Questionnaire EUGENIA-7 Date EUGENIA - 7 assessed: 01/20/25 Source: Developed by Drs. Ovidio Boo, Niya Esteban, Ric Robles and colleagues, with an educational raghav from [employer]. Physical exam (Primary Care) Vital Signs: Last Vital Signs Temp 97.4 F 04/01/25 09:58 Pulse 83 04/01/25 09:58 Resp 16 04/01/25 09:58 BP 134/76 04/01/25 09:58 Pulse Ox 95 04/01/25 09:58 Oxygen Delivery Method Room Air 04/01/25 09:58 BMI result Body Mass Index 41.6 Tobacco/Smoking Status: Tobacco use Status Tobacco use date assessed 01/20/25 04/01/25 09:56 Patient Tobacco Use Status Never used Tobacco 04/01/25 09:56 e-Cigarette/Vaping Use Never Used 04/01/25 09:56 PHQ-9: PHQ-9 Score PHQ-9: Total score 12 04/01/25 11:19 Thrive Assessment: Date of Thrive Assessment Date Thrive assessed 04/01/25 04/01/25 11:19 Coding Level of Care Code New Pt Level 4 (13508) Complex EM visit Add On G2211 Diagnoses Pain of left hand M79.642 Primary hypertension I10 Hypertension type: primary hypertension Pre-diabetes R73.03 Hypothyroidism E03.9 Osteopenia M85.80 Trigger finger, left middle finger M65.332 Adjustment disorder F43.20 Assessment & Plan Assessment & Plan (1) Pain of left hand: Code(s): M79.642 - Pain in left hand Plan: With left middle trigger finger. X-ray of the left hand ordered. Analgesics as needed. Follow-up with Orthopedic surgeons as scheduled 05/13 (2) Hypertension: Code(s): I10 - Essential (primary) hypertension Category: Medical Qualifiers: Hypertension type: primary hypertension Qualified Code(s): I10 - Essential (primary) hypertension Plan: Controlled. Continue amlodipine 5 mg daily. Low-sodium diet (3) Pre-diabetes: Comment: Pt has BMI at 40.4 on 11/27/21, has reports of lactose intolerance with hx of IBS Code(s): R73.03 - Prediabetes Category: Medical Plan: Stable with A1c 5.8%. Diet low in simple sugars and highly processed foods. (4) Hypothyroidism: Code(s): E03.9 - Hypothyroidism, unspecified Category: Medical Plan: Controlled. Continue levothyroxine 50 mcg daily. (5) Osteopenia: Code(s): M85.80 - Other specified disorders of bone density and structure, unspecified site Category: Medical Plan: DEXA scan reordered. Recommend vitamin-D. Vitamin-D level ordered (6) Trigger finger, left middle finger: Code(s): M65.332 - Trigger finger, left middle finger Category: Medical Plan: As above (7) Adjustment disorder: Code(s): F43.20 - Adjustment disorder, unspecified Category: Medical Plan: r/t her 's Alzheimer's dementia. Recommend personal counseling. Also recommend psychiatry for her - resources provided for both. Regarding the missing gun in the home, consent obtained from patient- reached out to [place] ARRIAGA and police report filed given concerns given his diagnosis with associated intermittent hallucinations with unknown location of gun moved by patient. Plan Labs to be completed as below. Follow up in 6 months. Orders: Orders Complete Blood Count Auto Diff Today M65.332 - Trigger finger, left middle finger, M79.601 - Pain in right arm, M79.602 - Pain in left arm, R20.2 - Paresthesia of skin Vitamin D 25-OH Total Today M65.332 - Trigger finger, left middle finger, M79.601 - Pain in right arm, M79.602 - Pain in left arm, R20.2 - Paresthesia of skin XR hand LT min 3V Today M65.332 - Trigger finger, left middle finger, M79.642 - Pain in left hand Vitamin B12 Today M65.332 - Trigger finger, left middle finger, M79.601 - Pain in right arm, M79.602 - Pain in left arm, R20.2 - Paresthesia of skin XR DEXA axial skeleton Today M85.80 - Other specified disorders of bone density and structure, unspecified site Medications: New fluticasone propion-salmeterol 100-50 mcg/dose 1 inh inhalation BID 60 ea 5RF Patient Instructions: Check Grows Up for counselors who can help you with your home situation. Dr Cain Prince- [facility] psychiatry. [place] [phone] [facility] [phone]
[2025-04-01 09:58] VITALS: BP 134/76; PULSE 83; RESP 16; TEMP 36.3; O2SAT 95; BMI 41.6
== END 2025-04-01 10:30 | disposition home or self-care (01) ==
LOC: HO.HMCHD 09:50
PROVIDERS: PCP General Practice; Visit Provider Physician Assistant
DX: M79.642 Pain in left hand (principal); I10 Essential (primary) hypertension; R73.03 Prediabetes; E03.9 Hypothyroidism, unspecified; M85.80 Other specified disorders of bone density and structure, unspecified site; M65.332 Trigger finger, left middle finger; F43.20 Adjustment disorder, unspecified

== ENCOUNTER 2025-04-01 09:49 | Outpatient (REF) | payer MEDICARE, OTHER, SELFPAY ==
--- NOTE | ~2025-04-01 | XR_ITS ---
CLINICAL HISTORY: M65.332 - Trigger finger, left middle finger --- Additional Notes or Special Instructions: pain along MCP joints 3 views left hand Comparison: None Findings: No fractures, subluxations or dislocations. No periostitis or bony destruction. Joint intervals are preserved. No marginal erosions or overhanging osteophytes. Ulnar styloid perserved. Normal bone mineralization and soft tissues. Carpal bones unremarkable. No radiopaque foreign body. Impression: 1. No fractures malalignment or significant bony arthritic changes. This document has been electronically signed by: Darinel Carrion MD on 04/01/2025 17:18:14
[2025-04-01 11:08] LABS: MANUAL DIFF FLAG NO
[2025-04-01 12:26] LABS: Basophils Absolute Auto 0.1 X10*3/uL (0.0-0.2); Basophils Percent Auto 0.8 % (0-2); Eosinophils Absolute Auto 0.3 X10*3/uL (0.0-0.4); Eosinophils Percent Auto 5.3 % (0-4); Hematocrit 43.3 % (37.0-47.0); Hemoglobin 14.2 g/dl (12.0-16.0); Imm Gran Abs Auto 0.02 X10*3/uL (0.00-0.03); Imm Gran Pct Auto 0.3 % (0.0-0.4); Lymphocytes Absolute Auto 1.5 X10*3/uL (1.2-4.9); Lymphocytes Percent Auto 24.3 % (20-40); Mean Corpuscular HGB Conc 32.8 g/dl (31.0-35.0); Mean Corpuscular Hemoglobin 27.9 pg (27.0-33.0); Mean Corpuscular Volume 85.1 fL (80.0-98.0); Mean Platelet Volume 9.9 fL (9.4-12.3); Monocytes Absolute Auto 0.6 X10*3/uL (0.1-1.2); Monocytes Percent Auto 8.9 % (2-11); Neutrophils Absolute Auto 3.8 x10*3/uL (2.0-8.3); Neutrophils Percent Auto 60.4 % (45-73); Platelet Count 356 X10*3/uL (160-400); Red Blood Count 5.09 X10*6/uL (4.20-5.50); Red Cell Distribution Width 14.7 % (11.0-16.0); White Blood Count 6.2 X10*3/uL (4.8-10.8)
[2025-04-01 13:23] LABS: Vitamin B12 539 pg/mL (200-900)
[2025-04-01 13:28] LABS: Vitamin D 25-OH Total 27.7 ng/mL (>30)
== END 2025-04-01 09:50 | disposition home or self-care (01) ==
LOC: HO.XRAY 09:49
PROVIDERS: PCP General Practice; Visit Provider Physician Assistant
DX: M79.642 Pain in left hand (principal); I10 Essential (primary) hypertension; R73.03 Prediabetes; E03.9 Hypothyroidism, unspecified; M85.80 Other specified disorders of bone density and structure, unspecified site; M65.332 Trigger finger, left middle finger; F43.20 Adjustment disorder, unspecified; R20.2 Paresthesia of skin; M79.601 Pain in right arm; M79.602 Pain in left arm; Z79.899 Other long term (current) drug therapy; Z13.30 Encounter for screening examination for mental health and behavioral disorders, unspecified
CPT/HCPCS: 36415; 73130; 82306; 82607; 85025; 96127; 99202

== ENCOUNTER 2025-05-11 09:42 | Outpatient (AMB) | payer MEDICARE, OTHER, SELFPAY ==
--- OUTSIDE RECORDS SUMMARY | 2025-03-09 05:00 | XMS_ITS ---
Author Organization [facility] Address [address] [place] [address] Care Team Providers Care Financial Sales Consultant Name Role Phone Chip Bowden MD Primary Care Provider UnavailDavie Puente Unavailable [phone] Gemini Mir [phone] Encounters Encounter Location Date Provider Diagnosis [facility] [address] [place] [address] 03/09/2025 Gemini Mir Plan Of Treatment Next Appt Details Provider Name:Gemini mullins, 05/17/2025 03:15:00 PM, [address] [facility], [address] [place] [address], [address], Progress Notes * Nicci PALMERDOB:1950 (74 yo F)Acc No.[id number]:03/09/2025 Progress Note Patient: Leora ROMEROeranza Provider: Dale Mir DPM :1950 A ge:74 Y S ex:Female Date:03/09/2025 Address[address] [place] Pcp:Chip Bowden MD Subjective: * Chief Complaints: [...] 03/09/2025 Generated for Katia Daley/Tj on: 0 05/11/2025 10:15 AM EDT
[2025-05-11 09:44] VITALS: BP 136/78; PULSE 88; BMI 41.6
--- NOTE | 2025-05-11 09:44 | MHC.OFFVIS ---
Vital Signs 05/11/25 09:44 Height 4 ft 11 in Weight 205 lb 14.588 oz BMI 41.6 BP 136/78 Blood Pressure Location Lt brachial Position Sitting Pulse 88 Intake Visit Reasons: Colonoscopy Screening Intake Note: Nicci presents in office today for colonoscopy screening. CC: Patient c/o chronic diarrhea all of the time and a lot of gas. She states that the medication helps but it does not eradicate the problem. She also c/o lower abdominal pain sometimes 30 mins after eating or before BMs. 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 Accompanied by: Self / Same As Patient Allergies Penicillins Allergy (Intermediate, Verified 05/11/25 09:51) HIVES, ANAPHYLAXIS Beef Containing Products (BEEF CONTAINING PRODUCTS) Allergy (Mild, Verified 05/11/25 09:51) INFLAMMATION caffeine (CAFFEINE) Allergy (Mild, Verified 05/11/25 09:51) UNKNOWN lactose (LACTOSE) Allergy (Mild, Verified 05/11/25 09:51) STOMACH PAIN,DIARRHEA orange Allergy (Mild, Verified 05/11/25 09:51) GEOGRAPHIC TONGUE oxycodone (Percocet) Allergy (Mild, Verified 05/11/25 09:51) Vomiting Pork/Porcine Containing Products (PORK/PORCINE CONTAINING PRODUCTS) Allergy (Mild, Verified 05/11/25 09:51) INFLAMMATION,PAIN Sulfa (Sulfonamide Antibiotics) (SULFA (SULFONAMIDE ANTIBIOTICS)) Allergy (Mild, Verified 05/11/25 09:51) DIARRHEA,VOMITING nut - unspecified (nut) Adverse Reaction (Mild, Verified 05/11/25 09:51) UNKNOWN HPI HPI Colonoscopy Screening: Details: 74-year-old female here for preprocedural meeting to discuss a screening colonoscopy. She was seen in the past by myself for C diff infection but has not been seen since 2021. Her primary care provider is Queta Olson. PMX RAMIN Morbid obesity Hypothyroid GONSALEZ Pre diabetes Hypertension High cholesterol Lumbar spondylosis with myelopathy Osteopenia Urinary incontinence Osteoarthritis of the hip Chronic pain syndrome History of C diff colitis Family history of colon cancer * SURGICAL HISTORY Nerve stimulator for urinary incontinence Removal of ingrown toenail Colonoscopy-2007 Flores= 1 TA, 2016 Flores= negative study, 2017 Flores= negative study, 2020 Mykel= 1 TA Some surgery umbilical Hernia repair Laparoscopic gastric banding Appendectomy Vaginal hysterectomy Tubal ligation * ALLERGIES Penicillin Oxycodone Sulfa * [employer] LABS: Laboratory Tests 11/24/24 04/01/25 10:28 11:06 WBC 6.2 Hgb 14.2 Hct 43.3 Plt Count 356 Estimated GFR > 60 Total Bilirubin 0.7 AST 25 ALT 27 Alkaline Phosphatase 106 TSH 2.84 Free T4 0.94 TODAY'S VISIT Her last scope was in 2020 and she had a TA. She was going to be seen in [place] for her ongoing diarrhea, but they required a colonoscopy and she could not prep and pull this off going back and forth to the hotel, and they said they would not do fecal implant unless she had 3 consecutive episodes of c diff. She continues to have diarrhea which she treats with 3 imodium a day. The only study she has not had is a general food allergy testing, which I will order since her diarrhea never resolved. She has new onset wheezing, and her PCP has tried giving her inhalers but she has not used them as she was fearful of side effects. She has not yet seen a hospice care consultant. She denies any cardiac problems. She has a bladder stimulator implant. She says she has mild sleep apnea. There are no prior problem with anes or sedation. There are no ID problems. Return office visit in 6 weeks to evaluate her allergy testing. [facility] Medical History (Updated 05/11/25 @ 10:12 by KARISHMA MorganC) Diarrhea C. difficile colitis Obesity due to excess calories Morbid obesity with BMI of 45.0-49.9, adult Spondylosis History of Clostridioides difficile colitis Well woman exam ANNABELLA (stress urinary incontinence, female) Urinary urgency Urgency-frequency syndrome Urinary frequency Urinary and fecal incontinence Abdominal pain Colon cancer screening Rectal bleeding BRADFORD (dyspnea on exertion) Adjustment disorder Sacral nerve stimulator present Thrush Shortness of breath Hyperlipidemia LDL goal <100 Hypertension Fatty liver Pre-diabetes Plantar fasciitis Sacroiliitis Lumbosacral spondylosis without myelopathy Carpal tunnel syndrome Sleep apnea NAFL (nonalcoholic fatty liver) Hypothyroidism Irritable bowel syndrome with diarrhea Surgical History (Updated 05/11/25 @ 10:26 by KARISHMA MorganC) H/O umbilical hernia repair H/O midurethral sling procedure S/P placement of nerve stimulator IGTN (ingrowing toe nail) Hx of colonoscopy (~06/05/21) History of thumb surgery History of removal of laparoscopic gastric banding device Hx laparoscopic cholecystectomy S/P panniculectomy H/O bilateral oophorectomy Hx of laparoscopic gastric banding History of laparoscopic appendectomy Hx of vaginal hysterectomy H/O tubal ligation Family History Father Colon cancer Maternal Aunt Colon cancer Paternal Aunt Breast cancer Maternal Aunt Colon cancer Social History Household Members: Spouse Household Members Other:: Housing: House Alcohol intake: never Comment: diehl placed, unable to void Patient Tobacco Use Status: Never used Tobacco e-Cigarette/Vaping Use: Never Used service: No Current occupational status: retired Sexual orientation: Straight/Heterosexual Gender identity: Female Cognitive needs: No Hearing needs: No Vision needs: Yes (reading glasses) Female Reproductive History Menstrual Age of Menarche: 14 Review of Systems Const Denies fatigue, Denies fever(s), Denies night sweats, Denies poor appetite and Denies weight loss Eyes Details: Glasses Reports requires corrective lenses ENT Reports Normal hearing present, Denies dental pain, Denies dysphagia, Denies hearing loss, Denies mouth pain, Denies odynophagia, Denies throat swelling, Denies tongue swelling and Reports other (Dentition adequate) Card Reports no additional complaints Resp Reports no additional complaints GI Details: Denies abdominal pain, Denies melena, Denies bloating, Denies hematochezia, Denies constipation, Denies GI cramping, Denies dysphagia, Denies excessive flatus, Denies early satiety, Denies heartburn, Reports diarrhea, Denies nausea, Denies odynophagia, Denies vomiting and Denies hematemesis Skin/Breast Denies pruritus, Denies lesions, Denies rash and Denies jaundice Neuro Reports Normal hearing present and Denies Abnormal speech present Endo Denies fatigue Aller/Immun Denies throat swelling and Denies tongue swelling Physical Exam Vital Signs: Last Vital Signs Pulse 88 05/11/25 09:44 BP 136/78 05/11/25 09:44 BMI result Body Mass Index 41.6 Const General: cooperative, no acute distress, well developed and well groomed Nutritional Appearance: well nourished and obese morbidly obese Orientation/consciousness: oriented to person, oriented to place and oriented to time Limitations: language barrier and ambulation with cane HEENT Head: Yes normocephalic and Yes atraumatic Eyes General: appearance normal, both eyes and all related structures Pupils: Equal, round and reactive pupils present Neck Neck: Yes normal visual inspection and Yes no lymphadenopathy Thyroid: Thyroid normal Resp Effort & Inspection: normal respiratory effort and able to speak in complete sentences Auscultation: clear to auscultation bilaterally Cardio Rate: regular rate Rhythm: regular rhythm Heart sounds: Normal, physiologic split S2 sound present Peripheral pulses: radial pulses present and posterior tibial pulses present GI Inspection: No distended, Yes Abdominal panniculus present and Yes obesity Palpation (GI): Soft to palpation, nontender, no guarding, not rigid and No hepatosplenomegaly present Percussion: Yes normal to percussion Auscultation: normal bowel sounds Rectal Exam - Female: deferred Abdomen image:  1. surgical scar 2. 3. 4. Skin General skin exam: no rashes or lesions noted, turgor normal, skin not dry, no jaundice, No spider nevi and no striae Rashes: no rashes Nails: normal Neuro General: oriented to person, oriented to place and oriented to time Cranial nerves: Yes Equal, round and reactive pupils present and Yes Normal hearing present Speech: No Abnormal speech present Extrem General: Yes normal to inspection, No clubbing, No cyanosis and No edema Psych Appearance: grossly normal and well kempt Mental Status: mental status grossly normal Speech and movement: Normal speech and movement present Affect: normal affect Attitude: cooperative Thought process: Normal thought process present and not confabulating Thought content: Normal thought content present Insight: Good insight present (Psych) Judgement: Good judgement present (Psych) Assessment & Plan Assessment & Plan (1) Pre-op examination: Code(s): Z01.818 - Encounter for other preprocedural examination Category: Medical (2) Tubular adenoma of colon: Comment: 2020 SCOPE-MYKEL= 2 TA is repeat in 5 years Code(s): D12.6 - Benign neoplasm of colon, unspecified Category: Medical (3) Family history of colon cancer: Comment: Paternal grandmother of colon cancer Code(s): Z80.0 - Family history of malignant neoplasm of digestive organs Category: Medical (4) Morbid obesity with BMI of 40.0-44.9, adult: Code(s): E66.01 - Morbid (severe) obesity due to excess calories; Z68.41 - Body mass index [BMI] 40.0-44.9, adult Category: Medical (5) Diarrhea: Code(s): R19.7 - Diarrhea, unspecified Category: Medical Plan Her last scope was in 2020 and she had a TA. She was going to be seen in [place] for her ongoing diarrhea, but they required a colonoscopy and she could not prep and pull this off going back and forth to the hotel, and they said they would not do fecal implant unless she had 3 consecutive episodes of c diff. She continues to have diarrhea which she treats with 3 imodium a day. The only study she has not had is a general food allergy testing, which I will order since her diarrhea never resolved. She has new onset wheezing, and her PCP has tried giving her inhalers but she has not used them as she was fearful of side effects. She has not yet seen a hospice care consultant. She denies any cardiac problems. She has a bladder stimulator implant. She says she has mild sleep apnea. There are no prior problem with anes or sedation. There are no ID problems. Return office visit in 6 weeks to evaluate her allergy testing. 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
--- OUTSIDE RECORDS SUMMARY | 2025-05-11 10:16 | XMS_ITS | Encounter Summary ---
Author Organization [employer] Address [address] [place] [address] 7 [place] [address] Care Team Providers Care Magazine Writer Name Role Phone Unavailable Primary Care Provider Unavailabl e Encounter Details Date Type Department Care Team ([facility] st Contact Info) Description 04/03/2025 Results Follow-Up [facility] MEDICINE [address] [place] [address] Michell Crandall MD [address] [place] [address] CBC auto differential, Vitamin B12, Vitamin D, 25-Hydroxy, Total, Immunoassay Social History Tobacco Use Types Packs/Day Years Used Date Smoking Tobacco: Never Assessed Comments Unknown Sex and Gender Information Value Date Recorded Sex Assigned at Female 08/12/2022 10:39 AM EDT Legal Sex Female 10:39 AM EDT Gender Identity Female 08/12/2022 10:39 AM EDT Sexual Orientation Choose not to disclose 2021 10:39 AM EDT documented as of this encounter Miscellaneous Notes * Result Encounter Note - Michell Crandall MD - 04/03/2025 11:57 PM EDT Can you call patient and see if she is trying to get into care at [facility]? I dont see any pending appointments or new PT requests.... documented in this encounter Plan of Treatment Not on file documented as of this encounter Visit Diagnoses Not on filedocumented in this encounter
--- OUTSIDE RECORDS SUMMARY | 2025-05-11 10:16 | XMS_ITS | Clinical Summary ---
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 Active ibuprofen 200 mg Cap Take by mouth. Active DOXYLAMINE SUCCINATE ORAL Take 25 mg by mouth. Active Lactobac. rhamnosus GG-inulin 10 billion cell -200 mg CpSP Take 200 mg by mouth daily. Active colestipol (COLESTID) 1 gram tablet TAKE 2 TABLETS BY MOUTH DAILY 60 tablet 3 6 Active cholestyramine (QUESTRAN) 4 gram packetIndication s:Diarrhea, unspecified type Take 1 packet (4 g total) by mouth daily. Take before bed. 30 packet 2 2 Active diphenoxylate-at ropine (LOMOTIL) 2.5-0.025 mg per tablet TAKE 2 TABLETS BY MOUTH 4 TIMES A DAY 240 tablet 4 Active dicyclomine (BENTYL) 10 MG capsule Take 1 capsule (10 mg total) by mouth 2 (two) times a day as needed. 60 capsule 3 5 Active loperamide (ANTI-DIARRHEAL, LOPERAMIDE,) 2 mg tabletIndication s:Diarrhea, unspecified type take 3 tablets by mouth (6mg) daily as needed for diarrhea (ic imodium a-d) 270 tablet 1 5 Active Active Problems No known active problems Encounters Date Type Department Care Team Description 02/24/2025 Refill [facility] Specialties [address] [address] [place] [id number] Atiya Wolf PA-C Medication Refill from Last 3 Months Social History Tobacco Use Types Packs/Day Years Used Date Smoking Tobacco: Never Alcohol Use Standard Drinks/Week Comments Not Asked 0 (1 standard drink = 0.6 oz pur e alcohol) Education Answer Date Recorded Are you interested in more education? Not on enedelia e 02/07/2023 Are you concerned about learning? Not on file 02/07/2023 No 02/07/2023 No 02/07/2023 Digital Access Answer Date Recorded No 03/10/2023 No 03/10/2023 Reliable internet access at home? Not on file 03/10/2023 Device with a working camera? Not on file Comments Unknown Sex and Gender Information Value Date Recorded Sex Assigned at Female 07/21/2023 12:58 PM EDT Legal Sex Female 4:38 PM EDT Gender Identity Female 07/21/2023 12:58 PM EDT Sexual Orientation Straight 07/21/2023 12 :58 PM EDT Last Filed Vital Signs Vital Sign Reading Time Taken Comments Blood Pressure 159/72 11/02/2024 2:01 PM EST Pulse 99 11/02/2024 2:01 PM EST Temperature 36.3 C (97.3 F) 11/02/2024 2:01 PM EST Respiratory Rate - - Oxygen Saturation 96% 11/02/2024 2:01 PM EST Inhaled Oxygen Concentration - - Weight 94.3 kg (207 lb 12.8 oz) 11/02/2024 2:01 PM EST Height 149.9 cm (4' 11 ) 06/29/2015 1:50 PM EDT Body Mass Index 41.97 06/29/2015 1:50 PM EDT Plan of Treatment Upcoming Encounters Date Type Department Care Team (Late st Contact Info) Description 06/13/2025 Hospital Encounter [facility] Endoscopy Department [address] [place] [address] Margaret Ugarte MD, MPH [address] [place] [id number] [email or web address] 06/13/2025 Procedure Pass [facility] Endoscopy Department [address] [place] [address] Scheduled Procedures Name Priority Associated Diagnoses Date/Ti me COLONOSCOPY Diarrhea, unspecified type Hx of Clostridium difficile infection Irritable bowel syndrome with diarrhea Health Maintenance Due Date Last Done Comments LIPID PANEL 1951 TSH LEVEL 1951 HEPATITIS C SCREENING 1969 MAMMOGRAM 1991 COLOGUARD 1996 FIT TEST 1996 FOBT 1996 SIGMOIDOSCOPY 1996 VIRTUAL COLONOSCOPY 1996 ZOSTER VACCINES (1 of 2) 2001 OSTEOPOROSIS SCREENING INITIAL (ONE-TIME) 2016 REPEAT PHQ 11/26/2024 10/26/2024, 10/26/2024 COVID-19 VACCINE ( season) 2024 06/30/2024, 07/24/2023, 07/04/2022, Additional history exists DEPRESSION SCREENING 10/26/2025 10/26/2024, 10/26/19 25 COLONOSCOPY 2025 COLORECTAL CANCER SCREENING 2025 Adult Td,Tdap Booster 09/17/2031 09/17/2021 PNEUMOCOCCAL VACCINES (50+ years) Completed 08/27/2022 RSV VACCINE Completed 08/26/2023 SMOKING STATUS SCREENING (Once After 26 Yrs) Completed 11/02/2024 HEPATITIS A VACCINES Aged Out No long er eligible based on patient's age to complete this topic HIB VACCINES Aged Out No longer eligi ble based on patient's age to complete this topic MENINGOCOCCAL VACCINES (ACWY) Aged Out No longer eligible based on patient's age to complete this topic MENINGOCOCCAL VACCINES (B) Aged Out N o longer eligible based on patient's age to complete this topic Medical Devices Not on file Insurance [facility] MEDICARE SUPPLEMENT MEDICARE PART A & B [facility] [employer] MEDICARE SUPPLEMENT MEDICARE PART A & [place] [place] [address] MEDICARE SUPPLEMENT MEDICARE PART A & [place] [place] [address] MEDICARE SUPPLEMENT MEDICARE PART A & B [employer] MEDICARE SUPPLEMENT MEDICARE PART A & B [employer] MEDICARE SUPPLEMENT MEDICARE PART A & B [facility] [employer] MEDICARE SUPPLEMENT MEDICARE PART A & [place] [id number] [facility] [employer] MEDICARE SUPPLEMENT MEDICARE PART A & [place] [id number] [facility] MEDICARE SUPPLEMENT MEDICARE PART A & B Member Subscriber Plan / Payer (Ef fective 2016-Present) Name:Nicci Hanna Member ID:[id number] Relation to Subscriber:Self Name:Nicci Hanna Subscriber ID:[id number] Payer ID:[id number] Group ID:Not on file Type:Medicare Address: [facility] [employer] [facility] 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 It is not the complete legal health record.[facility]
--- OUTSIDE RECORDS SUMMARY | 2025-05-11 10:16 | XMS_ITS | Patient Health Record ---
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 Name Role Phone Kal (RETIRED) Chip PAUL Primary Care Provide r Unavailable Ovidio Flores Unavailable [phone] EUGENIO GARCIA Unavailable Unavailable Allergies Allergen (clinical [...] Problem Status W/U Status Risk Notes Problem [id number] Encounter for screening for malignant neoplasm of colon (Z12.11) Active confirmed Problem 735150401 History of adenomatous polyp of colon (Z86.010) Active confirmed Problem 038998391 Irritable bowel syndrome with diarrhea (K58.0) Active confirmed Problem Screening for malignant neoplasm of rectum (834156928) Encounter for screening for malignant neoplasm of rectum (Z12.12) Active confirmed Problem 778524642 Family history of colon cancer (Z80.0) Active confirmed Problem 528677404 Clostridium difficile infection (B96.89) Active confirmed Problem 24325790 Diarrhea, unspecified type (R19.7) Active confirmed Problem 61141584 Hypertension, unspecified type (I10) Active confirmed Problem 231574996611995 History of Clostridium difficile infection (Z86.19) Active confirmed Plan Of Treatment Pending Test Test Name Order Date CLOSTRIDIUM DIFF TOXIN A&B (C DIFF) 12/13 CLOSTRIDIUM DIFF TOXIN A&B (C DIFF) 12/2016 CLOSTRIDIUM DIFF TOXIN A&B (C DIFF) 09/13 STOOL WBC 10/04/2014 STOOL WBC 11/15/2016 GIARDIA [...] Date MEDICARE OF [place] [address] [facility] [place] [address] [id number] NICOLE PALMER Self - patient is the insured [facility] INDEMNITY [address] [place] [address] [id number] NICOLE PALMER Self - patient is the insured Medical (General) History Medical History History ICD Code Colonoscopy 10/2007--Tubular adenoma removed; biopsies neg for microscopic colitis; neg. colonoscopy [place] [address] Phillips Hypothyroidism Lap band placed in 2006-ramirez sient weight loss- Dr. Ocampo is planning to remove it IBS--neg. labs for celiac disease in 2013 Denies CO,DM,CVA,Lung disease,renal dise ase Colonoscopy in 02/2013--WNL--no polyps Back pain/arthritis-herniated disc C.diff x2 (2014)--ultimately treated wit h Vancomycin Sleep apnea--had a CPAP but presently no t using it She had a negative colonoscopy with ca i n 2017 Colonoscopy in May with [...] B. She was put on Alosetron by January LISA Meek, [facility] Surgical History Surgery Date(Month/Year) Hysterectomy, subsequent removal of both ovaries and Fallopian tubes Appendectomy Laparoscopies Cholecystectomy Lap band in 2006 Ayah waggoner after weight loss Bladder suspension Hernia repair--umbilical, bilateral ingu inal--Dr. Ocampo 08/2014 Lap band removal 2011
== END 2025-05-11 10:40 | disposition home or self-care (01) ==
LOC: HO.HGI 09:42
PROVIDERS: PCP General Practice; Visit Provider Nurse Practitioner
DX: R19.7 Diarrhea, unspecified (principal); Z86.0101 Personal history of adenomatous and serrated colon polyps; Z80.0 Family history of malignant neoplasm of digestive organs; E66.01 Morbid (severe) obesity due to excess calories; Z68.41 Body mass index [BMI] 40.0-44.9, adult
CPT/HCPCS: 99203

== ENCOUNTER 2025-05-11 09:42 | Outpatient (REF) | payer MEDICARE, OTHER, SELFPAY ==
[2025-05-12 21:19] LABS: Transglutaminase Ab IgG <1.0 U/mL
[2025-05-19 03:54] LABS: Class Almond 0; Class Brazil Nut 0; Class Cashew 0; Class Codfish 0; Class Cow's Milk 0/1; Class Egg white 0/1; Class Hazelnut 0; Class Macadamia Nut 0; Class Peanut 0; Class Salmon 0; Class Scallop 0; Class Sesame Seed 0; Class Shrimp 1; Class Soybean 0; Class Tuna 0; Class Walnut 0; Class Wheat 0; F345-IgE Macadmia Nut <0.10 kU/L
== END 2025-05-11 09:43 | disposition home or self-care (01) ==
LOC: HO.LAB 09:42
PROVIDERS: PCP General Practice; Visit Provider Nurse Practitioner
DX: Z01.818 Encounter for other preprocedural examination (principal); D12.6 Benign neoplasm of colon, unspecified; R19.7 Diarrhea, unspecified; E66.01 Morbid (severe) obesity due to excess calories; Z68.41 Body mass index [BMI] 40.0-44.9, adult; Z80.0 Family history of malignant neoplasm of digestive organs; R14.3 Flatulence; R14.0 Abdominal distension (gaseous)
CPT/HCPCS: 36415; 86003; 86364; 99202

== ENCOUNTER 2025-05-13 09:50 | Outpatient (AMB) | payer MEDICARE, OTHER, SELFPAY ==
--- OUTSIDE RECORDS SUMMARY | 2025-03-09 05:00 | XMS_ITS ---
Author Organization [facility] Address [address] [place] [address] Care Team Providers Care Tire Trucker Name Role Phone Chip Bowden MD Primary Care Provider UnavailDavie Puente Unavailable [phone] Gemini Mir [phone] Encounters Encounter Location Date Provider Diagnosis [facility] [address] [place] [address] 03/09/2025 Gemini Mir Plan Of Treatment Next Appt Details Provider Name:Gemini mullins, 05/17/2025 03:15:00 PM, [address], [address] [place] [address], [phone], Progress Notes * Nicci PALMERDOB:1950 (74 yo F)Acc No.[id number]:03/09/2025 Progress Note Patient: Leora ROMEROeranza Provider: Dale Mir DPM :1950 A ge:74 Y S ex:Female Date:03/09/2025 Address[address] [place] Pcp:Chip Bowden MD Subjective: * Chief Complaints: * * Medical History: Objective: * Vitals: Assessment: Plan: * Treatment: * Images: * The named appointment provid er may or may not be the originator of this progress note, and it is not deemed complete until electronically signed by the appointment provider. Sign off status: Pending * Provider: Dale Mir DPM Date: 0 03/09/2025 Generated for Katia Daley/Tj on: 0 05/13/2025 10:02 AM EDT
[2025-05-13 09:51] VITALS: BMI 42.0
--- NOTE | 2025-05-13 09:51 | A.OFFVIS_ITS ---
Vital Signs 05/13/25 09:51 Height 4 ft 11 in Weight 208 lb BMI 42.0 Intake Visit Reasons: New Problem-Left Middle finger Locking & catching Intake Note: Nicci is a 74 year old right hand dominant female who presents today for a New Problem visit with complaints of Left Middle finger locking, catching, and pain. Patient finds it locks mainly early in the morning and late at night. She takes Meloxicam for other health problems. Patient has a history of left carpal tunnel release, Summer 2023, at [facility], Dr. Berry. She is now experiencing left small finger numbness and tingling. She also complains of right hand numbness and tingling. No EMG on file. Allergies Penicillins Allergy (Intermediate, Verified 05/13/25 09:52) HIVES, ANAPHYLAXIS Beef Containing Products (BEEF CONTAINING PRODUCTS) Allergy (Mild, Verified 05/13/25 09:52) INFLAMMATION caffeine (CAFFEINE) Allergy (Mild, Verified 05/13/25 09:52) UNKNOWN lactose (LACTOSE) Allergy (Mild, Verified 05/13/25 09:52) STOMACH PAIN,DIARRHEA orange Allergy (Mild, Verified 05/13/25 09:52) GEOGRAPHIC TONGUE oxycodone (Percocet) Allergy (Mild, Verified 05/13/25 09:52) Vomiting Pork/Porcine Containing Products (PORK/PORCINE CONTAINING PRODUCTS) Allergy (Mild, Verified 05/13/25 09:52) INFLAMMATION,PAIN Sulfa (Sulfonamide Antibiotics) (SULFA (SULFONAMIDE ANTIBIOTICS)) Allergy (Mild, Verified 05/13/25 09:52) DIARRHEA,VOMITING nut - unspecified (nut) Adverse Reaction (Mild, Verified 05/13/25 09:52) UNKNOWN HPI HPI New Problem-Left Middle finger Locking & catching: Details: Nicci is a 74 year old right hand dominant female who presents today for a New Problem visit with complaints of Left Middle finger locking, catching, and pain. Patient finds it locks mainly early in the morning and late at night. She takes Meloxicam for other health problems. Patient has a history of left carpal tunnel release, Summer 2023, at [facility], Dr. Berry. She is now experiencing left small finger numbness and tingling. She also complains of right hand numbness and tingling. No EMG on file. [facility] Medical History (Updated 05/11/25 @ 10:12 by DEVANG Morgan) Diarrhea C. difficile colitis Obesity due to excess calories Morbid obesity with BMI of 45.0-49.9, adult Spondylosis History of Clostridioides difficile colitis Well woman exam ANNABELLA (stress urinary incontinence, female) Urinary urgency Urgency-frequency syndrome Urinary frequency Urinary and fecal incontinence Abdominal pain Colon cancer screening Rectal bleeding BRADFORD (dyspnea on exertion) Adjustment disorder Sacral nerve stimulator present Thrush Shortness of breath Hyperlipidemia LDL goal <100 Hypertension Fatty liver Pre-diabetes Plantar fasciitis Sacroiliitis Lumbosacral spondylosis without myelopathy Carpal tunnel syndrome Sleep apnea NAFL (nonalcoholic fatty liver) Hypothyroidism Irritable bowel syndrome with diarrhea Surgical History (Updated 05/11/25 @ 10:26 by DEVANG Morgan) H/O umbilical hernia repair H/O midurethral sling procedure S/P placement of nerve stimulator IGTN (ingrowing toe nail) Hx of colonoscopy (~06/05/21) History of thumb surgery History of removal of laparoscopic gastric banding device Hx laparoscopic cholecystectomy S/P panniculectomy H/O bilateral oophorectomy Hx of laparoscopic gastric banding History of laparoscopic appendectomy Hx of vaginal hysterectomy H/O tubal ligation Family History Father Colon cancer Maternal Aunt Colon cancer Paternal Aunt Breast cancer Maternal Aunt Colon cancer Social History (Updated 05/13/25 @ 09:54 by Tayler Paulino Sarai) Household Members: Spouse Household Members Other:: Housing: House Alcohol intake: never Comment: diehl placed, unable to void Patient Tobacco Use Status: Never used Tobacco e-Cigarette/Vaping Use: Never Used service: No Current occupational status: retired Current occupation: rt handed Sexual orientation: Straight/Heterosexual Gender identity: Female Cognitive needs: No Hearing needs: No Vision needs: Yes (reading glasses) Female Reproductive History Menstrual Age of Menarche: 14 Review of Systems Const All systems reviewed & are unremarkable except as noted in HPI and below Physical Exam Vital Signs: BMI result Body Mass Index 42.0 Extrem Other: Patient is alert, oriented, and in no acute distress. Neuro: Normal sensation of the tips of all digits of the left hand at this time Vascular: Cap refill brisk Pain: Tenderness to palpation of the A1 trixie of the left. middle finger Pain associated with locking and catching ROM: Visible palpable locking and catching of the left middle finger noted Skin: No lacerations or abrasions. General: No ecchymosis, erythema, or evidence of infection. Psych: Appears grossly normal Affect normal Attitude cooperative Office Procedures AMB Tendon Injection Tendon Injection [id number]-[id number] Tendon Sheath Injection All charges added?: Procedure code (CPT) selection complete Assessment & Plan Assessment & Plan (1) Trigger finger, left middle finger: Code(s): M65.332 - Trigger finger, left middle finger Category: Medical Plan 1. Trigger finger, left middle finger Educated the patient about this condition Educated the patient about the typical recovery course Patient would like to proceed with steroid injection The risks and benefits of a steroid injection including but not limited to risk of damage to blood vessels, nerves, tendons, infection, skin bleaching, failure to improve symptoms, increased pain, and possible need for further injections or other intervention were discussed with the patient and the patient wishes to proceed with the steroid injection. Once consent was obtained, I sterilely prepped the area over the A1 trixie of the flexor tendon sheath of the left middle finger. I then injected the flexor tendon sheath with a combination of 1 mL of dexamethasone (4mg/ml), and 1% lidocaine. The patient tolerated the procedure well with no complications. If the patient continues to have locking and catching 4-6 weeks following this injection, they may call to schedule appointment to discuss alternative treatment options Follow-up prn Coding Level of Care Code New Pt Level 3 (16793) Diagnoses Trigger finger, left middle finger M65.332 CPT Codes Tendon Injection - Tendon Injection 1: [id number]-[id number] Tendon Sheath Injection ([id number])
--- OUTSIDE RECORDS SUMMARY | 2025-05-13 10:02 | XMS_ITS | Encounter Summary ---
Author Organization [employer] Address [address] [place] [address] 7 [place] [address] Care Team Providers Care Trolley Collector Name Role Phone Unavailable Primary Care Provider Unavailabl e Encounter Details Date Type Department Care Team ([facility] st Contact Info) Description 04/03/2025 Results Follow-Up [facility] MEDICINE [address] [place] [address] Michell Crandall MD [address] [place] [address] CBC auto differential, Vitamin B12, Vitamin D, [...] is trying to get into care at [facility]? I dont see any pending appointments or new PT requests.... documented in this encounter Plan of Treatment Not on file documented as of this encounter Visit Diagnoses Not on filedocumented in this encounter
--- OUTSIDE RECORDS SUMMARY | 2025-05-13 10:02 | XMS_ITS | Clinical Summary ---
Author Organization [facility] Address [address] [facility] [address] [place] [address] Phone Care Team Providers Care Philosophy Faculty Member Name Role Phone Chip Bowden MD Primary [...] Type Department Care Team Description 02/24/2025 Refill [facility] Specialties [address] [address] [place] [id number] Atiya Wolf PA-C Medication Refill from Last [...] st Contact Info) Description 06/13/2025 Hospital Encounter [facility] Endoscopy Department [address] [place] [address] Margaret Ugarte MD, MPH [address] [place] [id number] [email or web address] 06/13/2025 Procedure Pass [facility] Endoscopy Department [address] [place] [address] Scheduled Procedures Name Priority Associated Diagnoses Date/Ti [...] topic Medical Devices Not on file Insurance [facility] MEDICARE SUPPLEMENT MEDICARE PART A & B [facility] EXTENSION MEDICARE SUPPLEMENT MEDICARE PART A & [place] [address] [address] [place] [address] MEDICARE SUPPLEMENT MEDICARE PART A & [place] [place] [address] MEDICARE SUPPLEMENT MEDICARE PART A & B [employer] MEDICARE SUPPLEMENT MEDICARE PART A & B [employer] MEDICARE SUPPLEMENT MEDICARE PART A & B [facility] [employer]ENSION MEDICARE SUPPLE[place] [id number] [facility] EXTENSION MEDICARE [place]PPLE[place]ICARE PART [place] [id number] [facility] MEDICARE SUPPLEMENT MEDICARE PART A & B Member Subscriber Plan / Payer (Ef fective 2016-Present) Name:Nicci Hanna Member ID:[id number] Relation to Subscriber:Self Name:Nicci Hanna Subscriber ID:[id number] Payer ID:[id number] Group ID:Not on file Type:Medicare Address: [facility] Domain Media [facility] [employer] [facility] [address] [place] [address] Care Teams Philosophy Faculty Member Relationship Specialty Start Date End Date Chip Bowden MD [address] [place] [address] [place] [address] PCP - General Internal Medicine 06/29/15 Additional Source Comments The information contained in this document represents components of the legal health record. It is not the complete legal health record.[facility]
--- OUTSIDE RECORDS SUMMARY | 2025-05-13 10:03 | XMS_ITS | Patient Health Record ---
Author Organization [facility] Address [address] [place] [address] Care Team Providers Care Esthetics Instructor Name Role Phone Kal (RETIRED) Chip PAUL Primary Care Provide r Unavailable Ovidio Flores Unavailable [phone] EUGENIO GARCIA Unavailable Unavailable Allergies Allergen (clinical [...] Problem Status W/U Status Risk Notes Problem 542161150 Encounter for screening for malignant neoplasm of colon (Z12.11) Active confirmed Problem 328513815 History of adenomatous polyp of colon (Z86.010) Active confirmed Problem 916651839 Irritable bowel syndrome with diarrhea (K58.0) Active confirmed Problem Screening for malignant neoplasm of rectum (921559278) Encounter for screening for malignant neoplasm of rectum (Z12.12) Active confirmed Problem 012111140 Family history of colon cancer (Z80.0) Active confirmed Problem 746227602 Clostridium difficile infection (B96.89) Active confirmed Problem 84020473 Diarrhea, unspecified type (R19.7) Active confirmed Problem 61015214 Hypertension, unspecified type (I10) Active confirmed Problem 376113830466959 History of Clostridium difficile infection (Z86.19) Active [...] End Date MEDICARE OF [place] [address] [place] [address] [id number] NICOLE PALMER Self - patient is the insured [facility] INDEMNITY [address] [place] [address] [id number] NICOLE PALMER Self - patient is the insured Medical (General) History Medical History History ICD Code Colonoscopy 10/2007--Tubular adenoma removed; biopsies neg for microscopic colitis; neg. colonoscopy [place] [address] Phillips Hypothyroidism Lap band placed in 2006-ramirez sient weight loss- Dr. Ocampo is planning to remove it IBS--neg. labs for celiac disease in 2013 Denies [place],DM,CVA,Lung disease,renal dise ase Colonoscopy in 02/2013--WNL--no polyps [...] put on Alosetron by January LISA Meek, [facility] Surgical History Surgery Date(Month/Year) Hysterectomy, subsequent removal of both ovaries and Fallopian tubes Appendectomy Laparoscopies Cholecystectomy Lap band in 2006 Ayah waggoner after weight loss Bladder suspension Hernia repair--umbilical, bilateral ingu inal--Dr. Ocampo 08/2014 Lap band removal 2011
== END 2025-05-13 10:31 | disposition home or self-care (01) ==
LOC: HO.HOS 09:51
PROVIDERS: PCP General Practice
DX: M65.332 Trigger finger, left middle finger (principal)
CPT/HCPCS: 20550; 99213

== ENCOUNTER → 2025-05-13 09:50 | Outpatient (BNVA) | payer MEDICARE, OTHER, SELFPAY | PROVIDERS: PCP General Practice | DX: M65.332 Trigger finger, left middle finger (principal) | CPT/HCPCS: 20550; 99212; J1100; J2003 ==

== ENCOUNTER 2025-05-25 10:42 | Outpatient (REF) | payer MEDICARE, OTHER, SELFPAY ==
--- OUTSIDE RECORDS SUMMARY | 2025-03-09 05:00 | XMS_ITS ---
Author Organization [facility] Address [address] [place] [address] Care Team Providers Care Application Technical Designer Name Role Phone Chip Bowden MD Primary Care Provider UnavailDavie Puente Unavailable [phone] Gemini Mir [phone] Encounters Encounter Location Date Provider Diagnosis [facility] [address] [place] [address] 03/09/2025 Gemini Mir Plan Of Treatment No Information Progress Notes * SPENCER ElainasagarDOB:1950 (74 yo F)Acc No.[id number]:03/09/2025 Progress Note Patient: Nicci ROMERO Provider: Dale Mir DPM :1950 A ge:74 Y S ex:Female Date:03/09/2025 Address: [address] [id number] Pcp:Chip Bowden MD Subjective: * Chief Complaints: [...] 03/09/2025 Generated for Frantzi ng/Faxing/eTransmitting on: 0 05/25/2025 11:31 AM EDT
--- NOTE | ~2025-05-25 | MM_ITS ---
EXAMINATION: DXA BONE DENSITY AXIAL HISTORY: M85.80 - Other specified disorders of bone density and structure, unspecified... TECHNIQUE: Livevol Dual energy absorptiometry (DEXA) of the lumbar spine, total left hip, and femoral neck was performed. COMPARISON: Comparison is made with the prior examination dated 06/10/2023. FINDINGS: The bone mineral density of the lumbar spine is 1.179 g/cm2, corresponding to a T-score of 0.0, and a Z-score of 0.8. This is indicative of normal bone mineral density. This represents a BMD change of 0.2% compared to the prior exam. This is not statistically significant. The bone mineral density of the left total hip is 0.943 g/cm2, corresponding to a T-score of -0.5, and a Z-score of 0.5. This is indicative of normal bone mineral density. This represents a BMD change of -1.6% compared to the prior exam. This is not statistically significant. The bone mineral density of the left femoral neck is 0.880 g/cm2, corresponding to a T-score of -1.1, and a Z-score of 0.1. This is indicative of osteopenia. This represents a BMD change of 0.1% compared to the prior exam. FRACTURE RISK: The FRAX index suggests a ten year probability of major osteoporotic fracture of 4.9%, and of hip fracture 0.6%. MM/XR DEXA axial skeleton IMPRESSION: Based on bone mineral density, and according to World Health Organization (WHO) criteria, the diagnosis is consistent with osteopenia. Statistically, 68% of repeat scans fall within 1 SD (+/- 0.010 g/cm2 for AP spine L1-L4) and 1 SD (+/- 0.012 g/cm2 for femur total) FRAX is a trademark of the [employer]'s [place] [employer] Metabolic Bone Disease, a World Health Organization (WHO) Collaborating Center. Electronically signed by: Ovidio Vila MD 05/25/2025 11:20 AM EDT
--- OUTSIDE RECORDS SUMMARY | 2025-05-25 11:31 | XMS_ITS | Clinical Summary ---
Author Organization [facility] Address [address] [facility] [address] [place] [address] Phone Care Team Providers Care Chiropractic Neurologist Name Role Phone Chip Bowden MD Primary [...] Type Department Care Team Description 02/24/2025 Refill [facility] Specialties [address] [address] [place] [phone] Atiya Wolf PA-C Medication Refill from Last [...] st Contact Info) Description 06/13/2025 Hospital Encounter [facility] Endoscopy Department [address] [place] [address] Margaret Ugarte MD, MPH [address] [place] [phone] [email or web address] 06/13/2025 Procedure Pass [facility] Endoscopy Department [address] [place] [address] Scheduled Procedures Name Priority Associated Diagnoses Date/Ti [...] topic Medical Devices Not on file Insurance [facility] MEDICARE SUPPLEMENT MEDICARE PART A & B [facility] EXTENSION MEDICARE SUPPLEMENT MEDICARE PART A & [place] [address] [address] MEDICARE SUPPLEMENT MEDICARE PART A & [place] [address] MEDICARE SUPPLEMENT MEDICARE PART A & B [employer] MEDICARE SUPPLEMENT MEDICARE PART A & B [employer] MEDICARE SUPPLEMENT MEDICARE PART A & B [facility] EXTENSION MEDICARE SUPPLEMENT MEDICARE PART [place] [id number] [facility] EX[employer]ENSION MEDICARE SUPPLEMENT MEDICARE PART A & [place] [id number] [facility] MEDICARE SUPPLEMENT MEDICARE PART A & B Care Teams Chiropractic Neurologist Relationship Specialty Start Date End Date Chip Bowden MD [address] [place] [address] [place] [address] PCP - General Internal Medicine 06/29/15 Additional Source Comments The information contained in this document represents components of the legal health record. It is not the complete legal health record.[facility]
--- OUTSIDE RECORDS SUMMARY | 2025-05-25 11:31 | XMS_ITS | Patient Health Record ---
Author Organization [facility] Address [address] [place] [address] Care Team Providers Care Multiple Spindle Router Operator Name Role Phone Kal (RETIRED) Chip PAUL Primary Care Provide r Unavailable Ovidio Flores Unavailable [phone] EUGENIO GARCIA Unavailable Unavailable Allergies Allergen (clinical [...] Problem Status W/U Status Risk Notes Problem 556790435 Encounter for screening for malignant neoplasm of colon (Z12.11) Active confirmed Problem 278917459 History of adenomatous polyp of colon (Z86.010) Active confirmed Problem 828688321 Irritable bowel syndrome with diarrhea (K58.0) Active confirmed Problem Screening for malignant neoplasm of rectum (362153922) Encounter for screening for malignant neoplasm of rectum (Z12.12) Active confirmed Problem 975067304 Family history of colon cancer (Z80.0) Active confirmed Problem 432702037 Clostridium difficile infection (B96.89) Active confirmed Problem 88113158 Diarrhea, unspecified type (R19.7) Active confirmed Problem 77290387 Hypertension, unspecified type (I10) Active confirmed Problem 792687946149934 History of Clostridium difficile infection (Z86.19) Active [...] End Date MEDICARE OF [place] [address] [place] [address] [id number] NICOLE PALMER Self - patient is the insured [facility] INDEMNITY [address] [place] [address] [id number] NICOLE PALMER Self - patient is the insured Medical (General) History Medical History History ICD Code Colonoscopy 10/2007--Tubular adenoma removed; biopsies neg for microscopic colitis; neg. [place] [address] Phillips Hypothyroidism Lap band placed in 2006-ramirez sient weight loss- Dr. Ocampo is planning to remove it IBS--neg. labs for celiac disease in 2013 Denies [place],DM,CVA,Lung disease,renal dise ase Colonoscopy in 02/2013--WNL--no polyps Back pain/arthritis-herniated disc C.diff x2 (2014)--ultimately treated wit h Vancomycin Sleep apnea--had a CPAP but presently no t using it She had a negative colonoscopy with mn i n 2017 Colonoscopy in May with [...] put on Alosetron by January LISA Meek, [facility] Surgical History Surgery Date(Month/Year) Hysterectomy, subsequent removal of both ovaries and Fallopian tubes Appendectomy Laparoscopies Cholecystectomy Lap band in 2006 Ayah waggoner after weight loss Bladder suspension Hernia repair--umbilical, bilateral ingu inal--Dr. Ocampo 08/2014 Lap band removal 2011
== END 2025-05-25 10:43 | disposition home or self-care (01) ==
LOC: HO.MAMMO 10:42
PROVIDERS: PCP Physician Assistant; Visit Provider Physician Assistant
DX: Z13.820 Encounter for screening for osteoporosis (principal); M85.88 Other specified disorders of bone density and structure, other site
CPT/HCPCS: 77080

== ENCOUNTER → 2025-05-25 11:00 | Outpatient (BNV) | payer MEDICARE, OTHER, SELFPAY | PROVIDERS: PCP Physician Assistant; Visit Provider Radiology Diagnostic Radiology | DX: E28.39 Other primary ovarian failure (principal) | CPT/HCPCS: 77080 ==

== ENCOUNTER 2025-06-14 16:13 | Emergency (ER) | payer MEDICARE, OTHER, SELFPAY ==
--- NOTE | ~2025-06-14 | XR_ITS ---
EXAMINATION: XR TOES, LEFT CLINICAL INFORMATION: injury to left 4th toe COMPARISON: None available. TECHNIQUE: AP and lateral left foot and oblique and lateral views of the left toes were obtained. FINDINGS: There is diffuse osteopenia. There is nonspecific focal osteopenia in the medial base of the proximal phalanx of the great toe. Calcaneal enthesophytes present at the plantar fascia and Achilles tendon attachments. There is subtle linear density involving the medial plantar base of the fourth proximal phalanx, and possibly the third third, on the AP foot x-ray Joint spaces are preserved. XR/XR toe LT min 2V IMPRESSION: Osteopenia. There is subtle linear density through the medial plantar base of the fourth proximal phalanx, and possibly the third proximal phalanx. This could be related to the inherent trabecular pattern, but nondisplaced fractures are not entirely ruled out. Electronically signed by: Travis Davis MD 06/14/2025 05:02 PM EDT
[2025-06-14 16:18] VITALS: BP 159/70; PULSE 96; RESP 18; TEMP 36.3; O2SAT 94; BMI 40.8
--- NOTE | 2025-06-14 16:18 | ED_ITS ---
HPI - Extremity Injury (Lower) General Chief Complaint: Extremity Injury, Lower Stated Complaint: Toe injury Time Seen by Provider: 06/14/25 16:19 Source: patient Mode of arrival: ambulatory Limitations: no limitations History of Present Illness ED Provider: SWATI MARTIN PA-C HPI Narrative: 74 year old female with pmhx significant for arthritis presents to the ED today for evaluation of toe pain s/p injury this morning. Reports stubbing left 3rd and 4th toes on a chair this morning. Pain is described as sharp. Typically ambulates with cane at baseline. Takes melixicam daily for chronic pain - this did not alleviate her toe pain. Ambulating seems to exacerbate the pain. Rest improves the pain somewhat. Related Data Home Medications ?Medication ?Instructions ?Recorded ?Confirmed albuterol sulfate 90 mcg/actuation 2 puff inhalation Q 4H PRN 01/13/25 04/01/25 aerosol inhaler Shortness Of Breath Or Wheez ing dicyclomine 10 mg capsule 10 mg PO BID PRN Gastrointes tinal 01/13/25 04/01/25 Spasms Or Cramping diphenhydramine HCl 50 mg capsule 50 mg PO BEDTIME 04/01/25 (Unisom SleepGels) loperamide 2 mg capsule 6 mg PO DAILY diarrhea 05/11 Previous Rx's ?Medication ?Instructions ?Recorded Synthroid 50 mcg tablet 50 mcg PO DAILY #90 tabs (levothyroxine) amlodipine 5 mg tablet 5 mg PO DAILY #90 tabs 01/20 cholecalciferol (vitamin D3) 50 50 mcg PO DAILY #90 ca ps 04/01/25 mcg (2,000 unit) capsule fluticasone 100 mcg-salmeterol 50 1 inh inhalation BID #60 ea 04/01/25 mcg/dose blistr powdr for inhalation sodium,potassium,mag sulfates 17.5 480 ml PO .COMPLEX #354 mL 05/11/25 gram-3.13 gram-1.6 gram oral soln (Suprep Bowel Prep Kit) meloxicam 7.5 mg tablet 7.5 mg PO BID #180 tabs 05/14 03/06 Allergies Allergy/AdvReac Type Severity Reaction Status Date / Time Penicillins Allergy Intermediate HIVES, Verified 06/14/25 16:20 ANAPHYLAXIS Beef Containing Products Allergy Mild INFLAMMATIO Verified 06/14/25 16:20 (BEEF CONTAINING PRODUCTS) N caffeine (CAFFEINE) Allergy Mild UNKNOWN Verified 06/14/25 16:20 lactose (LACTOSE) Allergy Mild STOMACH Verified 06/14/25 16:20 PAIN,DIARRHEA orange Allergy Mild GEOGRAPHIC Verified 06/14/25 16:20 TONGUE oxycodone (Percocet) Allergy Mild Vomiting Verified 06/14/25 16:20 Pork/Porcine Containing Allergy Mild INFLAMMATIO Verified 06/14/25 16:20 Products (PORK/PORCINE N,PAIN CONTAINING PRODUCTS) Sulfa (Sulfonamide Allergy Mild DIARRHEA,VO Verified 06/14/25 16:20 Antibiotics) (SULFA MITING (SULFONAMIDE ANTIBIOTICS)) nut - unspecified (nut) AdvReac Mild UNKNOWN Verified 06/14/25 16:20 Review of Systems Review of Systems: Yes all other systems are reviewed and are negative [facility] Past Medical History Attestation statement: The following information was validated with the patient. Source: old records reviewed and nursing notes reviewed Medical History Diarrhea C. difficile colitis Obesity due to excess calories Morbid obesity with BMI of 45.0-49.9, adult Spondylosis History of Clostridioides difficile colitis Well woman exam ANNABELLA (stress urinary incontinence, female) Urinary urgency Urgency-frequency syndrome Urinary frequency Urinary and fecal incontinence Abdominal pain Colon cancer screening Rectal bleeding BRADFORD (dyspnea on exertion) Adjustment disorder Sacral nerve stimulator present Thrush Shortness of breath Hyperlipidemia LDL goal <100 Hypertension Fatty liver Pre-diabetes Plantar fasciitis Sacroiliitis Lumbosacral spondylosis without myelopathy Carpal tunnel syndrome Sleep apnea NAFL (nonalcoholic fatty liver) Hypothyroidism Irritable bowel syndrome with diarrhea Surgical History H/O umbilical hernia repair H/O midurethral sling procedure S/P placement of nerve stimulator IGTN (ingrowing toe nail) Hx of colonoscopy (~06/05/21) History of thumb surgery History of removal of laparoscopic gastric banding device Hx laparoscopic cholecystectomy S/P panniculectomy H/O bilateral oophorectomy Hx of laparoscopic gastric banding History of laparoscopic appendectomy Hx of vaginal hysterectomy H/O tubal ligation Family History Family History Father Colon cancer Maternal Aunt Colon cancer Paternal Aunt Breast cancer Maternal Aunt Colon cancer Social History Social History Household Members: Spouse Household Members Other:: Housing: House Alcohol intake: never Comment: diehl placed, unable to void Patient Tobacco Use Status: Never used Tobacco e-Cigarette/Vaping Use: Never Used Advance Directives: No Advance Directives Information Provided: No service: No Current occupational status: retired Current occupation: rt handed Sexual orientation: Straight/Heterosexual Gender identity: Female Cognitive needs: No Hearing needs: No Vision needs: Yes (reading glasses) Physical Exam Vital Signs: Vital Signs: Last Vital Signs Temp 97.3 F 06/14/25 17:09 Pulse 91 06/14/25 17:09 Resp 18 06/14/25 17:09 BP 142/70 H 06/14/25 17:09 Pulse Ox 95 06/14/25 17:09 O2 Del Method Room Air 06/14/25 17:09 BMI result Body Mass Index 40.8 hypertensive, vitals are otherwise wnl General: Well appearing, in no acute distress. Skin: Warm, dry, intact. No rashes or lesions. Head: Normocephalic, atraumatic. EENT: Hearing is intact b/l. Conjunctiva clear. PERRLA. EOM intact. Moist mucous membranes.? Cardiac: Chest wall symmetric. RRR Lungs: Normal respiratory effort without accessory muscle use. CTA bilaterally Back: No midline spinous or paraspinal tenderness. No step off deformity. Ext: +small area of bruising noted to left 3rd toe. no other sign changes. no obvious deformity. limited ROM to 3rd/4th toes d/t pain. ttp. sensation intact. ambulating with slight limping gait assisted by cane. Neuro: AOx3. Normal speech Course Course Course Narrative: xr left foot showing: XR toe LT min 2V IMPRESSION: Osteopenia. There is subtle linear density through the medial plantar base of the fourth proximal phalanx, and possibly the third proximal phalanx. This could be related to the inherent trabecular pattern, but nondisplaced fractures are not entirely ruled out. Given MICHAEL and point tenderness, will treat as fracture. left 3rd/4th toes mazin taped. placed in post-op shoe for comfort. advised nsaids and RICE thearpy. Patient has remained stable throughout ED visit today. Discussed worrisome signs and symptoms and when to return to the ED. All questions answered at this time. Patient is agreeable with disposition and stable for discharge. Medications Administered Discontinued Medications Generic Name Dose Route Start Last Admin Trade Name Dilshad PRN Reason Stop Dose Admin Ibuprofen 600 mg 06/14/25 16:40 06/14/25 17:23 Ibuprofen 600 Mg Tablet PO 06/14/25 16:41 600 mg ONCE ONE Administration Medical Decision Making Medical Decision Making MDM Narrative: 74 year old female with pmhx significant for arthritis presents to the ED today for evaluation of toe pain s/p injury this morning. she is hypertensive, vitals are otherwise wnl. she is well appearing and in NAD. on exam of left foot, small area of bruising noted to left 3rd toe. no other sign changes. no obvious deformity. limited ROM to 3rd/4th toes d/t pain. ttp. sensation intact. ambulating with slight limping gait assisted by cane. Differential diagnosis fracture, contusion, arthritis, dislocation Plan for xrays, pain control and re-evaluation. Differential Diagnosis Differential Diagnoses: The differential diagnosis associated with the presentation includes as above. Admission/Observation not indicated. Independent Interpretation I performed an independent interpretation of an: Plain X-Ray Interpretation: xr left foot without obvious fracture Radiology Impression Discussion of test interpretation with radiology: I have reviewed the radiologi st's reading. Radiologist Impression: Date of Service: 06/14/25 Procedure(s): XR toe LT min 2V Accession Number(s): [id number] cc: Queta Olson; Swati Martin~ Reason for Exam: injury to left 4th toe EXAMINATION: XR TOES, LEFT CLINICAL INFORMATION: injury to left 4th toe COMPARISON: None available. TECHNIQUE: AP and lateral left foot and oblique and lateral views of the left toes were obtained. FINDINGS: There is diffuse osteopenia. There is nonspecific focal osteopenia in the medial base of the proximal phalanx of the great toe. Calcaneal enthesophytes present at the plantar fascia and Achilles tendon attachments. There is subtle linear density involving the medial plantar base of the fourth proximal phalanx, and possibly the third third, on the AP foot x-ray Joint spaces are preserved. XR/XR toe LT min 2V IMPRESSION: Osteopenia. There is subtle linear density through the medial plantar base of the fourth proximal phalanx, and possibly the third proximal phalanx. This could be related to the inherent trabecular pattern, but nondisplaced fractures are not entirely ruled out. Electronically signed by: Travis Davis MD 06/14/2025 05:02 PM EDT Independent Historian Clinical information obtained from an independent historian. History obtained from or confirmed by: Spouse External Record Review External record reviewed: Inpatient record Prescription Management I considered prescription management with: Pain Medication Social Determinants Patient?s care significantly limited by Social Determinants of Health including: Other Social Determinant of Health Procedures Orthopedic Splinting/Casting Injury #1: Side: left Lower Extremity Injury Location: toe Lower Extremity Immobilizer: post-op shoe and mazin tape Critical Care Time Critical Care Time Critical Care Time: No Discharge Plan Discharge Clinical Impression: Fracture of toe of left foot Patient Disposition: Home, Self-Care Instructions: Toe Fracture (ED), Post Surgical Shoe (ED) Additional Instructions: You were evaluated in the ED today after stubbing your left 3rd and 4th toes. The x-ray of your left foot shows possible fracture to these toes. We have mazin taped them to stabilize them. We have placed you in a postop shoe for comfort and to alleviate the pressure on your toes. Make sure you rest, ice, elevate your left foot. Continue meloxicam at home. Follow up with your investigations director. Return with any new or worsening symptoms. In the case of an emergency call 911. Prescriptions: No Action cholecalciferol (vitamin D3) 50 mcg (2,000 unit) capsule 50 mcg PO DAILY Qty: 90 1RF meloxicam 7.5 mg tablet 7.5 mg PO BID Qty: 180 1RF levothyroxine [Synthroid] 50 mcg tablet 50 mcg PO DAILY Qty: 90 3RF Rx Instructions: TEE - no substitions Brand name medically necessary loperamide 2 mg capsule 6 mg PO DAILY Patient Comments: Takes x3 albuterol sulfate 90 mcg/actuation HFA aerosol inhaler 2 puff inhalation Q4H PRN (Reason: Shortness Of Breath Or Wheezing) dicyclomine 10 mg capsule 10 mg PO BID PRN (Reason: Gastrointestinal Spasms Or Cramping) sodium,potassium,mag sulfates [Suprep Bowel Prep Kit] 17.5-3.13-1.6 gram recon soln 480 ml PO .COMPLEX Qty: 354 0RF Rx Instructions: 480 mL orally; FOR COLONOSCOPY PREP diphenhydramine HCl [Unisom SleepGels] 50 mg capsule 50 mg PO BEDTIME fluticasone propion-salmeterol 100-50 mcg/dose blister with device 1 inh inhalation BID Qty: 60 5RF amlodipine 5 mg tablet 5 mg PO DAILY Qty: 90 3RF Referrals: Queta Olson PA [Primary Care Provider, Hospitalist] Print Language: Khmer
--- OUTSIDE RECORDS SUMMARY | 2025-06-14 17:00 | XMS_ITS | Clinical Summary ---
Author Organization [facility] Address [address] [place] [address] Phone Care Team Providers Care Heading Maker Name Role Phone Chip Bowden MD [...] Encounters Date Type Department Care Team Description 06/13/2025 Procedure Pass [facility] Endoscopy Department [address] [place] [address] 06/13/2025 Hospital Encounter [facility] Endoscopy Department [address] [place] [address] Margaret Ugarte MD, MPH from Last 3 Months Social History Tobacco [...] 06/29/2015 1:50 PM EDT Plan of Treatment Health Maintenance Due Date Last Done Comments LIPID PANEL 1951 TSH LEVEL 1951 HEPATITIS C SCREENING 1969 MAMMOGRAM 1991 COLOGUARD 1996 FIT TEST 1996 FOBT 1996 SIGMOIDOSCOPY 1996 VIRTUAL COLONOSCOPY 1996 ZOSTER VACCINES (1 of 2) 2001 OSTEOPOROSIS SCREENING INITIAL (ONE-TIME) 2016 REPEAT PHQ 11/26/2024 10/26/2024, 10/26/2024 COVID-19 VACCINE ( season) 2024 06/30/2024, 07/24/2023, 07/04/2022, Additional history exists INFLUENZA VACCINE (#1) 2025 , 07/04/2022, 06/21/2021, Additional history exists DEPRESSION SCREENING 10/26/2025 10/26/2024, [...] topic Medical Devices Not on file Insurance [employer] [facility] [employer] MEDICARE SUPPLEMENT MEDICARE PART A & B [facility] MEDICARE SUPPLEMENT MEDICARE PART A & B [facility] MEDICARE SUPPLEMENT MEDICARE PART A & B [facility] MEDICARE SUPPLEMENT MEDICARE PART A & [place] [address] [address] EXTENSION MEDICARE SUPPLEMENT MEDICARE PART A & [place] [address] [employer] MEDICARE SUPPLEMENT MEDICARE PART A & B MEDICARE SUPPLEMENT MEDICARE PART A & [place] [address] [address] [place] [address] MEDICARE SUPPLEMENT MEDICARE PART A & [place] [id number] [facility] [employer] MEDICARE SUPPLEMENT MEDICARE PART A & B Care Teams Heading Maker Relationship Specialty Start Date End Date Chip Bowden MD [address] [place] [address] [place] [address] PCP - General Internal Medicine 06/29/15 Additional Source Comments The information contained in this document represents components of the legal health record. It is not the complete legal health record.[facility]
--- OUTSIDE RECORDS SUMMARY | 2025-06-14 17:00 | XMS_ITS | Encounter Summary ---
Author Organization [facility] Address [address] [place] [address] Phone Care Team Providers Care Art Conservator Name Role Phone Chip Bowden MD Primary Care Provider Encounter Details Date Type Department Care Team (Late st Contact Info) Description 02/12/2023 Procedure Pass [facility] [address] [place] [address] Social History Tobacco Use Types Packs/Day Years Used Date Smoking Tobacco: Never Alcohol Use Standard Drinks/Week Comments Not Asked 0 (1 standard drink = 0.6 oz pur e alcohol) Education Answer Date Recorded Are you interested in more education? Not on enedelia e 02/07/2023 Are you concerned about learning? Not on file 02/07/2023 No 02/07/2023 No 02/07/2023 Comments Unknown Sex and Gender Information Value Date Recorded Sex Assigned at Female 07/21/2023 12:58 PM EDT Legal Sex Female 4:38 PM EDT Gender Identity Female 07/21/2023 12:58 PM EDT Sexual Orientation Straight 07/21/2023 12 :58 PM EDT documented as of this encounter Plan of Treatment Not on file documented as of this encounter Visit Diagnoses Not on filedocumented in this encounter Care Teams Art Conservator Relationship Specialty Start Date End Date Chip Bowden MD [address] [place] [address] [place] [address] PCP - General Internal Medicine 06/29/15 documented as of this encounter Additional Source Comments The information contained in this document represents components of the legal health record. It is not the complete legal health record.[facility]
--- OUTSIDE RECORDS SUMMARY | 2025-06-14 17:00 | XMS_ITS | Encounter Summary ---
Author Organization [facility] Address [address] [place] [address] Phone Care Team Providers Care Instrumentation And Control Technician Name Role Phone Chip Bowden MD Primary Care Provider Encounter Details Date Type Department Care Team (Late st Contact Info) Description 06/13/2025 Hospital Encounter [facility] Endoscopy Department [address] [place] [address] Margaret Ugarte MD, MPH [address] [place] [phone] [email or web address] Social History Tobacco Use Types Packs/Day Years [...] Diagnoses Not on filedocumented in this encounter Additional Health Concerns Assessment Noted Time PHQ-9 Depression Total Score: 19 025 9:23 PM EST PHQ-2 Depression Total Score: 5 10/26/19 25 9:23 PM EST documented as of this encounter Care Teams Instrumentation And Control Technician Relationship Specialty Start Date End Date Chip Bowden MD [address] [place] [address] [place] [address] PCP - General Internal Medicine 06/29/15 documented as of this encounter Additional Source Comments The information contained in this document represents components of the legal health record. It is not the complete legal health record.[facility]
--- OUTSIDE RECORDS SUMMARY | 2025-06-14 17:00 | XMS_ITS | Encounter Summary ---
Author Organization [facility] Address [address] [place] [address] Phone Care Team Providers Care Aids Counselor Name Role Phone Chip Bowden MD Primary Care Provider Encounter Details Date Type Department Care Team (Late st Contact Info) Description 06/13/2025 Procedure Pass [facility] Endoscopy Department [address] [place] [address] Social History Tobacco Use Types Packs/Day Years [...] documented as of this encounter Care Teams Aids Counselor Relationship Specialty Start Date End Date Chip Bowden MD [address] [place] [address] [place] [address] PCP - General Internal Medicine 06/29/15 documented as of this encounter Additional Source Comments The information contained in this document represents components of the legal health record. It is not the complete legal health record.[facility]
[2025-06-14 17:09] VITALS: BP 142/70; PULSE 91; RESP 18; TEMP 36.3; O2SAT 95
[2025-06-14 18:05] VITALS: BP 142/70; PULSE 91; RESP 18; TEMP 36.3; O2SAT 95
== END 2025-06-14 18:09 | disposition home or self-care (01) ==
PROVIDERS: Emergency Provider Emergency Medicine; PCP Physician Assistant
DX: M79.675 Pain in left toe(s) (principal); S92.412A Displaced fracture of proximal phalanx of left great toe, initial encounter for closed fracture; W18.40XA Slipping, tripping and stumbling without falling, unspecified, initial encounter; Y93.9 Activity, unspecified; Y92.9 Unspecified place or not applicable; Y99.9 Unspecified external cause status
CPT/HCPCS: 73660; 99283

== ENCOUNTER → 2025-06-14 16:19 | Outpatient (BNV) | payer MEDICARE, OTHER, SELFPAY | PROVIDERS: Emergency Provider Emergency Medicine; PCP Physician Assistant; Visit Provider Radiology Diagnostic Radiology | DX: S90.122A Contusion of left lesser toe(s) without damage to nail, initial encounter (principal) | CPT/HCPCS: 73660 ==

== ENCOUNTER 2025-06-16 12:17 | Outpatient (REF) | payer MEDICARE, OTHER, SELFPAY ==
--- OUTSIDE RECORDS SUMMARY | 2024-08-26 09:45 | XMS_ITS ---
Author Organization [facility] Address [address] [place] [address] Care Team Providers Care Heel Lining Paster Name Role Phone Chip Bowden MD Primary Care Provider UnavailDavie Puente Unavailable [phone] Gemini Mir [phone] Encounters Encounter Location Date Provider Diagnosis [facility] [address] [place] [address] 08/26/2024 Gemini Mir Plan Of Treatment No Information Progress Notes * SPENCER ElainasagarDOB:1950 (74 yo F)Acc No.[id number]:08/26/2024 Progress Notes Patient: Nicci ROMERO Provider: Dale Mir DPM :1950 A ge:73 Y S ex:Female Date:08/26/2024 Address: [address] [id number] Pcp:Chip Bowden MD Subjective: * Chief Complaints: * * Medical History: Objective: * Vitals: Assessment: Plan: * Treatment: * Images: * The named appointment provid er may or may not be the originator of this progress note, and it is not deemed complete until electronically signed by the appointment provider. Sign off status: Pending * Provider: Dale Mir DPM Date: 10/26/2023 Generated for Frantzi ng/Faxing/eTransmitting on: 0 06/16/2025 01:42 PM EDT
--- OUTSIDE RECORDS SUMMARY | 2025-03-09 05:00 | XMS_ITS ---
Author Organization [facility] Address [address] [place] [address] Care Team Providers Care Plate Inspector Name Role Phone Chip Bowden MD Primary Care Provider UnavailDavie Puente Unavailable [phone] Gemini Mir [phone] Encounters Encounter Location Date Provider Diagnosis [facility] [address] [place] [address] 03/09/2025 Gemini Mir Plan Of Treatment No Information Progress Notes * SPENCER ElainasagarDOB:1950 (74 yo F)Acc No.[id number]:03/09/2025 Progress Note Patient: Nicci ROMERO Provider: Dale Mir DPM :1950 A ge:74 Y S ex:Female Date:03/09/2025 Address: [address] [id number] Pcp:Chip Bowden MD Subjective: * Chief Complaints: [...] 03/09/2025 Generated for Frantzi ng/Faxing/eTransmitting on: 0 06/16/2025 01:42 PM EDT
--- OUTSIDE RECORDS SUMMARY | 2025-06-16 13:42 | XMS_ITS | Patient Health Record ---
Author Organization [facility] Address [address] [place] [address] Care Team Providers Care Dredge Or Barge Shore Hand Name Role Phone Kal (RETIRED) Chip PAUL Primary Care Provide r Unavailable Ovidio Flores Unavailable [phone] EUGENIO GARCIA Unavailable Unavailable Allergies Allergen (clinical [...] Problem Status W/U Status Risk Notes Problem 557592918 Encounter for screening for malignant neoplasm of colon (Z12.11) Active confirmed Problem 328935560 History of adenomatous polyp of colon (Z86.010) Active confirmed Problem 549464646 Irritable bowel syndrome with diarrhea (K58.0) Active confirmed Problem Screening for malignant neoplasm of rectum (554641592) Encounter for screening for malignant neoplasm of rectum (Z12.12) Active confirmed Problem 513490565 Family history of colon cancer (Z80.0) Active confirmed Problem 629059513 Clostridium difficile infection (B96.89) Active confirmed Problem 43895910 Diarrhea, unspecified type (R19.7) Active confirmed Problem 22651608 Hypertension, unspecified type (I10) Active confirmed Problem 169534889831330 History of Clostridium difficile infection (Z86.19) Active [...] End Date MEDICARE OF [place] [address] [facility] [place] [address] [id number] NICOLE PALMER Self - patient is the insured [facility] INDEMNITY [address] [place] [address] [id number] NICOLE PALMER Self - patient is the [...] it She had a negative colonoscopy with ky i n 2017 Colonoscopy in May with [...] put on Alosetron by January LISA Meek, [facility] Surgical History Surgery Date(Month/Year) Hysterectomy, subsequent removal of both ovaries and Fallopian tubes Appendectomy Laparoscopies Cholecystectomy Lap band in 2006 Ayah waggoner after weight loss Bladder suspension Hernia repair--umbilical, bilateral ingu inal--Dr. Ocampo 08/2014 Lap band removal 2011
[2025-06-16 13:43] LABS: Appearance Urine Clear; Glucose Urine UA Negative (Negative); PH 7.0 (5.0-9.0); Specific Gravity - Urine <= 1.005 (1.005-1.025); UMIC TRIGGER UA YES
--- OUTSIDE RECORDS SUMMARY | 2025-06-16 13:43 | XMS_ITS | Clinical Summary ---
Author Organization [employer] Address [address] [place] [address] 7t [place] [address] Care Team Providers Care Relationship Mgr Name Role Phone Unavailable Primary Care Provider Unavailabl e Encounters Date Type Department Care Team Description 04/03/2025 Results Follow-Up [facility] [address] [facility] [place] [address] Michell Crandall MD CBC auto differential, Vitamin B12, Vitamin D, 25-Hydroxy, Total, Immunoassay, Food and Tree Nut Allergy Panel with Reflex to Components from Last 3 Months Immunizations Immunization Administration Dates Next Due Influenza Quadrivalent Adjuvanted [...] 1969 Zoster Vaccines (1 of 2) 2001 COVID-19 Vaccine ( season) 2025 06/30/2024, 07/24/2023, 07/04/2022, Additional history exists Influenza Vaccine (#1) 2025 , 07/04/2022, 07/25/2021, Additional history exists Mammogram 01/03/2027 01/03/2025 DTaP/Tdap/Td Vaccines (2 - Td or Tdap) 09/17/2031 09/17/2021 Pneumococcal Vaccine: 50+ Years Completed 08/27/2022 RSV Patients and Patients Aged 60 years or older Completed 08/26/2023 HIB Vaccines Aged Out No longer eligi [...] patient's age to complete this topic Meningococcal B Vaccine Aged Out No l onger eligible based on patient's age to complete [...] Procedure Name Priority Date/Time Associated Diagnosis Comments FOOD AND TREE NUT ALLERGY PANEL WITH REFLEX TO COMPONENT Routine 05/11/2025 11:35 AM EDT VITAMIN D,25-OH,TOTAL,IA Routine 04/01/2025 11:06 AM EDT VITAMIN B12 Routine 04/01/2025 11:06 AM EDT CBC WITH AUTO DIFFERENTIAL Routine 04/01/2025 11:06 AM EDT BI MAMMOGRAM SCREENING TOMOSYNTHESIS BILATERAL Routine 01/03/2025 3:30 PM EDT from Last 3 Months or Most Recently Relevant to Health Maintenance Results * (ABNORMAL) Food and Tree Nut Allergy Panel with Reflex to Components (05/11/2025 11:35 AM EDT) Egg White (F1) IgE 0.16(A) kU/L [facility] Cow's Milk (F2) IgE 0.13(A) kU/L [facility] Codfish (F3) IgE <0.10 kU/L [facility] Wheat (F4) IgE <0.10 kU/L [facility] Sesame Seed (F10) IgE <0.10 kU/L [facility] Peanut (F13) IgE <0.10 kU/L [facility] Soybean (F14) IgE <0.10 kU/L [facility] Hazelnut (F17) IgE <0.10 kU/L [facility] Powderly (F20) IgE <0.10 kU/L [facility] Shrimp (F24) IgE 0.42(A) kU/L [facility] Tuna (F40) IgE <0.10 kU/L [facility] [id number] [place] <0.10 kU/L [facility] V246-EyV Scallop <0.10 kU/L [facility] Class 0 [facility] Comment:THIS TEST WAS PERFOR MED AT:[facility] [address] [phone] JULIEN MD Class 0 [facility] Comment:THIS TEST WAS PERFOR MED AT:[facility] [address] [phone] JULIEN MD Powderly Class 0 [facility] Comment:THIS TEST WAS PERFOR MED AT:[facility] [address] DELISA JULIEN MD Class 0 [facility] Comment:THIS TEST WAS PERFOR MED AT:[facility] [address] [phone] JULIEN MD Class 1 [facility] Comment:THIS TEST WAS PERFOR MED AT:[facility] [address] [address]THERPWILLIAM JULIEN MD Class 0 [facility] Comment:THIS TEST WAS PERFOR MED AT:[facility] [address] DELISA JULIEN MD Class 0 [facility] Comment:THIS TEST WAS PERFOR MED AT:[facility] [address] [phone] JULIEN MD Class 0/1 [facility] Comment:THIS TEST WAS PERFOR MED AT:[facility] [address] DELISA JULIEN MD Class 0/1 [facility] Comment:THIS TEST WAS PERFOR MED AT:[facility] [address] [address]ADAVVWILLIAM JULIEN MD Class 0 [facility] Comment:THIS TEST WAS PERFOR MED AT:[facility] [address] DELISA JULIEN MD Class 0 [facility] Comment:THIS TEST WAS PERFOR MED AT:[facility] [address] DELISA JULIEN MD Class 0 [facility] Comment:THIS TEST WAS PERFOR MED AT:[facility] [address] DELISA JULIEN MD Class 0 [facility] Comment:THIS TEST WAS PERFOR MED AT:[facility] [address] [phone] JULIEN MD Cashew Nut (F202) IgE <0.10 kU/L [facility] Macadamia Nut (RF345) IgE <0.10 kU/L [facility] Class 0 [facility] Comment:THIS TEST WAS PERFOR MED AT:[facility] [address] [phone] JULIEN MD [place] (F41) IgE <0.10 kU/L [facility] Goode Nut (F18) IgE <0.10 kU/L [facility] Class 0 [facility] Comment:THIS TEST WAS PERFOR MED AT:[facility] [address] DELISA JULIEN MD Class 0 [facility] Comment:THIS TEST WAS PERFOR MED AT:[facility] [address] [phone] JULIEN MD Class 0 [facility] Comment:THIS TEST WAS PERFOR MED AT:[facility] [address] DELISA JULIEN MD 05/11/2025 11:3 5 AM EDT 05/11/2025 12:16 PM EDT Generic External Data Provider LAB BLOOD ORDERAB LES Final Result [facility] [address] [place] [address] [phone] * (ABNORMAL) Vitamin D, 25-Hydroxy, Total, Immunoassay (04/01/2025 11:06 AM EDT) Vitamin D 25-OH Total 27.7(L) >30 ng/mL [facility] Comment: Health Based Reference Values*< 20 ng/mL Zwujquvnr98-95 ng/mL Insufficient> 30 ng/mL Sufficient*Echo ARTEAGA. N Engl J Med. 2007;357:266-280There is no well-established upper level of normal vitamin Dlevels. Some laboratories use 50 ng/mL as an upper limit ofnormal. However, toxicity is patient-dependent and may occurat any level. Careful correlation with the patient'spresentation is necessary and, if there is concern forvitamin D toxicity, treatment should be consideredirrespective of the serum level.Care must be taken in interpreting Vitamin D results fromdifferent laboratories and methodologies. Published datademonstrated that results from patients undergoinghemodialysis may show a negative bias when tested withvarious automated 25-OH vitamin D assays when compared toLC-MS/MS.When testing samples from patients whose predominant form ofVitamin D is Vitamin D2, such as patients receiving VitaminD2 supplementation, results that are subtherapeutic shouldbe confirmed with another method such as LC-MS/MS. 04/01/2025 11:0 6 AM EDT 04/01/2025 11:06 AM EDT us Generic External Data Provider LAB BLOOD ORDERAB LES Final Result [facility] [address] [place] [phone] * (ABNORMAL) CBC auto differential (04/01/2025 11:06 AM EDT) White Blood Count 6.2 4.8 - 10.8 X10*3/uL [facility] Red Blood Count 5.09 4.20 - 5.50 X10*6/uL [facility] Hemoglobin 14.2 12.0 - 16.0 g/dl [facility] Hematocrit 43.3 37.0 - 47.0 % [facility] Mean Corpuscular Volume 85.1 80.0 - 98.0 fL [facility] Mean Corpuscular Hemoglobin 27.9 27.0 - 33.0 pg [facility] Mean Corpuscular HGB Conc 32.8 31.0 - 35.0 g/dl [facility] Red Cell Distribution Width 14.7 11.0 - 16.0 % [facility] Platelet Count 356 160 - 400 X10*3/uL [facility] Mean Platelet Volume 9.9 9.4 - 12.3 fL [facility] Neutrophils Percent Auto 60.4 45 - 73 % [facility] Imm Gran Pct Auto 0.3 0.0 - 0.4 % [facility] Lymphocytes Percent Auto 24.3 20 - 40 % [facility] Monocytes Percent Auto 8.9 2 - 11 % [facility] Eosinophils Percent Auto 5.3(H) 0 - 4 % [facility] Basophils Percent Auto 0.8 0 - 2 % [facility] NRBC Pct Auto 0.0 0.0 - 0.2 /100WBC [facility] Neutrophils Absolute Auto 3.8 2.0 - 8.3 x10*3/uL [facility] Imm Gran Abs Auto 0.02 0.00 - 0.03 X10*3/uL [facility] Lymphocytes Absolute Auto 1.5 1.2 - 4.9 X10*3/uL [facility] Monocytes Absolute Auto 0.6 0.1 - 1.2 X10*3/uL [facility] Eosinophils Absolute Auto 0.3 0.0 - 0.4 X10*3/uL [facility] Basophils Absolute Auto 0.1 0.0 - 0.2 X10*3/uL [facility] NRBC Abs Auto 0.000 0.0 - 0.012 X10*3/uL [facility] 04/01/2025 11:0 6 AM EDT 04/01/2025 11:06 AM EDT us Generic External Data Provider LAB BLOOD ORDERAB LES Final Result [facility] [address] [place] [address] [phone] * Vitamin B12 (04/01/2025 11:06 AM EDT) Vitamin B12 539 200 - 900 pg/mL [facility] Comment:NORMAL 200-900 PG/ML INDETERMINATE 160-199 PG/ML DEFICIENT < 160 PG/ML 04/01/2025 11:0 6 AM EDT 04/01/2025 11:06 AM EDT us Generic External Data Provider LAB BLOOD ORDERAB LES Final Result Performing Organization Address City/State/[facility] Co de Phone Number [facility] [address] [place] [address] [phone] * BI Mammogram Screening Tomosynthesis Bilateral (01/03/2025 3:30 PM EDT) Anatomical Region Laterality Modality Breast Bilateral Mammography 01/03/2025 3:30 PM EDT Narrative 01/10/2025 4:54 PM EDT [address] [place] [address] Mammography Report Signed Patient: Nicci Hanna MR#: [id number] : 1950 Acct:[id number] Age/Sex: 74 / F ADM Date: 01/03/25 Loc: HO.MAMMO Attending Dr: Michell Crandall MD Ordering Physician: Michell Crandall Results: 2Benign F indings Date of Service: 01/03/25 Follow Up: 1 Year From [facility] Mammogram Procedure(s): MM tomosynthesis screening BI Accession Number(s): [id number] cc: Michell Crandall EXAMINATION: MM SCREENING DIGITAL [...] 01/10/25 1650 DD/ 1530 TD/TT: 01/03/25 1546 Derrick Operator: Procedure Note Donotuseinterpreter, Image - 01/11/2025 [facility] [address] [place] [address] Mammography Report Signed Patient: Nicci HannaMR#: [id number] : 1950cct:[id number] Age/Sex: 74 / FADM Date: 01/03/25 Loc: .MAMMO Attending Dr: Michell Crandall MD Ordering Physician: Nathalia Crandallults: 2Benign F indings Date of Service: 01/03/25Follow Up: 1 Year From Orig inal Mammogram Procedure(s): MM tomosynthesis screening BI Accession Number(s): [id number] cc: Michell Crandall EXAMINATION: MM SCREENING DIGITAL [...] Dahiana Danielson DO 01/10/2025 04:50 PM EDT Dictated By: Dahiana Danielson DO Signed By: <Electronically signed by Dahiana Danielson DO in OV> 01/10/25 1650 DD/ 1530 TD/TT: 01/03/25 1546 Derrick Operator: Michell Crandall MD IMG BI PROCEDURES Edited Resul t - Final from Last 3 Months or Most Recently Relevant to Health Maintenance Insurance [place] [phone]
--- OUTSIDE RECORDS SUMMARY | 2025-06-16 13:43 | XMS_ITS | Clinical Summary ---
Author Organization [facility] Address [address] [facility] [address] [place] [address] Phone Care Team Providers Care Inspector And Hand Packager Name Role Phone Chip Bowden MD Primary [...] Department Care Team Description 06/13/2025 Procedure Pass [facility] Endoscopy Department [address] [place] [address] 06/13/2025 Hospital Encounter [facility] Endoscopy Department [address] [place] [address] Margaret Ugarte MD, MPH from Last 3 [...] topic Medical Devices Not on file Insurance Ad Dynamo [facility] EXTENSION MEDICARE SUPPLEMENT MEDICARE PART A & B [facility] MEDICARE SUPPLEMENT MEDICARE PART A & B [facility] [employer] MEDICARE SUPPLEMENT MEDICARE PART A & B [facility] MEDICARE SUPPLEMENT MEDICARE PART A & [place] [address] [place] [address] EXTENSION MEDICARE SUPPLEMENT MEDICARE PART A & [place] [address] [place] [address] [employer] MEDICARE SUPPLEMENT MEDICARE PART A & B MEDICARE SUPPLEMENT MEDICARE PART A & [place] [address] [place] [address] MEDICARE SUPPLEMENT MEDICARE PART A & [place] [address] [facility] EX[employer]ION MEDICARE SUPPLEMENT MEDICARE PART A & B Care Teams Inspector And Hand Packager Relationship Specialty Start Date End Date Chip Bowden MD [address] [place] [address] [place] [address] PCP - General Internal Medicine 06/29/15 Additional Source Comments The information contained in this document represents components of the legal health record. It is not the complete legal health record.[facility]
--- OUTSIDE RECORDS SUMMARY | 2025-06-16 13:43 | XMS_ITS | Encounter Summary ---
Author Organization [facility] Address [address] [place] [address] Phone Care Team Providers Care Mincemeat Maker Name Role Phone Chip Bowden MD Primary Care Provider Encounter Details Date Type Department Care Team (Late st Contact Info) Description 06/13/2025 Hospital Encounter [facility] Endoscopy Department [address] [place] [address] Margaret Ugarte MD, MPH [address] [place] [phone] [email or web address] Social History Tobacco Use Types Packs/Day Years [...] documented as of this encounter Care Teams Mincemeat Maker Relationship Specialty Start Date End Date Chip Bowden MD [address] [place] [address] [place] [address] PCP - General Internal Medicine 06/29/15 documented as of this encounter Additional Source Comments The information contained in this document represents components of the legal health record. It is not the complete legal health record.[facility]
--- OUTSIDE RECORDS SUMMARY | 2025-06-16 13:43 | XMS_ITS | Patient Health Record ---
Author Organization [facility] Address [address] [facility] [place] [address] Care Team Providers Care Healthcare Administrative Assistant Name Role Phone Chip Bowden MD Primary Care Provider Unavaila Davie Schmidt Unavailable [phone] Zackary Benavides Unavailable [phone] Gemini Mir Unavailable [phone] Allergies Allergen (clinical drug ingredient) Drug/Non Drug [...] Duration) Notes Start Date End Date Status Naproxen Not-Taking Ciclopirox 8 % 1 application thin film topically to nails Externally Once a day; Duration: 30 days Active Synthroid 50 MCG Oral; Duration: 90 Days Not-Taking Synthroid 50 MCG Oral; Duration: 90 Days Active Loperamide HCl 2 mg 3 tablets 1 a day Active Imodium Advanced Act wing vitamin gummy from time to time Active Ciclopirox Olamine 0.77 % 1 application to affected area Externally Twice a day to effected areas on feet; Duration: 30 days Active Meloxicam 7.5 MG Oral; Duration: 90 Days Active Sleep OTC generic Active Immunizations Vaccine Route Administration Date Status Comme nts Influenza Unknown 06/14/2024 Administered Social History Tobacco Use: Social History Observation Description Date Details (start date - stop date) Never Smoker NA - NA Tobacco use other than smoking: Question Answer Notes Are you an other tobacco user? No Tobacco Control (Standard) Question Answer Notes Tobacco use: Nonsmoker Additional Findings: Tobacco non-user Current no nsmoker AUDIT-C (Standard) Question Answer Notes Did you have a drink containing alcohol in the p ast year? No Points 0 Interpretation Negative Vital Signs Blood pressure diastolic 80 mm Hg 05/17/2025 Height 4ft 11in in 05/17/2025 Blood pressure systolic 120 mm Hg 05/17/2025 Weight 205 lbs 05/17/2025 BMI 41.4 kg/m2 05/17/2025 Procedures Procedure Date Ordered Date Performed [place] e [id number] NAIL, 6 OR MORE 11/10/2024 N/A Encounters Encounter Location Date Provider Diagnosis [address] [address] 07/22/2024 Zackary Benavides Ingrowing nail L60.0 ; Other viral warts B07.8 ; Pain in left foot M79.672 ; Pain in right foot M79.671 ; Tinea pedis B35.3 and Plantar fascial fibromatosis M72.[address] [address] 11/10/2024 Gemini Mir Pain in right toe(s) M79.674 ; Onychomycosis B35.1 and Pain in left toe(s) M79.675 [facility] [address] [address] 05/17/2025 Gemini Mir Pain in right toe(s) M79.674 ; Onychomycosis B35.1 and Pain in left toe(s) M79.[address] [address] 07/22/2024 Davie Schumacher [address] [address] 08/23/2024 Gemini Mir [address] [address] 01/18/2025 Gemini Mir Assessments Encounter Date Diagnosis (ICD Code) Assessment Notes Treatment Notes Treatment Clinical Notes Section Notes 07/22/2024 Other viral warts (ICD-10 - B07.8) 07/22/2024 Ingrowing nail (ICD-10 - L60.0) 11/10/2024 Pain in right toe(s) (ICD-10 - M79.674) 05/17/2025 Pain in right toe(s) (ICD-10 - M79.674) 05/17/2025 Onychomycosis (ICD-10 - B35.1) 11/10/2024 Onychomycosis (ICD-10 - B35.1) 05/17/2025 Pain in left toe(s) (ICD-10 - M79.675) 07/22/2024 Pain in left foot (ICD-10 - M79.672) 07/22/2024 Pain in right foot (ICD-10 - M79.671) 11/10/2024 Pain in left toe(s) (ICD-10 - M79.675) 07/22/2024 Tinea pedis (ICD-10 - B35.3) 07/22/2024 Plantar fascial fibromatosis (ICD-10 - M72.2) Plan Of Treatment Pending Test Test Name Order Date X ray : Foot, left 3V 04/19/2024 X ray : Foot, right 3V 04/19/2024 [id number] NAIL, 6 OR MORE 11/10/2024 Insurance Providers Payer Name Payer Address Payer Phone Subscriber Number Group Number Insured Name Patient Relationship to Insured Coverage Start Date Coverage End Date Medicare National [employer] [address] [place] frazier [phone] [id number] Nicci Hanna Self - patient is the insured [facility] [address] [place] [address] [id number] Nicci Hanna Self - patient is [...] 1996 hernias 2012 ovaries removed 2007 gallbladder 2010 thumb-hand 2014 Implant surgery 09/07/2024
--- OUTSIDE RECORDS SUMMARY | 2025-06-16 13:43 | XMS_ITS | Encounter Summary ---
Author Organization [facility] Address [address] [facility] [address] [place] [address] Phone Care Team Providers Care Snow Plow Operator Name Role Phone Chip Bowden MD Primary Care Provider Encounter Details Date Type Department Care Team (Late st Contact Info) Description 02/12/2023 Procedure Pass [facility] [address] [facility] [address] [place] [address] Social History Tobacco Use Types Packs/Day Years [...] on filedocumented in this encounter Care Teams Snow Plow Operator Relationship Specialty Start Date End Date Chip Bowden MD [address] [place] [address] [place] [address] PCP - General Internal Medicine 06/29/15 documented as of this encounter Additional Source Comments The information contained in this document represents components of the legal health record. It is not the complete legal health record.[facility]
--- OUTSIDE RECORDS SUMMARY | 2025-06-16 13:43 | XMS_ITS | Encounter Summary ---
Author Organization [facility] Address [address] [place] [address] Phone Care Team Providers Care Beef Pluck Trimmer Name Role Phone Chip Bowden MD Primary Care Provider Encounter Details Date Type Department Care Team (Late st Contact Info) Description 06/13/2025 Procedure Pass [facility] Endoscopy Department [address] [place] [address] Social History Tobacco Use Types Packs/Day Years [...] documented as of this encounter Care Teams Beef Pluck Trimmer Relationship Specialty Start Date End Date Chip Bowden MD [address] [place] [address] [place] [address] PCP - General Internal Medicine 06/29/15 documented as of this encounter Additional Source Comments The information contained in this document represents components of the legal health record. It is not the complete legal health record.[facility]
== END 2025-06-16 12:18 | disposition home or self-care (01) ==
LOC: HO.LAB 12:17
PROVIDERS: PCP Physician Assistant; Visit Provider Urology
DX: N32.81 Overactive bladder (principal); N90.89 Other specified noninflammatory disorders of vulva and perineum; N39.0 Urinary tract infection, site not specified
CPT/HCPCS: 81001; 87086

== ENCOUNTER 2025-06-24 08:52 | Outpatient (AMB) | payer MEDICARE, OTHER, SELFPAY ==
--- OUTSIDE RECORDS SUMMARY | 2024-08-26 09:45 | XMS_ITS ---
Author Organization [facility] Address [address] [place] [address] Care Team Providers Care Professor In Family Studies Name Role Phone Chip Bowden MD Primary Care Provider UnavailDavie Puente Unavailable [phone] Gemini Mir [phone] Encounters Encounter Location Date Provider Diagnosis [facility] [address] [place] [address] 08/26/2024 Gemini Mir Plan Of Treatment No Information Progress Notes * SPENCER ElainasagarDOB:1950 (74 yo F)Acc No.[id number]:08/26/2024 Progress Notes Patient: Nicci ROMERO Provider: Dale Mir DPM :1950 A ge:73 Y S ex:Female Date:08/26/2024 Address: [address] [id number] Pcp:Chip Bowden MD Subjective: * Chief Complaints: [...] 10/26/2023 Generated for Frantzi ng/Faxing/eTransmitting on: 0 06/24/2025 09:39 AM EDT
--- OUTSIDE RECORDS SUMMARY | 2025-03-09 05:00 | XMS_ITS ---
Author Organization [facility] Address [address] [place] [address] Care Team Providers Care Transitional Nurse Name Role Phone Chip Bowden MD Primary Care Provider UnavailDavie Puente Unavailable [phone] Gemini Mir [phone] Encounters Encounter Location Date Provider Diagnosis [facility] [address] [place] [address] 03/09/2025 Gemini Mir Plan Of Treatment No Information Progress Notes * SPENCER ElainasagarDOB:1950 (74 yo F)Acc No.[id number]:03/09/2025 Progress Note Patient: Nicci ROMERO Provider: Dale Mir DPM :1950 A ge:74 Y S ex:Female Date:03/09/2025 Address: [place] Pcp:Chip Bowden MD Subjective: * Chief Complaints: [...] DPM Date: 0 03/09/2025 Generated for Frantzi ng/Faxing/eTransmitting on: 0 06/24/2025 09:38 AM EDT
--- NOTE | 2025-06-24 09:07 | MHC.OFFVIS ---
Vital Signs 06/24/25 09:29 Height 4 ft 11 in Weight 206 lb 5.643 oz BMI 41.7 BP 140/84 H Blood Pressure Location Lt brachial Position Sitting Pulse 102 H Intake Visit Reasons: 6 wks Rast results r/s 06/24 Intake Note: Nicci presents to in office follow up for RAST results. CC: Patient continues having diarrhea, gas, and lower abd pain. Supervisor [employer] Required: No Accompanied by: Self / Same As Patient Allergies Penicillins Allergy (Intermediate, Verified 06/24/25 09:39) HIVES, ANAPHYLAXIS Beef Containing Products (BEEF CONTAINING PRODUCTS) Allergy (Mild, Verified 06/24/25 09:39) INFLAMMATION caffeine (CAFFEINE) Allergy (Mild, Verified 06/24/25 09:39) UNKNOWN lactose (LACTOSE) Allergy (Mild, Verified 06/24/25 09:39) STOMACH PAIN,DIARRHEA orange Allergy (Mild, Verified 06/24/25 09:39) GEOGRAPHIC TONGUE oxycodone (Percocet) Allergy (Mild, Verified 06/24/25 09:39) Vomiting Pork/Porcine Containing Products (PORK/PORCINE CONTAINING PRODUCTS) Allergy (Mild, Verified 06/24/25 09:39) INFLAMMATION,PAIN Sulfa (Sulfonamide Antibiotics) (SULFA (SULFONAMIDE ANTIBIOTICS)) Allergy (Mild, Verified 06/24/25 09:39) DIARRHEA,VOMITING nut - unspecified (nut) Adverse Reaction (Mild, Verified 06/24/25 09:39) UNKNOWN HPI HPI 6 wks Rast results r/s 06/24: Details: Assessment & Plan (1) Pre-op examination: Code(s): Z01.818 - Encounter for other preprocedural examination Category: Medical (2) Tubular adenoma of colon: Comment: 2020 SCOPE-MYKEL= 2 TA is repeat in 5 years Code(s): D12.6 - Benign neoplasm of colon, unspecified Category: Medical (3) Family history of colon cancer: Comment: Paternal grandmother of colon cancer Code(s): Z80.0 - Family history of malignant neoplasm of digestive organs Category: Medical (4) Morbid obesity with BMI of 40.0-44.9, adult: Code(s): E66.01 - Morbid (severe) obesity due to excess calories; Z68.41 - Body mass index [BMI] 40.0-44.9, adult Category: Medical (5) Diarrhea: Code(s): R19.7 - Diarrhea, unspecified Category: Medical Plan Her last scope was in 2020 and she had a TA. She was going to be seen in [place] for her ongoing diarrhea, but they required a colonoscopy and she could not prep and pull this off going back and forth to the hotel, and they said they would not do fecal implant unless she had 3 consecutive episodes of c diff. She continues to have diarrhea which she treats with 3 imodium a day. The only study she has not had is a general food allergy testing, which I will order since her diarrhea never resolved. She has new onset wheezing, and her PCP has tried giving her inhalers but she has not used them as she was fearful of side effects. She has not yet seen a commissary assistant. She denies any cardiac problems. She has a bladder stimulator implant. She says she has mild sleep apnea. There are no prior problem with anes or sedation. There are no ID problems. Return office visit in 6 weeks to evaluate her allergy testing. 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!) Orders: Orders Colonoscopy - GI Use Only Today D12.6 - Benign neoplasm of colon, unspecified Transglutaminase Ab IgG Today R19.7 - Diarrhea, unspecified Transglutaminase IgA Today R19.7 - Diarrhea, unspecified Medications: New sodium,potassium,mag sulfates 17.5-3.13-1.6 gram (Suprep Bowel Prep Kit) 480 mL orally; FOR COLONOSCOPY PREP 354 mL 0RF LABS: Laboratory Tests 07/27/21 05/11/25 12:50 11:35 Tiss Transglutamin IgG 1.4 <1.0 Tiss Transglutamin IgA <1.0 <1.0 RAST PANEL SHOWS ALLERGY TO COWS MILK, EGG WHITES AND SHRIMP COLONOSCOPY BIOPSY TODAY'S VISIT [facility] Medical History History of Clostridioides difficile colitis Diarrhea C. difficile colitis Obesity due to excess calories Morbid obesity with BMI of 45.0-49.9, adult Spondylosis Well woman exam ANNABELLA (stress urinary incontinence, female) Urinary urgency Urgency-frequency syndrome Urinary frequency Urinary and fecal incontinence Abdominal pain Colon cancer screening Rectal bleeding BRADFORD (dyspnea on exertion) Adjustment disorder Sacral nerve stimulator present Thrush Shortness of breath Hyperlipidemia LDL goal <100 Hypertension Fatty liver Pre-diabetes Plantar fasciitis Sacroiliitis Lumbosacral spondylosis without myelopathy Carpal tunnel syndrome Sleep apnea NAFL (nonalcoholic fatty liver) Hypothyroidism Irritable bowel syndrome with diarrhea Surgical History H/O umbilical hernia repair H/O midurethral sling procedure S/P placement of nerve stimulator IGTN (ingrowing toe nail) Hx of colonoscopy (~06/05/21) History of thumb surgery History of removal of laparoscopic gastric banding device Hx laparoscopic cholecystectomy S/P panniculectomy H/O bilateral oophorectomy Hx of laparoscopic gastric banding History of laparoscopic appendectomy Hx of vaginal hysterectomy H/O tubal ligation Family History Father Colon cancer Maternal Aunt Colon cancer Paternal Aunt Breast cancer Maternal Aunt Colon cancer Social History Household Members: Spouse Household Members Other:: Housing: House Alcohol intake: never Comment: diehl placed, unable to void Patient Tobacco Use Status: Never used Tobacco e-Cigarette/Vaping Use: Never Used service: No Current occupational status: retired Current occupation: rt handed Sexual orientation: Straight/Heterosexual Gender identity: Female Cognitive needs: No Hearing needs: No Vision needs: Yes (reading glasses) Female Reproductive History Menstrual Age of Menarche: 14 Review of Systems Const Denies fatigue, Denies fever(s), Denies night sweats, Denies poor appetite and Denies weight loss ENT Reports Normal hearing present, Denies dental pain, Denies dysphagia, Denies hearing loss, Denies mouth pain, Denies odynophagia, Denies throat swelling, Denies tongue swelling and Reports other (Dentition adequate) Card Reports no additional complaints Resp Reports no additional complaints GI Details: Denies abdominal pain, Denies melena, Denies bloating, Denies hematochezia, Denies constipation, Denies GI cramping, Denies dysphagia, Denies excessive flatus, Denies early satiety, Denies heartburn, Reports diarrhea, Denies nausea, Denies odynophagia, Denies vomiting and Denies hematemesis Skin/Breast Denies pruritus, Denies lesions, Denies rash and Denies jaundice Neuro Reports Normal hearing present and Denies Abnormal speech present Endo Denies fatigue Aller/Immun Denies throat swelling and Denies tongue swelling Physical Exam Vital Signs: Last Vital Signs Pulse 102 H 06/24/25 09:29 BP 140/84 H 06/24/25 09:29 BMI result Body Mass Index 41.7 Const General: cooperative, no acute distress, well developed and well groomed Nutritional Appearance: well nourished and obese Orientation/consciousness: oriented to person, oriented to place and oriented to time Limitations: language barrier HEENT Head: Yes normocephalic and Yes atraumatic Eyes General: appearance normal, both eyes and all related structures Pupils: Equal, round and reactive pupils present Neck Neck: Yes normal visual inspection and Yes no lymphadenopathy Thyroid: Thyroid normal Resp Effort & Inspection: normal respiratory effort and able to speak in complete sentences Auscultation: clear to auscultation bilaterally Cardio Rate: regular rate Rhythm: regular rhythm Heart sounds: Normal, physiologic split S2 sound present Peripheral pulses: radial pulses present and posterior tibial pulses present GI Inspection: No distended, Yes Abdominal panniculus present and Yes obesity Palpation (GI): Soft to palpation, nontender, no guarding, not rigid and No hepatosplenomegaly present Percussion: Yes normal to percussion Auscultation: normal bowel sounds Rectal Exam - Female: deferred Skin General skin exam: no rashes or lesions noted, turgor normal, skin not dry, no jaundice, No spider nevi and no striae Rashes: no rashes Nails: normal Neuro General: oriented to person, oriented to place and oriented to time Cranial nerves: Yes Equal, round and reactive pupils present and Yes Normal hearing present Speech: No Abnormal speech present Extrem General: Yes normal to inspection, No clubbing, No cyanosis and No edema Psych Appearance: grossly normal and well kempt Mental Status: mental status grossly normal Speech and movement: Normal speech and movement present Affect: normal affect Attitude: cooperative Thought process: Normal thought process present and not confabulating Thought content: Normal thought content present Insight: Good insight present (Psych) Judgement: Good judgement present (Psych) Assessment & Plan Assessment & Plan (1) Irritable bowel syndrome with diarrhea: Comment: She has not tolerated cholystyramine or carafate. Lotronex was not effective Code(s): K58.0 - Irritable bowel syndrome with diarrhea Category: Medical (2) Tubular adenoma of colon: Comment: 2020 SCOPE-MYKEL= 2 TA is repeat in 5 years Code(s): D12.6 - Benign neoplasm of colon, unspecified Category: Medical (3) History of Clostridioides difficile colitis: Code(s): Z86.19 - Personal history of other infectious and parasitic diseases Category: Medical (4) Multiple food allergies: Comment: Cow's milk, egg whites, shrimp Code(s): Z91.018 - Allergy to other foods Category: Medical Plan - The patient is a 74-year-old female presenting with chronic diarrhea and food allergies. - RAST allergy test shows that she is allergic to cow's milk, egg whites, and shrimp. - Chronic diarrhea persists, likely exacerbated by prior cholecystectomy, she is controlling it with [id number]-osu-mpdlswr Imodium with mixed success. In the past she has failed or did not tolerate cholestyramine, Carafate, and even Lotronex. At this point we do not have any better medications that would be appropriate so she is going to try to modify her diet to avoid the foods that she is allergic to and we will see if colonoscopy sheds any additional light on the matter. She tried Creon in the past but send it burned her stomach but is willing to re-initiate a trial at a lower dose. COLONOSCOPY BIOPSY Medications: New tkiatx-jodtxhrw-xmvzosa 10,500-35,500- 61,500 unit (Pancreaze) administer with meals and/or snacks 2 caps PO BID 120 caps 6RF K58.0 - Irritable bowel syndrome with diarrhea Changed From loperamide 6 mg PO DAILY diarrhea K58.0 - Irritable bowel syndrome with diarrhea To loperamide 6 mg (3 x 2 mg) PO DAILY 270 caps 1RF diarrhea 90 days K58.0 - Irritable bowel syndrome with diarrhea Coding Level of Care Code Est Pt Level 3 (91903) Diagnoses Irritable bowel syndrome with diarrhea K58.0 Tubular adenoma of colon D12.6 History of Clostridioides difficile colitis Z86.19 Multiple food allergies Z91.018
[2025-06-24 09:29] VITALS: BP 140/84; PULSE 102; BMI 41.7
--- OUTSIDE RECORDS SUMMARY | 2025-06-24 09:38 | XMS_ITS | Patient Health Record ---
Author Organization [facility] Address [address] [place] [address] Care Team Providers Care Instant Powder Supervisor Name Role Phone Kal (RETIRED) Chip PAUL Primary Care Provide r Unavailable Ovidio Flores Unavailable [phone] EUGENIO GARCIA Unavailable Unavailable Allergies Allergen (clinical [...] Problem Status W/U Status Risk Notes Problem [id number] Encounter for screening for malignant neoplasm of colon (Z12.11) Active confirmed Problem 561080287 History of adenomatous polyp of colon (Z86.010) Active confirmed Problem 465165591 Irritable bowel syndrome with diarrhea (K58.0) Active confirmed Problem Screening for malignant neoplasm of rectum (912219583) Encounter for screening for malignant neoplasm of rectum (Z12.12) Active confirmed Problem 836857790 Family history of colon cancer (Z80.0) Active confirmed Problem 089157989 Clostridium difficile infection (B96.89) Active confirmed Problem 88502488 Diarrhea, unspecified type (R19.7) Active confirmed Problem 15346716 Hypertension, unspecified type (I10) Active confirmed Problem 976707004945898 History of Clostridium difficile infection (Z86.19) Active confirmed Plan Of Treatment Pending Test Test Name Order Date CLOSTRIDIUM DIFF TOXIN A&B (C DIFF) 09/13 CLOSTRIDIUM DIFF TOXIN A&B (C DIFF) 12/13 CLOSTRIDIUM DIFF TOXIN A&B (C DIFF) 0212/2016 STOOL WBC 11/15/2016 STOOL WBC 10/04/2014 GIARDIA [...] Date MEDICARE OF [place] [address] [place] [address] [id number] NICOLE PALMER Self - patient is the insured [facility] [employer] [address] [place] [address] [id number] NICOLE PALMER Self - patient is the insured Medical (General) History Medical History History ICD Code Colonoscopy 10/2007--Tubular adenoma removed; biopsies neg for microscopic colitis; neg. colonoscopy [place] [address] Phillips Hypothyroidism Lap band placed in 2006-ramirez sient weight loss- Dr. Ocampo is planning to remove it IBS--neg. labs for celiac disease in 2013 Denies FL,DM,CVA,Lung disease,renal dise ase Colonoscopy in 02/2013--WNL--no polyps Back pain/arthritis-herniated disc C.diff x2 (2014)--ultimately treated wit h Vancomycin Sleep apnea--had a CPAP but presently no t using it She had a negative colonoscopy with ia i n 2017 Colonoscopy in May with [...] put on Alosetron by January LISA Meek, [facility] GI Surgical History Surgery Date(Month/Year) Hysterectomy, subsequent removal of both ovaries and Fallopian tubes Appendectomy Laparoscopies Cholecystectomy Lap band in 2006 Ayah waggoner after weight loss Bladder suspension Hernia repair--umbilical, bilateral ingu inal--Dr. Ocampo 08/2014 Lap band removal 2011
--- OUTSIDE RECORDS SUMMARY | 2025-06-24 09:39 | XMS_ITS | Clinical Summary ---
Author Organization [employer] Address [address] [place] [address] [address] [place] [address] Care Team Providers Care Community Health Nurse Staff Name Role Phone Unavailable Primary Care Provider Unavailabl e Encounters Date Type Department Care Team Description 04/03/2025 Results Follow-Up [facility] [address] [facility] [place] [address] Michell Crandall MD CBC auto differential, Vitamin [...] EDT) Egg White (F1) IgE 0.16(A) kU/L [facility] Cow's Milk (F2) IgE 0.13(A) kU/L [facility] Codfish (F3) IgE <0.10 kU/L [facility] Wheat (F4) IgE <0.10 kU/L [facility] Sesame Seed (F10) IgE <0.10 kU/L [facility] Peanut (F13) IgE <0.10 kU/L [facility] Soybean (F14) IgE <0.10 kU/L [facility] Hazelnut (F17) IgE <0.10 kU/L [facility] Malmo (F20) IgE <0.10 kU/L [facility] Shrimp (F24) IgE 0.42(A) kU/L [facility] Tuna (F40) IgE <0.10 kU/L [facility] X941-RfV Deputy <0.10 kU/L [facility] O016-OtF Scallop <0.10 kU/L [facility] Class 0 [facility] Comment:THIS TEST WAS PERFOR MED AT:[facility] [address] [address]XBJIIWILLIAM JULIEN MD Class 0 [facility] Comment:THIS TEST WAS PERFOR MED AT:[facility] [address] [address]ZLLJWWILLIAM JULIEN MD Mal[place] Class 0 [facility] Comment:THIS TEST WAS PERFOR MED AT:[facility] [address] DELISA JULIEN MD Class 0 [facility] Comment:THIS TEST WAS PERFOR MED AT:[facility] [address] [address]NZNEPWILLIAM JULIEN MD Class 1 [facility] Comment:THIS TEST WAS PERFOR MED AT:[facility] [address] [address]PKAOEWILLIAM JULIEN MD Class 0 [facility] Comment:THIS TEST WAS PERFOR MED AT:[facility] [address] DELISA JULIEN MD Class 0 [facility] Comment:THIS TEST WAS PERFOR MED AT:[facility] [address] [address]KTGTNJESSICA JULIEN MD Class 0/1 [facility] Comment:THIS TEST WAS PERFOR MED AT:[facility] [address] DELISA JULIEN MD Class 0/1 [facility] Comment:THIS TEST WAS PERFOR MED AT:[facility] [address] [address]HHYTRWILLIAM JULIEN MD Class 0 [facility] Comment:THIS TEST WAS PERFOR MED AT:[facility] [address] DELISA JULIEN MD Class 0 [facility] Comment:THIS TEST WAS PERFOR MED AT:[facility] [address] DELISA JULIEN MD Class 0 [facility] Comment:THIS TEST WAS PERFOR MED AT:[facility] [address] DELISA JULIEN MD Class 0 [facility] Comment:THIS TEST WAS PERFOR MED AT:[facility] [address] [address]IIAXFKEMAL JULIEN MD Cashew Nut (F202) IgE <0.10 kU/L [facility] Macadamia Nut (RF345) IgE <0.10 kU/L [facility] Class 0 [facility] Comment:THIS TEST WAS PERFOR MED AT:[facility] [address] [address]VEVXEKEMAL JULIEN MD Franklin (F41) IgE <0.10 kU/L [facility] [place] Nut (F18) IgE <0.10 kU/L [facility] Class 0 [facility] Comment:THIS TEST WAS PERFOR MED AT:[facility] [address] DELISA JULIEN MD Class 0 [facility] Comment:THIS TEST WAS PERFOR MED AT:[facility] [address] [address]OECTTJESSICA JULIEN MD Class 0 [facility] Comment:THIS TEST WAS PERFOR MED AT:[facility] [address] DELISA JULIEN MD 05/11/2025 11:3 5 AM EDT 05/11/2025 12:16 PM EDT Generic External Data Provider LAB BLOOD ORDERAB LES Final Result [facility] [address] [place] [address] [phone] * (ABNORMAL) Vitamin D, 25-Hydroxy, Total, Immunoassay (04/01/2025 11:06 AM EDT) Vitamin D 25-OH Total 27.7(L) >30 ng/mL [facility] Comment: Health Based Reference Values*< 20 ng/mL Inddutuig34-20 ng/mL Insufficient> 30 ng/mL Sufficient*Echo ARTEAGA. N [...] Provider LAB BLOOD ORDERAB LES Final Result [facility] [address] [place] [phone] * (ABNORMAL) CBC auto differential (04/01/2025 11:06 AM EDT) White Blood Count 6.2 4.8 - 10.8 X10*3/uL [facility] Red Blood Count 5.09 4.20 - 5.50 X10*6/uL [facility] Hemoglobin 14.2 12.0 - 16.0 g/dl [facility] Hematocrit 43.3 37.0 - 47.0 % [facility] Mean Corpuscular Volume 85.1 80.0 - 98.0 fL [facility] Mean Corpuscular Hemoglobin 27.9 27.0 - 33.0 pg [facility] Mean Corpuscular HGB Conc 32.8 31.0 - 35.0 g/dl [facility] Red Cell Distribution Width 14.7 11.0 - 16.0 % [facility] Platelet Count 356 160 - 400 X10*3/uL [facility] Mean Platelet Volume 9.9 9.4 - 12.3 fL [facility] Neutrophils Percent Auto 60.4 45 - 73 % [facility] Imm Gran Pct Auto 0.3 0.0 - 0.4 % [facility] Lymphocytes Percent Auto 24.3 20 - 40 % [facility] Monocytes Percent Auto 8.9 2 - 11 % [facility] Eosinophils Percent Auto 5.3(H) 0 - 4 % [facility] Basophils Percent Auto 0.8 0 - 2 % [facility] NRBC Pct Auto 0.0 0.0 - 0.2 /100WBC [facility] Neutrophils Absolute Auto 3.8 2.0 - 8.3 x10*3/uL [facility] Imm Gran Abs Auto 0.02 0.00 - 0.03 X10*3/uL [facility] Lymphocytes Absolute Auto 1.5 1.2 - 4.9 X10*3/uL [facility] Monocytes Absolute Auto 0.6 0.1 - 1.2 X10*3/uL [facility] Eosinophils Absolute Auto 0.3 0.0 - 0.4 X10*3/uL [facility] Basophils Absolute Auto 0.1 0.0 - 0.2 X10*3/uL [facility] NRBC Abs Auto 0.000 0.0 - 0.012 X10*3/uL [facility] 04/01/2025 11:0 6 AM EDT 04/01/2025 11:06 AM EDT us Generic External Data Provider LAB BLOOD ORDERAB LES Final Result [facility] [address] [place] [address] [phone] * Vitamin B12 (04/01/2025 11:06 AM EDT) Vitamin B12 539 200 - 900 pg/mL [facility] Comment:NORMAL 200-900 PG/ML INDETERMINATE 160-199 PG/ML DEFICIENT < 160 PG/ML 04/01/2025 11:0 6 AM EDT 04/01/2025 11:06 AM EDT us Generic External Data Provider LAB BLOOD ORDERAB LES Final Result Performing Organization Address City/State/[facility] Co de Phone Number [facility] [address] [place] [address] [phone] * BI Mammogram Screening Tomosynthesis Bilateral (01/03/2025 3:30 PM EDT) Anatomical Region Laterality Modality Breast Bilateral Mammography 01/03/2025 3:30 PM EDT Narrative 01/10/2025 4:54 PM EDT [address] [place] [address] Mammography Report Signed Patient: Nicci Hanna MR#: [id number] : 1950 Acct:[id number] Age/Sex: 74 / F ADM Date: 01/03/25 Loc: HO.MAMMO Attending Dr: Michell Crandall MD Ordering Physician: Michell Crandall Results: 2Benign F indings Date of Service: 01/03/25 Follow Up: 1 Year From [facility] Mammogram Procedure(s): MM tomosynthesis screening BI Accession Number(s): [id number] cc: Michell Crandall EXAMINATION: MM SCREENING DIGITAL [...] 01/10/25 1650 DD/ 1530 TD/TT: 01/03/25 1546 Oven Press Tender: Procedure Note Donotuseinterpreter, Image - 01/11/2025 [facility] [address] [place] [address] Mammography Report Signed Patient: Nicci HannaMR#: [id number] : 1950cct:[id number] Age/Sex: 74 / FADM Date: 01/03/25 Loc: .MAMMO Attending Dr: Michell Crandall MD Ordering Physician: Nathalia Crandallults: 2Benign F indings Date of Service: 01/03/25Follow Up: 1 Year From Orig inal Mammogram Procedure(s): MM tomosynthesis screening BI Accession Number(s): [id number] cc: Michell Crandall EXAMINATION: MM SCREENING DIGITAL [...] 01/10/25 1650 DD/ 1530 TD/TT: 01/03/25 1546 Oven Press Tender: Michell Crandall MD IMG BI PROCEDURES Edited Resul t - Final from Last 3 Months or Most Recently Relevant to Health Maintenance Insurance [place] [phone]
--- OUTSIDE RECORDS SUMMARY | 2025-06-24 09:39 | XMS_ITS | Patient Health Record ---
Author Organization [facility] Address [address] [facility] [place] [address] Care Team Providers Care Windows Support Engineer Name Role Phone Chip Bowden MD Primary Care Provider Unavaila Davie Schmidt Unavailable [phone] Zackary Benavides Unavailable [phone] Gemini Mir Unavailable [phone] Allergies Allergen (clinical drug ingredient) Drug/Non Drug [...] Ordered Date Performed Result Body Sit e [id number] NAIL, 6 OR MORE 11/10/2024 N/A Encounters Encounter Location Date Provider Diagnosis [address] [address] 07/22/2024 Zackary Benavides Ingrowing nail L60.0 ; Other viral warts B07.8 ; Pain in left foot M79.672 ; Pain in right foot M79.671 ; Tinea pedis B35.3 and Plantar fascial fibromatosis M72.[address] [address] 11/10/2024 Gemini Mir Pain in right toe(s) M79.674 ; Onychomycosis B35.1 and Pain in left toe(s) M79.675 [facility] [address] [address] 05/17/2025 Gemini Mir Pain in right toe(s) M79.674 ; Onychomycosis B35.1 and Pain in left toe(s) M79.[address] [address] 07/22/2024 Davie Schumacher [address] [address] 08/23/2024 Gemini Mir [address] [address] 01/18/2025 Gemini Mir Assessments Encounter Date Diagnosis [...] X ray : Foot, right 3V 04/19/2024 [id number] NAIL, 6 OR MORE 11/10/2024 Insurance Providers Payer Name Payer Address Payer Phone Subscriber Number Group Number Insured Name Patient Relationship to Insured Coverage Start Date Coverage End Date Medicare [employer] [address] [place] [phone] [id number] Nicci Hanna Self - patient is the insured [facility] [address] [place] [address] [id number] Nicci Hanna Self - patient is [...]
--- OUTSIDE RECORDS SUMMARY | 2025-06-24 09:40 | XMS_ITS | Encounter Summary ---
Author Organization [facility] Address [address] [place] [address] Phone Care Team Providers Care Field Research Assistant Name Role Phone Chip Bowden MD Primary Care Provider Encounter Details Date Type Department Care Team (Late st Contact Info) Description 06/13/2025 Procedure Pass [facility] Endoscopy Department [address] [place] [address] Social History Tobacco Use Types Packs/Day Years [...] documented as of this encounter Care Teams Field Research Assistant Relationship Specialty Start Date End Date Chip Bowden MD [address] [place] [address] [place] [address] PCP - General Internal Medicine 06/29/15 documented as of this encounter Additional Source Comments The information contained in this document represents components of the legal health record. It is not the complete legal health record.[facility]
--- OUTSIDE RECORDS SUMMARY | 2025-06-24 09:40 | XMS_ITS | Clinical Summary ---
Author Organization [facility] Address [address] [place] [address] Phone Care Team Providers Care Cork Insulation Setter Name Role Phone Chip Bowden MD Primary [...] Department Care Team Description 06/13/2025 Procedure Pass [facility] Endoscopy Department [address] [place] [address] 06/13/2025 Hospital Encounter [facility] Endoscopy Department [address] [place] [address] Margaret Ugarte MD, MPH from Last 3 [...] (ONE-TIME) 2016 REPEAT PHQ 11/26/2024 10/26/2024, 10/26/2024 INFLUENZA VACCINE (#1) 2025 , 07/04/2022, 06/21/2021, Additional history exists COVID-19 VACCINE ( season) 2025 06/30/2024, 07/24/2023, 07/04/2022, Additional history exists DEPRESSION [...] topic Medical Devices Not on file Insurance [employer] [facility] EXTENSION MEDICARE SUPPLEMENT MEDICARE PART A & B [facility] MEDICARE SUPPLEMENT MEDICARE PART A & B [facility] EXTENSION MEDICARE SUPPLEMENT MEDICARE PART A & B [facility] MEDICARE SUPPLEMENT MEDICARE PART A & [place] [address] [address] EXTENSION MEDICARE SUPPLEMENT MEDICARE PART A & [place] [address] EXTENSION MEDICARE SUPPLEMENT MEDICARE PART A & B MEDICARE SUPPLEMENT MEDICARE PART A & [place] [address] [place] [address] MEDICARE SUPPLEMENT MEDICARE PART A & [place] [address] [facility] EXTENSION MEDICARE SUPPLEMENT MEDICARE PART A & B Care Teams Cork Insulation Setter Relationship Specialty Start Date End Date Chip Bowden MD [address] [place] [address] [place] [address] PCP - General Internal Medicine 06/29/15 Additional Source Comments The information contained in this document represents components of the legal health record. It is not the complete legal health record.[facility]
--- OUTSIDE RECORDS SUMMARY | 2025-06-24 09:40 | XMS_ITS | Encounter Summary ---
Author Organization [facility] Address [address] [place] [address] Phone Care Team Providers Care Rubber Cutting Machine Tender Name Role Phone Chip Bowden MD Primary Care Provider Encounter Details Date Type Department Care Team (Late st Contact Info) Description 06/13/2025 Hospital Encounter [facility] Endoscopy Department [address] [place] [address] Margaret Ugarte MD, MPH [address] [place] [phone] [email or web address] Social History Tobacco Use Types Packs/Day [...] documented as of this encounter Care Teams Rubber Cutting Machine Tender Relationship Specialty Start Date End Date Chip Bowden MD [address] [place] [address] [place] [address] PCP - General Internal Medicine 06/29/15 documented as of this encounter Additional Source Comments The information contained in this document represents components of the legal health record. It is not the complete legal health record.[facility]
--- OUTSIDE RECORDS SUMMARY | 2025-06-24 09:40 | XMS_ITS | Encounter Summary ---
Author Organization [facility] Address [address] [place] [address] Phone Care Team Providers Care Physical Education Aide Name Role Phone Chip Bowden MD Primary Care Provider Encounter Details Date Type Department Care Team (Late st Contact Info) Description 02/12/2023 Procedure Pass [facility] [address] [place] [address] Social History Tobacco Use Types Packs/Day Years [...] on filedocumented in this encounter Care Teams Physical Education Aide Relationship Specialty Start Date End Date Chip Bowden MD [address] [place] [address] [place] [address] PCP - General Internal Medicine 06/29/15 documented as of this encounter Additional Source Comments The information contained in this document represents components of the legal health record. It is not the complete legal health record.[facility]
== END 2025-06-24 10:24 | disposition home or self-care (01) ==
LOC: HO.HGI 08:53
PROVIDERS: PCP Physician Assistant; Visit Provider Nurse Practitioner
DX: K58.0 Irritable bowel syndrome with diarrhea (principal); D12.6 Benign neoplasm of colon, unspecified; Z86.19 Personal history of other infectious and parasitic diseases; Z91.018 Allergy to other foods
CPT/HCPCS: 99213

== ENCOUNTER → 2025-06-24 08:52 | Outpatient (BNVA) | payer MEDICARE, OTHER, SELFPAY | PROVIDERS: PCP Physician Assistant; Visit Provider Nurse Practitioner | DX: K58.0 Irritable bowel syndrome with diarrhea (principal); D12.6 Benign neoplasm of colon, unspecified; Z86.19 Personal history of other infectious and parasitic diseases; Z91.018 Allergy to other foods | CPT/HCPCS: 99212 ==

== ENCOUNTER 2025-07-13 08:15 | Outpatient (AMB) | payer MEDICARE, OTHER, SELFPAY ==
--- OUTSIDE RECORDS SUMMARY | 2025-03-09 05:00 | XMS_ITS ---
Author Organization [facility] Address [address] [place] [address] Care Team Providers Care Fashion Consultant Name Role Phone Chip Bowden MD Primary Care Provider UnavailDavie Puente Unavailable [phone] Gemini Mir [phone] Encounters Encounter Location Date Provider Diagnosis [facility] [address] [place] [address] 03/09/2025 Gemini Mir Plan Of Treatment No Information Progress Notes * SPENCER ElainasagarDOB:1950 (74 yo F)Acc No.[id number]:03/09/2025 Progress Note Patient: Nicci ROMERO Provider: Dale Mir DPM :1950 A ge:74 Y S ex:Female Date:03/09/2025 Address: [id number] Pcp:Chip Bowden MD Subjective: * Chief Complaints: [...] Mir DPM Date: 0 03/09/2025 Generated for Frantzi yesenia/Faxing/eTransmitting on: 1 08:36 AM EDT
--- OUTSIDE RECORDS SUMMARY | 2025-07-13 08:37 | XMS_ITS | Clinical Summary ---
Author Organization [employer] Address [address] [place] [address] 7t [place] [address] Care Team Providers Care Rn Clinical Review Name Role Phone Unavailable Primary Care Provider Unavailabl e Immunizations Immunization Administration Dates Next Due Influenza [...] TO COMPONENT Routine 05/11/2025 11:35 AM EDT BI MAMMOGRAM SCREENING TOMOSYNTHESIS BILATERAL Routine 01/03/2025 3:30 PM EDT from Last 3 Months or Most Recently Relevant to Health Maintenance Results * (ABNORMAL) Food and Tree Nut Allergy Panel with Reflex to Components (05/11/2025 11:35 AM EDT) Egg White (F1) IgE 0.16(A) kU/L [facility] Cow's Milk (F2) IgE 0.13(A) kU/L [facility] Codfish (F3) IgE <0.10 kU/L [facility] Wheat (F4) IgE <0.10 kU/L [facility] Sesame Seed (F10) IgE <0.10 kU/L [facility] Peanut (F13) IgE <0.10 kU/L [facility] Soybean (F14) IgE <0.10 kU/L [facility] Hazelnut (F17) IgE <0.10 kU/L [facility] Revere (F20) IgE <0.10 kU/L [facility] Shrimp (F24) IgE 0.42(A) kU/L [facility] Tuna (F40) IgE <0.10 kU/L [facility] G518-AeM [place] <0.10 kU/L [facility] R607-OiD [place] <0.10 kU/L [facility] Class 0 [facility] Comment:THIS TEST WAS PERFOR MED AT:[facility] [address] [address]KJNLNEDITA JULIEN MD Class 0 [facility] Comment:THIS TEST WAS PERFOR MED AT:[facility] [address] [address]EBFDBEDITA JULIEN MD Re[place] Class 0 [facility] Comment:THIS TEST WAS PERFOR MED AT:[facility] [address] [address]OMQFBKEMAL JULIEN MD Class 0 [facility] Comment:THIS TEST WAS PERFOR MED AT:[facility] [address] [address]STFGQKEMAL JULIEN MD Class 1 [facility] Comment:THIS TEST WAS PERFOR MED AT:[facility] [address] [address]PRWBLJESSICA JULIEN MD Class 0 [facility] Comment:THIS TEST WAS PERFOR MED AT:[facility] [address] [address]UDGEJJESSICA JULIEN MD Class 0 [facility] Comment:THIS TEST WAS PERFOR MED AT:[facility] [address] DELISA JULIEN MD Class 0/1 [facility] Comment:THIS TEST WAS PERFOR MED AT:[facility] [address] DELISA JULIEN MD Class 0/1 [facility] Comment:THIS TEST WAS PERFOR MED AT:[facility] [address] DELISA JULIEN MD Class 0 [facility] Comment:THIS TEST WAS PERFOR MED AT:[facility] [address] DELISA JULIEN MD Class 0 [facility] Comment:THIS TEST WAS PERFOR MED AT:[facility] [address] DELISA JULIEN MD Class 0 [facility] Comment:THIS TEST WAS PERFOR MED AT:[facility] [address] DELISA JULIEN MD Class 0 [facility] Comment:THIS TEST WAS PERFOR MED AT:[facility] [address] [address]VAMCYJESSICA JULIEN MD Cashew Nut (F202) IgE <0.10 kU/L [facility] Macadamia Nut (RF345) IgE <0.10 kU/L [facility] Class 0 [facility] Comment:THIS TEST WAS PERFOR MED AT:[facility] [address] DELISA JULIEN MD [place] (F41) IgE <0.10 kU/L [facility] Mcalister Nut (F18) IgE <0.10 kU/L [facility] Class 0 [facility] Comment:THIS TEST WAS PERFOR MED AT:[facility] [id number] [place] [address]WILDAEDITA JULIEN MD Class 0 [facility] Comment:THIS TEST WAS PERFOR MED AT:[facility] [id number] [place] [address]HYRMBEDITA JULIEN MD Class 0 [facility] Comment:THIS TEST WAS PERFOR MED AT:[facility] [id number] [place] [address]EVLBAEDITA JULIEN MD 05/11/2025 11:3 5 AM EDT 05/11/2025 12:16 PM EDT us Generic External Data Provider LAB BLOOD ORDERAB LES Final Result Performing Organization Address City/State/[facility] Co de Phone Number [facility] [address] [place] [address] [phone] * BI Mammogram Screening Tomosynthesis Bilateral (01/03/2025 3:30 PM EDT) Anatomical Region Laterality Modality Breast Bilateral Mammography 01/03/2025 3:30 PM EDT Narrative 01/10/2025 4:54 PM EDT [facility] [address] [place] [address] Mammography Report Signed Patient: Nicci Hanna MR#: [id number] : 1950 Acct:[id number] Age/Sex: 74 / F ADM Date: 01/03/25 Loc: HO.MAMMO Attending Dr: Michell Crandall MD Ordering Physician: Michell Crandall Results: 2Benign F indings Date of Service: 01/03/25 Follow Up: 1 Year From Orig inal Mammogram Procedure(s): MM tomosynthesis screening BI Accession Number(s): [id number] cc: Michell Crandall EXAMINATION: MM SCREENING DIGITAL [...] 01/10/25 1650 DD/ 1530 TD/TT: 01/03/25 1546 Tray Casting Machine Operator: Procedure Note Donotuseinterpreter, Image - 01/11/2025 [facility] [address] [place], [place] [address] Mammography Report Signed Patient: Nicci HannaMR#: [id number] : 1950cct:[id number] Age/Sex: 74 / FADM Date: 01/03/25 Loc: MeraMAMMO Attending Dr: Michell Crandall MD Ordering Physician: Nathalia Crandallults: 2Benign F indings Date of Service: 01/03/25Follow Up: 1 Year From Orig inal Mammogram Procedure(s): MM tomosynthesis screening BI Accession Number(s): [id number] cc: Michell Crandall EXAMINATION: MM SCREENING DIGITAL [...] 01/10/25 1650 DD/ 1530 TD/TT: 01/03/25 1546 Tray Casting Machine Operator: Michell Crandall MD IMG BI PROCEDURES Edited Resul t - Final from Last 3 Months or Most Recently Relevant to Health Maintenance Insurance MEDICARE [place], [place] [id number]
--- OUTSIDE RECORDS SUMMARY | 2025-07-13 08:37 | XMS_ITS | Clinical Summary ---
Author Organization [facility] Address [address] [place] [address] Phone Care Team Providers Care Metal Bonding Worker Name Role Phone Chip Bowden MD [...] Encounters Date Type Department Care Team Description 07/09/2025 Procedure Pass [facility] Endoscopy Department [address] [place] [address] 07/09/2025 Hospital Encounter [facility] Endoscopy Department [address] [place] [address] Margaret Ugarte MD, MPH from Last 3 [...] topic Medical Devices Not on file Insurance [employer] [facility] EXTENSION MEDICARE SUPPLEMENT MEDICARE PART A & B [facility] MEDICARE SUPPLEMENT MEDICARE PART A & B [facility] EXTENSION MEDICARE SUPPLEMENT MEDICARE PART A & B [facility] MEDICARE SUPPLEMENT MEDICARE PART A & [place] [address] [address] EXTENSION MEDICARE SUPPLEMENT MEDICARE PART A & [place] [address] EXTENSION MEDICARE SUPPLEMENT MEDICARE PART A & B MEDICARE SUPPLEMENT MEDICARE PART A & [place] [address] [address] MEDICARE SUPPLEMENT MED[place] [id number] [facility] EXTENSION MEDICARE SUPPLEMENT MEDICARE PART A & B Care Teams Metal Bonding Worker Relationship Specialty Start Date End Date Chip Bowden MD [address] [place] [address] [place] [address] PCP - General Internal Medicine 06/29/15 Additional Source Comments The information contained in this document represents components of the legal health record. It is not the complete legal health record.[facility]
--- OUTSIDE RECORDS SUMMARY | 2025-07-13 08:37 | XMS_ITS | Patient Health Record ---
Author Organization [facility] Address [address] [place] [address] Care Team Providers Care Search Engine Marketing Strategist Name Role Phone Kal (RETIRED) Chip PAUL Primary Care Provide r Unavailable Ovidio Flores Unavailable [phone] EUGENIO GARCIA Unavailable Unavailable Allergies Allergen (clinical [...] Problem Status W/U Status Risk Notes Problem [id number] Encounter for screening for malignant neoplasm of colon (Z12.11) Active confirmed Problem 654183034 History of adenomatous polyp of colon (Z86.010) Active confirmed Problem 744672556 Irritable bowel syndrome with diarrhea (K58.0) Active confirmed Problem Screening for malignant neoplasm of rectum (380490279) Encounter for screening for malignant neoplasm of rectum (Z12.12) Active confirmed Problem 073079133 Family history of colon cancer (Z80.0) Active confirmed Problem 551950152 Clostridium difficile infection (B96.89) Active confirmed Problem 15997909 Diarrhea, unspecified type (R19.7) Active confirmed Problem 67746877 Hypertension, unspecified type (I10) Active confirmed Problem 679178742531386 History of Clostridium difficile infection (Z86.19) Active [...] End Date MEDICARE OF [place] [address] [place] [address] [id number] NICOLE PALMER Self - patient is the insured [facility] INDEMNITY [address] [place] [address] [id number] NICOLE PALMER Self - patient is the insured Medical (General) History Medical History History ICD Code Colonoscopy 10/2007--Tubular adenoma removed; biopsies neg for microscopic colitis; neg. colonoscopy [place] [address] Phillips Hypothyroidism Lap band placed in 2006-ramirez sient weight loss- Dr. Ocampo is planning to remove it IBS--neg. labs for celiac disease in 2013 Denies OH,DM,CVA,Lung disease,renal dise ase Colonoscopy in 02/2013--WNL--no polyps Back pain/arthritis-herniated disc C.diff x2 (2014)--ultimately treated wit h Vancomycin Sleep apnea--had a CPAP but presently no t using it She had a negative colonoscopy with ny i n 2017 Colonoscopy in May with [...] put on Alosetron by January LISA Meek, [facility] Surgical History Surgery Date(Month/Year) Hysterectomy, subsequent removal of both ovaries and Fallopian tubes Appendectomy Laparoscopies Cholecystectomy Lap band in 2006 Ayah waggoner after weight loss Bladder suspension Hernia repair--umbilical, bilateral ingu inal--Dr. Ocampo 08/2014 Lap band removal 2011
--- OUTSIDE RECORDS SUMMARY | 2025-07-13 08:37 | XMS_ITS | Encounter Summary ---
Author Organization [facility] Address [address] [place] [address] Phone Care Team Providers Care Bookkeeper Name Role Phone Chip Bowden MD Primary Care Provider Encounter Details Date Type Department Care Team (Late st Contact Info) Description 02/12/2023 Procedure Pass [facility] [address] [address] [facility] [address] [place] [address] Social History Tobacco Use Types Packs/Day Years [...] on filedocumented in this encounter Care Teams Bookkeeper Relationship Specialty Start Date End Date Chip Bowden MD [address] [place] [address] [place] [address] PCP - General Internal Medicine 06/29/15 documented as of this encounter Additional Source Comments The information contained in this document represents components of the legal health record. It is not the complete legal health record.[facility]
--- OUTSIDE RECORDS SUMMARY | 2025-07-13 08:38 | XMS_ITS | Encounter Summary ---
Author Organization [facility] Address [address] [place] [address] Phone Care Team Providers Care Facility Engineer Name Role Phone Chip Bowden MD Primary Care Provider Encounter Details Date Type Department Care Team (Late st Contact Info) Description 07/09/2025 Procedure Pass [facility] Endoscopy Department [address] [place] [address] Social History Tobacco Use Types Packs/Day Years [...] documented as of this encounter Care Teams Facility Engineer Relationship Specialty Start Date End Date Chip Bowden MD [address] [place] [address] [place] [address] PCP - General Internal Medicine 06/29/15 documented as of this encounter Additional Source Comments The information contained in this document represents components of the legal health record. It is not the complete legal health record.[facility]
--- OUTSIDE RECORDS SUMMARY | 2025-07-13 08:38 | XMS_ITS | Encounter Summary ---
Author Organization [facility] Address [address] [place] [address] Phone Care Team Providers Care Information Technology Assistant Name Role Phone Chip Bowden MD Primary Care Provider Encounter Details Date Type Department Care Team (Late st Contact Info) Description 07/09/2025 Hospital Encounter [facility] Endoscopy Department [address] [place] [address] Margaret Ugarte MD, MPH [address] [place] [phone] [email or web address] Social History Tobacco Use Types Packs/Day [...] documented as of this encounter Care Teams Information Technology Assistant Relationship Specialty Start Date End Date Chip Bowden MD [address] [place] [address] [place] [address] PCP - General Internal Medicine 06/29/15 documented as of this encounter Additional Source Comments The information contained in this document represents components of the legal health record. It is not the complete legal health record.[facility]
--- NOTE | 2025-07-13 13:39 | MHC.OFFVISWM ---
VS Expanded 07/13/25 13:42 Height 4 ft 11 in Weight 197 lb 6 oz BMI 39.9 Body Fat % 43.8 Body Fat Mass 86.4 Fat Free Mass 111.2 Visceral Fat Rating 15 Body Water % 39.7 Body Water Mass 78.4 Basal Metabolic Rate/Score 1,540 Intake Visit Reasons: TV ABATTOIR MANAGER MWL *BMI 41.7* Allergies Penicillins Allergy (Intermediate, Verified 07/13/25 13:44) HIVES, ANAPHYLAXIS Beef Containing Products (BEEF CONTAINING PRODUCTS) Allergy (Mild, Verified 07/13/25 13:44) INFLAMMATION caffeine (CAFFEINE) Allergy (Mild, Verified 07/13/25 13:44) UNKNOWN lactose (LACTOSE) Allergy (Mild, Verified 07/13/25 13:44) STOMACH PAIN,DIARRHEA orange Allergy (Mild, Verified 07/13/25 13:44) GEOGRAPHIC TONGUE oxycodone (Percocet) Allergy (Mild, Verified 07/13/25 13:44) Vomiting Pork/Porcine Containing Products (PORK/PORCINE CONTAINING PRODUCTS) Allergy (Mild, Verified 07/13/25 13:44) INFLAMMATION,PAIN Sulfa (Sulfonamide Antibiotics) (SULFA (SULFONAMIDE ANTIBIOTICS)) Allergy (Mild, Verified 07/13/25 13:44) DIARRHEA,VOMITING nut - unspecified (nut) Adverse Reaction (Mild, Verified 07/13/25 13:44) UNKNOWN Medication List - Last Reconciled 07/13/25 by Tico Calderon MD albuterol sulfate 90 mcg/actuation 2 puffs inhalation Q4H PRN amlodipine 5 mg PO DAILY dicyclomine 10 mg PO BID PRN diphenhydramine HCl (Unisom SleepGels) 50 mg PO BEDTIME qtagtf-nfeuumzu-bluqrys 10,500-35,500- 61,500 unit (Pancreaze) 2 caps PO BID loperamide 6 mg (3 x 2 mg) PO DAILY 90 days meloxicam 7.5 mg PO BID nitrofurantoin monohyd/m-cryst 100 mg (Macrobid) 100 mg PO BID 5 days sodium,potassium,mag sulfates 17.5-3.13-1.6 gram (Suprep Bowel Prep Kit) 480 mL orally; FOR COLONOSCOPY PREP Synthroid (levothyroxine) 50 mcg PO DAILY NS HPI HPI TV ABATTOIR MANAGER MWL *BMI 41.7*: Details: Start time: 1.33pm, End time: 2.18pm ?I spent 40 minutes speaking with the patient on the phone plus an additional 5 minutes reviewing and updating records for a total of 45 minutes HPI Comments Details: Previous weight loss efforts: Lap band Wakes up: 6am, Sleeps: 9pm Breakfast: 9am (sandwich) Lunch: 2pm (rice, beans, chicken, pork) Dinner: 6.30pm (mashed potatoes, pasta, north korean) Snacks: 10am (dates), 4pm (fruits) Exercise: none Beverages: Coffee (1 cup/d with milk), Tea: none, Soda: regular Pepsi (5/wk), Juice:3-4/wk, ETOH: none PFSH Medical History (Updated 07/13/25 @ 14:06 by Tico Calderon MD) Asthma BMI 39.0-39.9,adult Obesity History of Clostridioides difficile colitis Diarrhea C. difficile colitis Obesity due to excess calories Morbid obesity with BMI of 45.0-49.9, adult Spondylosis Well woman exam ANNABELLA (stress urinary incontinence, female) Urinary urgency Urgency-frequency syndrome Urinary frequency Urinary and fecal incontinence Abdominal pain Colon cancer screening Rectal bleeding BRADFORD (dyspnea on exertion) Adjustment disorder Sacral nerve stimulator present Thrush Shortness of breath Hyperlipidemia LDL goal <100 Hypertension Fatty liver Pre-diabetes Plantar fasciitis Sacroiliitis Lumbosacral spondylosis without myelopathy Carpal tunnel syndrome Sleep apnea NAFL (nonalcoholic fatty liver) Hypothyroidism Irritable bowel syndrome with diarrhea Surgical History H/O umbilical hernia repair H/O midurethral sling procedure S/P placement of nerve stimulator IGTN (ingrowing toe nail) Hx of colonoscopy (~06/05/21) History of thumb surgery History of removal of laparoscopic gastric banding device Hx laparoscopic cholecystectomy S/P panniculectomy H/O bilateral oophorectomy Hx of laparoscopic gastric banding History of laparoscopic appendectomy Hx of vaginal hysterectomy H/O tubal ligation Family History Father Colon cancer Maternal Aunt Colon cancer Paternal Aunt Breast cancer Maternal Aunt Colon cancer Social History Household Members: Spouse Household Members Other:: Housing: House Alcohol intake: never Comment: diehl placed, unable to void Patient Tobacco Use Status: Never used Tobacco e-Cigarette/Vaping Use: Never Used service: No Current occupational status: retired Current occupation: rt handed Sexual orientation: Straight/Heterosexual Gender identity: Female Cognitive needs: No Hearing needs: No Vision needs: Yes (reading glasses) Female Reproductive History Menstrual Age of Menarche: 14 Telehealth Telehealth Telehealth Platform: Telephone Location of provider rendering services: practice address Location of patient: address on file Patient Identification confirmed using: Name, : Yes Telehealth method: voice only Patient verbally consented to treatment: Yes Patient verbally consented to billing insurance company: Yes Patient informed of any privacy concerns related to visit: Yes Minutes spent on Phone/Video with Pt.: 45 Assessment & Plan Assessment & Plan (1) Obesity: Code(s): E66.9 - Obesity, unspecified Category: Medical Qualifiers: Obesity type: due to excess calories Obesity classification: adult class 2 (BMI 35 - 39.9) Serious obesity comorbidity presence: with serious comorbidity Body mass index: BMI 39.0-39.9 Qualified Code(s): E66.812 - Obesity, class 2; Z68.39 - Body mass index [BMI] 39.0-39.9, adult Plan: 1. Nutritional counseling. Start with one premade PREMIER protein (buy at [employer] or [employer]) shake (mix 4oz of Premier mixed with 4oz low fat unsweetened almond milk each) at 7am-9am, one protein bar (Fit Crunch protein bar, buy at [employer], or [employer]) at 10am-12pm, another premade PREMIER protein shake (mix 4oz of Premier mixed with 4oz low fat unsweetened almond milk each) at 1pm-3pm, another [employer] protein bar,? dinner at 7pm (8 forks of protein and 8 forks of salad/vegetables). So you do 2 protein shakes, 2 protein bars and one meal per day. Meal to include lean meat (beef, fish, pork, turkey, chicken), or guyanese yogurt, or egg whites, or beans with a salad with olive oil and fruits (berries, pears, apples, kiwi). Avoid salt, breads, potatoes, rice, pasta, desserts. 3. Each shake would be drunk slowly, like coffee in a period of 2 hours. 4. Cut each bar in 4 pieces and eat each piece in 30min ?to make each bar last 2 hours. 5. I emphasized the importance of measuring accurately the food portion and measure it when serving the food in plate 6. The meal portions include 8 full-size forks of meat and 8 full-size forks of salad. You always eat the meat portion but you can replace up to 4 forks for salad/vegetables with rice, potatoes or pasta, or a fruit ?if you like. The less you do it the better weight loss will be. 7. One full-size fork is what it can be scooped on the fork without falling aside and not what can be bit with the fork. Use regular forks like those you find in a typical restaurant. 8.? Please buy the body composition scale we discussed and send me weight measurements as soon as possible and then once a week. Always include your diet and exercise plan. 9. Start walking outside daily, tracking calories with a goal of 300 calories per day, daily. Goal is to burn 2000 calories per week on exercise. 10. The best choice would be to purchase a stationary bike at home that can track calories. 11. Goal is to lose at least 1.5-2lbs per week 12. Goal to lose 10% of your weight before surgery, which is about 20lbs. Ultimate weight goal: 177lbs before surgery 13. Please follow the diet plan exactly without any change. If you don't like something about the plan or you feel hungry you need to communicate with me so I can help you revise the plan. You should not change the plan yourself
[2025-07-13 13:42] VITALS: BMI 39.9
== END 2025-07-13 14:19 | disposition home or self-care (01) ==
LOC: HO.HBS 08:15
PROVIDERS: PCP Physician Assistant; Visit Provider Surgery
DX: E66.9 Obesity, unspecified (principal); Z68.39 Body mass index [BMI] 39.0-39.9, adult
CPT/HCPCS: 99204

== ENCOUNTER 2025-07-15 09:07 | Outpatient (AMB) | payer MEDICARE, OTHER, SELFPAY ==
--- OUTSIDE RECORDS SUMMARY | 2024-08-26 09:45 | XMS_ITS ---
Author Organization [facility] Address [address] [place] [address] Care Team Providers Care Heel Blacker Name Role Phone Chip Bowden MD Primary Care Provider UnavailDavie Puente Unavailable [phone] Gemini Mir [phone] Encounters Encounter Location Date Provider Diagnosis [facility] [address] [place] [address] 08/26/2024 Gemini Mir Plan Of Treatment No Information Progress Notes * SPENCER ElainasagarDOB:1950 (74 yo F)Acc No.[id number]:08/26/2024 Progress Notes Patient: Nicci ROMERO Provider: Dale Mir DPM :1950 A ge:73 Y S ex:Female Date:08/26/2024 Address: [address] [id number] Pcp:Chip Bowden MD Subjective: * Chief Complaints: * * Medical History: Objective: * Vitals: Assessment: Plan: * Treatment: * Images: * The named appointment provid er may or may not be the originator of this progress note, and it is not deemed complete until electronically signed by the appointment provider. Sign off status: Pending * Provider: Dale Mir DPM Date: 10/26/2023 Generated for Katia patterson/Faxing/eTransmitting on: 1 09:34 AM EDT
--- OUTSIDE RECORDS SUMMARY | 2025-03-09 05:00 | XMS_ITS ---
Author Organization [facility] Address [address] [place] [address] Care Team Providers Care Credit Control Officer Name Role Phone Chip Bowden MD Primary Care Provider UnavailDavie Puente Unavailable [phone] Gemini Mir [phone] Encounters Encounter Location Date Provider Diagnosis [facility] [address] [place] [address] 03/09/2025 Gemini Mir Plan Of Treatment No Information Progress Notes * SPENCER ElainasagarDOB:1950 (74 yo F)Acc No.[id number]:03/09/2025 Progress Note Patient: Nicci ROMERO Provider: Dale Mir DPM :1950 A ge:74 Y S ex:Female Date:03/09/2025 Address: [address] [id number] Pcp:Chip Bowden MD Subjective: * Chief Complaints: [...] DPM Date: 0 03/09/2025 Generated for Katia patterson/Faxing/eTransmitting on: 1 09:33 AM EDT
[2025-07-15 08:24] VITALS: BP 136/80; PULSE 93; TEMP 36.4; O2SAT 98; BMI 41.2
--- NOTE | 2025-07-15 08:24 | MHC.PC.OV ---
Vital Signs 07/15/25 08:24 Height 4 ft 11 in Weight 92.533 kg BMI 41.2 BP 136/80 Blood Pressure Location Lt brachial Position Sitting Pulse 93 Pulse Source Pulse Oximeter Temp 97.5 F Temp Source Temporal Artery Scan Pulse Oximetry (%) 98 Oxygen Delivery Method Room Air Intake Visit Reasons: Est Pt Punch Out Crew Member Required: No Accompanied by: Self / Same As Patient Allergies Penicillins Allergy (Intermediate, Verified 07/15/25 08:25) HIVES, ANAPHYLAXIS Beef Containing Products (BEEF CONTAINING PRODUCTS) Allergy (Mild, Verified 07/15/25 08:25) INFLAMMATION caffeine (CAFFEINE) Allergy (Mild, Verified 07/15/25 08:25) UNKNOWN lactose (LACTOSE) Allergy (Mild, Verified 07/15/25 08:25) STOMACH PAIN,DIARRHEA orange Allergy (Mild, Verified 07/15/25 08:25) GEOGRAPHIC TONGUE oxycodone (Percocet) Allergy (Mild, Verified 07/15/25 08:25) Vomiting Pork/Porcine Containing Products (PORK/PORCINE CONTAINING PRODUCTS) Allergy (Mild, Verified 07/15/25 08:25) INFLAMMATION,PAIN Sulfa (Sulfonamide Antibiotics) (SULFA (SULFONAMIDE ANTIBIOTICS)) Allergy (Mild, Verified 07/15/25 08:25) DIARRHEA,VOMITING nut - unspecified (nut) Adverse Reaction (Mild, Verified 07/15/25 08:25) UNKNOWN Medication List - Last Reconciled 07/15/25 by MARCOS Wise albuterol sulfate 90 mcg/actuation (Ventolin HFA) 2 puffs inhalation Q6H PRN amlodipine 5 mg PO DAILY dicyclomine 10 mg PO BID PRN diphenhydramine HCl (Unisom SleepGels) 50 mg PO BEDTIME ihqqiz-acfcbaux-yiuaoir 10,500-35,500- 61,500 unit (Pancreaze) 2 caps PO BID loperamide 6 mg (3 x 2 mg) PO DAILY 90 days meloxicam 7.5 mg PO BID Synthroid (levothyroxine) 50 mcg PO DAILY NS Tobacco use date assessed: 07/15/25 Fall risk assessment: No Falls in past year Last assessed Fall Risk: 07/15/25 Dental Screening Dental Screen Date: 07/15/25 Did you have a dental visit in the last 12 months?: Yes Did you have a dental problem in the last 6 months where you did not have access to dental care?: No HPI HPI Comments History of Present Illness Details 74-year-old female with history of hypertension, prediabetes, RAMIN, hypothyroidism, IBS prevents to the office today for follow-up. HTN- previously on hydrochlorothiazide but discontinued due to increased urination. Tolerating amlodipine 5 mg well. Blood pressure is controlled in the office today ANNABELLA/intrinsic sphincter deficiency-following with Dr. Ying. s/p sacral neuromodulation therapy 08/2024. 02/04 underwent bulkiing for ANNABELLA which was successful. HCTZ discontinued giving contributing factors. Prediabetes- stable hypothyroidism- stable on levothyroxine Concerns: Wheezing- ongoing for over a year. No confirmed diagnosis of asthma or COPD. There is occasional associated cough. Symptoms are worse when lying down. She has used her albuterol inhaler occasionally with some success. Not on maintenance inhalers. Feels this is related to allergies rather than asthma. Health maintenance: Last mammogram 12/2024, negative for malignancy, 1 year follow-up advised Last DEXA scan 0 05/2025 shows osteopenia FRAX 4.9% major fracture, 0.6% hip fracture Last screening colonoscopy 05/2021 with 5 year follow-up advised, Dr. Ryan ROS: See HPI EXAM: Constitutional - Awake and Alert, No apparent distress Eyes - PERRL Cardiovascular - S1S2, RRR, No edema Respiratory - Normal lung expansion, Normal respiratory effort, No respiratory distress, scattered expiratory wheezes bilaterally Extremities - no calf tenderness bilaterally, no swelling Skin - Warm/Dry Neurological - Alert & oriented x3 Psychological - Appropriate affect PFSH Medical History Asthma BMI 39.0-39.9,adult Obesity History of Clostridioides difficile colitis Diarrhea C. difficile colitis Obesity due to excess calories Morbid obesity with BMI of 45.0-49.9, adult Spondylosis Well woman exam ANNABELLA (stress urinary incontinence, female) Urinary urgency Urgency-frequency syndrome Urinary frequency Urinary and fecal incontinence Abdominal pain Colon cancer screening Rectal bleeding BRADFORD (dyspnea on exertion) Adjustment disorder Sacral nerve stimulator present Thrush Shortness of breath Hyperlipidemia LDL goal <100 Hypertension Fatty liver Pre-diabetes Plantar fasciitis Sacroiliitis Lumbosacral spondylosis without myelopathy Carpal tunnel syndrome Sleep apnea NAFL (nonalcoholic fatty liver) Hypothyroidism Irritable bowel syndrome with diarrhea Surgical History H/O umbilical hernia repair H/O midurethral sling procedure S/P placement of nerve stimulator IGTN (ingrowing toe nail) Hx of colonoscopy (~06/05/21) History of thumb surgery History of removal of laparoscopic gastric banding device Hx laparoscopic cholecystectomy S/P panniculectomy H/O bilateral oophorectomy Hx of laparoscopic gastric banding History of laparoscopic appendectomy Hx of vaginal hysterectomy H/O tubal ligation Family History (Updated 07/15/25 @ 09:26 by Juanita Marcus MA) Father Colon cancer Maternal Aunt Colon cancer Paternal Aunt Breast cancer Maternal Aunt Colon cancer Mother No problems noted. Family/Other Mental health disorder Social History Household Members: Spouse Household Members Other:: Housing: House Alcohol intake: never Comment: diehl placed, unable to void Patient Tobacco Use Status: Never used Tobacco e-Cigarette/Vaping Use: Never Used service: No Current occupational status: retired Current occupation: rt handed Sexual orientation: Straight/Heterosexual Gender identity: Female Cognitive needs: Yes (cane) Hearing needs: No Vision needs: Yes (reading glasses) Female Reproductive History Menstrual Age of Menarche: 14 Questionnaire PHQ-9 Over the last 2 weeks, how often have you been bothered by any of the following problems? 1. Little interest or pleasure in doing things: not at all 2. Feeling down, depressed, or hopeless: several days 3. Trouble falling or staying asleep, or sleeping too much: nearly every day 4. Feeling tired or having little energy: several days 5. Poor appetite or overeating: nearly every day ( overeating) 6. Feeling bad about yourself - or that you are a failure or have let yourself or your family down: not at all 7. Trouble concentrating on things, such as reading the newspaper or watching television: not at all 8. Moving or speaking so slowly that other people could have noticed. Or the opposite - being so fidgety or restless that you have been moving around a lot more than usual: not at all 9. Thoughts that you would be better off or of hurting yourself in some way: not at all Total score: 8 Source: Developed by Drs. Ovidio Boo, Niya Esteban, Ric Robles and colleagues, with an educational raghav from [employer]. Thrive Questionnaire Date Thrive assessed: 07/15/25 I am a: Patient Within the past 12 months, did the food you bought not last and you didn't have the money to get more?: Never true Within the past 12 months, did you worry whether your food would run out before you got money to buy more?: Never true Do you have trouble getting transportation to medical appointments?: No Do you have trouble paying your heating and electricity bill?: No Do you have trouble taking care of your child, family member or friend?: No Do you have trouble with day-to-day activities such as bathing, preparing meals, shopping, managing finances, etc.?: No Are you currently unemployed and looking for a job?: No Are you interested in more education?: No THRIVE Score: 0 AUDIT C Alcohol Use Questionnaire (AUDIT-C) 1. How often do you have a drink containing alcohol?: Never 3. How often do you have six or more drinks on one occasion?: Never Total Score: 0 EUGENIA-7 AMB Questionnaire EUGENIA-7 Date EUGENIA - 7 assessed: 07/15/25 Feeling nervous, anxious, or on edge: 1 = Several days Not being able to stop or control worryin = Not at all Worrying too much about different things: 3 = Nearly every day Trouble relaxin = Not at all Being so restless that it is hard to sit still: 0 = Not at all Becoming easily annoyed or irritable: 0 = Not at all Feeling afraid as if something awful might happen: 0 = Not at all Total EUGENIA-7 score (0-4 normal; 5-9 mild; 10-14 moderate; 15-21 severe): 4 Source: Developed by Drs. Ovidio Boo, Ric Melchor and colleagues, with an educational raghav from [employer]. Physical exam (Primary Care) Vital Signs: Last Vital Signs Temp 97.5 F 07/15/25 08:24 Pulse 93 07/15/25 08:24 BP 136/80 07/15/25 08:24 Pulse Ox 98 07/15/25 08:24 Oxygen Delivery Method Room Air 07/15/25 08:24 BMI result Body Mass Index 41.2 Tobacco/Smoking Status: Tobacco use Status Tobacco use date assessed 07/15/25 07/15/25 08:26 Patient Tobacco Use Status Never used Tobacco 07/15/25 08:26 e-Cigarette/Vaping Use Never Used 07/15/25 08:26 PHQ-9: PHQ-9 Score PHQ-9: Total score 8 07/15/25 11:32 Thrive Assessment: Date of Thrive Assessment Date Thrive assessed 07/15/25 07/15/25 08:26 Coding Level of Care Code Est Pt Level 4 (93888) Complex EM visit Add On G2211 Diagnoses Hypothyroidism E03.9 Pre-diabetes R73.03 Primary hypertension I10 Hypertension type: primary hypertension Hyperlipidemia LDL goal <100 E78.5 Morbid obesity with BMI of 40.0-44.9, adult E66.01; Z68.41 Assessment & Plan Assessment & Plan (1) Hypothyroidism: Code(s): E03.9 - Hypothyroidism, unspecified Category: Medical Plan: TSH ordered. Continue levothyroxine/Synthroid (2) Pre-diabetes: Comment: Pt has BMI at 40.4 on 11/27/21, has reports of lactose intolerance with hx of IBS Code(s): R73.03 - Prediabetes Category: Medical Plan: A1c ordered (3) Hypertension: Code(s): I10 - Essential (primary) hypertension Category: Medical Qualifiers: Hypertension type: primary hypertension Qualified Code(s): I10 - Essential (primary) hypertension Plan: Controlled. Continue amlodipine (4) Hyperlipidemia LDL goal <100: Code(s): E78.5 - Hyperlipidemia, unspecified Category: Medical Plan: Lipid panel ordered. ASCVD risk score to be calculated pending results of studies (5) Morbid obesity with BMI of 40.0-44.9, adult: Code(s): E66.01 - Morbid (severe) obesity due to excess calories; Z68.41 - Body mass index [BMI] 40.0-44.9, adult Category: Medical Plan: Continue with weight loss efforts. She desires new referral to medical weight management. Plan Also requesting referral to Allergy and immunology due to postnasal drip/wheezing. Advised she can use albuterol inhaler as needed Follow-up in the office in 6 months, sooner if needed Orders: Orders Basic Metabolic Panel Today E03.9 - Hypothyroidism, unspecified, E66.01 - Morbid (severe) obesity due to excess calories, E78.5 - Hyperlipidemia, unspecified, I10 - Essential (primary) hypertension, R73.03 - Prediabetes, Z68.41 - Body mass index [BMI] 40.0-44.9, adult, Z91.018 - Allergy to other foods Hemoglobin A1c Today R73.03 - Prediabetes Lipid Panel Today E03.9 - Hypothyroidism, unspecified, E66.01 - Morbid (severe) obesity due to excess calories, E78.5 - Hyperlipidemia, unspecified, I10 - Essential (primary) hypertension, R73.03 - Prediabetes, Z68.41 - Body mass index [BMI] 40.0-44.9, adult, Z91.018 - Allergy to other foods Liver Panel Today E03.9 - Hypothyroidism, unspecified, E66.01 - Morbid (severe) obesity due to excess calories, E78.5 - Hyperlipidemia, unspecified, I10 - Essential (primary) hypertension, R73.03 - Prediabetes, Z68.41 - Body mass index [BMI] 40.0-44.9, adult, Z91.018 - Allergy to other foods TSH reflex Free T4 Today E03.9 - Hypothyroidism, unspecified, E66.01 - Morbid (severe) obesity due to excess calories, E78.5 - Hyperlipidemia, unspecified, I10 - Essential (primary) hypertension, R73.03 - Prediabetes, Z68.41 - Body mass index [BMI] 40.0-44.9, adult, Z91.018 - Allergy to other foods Referrals Medical Weight Management Referral E66.01 - Morbid (severe) obesity due to excess calories, Z68.41 - Body mass index [BMI] 40.0-44.9, adult Allergy & Immunology Referral J30.2 - Other seasonal allergic rhinitis, J45.909 - Unspecified asthma, uncomplicated Medications: New albuterol sulfate 90 mcg/actuation (Ventolin HFA) 2 puffs inhalation Q6H PRN 8.5 grams 0RF shortness of breath or wheezing
--- OUTSIDE RECORDS SUMMARY | 2025-07-15 09:34 | XMS_ITS | Patient Health Record ---
[facility] Address [address] [place] [address] Care Team Providers Care Jack Prizer Name Role Phone Chip Bowden MD Primary Care Provider Unavaila Davie Schmidt Unavailable [phone] Zackary Benavides Unavailable [phone] Gemini Mir Unavailable [phone] Allergies Allergen (clinical drug ingredient) Drug/Non Drug [...] Ordered Date Performed Result Body Sit e [id number] NAIL, 6 OR MORE 11/10/2024 N/A Encounters Encounter Location Date Provider Diagnosis [address] [address] 07/22/2024 Zackary Benavides Ingrowing nail L60.0 ; Other viral warts B07.8 ; Pain in left foot M79.672 ; Pain in right foot M79.671 ; Tinea pedis B35.3 and Plantar fascial fibromatosis M72.[address] [address] 11/10/2024 Gemini Mir Pain in right toe(s) M79.674 ; Onychomycosis B35.1 and Pain in left toe(s) M79.675 [facility] [address] [address] 05/17/2025 Gemini Mir Pain in right toe(s) M79.674 ; Onychomycosis B35.1 and Pain in left toe(s) M79.[address] [address] 07/22/2024 Davie Schumacher [address] [address] 08/23/2024 Gemini Mir [address] [address] 01/18/2025 Gemini Mir Assessments Encounter Date Diagnosis [...] X ray : Foot, right 3V 04/19/2024 [id number] NAIL, 6 OR MORE 11/10/2024 Insurance Providers Payer Name Payer Address Payer Phone Subscriber Number Group Number Insured Name Patient Relationship to Insured Coverage Start Date Coverage End Date Medicare [employer] [address] [place] [phone] [id number] Nicci Hanna Self - patient is the insured [facility] [address] [place] [address] [id number] Nicci Hanna Self - patient is [...]
--- OUTSIDE RECORDS SUMMARY | 2025-07-15 09:34 | XMS_ITS | Patient Health Record ---
Author Organization [facility] Address [address] [place] [address] Care Team Providers Care Medical Staff Services Coordinator Name Role Phone Kal (RETIRED) Chip PAUL Primary Care Provide r Unavailable Ovidio Flores Unavailable [phone] EUGENIO GARCIA Unavailable Unavailable Allergies Allergen (clinical [...] Problem Status W/U Status Risk Notes Problem [id number] Encounter for screening for malignant neoplasm of colon (Z12.11) Active confirmed Problem 595126365 History of adenomatous polyp of colon (Z86.010) Active confirmed Problem 501077509 Irritable bowel syndrome with diarrhea (K58.0) Active confirmed Problem Screening for malignant neoplasm of rectum (680315162) Encounter for screening for malignant neoplasm of rectum (Z12.12) Active confirmed Problem 939101173 Family history of colon cancer (Z80.0) Active confirmed Problem 254124259 Clostridium difficile infection (B96.89) Active confirmed Problem 09030416 Diarrhea, unspecified type (R19.7) Active confirmed Problem 40580624 Hypertension, unspecified type (I10) Active confirmed Problem 561808290383240 History of Clostridium difficile infection (Z86.19) Active [...] Date MEDICARE OF [place] [address] [facility] [address] [id number] NICOLE PALMER Self - patient is the insured [facility] INDEMNITY [address] [place] [address] [id number] NICOLE PALMER Self - patient is the insured Medical (General) History Medical History History ICD Code Colonoscopy 10/2007--Tubular adenoma removed; biopsies neg for microscopic colitis; neg. colonoscopy [place] [address] Phillips Hypothyroidism Lap band placed in 2006-ramirez sient weight loss- Dr. Ocampo is planning to remove it IBS--neg. labs for celiac disease in 2013 Denies [place],DM,CVA,Lung disease,renal dise ase Colonoscopy in 02/2013--WNL--no polyps Back pain/arthritis-herniated disc C.diff x2 (2014)--ultimately treated wit h Vancomycin Sleep apnea--had a CPAP but presently no t using it She had a negative colonoscopy with az i n 2017 Colonoscopy in May with [...] put on Alosetron by January LISA Meek, [facility] [place] [facility] Surgical History Surgery Date(Month/Year) Hysterectomy, subsequent removal of both ovaries and Fallopian tubes Appendectomy Laparoscopies Cholecystectomy Lap band in 2006 Ayah waggoner after weight loss Bladder suspension Hernia repair--umbilical, bilateral ingu inal--Dr. Ocampo 08/2014 Lap band removal 2011
--- OUTSIDE RECORDS SUMMARY | 2025-07-15 09:34 | XMS_ITS | Clinical Summary ---
Author Organization [facility] Address [address] [place] [address] 7[address] [place] [address] Care Team Providers Care Plodding Operator Name Role Phone Unavailable Primary Care [...] EDT) Egg White (F1) IgE 0.16(A) kU/L [facility] Cow's Milk (F2) IgE 0.13(A) kU/L [facility] Codfish (F3) IgE <0.10 kU/L [facility] Wheat (F4) IgE <0.10 kU/L [facility] Sesame Seed (F10) IgE <0.10 kU/L [facility] Peanut (F13) IgE <0.10 kU/L [facility] Soybean (F14) IgE <0.10 kU/L [facility] Hazelnut (F17) IgE <0.10 kU/L [facility] Salem (F20) IgE <0.10 kU/L [facility] Shrimp (F24) IgE 0.42(A) kU/L [facility] Tuna (F40) IgE <0.10 kU/L [facility] L255-HqE Lawson <0.10 kU/L [facility] P682-RmL Scallop <0.10 kU/L [facility] Class 0 [facility] Comment:THIS TEST WAS PERFOR MED AT:[facility] [address] [address]ARGVBEDITA JULIEN MD Class 0 [facility] Comment:THIS TEST WAS PERFOR MED AT:[facility] [address] [address]UPWAXEDITA JULIEN MD Salem Class 0 [facility] Comment:THIS TEST WAS PERFOR MED AT:[facility] [address] [address]QHMYBKEMAL JULIEN MD Class 0 [facility] Comment:THIS TEST WAS PERFOR MED AT:[facility] [address] [address]QNEJOKEMAL JULIEN MD Class 1 [facility] Comment:THIS TEST WAS PERFOR MED AT:[facility] [address] [address]QWZJXJESSICA JULIEN MD Class 0 [facility] Comment:THIS TEST WAS PERFOR MED AT:[facility] [address] [address]GMIXCJESSICA JULIEN MD Class 0 [facility] Comment:THIS TEST WAS PERFOR MED AT:[facility] [address] DELISA JULIEN MD Class 0/1 [facility] Comment:THIS TEST WAS PERFOR MED AT:[facility] [address] DELISA JULIEN MD Class 0/1 [facility] Comment:THIS TEST WAS PERFOR MED AT:[facility] [address] DELISA JULIEN MD Class 0 [facility] Comment:THIS TEST WAS PERFOR MED AT:[facility] [address] DELISA JULIEN MD Class 0 [facility] Comment:THIS TEST WAS PERFOR MED AT:[facility] [address] DELISA JULIEN MD Class 0 [facility] Comment:THIS TEST WAS PERFOR MED AT:[facility] [address] DELISA JULIEN MD Class 0 [facility] Comment:THIS TEST WAS PERFOR MED AT:[facility] [address] [address]BZVYBJESSICA JULIEN MD Cashew Nut (F202) IgE <0.10 kU/L [facility] Macadamia Nut (RF345) IgE <0.10 kU/L [facility] Class 0 [facility] Comment:THIS TEST WAS PERFOR MED AT:[facility] [address] DELISA JULIEN MD Thornton (F41) IgE <0.10 kU/L [facility] [place] Nut (F18) IgE <0.10 kU/L [facility] Class 0 [facility] Comment:THIS TEST WAS PERFOR MED AT:[facility] [address] [place] [address]LTOULEDITA JULIEN MD Class 0 [facility] Comment:THIS TEST WAS PERFOR MED AT:[facility] [address] [place] [address]VHRYNEDITA JULIEN MD Class 0 [facility] Comment:THIS TEST WAS PERFOR MED AT:[facility] [address] [place] [address]EJSSNEDITA JULIEN MD 05/11/2025 11:3 5 AM EDT 05/11/2025 12:16 PM EDT us Generic External Data Provider LAB BLOOD ORDERAB LES Final Result Performing Organization Address City/State/[facility] Co de Phone Number [facility] [address] [place] [address] [phone] * BI Mammogram Screening Tomosynthesis Bilateral (01/03/2025 3:30 PM EDT) Anatomical Region Laterality Modality Breast Bilateral Mammography 01/03/2025 3:30 PM EDT Narrative 01/10/2025 4:54 PM EDT [facility] [address] [place] [address] Mammography Report Signed Patient: Nicci Hanna MR#: [id number] : 1950 Acct:[id number] Age/Sex: 74 / F ADM Date: 01/03/25 Loc: HO.MAMMO Attending Dr: Michell Crandall MD Ordering Physician: Michell Crandall Results: 2Benign F indings Date of Service: 01/03/25 Follow Up: 1 Year From Orig inal Mammogram Procedure(s): MM tomosynthesis screening BI Accession Number(s): [id number] cc: Michell Crandall EXAMINATION: MM SCREENING DIGITAL [...] 01/10/25 1650 DD/ 1530 TD/TT: 01/03/25 1546 Scene Painter: Procedure Note Donotuseinterpreter, Image - 01/11/2025 [facility] [address] [place], [place] [address] Mammography Report Signed Patient: Nicci HannaMR#: [id number] : 1950cct:[id number] Age/Sex: 74 / FADM Date: 01/03/25 Loc: MeraMAMMO Attending Dr: Michell Crandall MD Ordering Physician: Nathalia Crandallults: 2Benign F indings Date of Service: 01/03/25Follow Up: 1 Year From Orig inal Mammogram Procedure(s): MM tomosynthesis screening BI Accession Number(s): [id number] cc: Michell Crandall EXAMINATION: MM SCREENING DIGITAL [...] 01/10/25 1650 DD/ 1530 TD/TT: 01/03/25 1546 Scene Painter: Michell Crandall MD IMG BI PROCEDURES Edited Resul t - Final from Last 3 Months or Most Recently Relevant to Health Maintenance Insurance MEDICARE [place], [place] [id number]
--- OUTSIDE RECORDS SUMMARY | 2025-07-15 09:35 | XMS_ITS | Encounter Summary ---
Author Organization [facility] Address [address] [place] [address] Phone Care Team Providers Care Banquet Attendant Name Role Phone Chip Bowden MD Primary Care Provider Encounter Details Date Type Department Care Team (Late st Contact Info) Description 07/09/2025 Procedure Pass [facility] Endoscopy Department [address] [place] [address] Social History Tobacco Use Types Packs/Day Years [...] documented as of this encounter Care Teams Banquet Attendant Relationship Specialty Start Date End Date Chip Bowden MD [address] [place] [address] [place] [address] PCP - General Internal Medicine 06/29/15 documented as of this encounter Additional Source Comments The information contained in this document represents components of the legal health record. It is not the complete legal health record.[facility]
--- OUTSIDE RECORDS SUMMARY | 2025-07-15 09:35 | XMS_ITS | Encounter Summary ---
Author Organization [facility] Address [address] [place] [address] Phone Care Team Providers Care Spanish Speaking Babysitter Name Role Phone Chip Bowden MD Primary Care Provider Encounter Details Date Type Department Care Team (Late st Contact Info) Description 02/12/2023 Procedure Pass [facility] [address] [place] [address] Social History Tobacco Use Types Packs/Day Years [...] on filedocumented in this encounter Care Teams Spanish Speaking Babysitter Relationship Specialty Start Date End Date Chip Bowden MD [address] [place] [address] [place] [address] PCP - General Internal Medicine 06/29/15 documented as of this encounter Additional Source Comments The information contained in this document represents components of the legal health record. It is not the complete legal health record.[facility]
--- OUTSIDE RECORDS SUMMARY | 2025-07-15 09:35 | XMS_ITS | Clinical Summary ---
Author Organization [facility] Address [address] [place] [address] Phone Care Team Providers Care Rope Machine Setter Name Role Phone Chip Bowden MD [...] Department Care Team Description 07/09/2025 Procedure Pass [facility] Endoscopy Department [address] [place] [address] 07/09/2025 Hospital Encounter [facility] Endoscopy Department [address] [place] [address] Margaret Ugarte MD, MPH from Last 3 [...] topic Medical Devices Not on file Insurance [employer] [facility] [employer] MEDICARE SUPPLEMENT MEDICARE PART A & B [facility] MEDICARE SUPPLEMENT MEDICARE PART A & B [facility] [employer] MEDICARE SUPPLEMENT MEDICARE PART A & B [facility] MEDICARE SUPPLEMENT MEDICARE PART A & [place] [address] [place] [address] [employer] MEDICARE SUPPLEMENT MEDICARE PART A & [place] [address] [place] [address] [employer] MEDICARE SUPPLEMENT MEDICARE PART A & B MEDICARE SUPPLEMENT MEDICARE PART A & [place] [address] [address] [place] [address] MEDICARE SUPPLEMENT MEDICARE PART A & [place] [id number] [facility] [employer]ION MEDICARE SUPPLEMENT MEDICARE PART A & B Care Teams Rope Machine Setter Relationship Specialty Start Date End Date Chip Bowden MD [address] [place] [address] [place] [address] PCP - General Internal Medicine 06/29/15 Additional Source Comments The information contained in this document represents components of the legal health record. It is not the complete legal health record.[facility]
--- OUTSIDE RECORDS SUMMARY | 2025-07-15 09:35 | XMS_ITS | Encounter Summary ---
Author Organization [facility] Address [address] [place] [address] Phone Care Team Providers Care Leadership Program Internship Name Role Phone Chip Bowden MD Primary Care Provider Encounter Details Date Type Department Care Team (Late st Contact Info) Description 07/09/2025 Hospital Encounter [facility] Endoscopy Department [address] [place] [address] Margaret Ugarte MD, MPH [address] [place] [phone] [email or web address] Social History Tobacco Use Types Packs/Day [...] documented as of this encounter Care Teams Leadership Program Internship Relationship Specialty Start Date End Date Chip Bowden MD [address] [place] [address] [place] [address] PCP - General Internal Medicine 06/29/15 documented as of this encounter Additional Source Comments The information contained in this document represents components of the legal health record. It is not the complete legal health record.[facility]
== END 2025-07-15 09:49 | disposition home or self-care (01) ==
LOC: HO.HMCHD 09:08
PROVIDERS: PCP Physician Assistant; Visit Provider Physician Assistant
DX: E03.9 Hypothyroidism, unspecified (principal); R73.03 Prediabetes; I10 Essential (primary) hypertension; E78.5 Hyperlipidemia, unspecified; E66.01 Morbid (severe) obesity due to excess calories; Z68.41 Body mass index [BMI] 40.0-44.9, adult

== ENCOUNTER → 2025-07-15 09:07 | Outpatient (BNVA) | payer MEDICARE, OTHER, SELFPAY | PROVIDERS: PCP Physician Assistant; Visit Provider Physician Assistant | DX: E03.9 Hypothyroidism, unspecified (principal); R73.03 Prediabetes; I10 Essential (primary) hypertension; E78.5 Hyperlipidemia, unspecified; E66.01 Morbid (severe) obesity due to excess calories; Z68.41 Body mass index [BMI] 40.0-44.9, adult; Z79.899 Other long term (current) drug therapy; Z13.39 Encounter for screening examination for other mental health and behavioral disorders; Z13.30 Encounter for screening examination for mental health and behavioral disorders, unspecified | CPT/HCPCS: 96127; 99212 ==

== ENCOUNTER 2025-07-15 10:07 | Outpatient (REF) | payer MEDICARE, OTHER, SELFPAY ==
[2025-07-15 14:35] LABS: Alanine Aminotransferase 29 U/L (0-31); Albumin Level 4.6 g/dL (3.5-5.0); Alkaline Phosphatase 114 U/L (39-117); Anion Gap 9 (12-20); Aspartate Amino Transferase 29 U/L (5-31); Blood Urea Nitrogen 16 mg/dL (9-16); Calcium 9.5 mg/dL (8.4-10.2); Carbon Dioxide 28 mmol/L (22-29); Chloride 107 mmol/L (96-108); Cholesterol 183 mg/dL (<200); Estimated Glomerular Filt Rate > 60; HDL Cholesterol 51 mg/dL (>40); Potassium 4.2 mmol/L (3.3-5.1); Sodium 140 mmol/L (135-145); Total Protein 7.5 g/dL (6.5-8.0); Triglycerides 77 mg/dL (<150)
== END 2025-07-15 10:08 | disposition home or self-care (01) ==
LOC: HO.10HDL 10:07
PROVIDERS: Visit Provider Physician Assistant
DX: E66.01 Morbid (severe) obesity due to excess calories (principal); I10 Essential (primary) hypertension; E78.5 Hyperlipidemia, unspecified; R73.03 Prediabetes; E03.9 Hypothyroidism, unspecified; Z91.018 Allergy to other foods; Z68.41 Body mass index [BMI] 40.0-44.9, adult
CPT/HCPCS: 36415; 80048; 80061; 80076; 83036; 84443

== ENCOUNTER 2025-08-29 15:08 | Outpatient (AMB) | payer MEDICARE, OTHER, SELFPAY ==
--- NOTE | 2025-08-29 14:44 | A.OFFPC_ITS ---
Vital Signs 08/29/25 15:17 Height 4 ft 11.45 in Weight 91.626 kg BMI 40.2 BP 126/78 Blood Pressure Location Lt brachial Position Sitting Respiration 20 Pulse 87 Pulse Source Pulse Oximeter Temp 98 F Temp Source Temporal Artery Scan Pulse Oximetry (%) 97 Oxygen Delivery Method Room Air Intake Visit Reasons: Infection under L Breast C.O.D. Biller Required: No Accompanied by: Self / Same As Patient Allergies Penicillins Allergy (Intermediate, Verified 08/29/25 14:45) HIVES, ANAPHYLAXIS shrimp Allergy (Intermediate, Verified 08/29/25 15:15) Anaphylaxis Beef Containing Products (BEEF CONTAINING PRODUCTS) Allergy (Mild, Verified 08/29/25 14:45) INFLAMMATION caffeine (CAFFEINE) Allergy (Mild, Verified 08/29/25 14:45) UNKNOWN lactose (LACTOSE) Allergy (Mild, Verified 08/29/25 14:45) STOMACH PAIN,DIARRHEA orange Allergy (Mild, Verified 08/29/25 14:45) GEOGRAPHIC TONGUE oxycodone (Percocet) Allergy (Mild, Verified 08/29/25 14:45) Vomiting Pork/Porcine Containing Products (PORK/PORCINE CONTAINING PRODUCTS) Allergy (Mild, Verified 08/29/25 14:45) INFLAMMATION,PAIN Sulfa (Sulfonamide Antibiotics) (SULFA (SULFONAMIDE ANTIBIOTICS)) Allergy (Mild, Verified 08/29/25 14:45) DIARRHEA,VOMITING nut - unspecified (nut) Adverse Reaction (Mild, Verified 08/29/25 14:45) UNKNOWN Medication List - Last Reconciled 08/29/25 by MARCOS Wise albuterol sulfate 90 mcg/actuation (Ventolin HFA) 2 puffs inhalation Q6H PRN amlodipine 5 mg PO DAILY ciclopirox 8% topical DAILY dicyclomine 10 mg PO BID PRN diphenhydramine HCl (Unisom SleepGels) 50 mg PO BEDTIME btxemn-jffguloy-hqvpahw (pork) 10,500-35,500- 61,500 unit (Pancreaze) 2 caps PO BID loperamide 6 mg (3 x 2 mg) PO DAILY 90 days meloxicam 7.5 mg PO BID metronidazole 0.75% 1 appl topical BEDTIME Synthroid (levothyroxine) 50 mcg PO DAILY NS Tobacco use date assessed: 01/20/25 Dental Screening Dental Screen Date: 01/20/25 HPI HPI Comments History of Present Illness Details 74-year-old female with history of hyper tension, prediabetes, RAMIN, hypothyroidism, IBS prevents to the office today for follow-up. HTN- previously on hydrochlorothiazide but discontinued due to increased urination. Tolerating amlodipine 5 mg well. Blood pressure is controlled in the office today ANNABELLA/intrinsic sphincter deficiency-following with Dr. Ying. s/p sacral neuromodulation therapy 08/2024. 02/04 underwent bulkiing for ANNABELLA which was successful. HCTZ discontinued giving contributing factors. Prediabetes- stable hypothyroidism- stable on levothyroxine Concerns: Rash under bilateral breasts L>R Chronic neck pain radiating into the deltoid. Using icy hot and meloxicam Pain 2oclock Left breast. History fibrocystic breast disease Health maintenance: Last mammogram 12/2024, negative for malignancy, 1 year follow-up advised Last DEXA scan 0 05/2025 shows osteopenia FRAX 4.9% major fracture, 0.6% hip fracture Last screening colonoscopy 05/2021 with 5 year follow-up advised, Dr. Ryan ROS: See HPI EXAM: Constitutional - Awake and Alert, No apparent distress Eyes - PERRL Cardiovascular - S1S2, RRR, No edema Respiratory - Normal lung expansion, Normal respiratory effort, No respiratory distress, scattered expiratory wheezes bilaterally Breast- left breast tenderness to palpation at about 02:00. No palpable masses Extremities - no calf tenderness bilaterally, no swelling MSK- TTP midline and left paraspinal tenderness. Full Rom Skin - Warm/Dry Neurological - Alert & oriented x3 Psychological - Appropriate affect [facility] Medical History (Updated 08/29/25 @ 16:26 by MARCOS Wise) Intertriginous candidiasis Asthma BMI 39.0-39.9,adult Obesity History of Clostridioides difficile colitis Diarrhea C. difficile colitis Obesity due to excess calories Morbid obesity with BMI of 45.0-49.9, adult Spondylosis Well woman exam ANNABELLA (stress urinary incontinence, female) Urinary urgency Urgency-frequency syndrome Urinary frequency Urinary and fecal incontinence Abdominal pain Colon cancer screening Rectal bleeding BRADFORD (dyspnea on exertion) Adjustment disorder Sacral nerve stimulator present Thrush Shortness of breath Hyperlipidemia LDL goal <100 Hypertension Fatty liver Pre-diabetes Plantar fasciitis Sacroiliitis Lumbosacral spondylosis without myelopathy Carpal tunnel syndrome Sleep apnea NAFL (nonalcoholic fatty liver) Hypothyroidism Irritable bowel syndrome with diarrhea Surgical History H/O umbilical hernia repair H/O midurethral sling procedure S/P placement of nerve stimulator IGTN (ingrowing toe nail) Hx of colonoscopy (~06/05/21) History of thumb surgery History of removal of laparoscopic gastric banding device Hx laparoscopic cholecystectomy S/P panniculectomy H/O bilateral oophorectomy Hx of laparoscopic gastric banding History of laparoscopic appendectomy Hx of vaginal hysterectomy H/O tubal ligation Family History (Updated 07/15/25 @ 09:26 by Juanita Marcus MA) Father Colon cancer Maternal Aunt Colon cancer Paternal Aunt Breast cancer Maternal Aunt Colon cancer Mother No problems noted. Family/Other Mental health disorder Social History Household Members: Spouse Household Members Other:: Housing: House Alcohol intake: never Comment: diehl placed, unable to void Patient Tobacco Use Status: Never used Tobacco e-Cigarette/Vaping Use: Never Used service: No Current occupational status: retired Current occupation: rt handed Sexual orientation: Straight/Heterosexual Gender identity: Female Cognitive needs: Yes (cane) Hearing needs: No Vision needs: Yes (reading glasses) Female Reproductive History Menstrual Age of Menarche: 14 Questionnaire Thrive Questionnaire Date Thrive assessed: 04/01/25 EUGENIA-7 AMB Questionnaire EUGENIA-7 Date EUGENIA - 7 assessed: 01/20/25 Source: Developed by Drs. Ovidio Boo, Niya Esteban, Ric Robles and colleagues, with an educational raghav from [employer]. Physical exam (Primary Care) Vital Signs: Last Vital Signs Temp 98 F 08/29/25 15:17 Pulse 87 08/29/25 15:17 Resp 20 08/29/25 15:17 BP 126/78 08/29/25 15:17 Pulse Ox 97 08/29/25 15:17 Oxygen Delivery Method Room Air 08/29/25 15:17 BMI result Body Mass Index 40.2 Tobacco/Smoking Status: Tobacco use Status Tobacco use date assessed 01/20/25 08/29/25 14:46 Patient Tobacco Use Status Never used Tobacco 08/29/25 14:46 e-Cigarette/Vaping Use Never Used 08/29/25 14:46 Thrive Assessment: Date of Thrive Assessment Date Thrive assessed 04/01/25 08/29/25 14:46 Coding Level of Care Code Ge Pt Level 4 (76525) Complex EM visit Add On G2211 Diagnoses Intertriginous candidiasis B37.2 Chronic neck pain M54.2; G89.29 Pre-diabetes R73.03 Breast pain, left N64.4 Assessment & Plan Assessment & Plan (1) Intertriginous candidiasis: Code(s): B37.2 - Candidiasis of skin and nail Category: Medical Plan: Prescribed ketoconazole to use twice daily (2) Chronic neck pain: Code(s): M54.2 - Cervicalgia; G89.29 - Other chronic pain Category: Medical Plan: Continue with topical analgesics as well as meloxicam. She is given exercises to perform at home. If not improving, who will reach out to the office in referral to PT were placed. Discussed posture as well (3) Pre-diabetes: Comment: Pt has BMI at 40.4 on 11/27/21, has reports of lactose intolerance with hx of IBS Code(s): R73.03 - Prediabetes Category: Medical Plan: Controlled. Advised to continue working on reducing sugar intake as this will increase likelihood of recurrent fungal infection. (4) Breast pain, left: Code(s): N64.4 - Mastodynia Category: Medical Plan: Diagnostic mammogram as well as breast ultrasounds ordered Plan Follow-up in the office in 5 months as scheduled, sooner if needed Orders: Orders Basic Metabolic Panel 5 Months E78.5 - Hyperlipidemia, unspecified, I10 - Essential (primary) hypertension, R73.03 - Prediabetes Hemoglobin A1c 5 Months E78.5 - Hyperlipidemia, unspecified, I10 - Essential (primary) hypertension, R73.03 - Prediabetes Lipid Panel 5 Months E78.5 - Hyperlipidemia, unspecified, I10 - Essential (primary) hypertension, R73.03 - Prediabetes TSH reflex Free T4 5 Months E78.5 - Hyperlipidemia, unspecified, I10 - Essential (primary) hypertension, R73.03 - Prediabetes MM tomosynthesis diagnostic BI Today N64.4 - Mastodynia US breast LT limited Today N64.4 - Mastodynia Medications: New ketoconazole 2% 1 appl topical BID 60 grams 1RF
[2025-08-29 15:17] VITALS: BP 126/78; PULSE 87; RESP 20; TEMP 36.6; O2SAT 97; BMI 40.2
== END 2025-08-29 15:35 | disposition home or self-care (01) ==
LOC: HO.HMCHD 15:09
PROVIDERS: PCP Physician Assistant; Visit Provider Physician Assistant
DX: B37.2 Candidiasis of skin and nail (principal); M54.2 Cervicalgia; G89.29 Other chronic pain; R73.03 Prediabetes; N64.4 Mastodynia

== ENCOUNTER → 2025-08-29 15:08 | Outpatient (BNVA) | payer MEDICARE, OTHER, SELFPAY | PROVIDERS: PCP Physician Assistant; Visit Provider Physician Assistant | DX: B37.2 Candidiasis of skin and nail (principal); M54.2 Cervicalgia; G89.29 Other chronic pain; R73.03 Prediabetes; N64.4 Mastodynia | CPT/HCPCS: 99212 ==